=== PATIENT | female | born 1965 | race African-American/Black ===

== ENCOUNTER 2017-11-17 00:59 | Inpatient (IN) | payer OTHER ==
[~2017-11-17] VITALS: Ht 160 cm; Wt 107.7 kg
--- NOTE | 2017-11-17 01:29 | ED CARDIAC/CP/PALPITATIONS ---
History of Present Illness General Chief Complaint: Chest Pain Stated Complaint: PT C/O CHEST PAIN CARDIAC HX Source: patient, family Exam Limitations: no limitations Vital Signs & Intake/Output Vital Signs & Intake/Output Vital Signs Date Time Temp Pulse Resp B/P B/P Pulse O2 O2 Flow FiO2 Mean Ox Delivery Rate 11/17 205 84 18 116/56 96 Nasal 2.0L Cannula 11/17 020 110 112/48 11/17 0145 98.4 160 20 180/60 11/17 0136 160 20 180/60 94 Room Air 11/17 0129 95 Room Air 11/17 0124 98.4 181 20 95 Room Air Allergies Coded Allergies: No Known Allergies (11/17/17) Reconcile Medications Hydrochlorothiazide 25 MG TABLET 1 TAB PO DAILY HTN (Reported) Metoprolol Tartrate (Lopressor) 50 MG TABLET 1 TAB PO BID HEART (Reported) Metoprolol Tartrate (Lopressor) 50 MG TABLET 1.5 TAB PO BID blood pressure/ rate control 75 mg twice a day Triage Nurses Notes Reviewed? yes Onset: Gradual Duration: hour(s): Timing: recent history Location: central Radiation: no radiation Activities at Onset: none Aspirin Today: no aspirin today Associated Symptoms: chest pain and palpitations HPI: 52 yo woman h/o atrial fibrillation, was previously on xarelto, presents with chest pressure and palpitations x 2 hours, w/ dizziness. She notes mild dyspnea, no radiating pain, no cough, wheezing, phlegm. She has been taking her medications regularly. Past History Travel History Traveled to [place] past 21 day No Medical History Any Pertinent Medical History? see below for history Cardiovascular: AFIB, hypertension Surgical History Surgical History: none Family History Hx Contributory? No Review of Systems Review of Systems Constitutional: Reports: no symptoms. EENTM: Reports: no symptoms. Respiratory: Reports: no symptoms. Cardiovascular: Reports: no symptoms. GI: Reports: no symptoms. Genitourinary: Reports: no symptoms. Musculoskeletal: Reports: no symptoms. Skin: Reports: no symptoms. Neurological/Psychological: Reports: no symptoms. Hematologic/Endocrine: Reports: no symptoms. Immunologic/Allergic: Reports: no symptoms. All Other Systems: Reviewed and Negative Physical Exam Physical Exam General Appearance: well developed/nourished, mild distress Head: atraumatic, normal appearance Eyes: Bilateral: normal appearance. Ears, Nose, Throat: normal pharynx, normal ENT inspection Neck: normal inspection, supple, full range of motion Respiratory: normal breath sounds, chest non-tender, no respiratory distress, quiet respiration, lungs clear Cardiovascular: tachycardic, regularly irregular Gastrointestinal: normal bowel sounds, soft, non-tender Back: normal inspection, normal range of motion, vertebral tenderness Extremities: normal inspection, normal capillary refill, normal range of motion, no edema Neurologic/Psych: no motor/sensory deficits, awake, alert, oriented x 3 Skin: intact, normal color, warm/dry Core Measures ACS in differential dx? Yes No ASA d/t asa given CVA/TIA Diagnosis No Sepsis Present: No Sepsis Focused Exam Completed? No Progress Differential Diagnosis: AMI, afib w/ rvr Plan of Care: Orders Procedure Date/time Status TROPONIN LEVEL 11/17 0407 Complete EKG 11/17 0407 Active EKG 11/17 0202 Active THYROID STIMULATING HORMONE 11/17 0130 Complete TROPONIN LEVEL 11/17 0101 Complete LIPASE 11/17 0101 Complete HEPATIC FUNCTION PANEL 11/17 0101 Complete D-DIMER 11/17 0101 Complete CBC WITHOUT DIFFERENTIAL 11/17 0101 Complete BASIC METABOLIC PANEL 11/17 0101 Complete AMYLASE 11/17 0101 Complete EKG 11/17 0101 Active Current Medications Sig/Ceasar Start time Last Medication Dose Stop Time Status Admin Heparin Sodium 25,000 UNIT Q24H 11/17 0530 UNVr (Porcine) (Heparin) Sodium Chloride 500 ML Aspirin 325 MG ONCE ONE 11/17 0500 UNVr (Aspirin) 11/17 0501 Diltiazem HCl 125 MG Q24H 11/17 0230 AC 11/17 (Cardizem DRIP) 0329 Sodium Chloride 100 ML (Normal Saline 0.9%) Laboratory Tests 11/17/17 0414: Troponin I 0.21 *H 11/17/17 0134: TSH Cancelled 11/17/17 0130: Anion Gap 15, Estimated GFR 58 L, BUN/Creatinine Ratio 20.0, Glucose 129 H, Calcium 9.8, Total Bilirubin 0.1 L, Direct Bilirubin 0.1, AST 45 H, ALT 45, Alkaline Phosphatase 58, Troponin I 0.02, Total Protein 8.2, Albumin 4.3, Amylase 88, Lipase 148, TSH 6.490 H, D-Dimer High Sensitivty < 200, CBC w Diff NO MAN DIFF REQ, RBC 4.70, MCV 78.7 L, MCH 25.6 L, MCHC 32.5 L, RDW 15.6 H, MPV 7.6, Gran % 61.4, Lymphocytes % 27.2, Monocytes % 8.2, Eosinophils % 3.0, Basophils % 0.2, Absolute Granulocytes 7.4 H, Absolute Lymphocytes 3.3, Absolute Monocytes 1.0 H, Absolute Eosinophils 0.4, Absolute Basophils 0 Diagnostic Imaging: Viewed by Me: Radiology Read. Discussed w/RAD: Radiology Read. CXR Impression: PATIENT: TIMA SOTO PRESENT AGE: 52 PATIENT ACCOUNT NO: [id number] : 66 LOCATION: [facility] ORDERING PHYSICIAN: Rubens Mills MD SERVICE DATE: 11/17/17 EXAM TYPE: RAD - XRY- PORTABLE CHEST XRAY EXAMINATION: XR PORTABLE CHEST CLINICAL INFORMATION: Chest pain COMPARISON: 08/19/2017 TECHNIQUE: Portable frontal view of the chest was obtained. FINDINGS: Lung volumes are symmetric. No focal consolidation is seen, though assessment of the lung bases is partially limited due to overlying soft tissue density. No evidence of pneumothorax, pleural effusion, or pulmonary edema. The cardiomediastinal contour is unremarkable. No acute osseous findings are seen. IMPRESSION: No acute cardiopulmonary findings. DICTATED BY: Javi Dawn MD DATE/TIME DICTATED:11/17/17248 DATABASE MARKETING ANALYST:AVA DATE/TIME TRANSCRIBED:11/17/17248 CONFIDENTIAL, DO NOT COPY WITHOUT APPROPRIATE AUTHORIZATION. <Electronically signed in Other Vendor System> SIGNED BY: Javi Dawn MD 11/17/17 0254 Initial ED EKG: afib w/ rvr Repeat EKG: changed Comments: 11/17/17, 2:11am... follow up ekg, nsr, 80's, borderline prolonged qtc. 11/17/17, 4:32am... ekg, nsr, no acute changes. Departure Departure Disposition: STILL A PATIENT Condition: Stable Clinical Impression Primary Impression: Atrial fibrillation with RVR Secondary Impressions: Elevated troponin I level Referrals: Mayuri Messina MD (PCP/Family) Departure Forms: Customer Survey General Discharge Information Prescriptions: Current Visit Scripts Metoprolol Tartrate (Lopressor) 1.5 TAB PO BID #90 TAB Ref 1 75 mg twice a day Comments 11/17/17, 4:07AM... discussed with dr. law..... pt easily cardioverted with minimal intervention... will check trop/ekg #2... and give lopressor 50mg po x 1.... if stable, pt safe for discharge. 11/17/17, 4:30am... discussed +troponin with dr. law... pt to go to telemetry... pt to be admitted to hospitalist. Admission Note [facility] Documentation of Exam: Documentation of any treatments & extenuating circumstances including Concerns Regarding Discharge (functional status, medication knowledge or non-compliance, living conditions, etc.) that warrant an admission rather than observation: pt with +troponin, likely supply demand... pt merits serial trops, cards eval in AM. Critical Care Note Critical Care Note Critical Care Time: 30-74 min
[2017-11-17] MEDS ORDERED: HYDROCHLOROTHIA25 M1 PO (01:42)
[2017-11-17] MEDS ORDERED: LOPRESSOR50 M1 PO ×2 (01:43→04:16)
[2017-11-17 01:45] LABS: ABSOLUTE BASOPHIL COUNT 0 /CUMM (0.0-0.2); ABSOLUTE EOSINOPHIL COUNT 0.4 /CUMM (0.0-0.7); ABSOLUTE GRANULOCYTE CT 7.4 /CUMM (1.4-6.5); ABSOLUTE LYMPH COUNT 3.3 /CUMM (1.2-3.4); BASOPHIL % 0.2 % (0.0-2.0); GRANULOCYTE % 61.4 % (42.2-75.2); MEAN CORPUSCULAR HGB 25.6 PG (27.0-31.0); MEAN CORPUSCULAR HGB CONC 32.5 G/DL (33.0-37.0); MEAN CORPUSCULAR VOLUME 78.7 FL (81.0-99.0); MEAN PLATELET VOLUME 7.6 FL (7.4-10.4); PLATELET COUNT 352 /CUMM (130-400); RBC DISTRIBUTION WIDTH 15.6 % (11.5-14.5); WHITE BLOOD CELL COUNT 12.1 /CUMM (4.8-10.8)
--- NOTE | 2017-11-17 02:54 | RADIOLOGY REPORT ---
EXAMINATION: XR PORTABLE CHEST CLINICAL INFORMATION: Chest pain COMPARISON: 08/19/2017 TECHNIQUE: Portable frontal view of the chest was obtained. FINDINGS: Lung volumes are symmetric. No focal consolidation is seen, though assessment of the lung bases is partially limited due to overlying soft tissue density. No evidence of pneumothorax, pleural effusion, or pulmonary edema. The cardiomediastinal contour is unremarkable. No acute osseous findings are seen. IMPRESSION: No acute cardiopulmonary findings.
--- NOTE | 2017-11-17 08:00 | History & Physical ---
Melissa Inman 11/17/17 0800: General Information and HPI MD Statement: I have seen and personally examined TIMA SOTO and documented this H&P. The patient is a 52 year old F who presented with a patient stated chief complaint of [chest pain]. Source of Information: patient, family, old records Exam Limitations: no limitations History of Present Illness: This is a 52 years old AA, morbidly obese woaman w/ compliacted PMH presented at the ED complainig of chest tightness. Mrs. Soto has PMH is significant for remote Hx of Hodgkin lymphoma s/p chemo and chest wall readitaion ( cured; about 23 years ago); HTN, severe JASON on CPAP, paroxyxsma A. Fib s/p electrocardioversion last year at [facility] ( temporarily only on rate control medication). She follows up with Dr. Toni Payne MD. Last visit was about a month ago and according to her Dr. Muñoz when they discuss nuclear stree test in close future. Apart frrom that, as part of her normal follow up she had an Echocardigram done in which showed HFpEF and mild-mod AR and mild and MS. She lives with her and kids. Not very active, but recently she got a gym membership and started exercising ( she walks 30 minutes with SOB, fatigue, nor CP). Last night, after finishing her CPAP treatment, while sitting on the couch patient experienced a retrosternal, presure-type CP, coupled with numbness of her left arm and irregualr heart beats. Her BP at that time at home was around 80 mmHg SBP and she had dizziness but denies any SOB, diaphoresis, LOC, weakness. The chest pressure was worsened upon exertion and she could not make it to the kitchen due to pressure ( few meters), not positional, no change with use of arms/chest wall massage. She came to the ED earlier this am after having persisted Chest heaviness. In triage she was found to be in A.FIb w/ RVR. patient was given metoprolol 75 mg. Initial trops was 0.02 and the repeat lvl showed x10 increase to 0.2 and patient was heparinized and loaded with ASA and admitted to telemetry. ROS: negative except for all above Allergies/Medications Allergies: Coded Allergies: No Known Allergies (11/17/17) Home Med list Hydrochlorothiazide 25 MG TABLET 1 TAB PO DAILY HTN (Reported) Metoprolol Tartrate (Lopressor) 50 MG TABLET 1 TAB PO BID HEART (Reported) Compliance With Home Meds: GOOD Past History Travel History Traveled to [place] past 21 day No Medical History Neurological: NONE EENT: NONE Cardiovascular: AFIB, hypertension Respiratory: obstructive sleep apnea Gastrointestinal: NONE Hepatic: NONE Renal: NONE Musculoskeletal: NONE Psychiatric: NONE Endocrine: obesity Blood Disorders: NONE Cancer(s): hodgkins lymphoma CONSERVATION OF RESOURCES COMMISSIONER/Reproductive: NONE Surgical History Surgical History: none Past Family/Social History Psychosocial History Where do you live? Home Who Do You Live With? spouse, child Primary Language: French Smoking Status: Never Smoked ETOH Use: denies use Illicit Drug Use: denies illicit drug use Living Will? no Power of Circular Clerk/HCP? yes () Name of POA/HCP: Functional Ability ADLs Independent: dressing, eating, toileting, bathing. Ambulation: independent IADLs Independent: shopping, housework, finances, food prep, telephone, transportation , medication admin. Review of Systems Review of Systems Constitutional: Denies: chills, diaphoresis, fever, malaise, weakness, unexplained weight loss. Cardiovascular: Reports: chest pain, palpitations. Denies: edema, orthopena, peripheral edema, syncope. Respiratory: Reports: cough. Denies: orthopnea, short of breath, sputum production, stridor, wheezing. GI: Reports: no symptoms. Genitourinary: Reports: no symptoms. Neurological/Psychological: Reports: no symptoms. All Other Systems: Reviewed and Negative Exam & Diagnostic Data Last 24 Hrs of Vital Signs/I&O Vital Signs Date Time Temp Pulse Resp B/P B/P Pulse O2 O2 Flow FiO2 Mean Ox Delivery Rate 11/17 0656 96.7 66 20 115/58 94 Room Air 11/17 0206 84 18 116/56 96 Nasal 2.0L Cannula 11/17 0200 110 112/48 11/17 0145 98.4 160 20 180/60 11/17 0136 160 20 180/60 94 Room Air 11/17 0129 95 Room Air 11/17 0124 98.4 181 20 95 Room Air Intake & Output 11/17 1600 11/17 0800 11/17 0000 Intake Total Output Total Balance Patient 234 lb Weight Weight Standing Scale Measurement Method Physical Exam General Appearance Alert, Oriented X3, Cooperative, No Acute Distress Skin No Rashes, No Breakdown, No Significant Lesion HEENT PERRLA, EOMI Neck No JVD, No thryomegaly Lymphatic Axillary nl, Cervical nl Cardiovascular Normal S1, Normal S2, No Murmurs, midsystolic ejection murmur RUSB Lungs Clear to Auscultation, Normal Air Movement Abdomen Normal Bowel Sounds, Soft Neurological Normal Speech, Strength at 5/5 X4 Ext Extremities No Edema Last 24 Hrs of Labs/Manoj: Laboratory Tests 11/17/17 0414: Troponin I 0.21 *H 11/17/17 0134: TSH Cancelled 11/17/17 0130: Anion Gap 15, Estimated GFR 58 L, BUN/Creatinine Ratio 20.0, Glucose 129 H, Calcium 9.8, Total Bilirubin 0.1 L, Direct Bilirubin 0.1, AST 45 H, ALT 45, Alkaline Phosphatase 58, Troponin I 0.02, Total Protein 8.2, Albumin 4.3, Amylase 88, Lipase 148, TSH 6.490 H, D-Dimer High Sensitivty < 200, CBC w Diff NO MAN DIFF REQ, RBC 4.70, MCV 78.7 L, MCH 25.6 L, MCHC 32.5 L, RDW 15.6 H, MPV 7.6, Gran % 61.4, Lymphocytes % 27.2, Monocytes % 8.2, Eosinophils % 3.0, Basophils % 0.2, Absolute Granulocytes 7.4 H, Absolute Lymphocytes 3.3, Absolute Monocytes 1.0 H, Absolute Eosinophils 0.4, Absolute Basophils 0 Diagnostic Data EKG Results previous: q wave in leads II,III,aVf,V4-V6, LVH by voltage, NAD this am: Afib RVR 171 b/min last: NSRR, no acute ST, T wave change CXR Results no pathology Assessment/Plan Assessment: This is a 52 years old woman who was admitted for type two AZ/atypical chest pain. pertinent data: CBC: WBC 12.1 no left shift, 12/37, Na 142, K 3.7 and BUN 20 and Cr 1 DD: negative < 200 trop: 0.02 -->0.21 Echo 2017: Mild to moderate concentric left ventricular hypertrophy. Normal left ventricular ejection fraction visually estimated at 60- 65 %. No obvious regional wall motion abnormalities. Abnormal relaxation filling pattern of the left ventricle for age (stage 1 diastolic dysfunction). Left atrial size at the upper limits of normal. Mild to moderate thickening/calcification of the mitral valve leaflets. Mild mitral stenosis. Mild mitral regurgitation. Focal thickening of the aortic valve cusps. Mild aortic stenosis. [id number] aortic regurgitation. Unable to estimate the right ventricular systolic pressure List of active problems: #1 chest pain w/ Hx of CAD and old AZ in EKG and HFpEF: cardiac ( AZ, atypical CP, pericarditis ) vascular (PE Vs aortic dissection) mechanical ( chest wall trauma) pulm ( pneumonia, spontaneous pneumo) GI ( GERD) discussion: Patient does not have any symptom, sign, or point in her HPI for pericarditis, or recent immobility for PE ( low wells score), or thrauma. No Hx of GERD. DD was also neagative. CXR r/o gross pulmunary causes. Her EKG does not show any acute ischemic changes, however she has evidence of prior AZ (CAD) that increases her chances of ischemic heart disease. She presented with a picture of atypical chest pain in a middle age AA woman with 50 % pretest probability for CAD. However, in the setting of tachycardia ( stress) patient had elevation in cardiac markers which further raise the existing concern for CAD. Considering her baseline EKG abnormalities and pretest probability the best way to proceed for now is to obtain a nuclear stress test. For her atypical chest pain. At this time I think that she had type II AZ in setting of tachycardia. She received ASA and is on heparin drip. The only thing that I may do is to add high intensity statin. Trend Trops. and continue cardizem drip to control the HR < 70 b/min. #2 Hx of P. Afib s/p cardioversion with [id number] ( 3.2% /years) and sleep apnea ( independent risk of stroke) : currently not on AC ( insurance issues). the issue needs to be adressed. #3 HTN- currently stable #4 Valvulopathy and aortic root dilation- mild and moderate AR and aortic root dilation of 2.4 cm #5 JASON on CPAP Plan * admit to telemetry for continous cardiac monitoring * continoue A/C- heparin drip * continue cardizem drip- rate controlled plan to titrate down and restart her metoprolol * HFpEF- stable * HTN- continue HCTZ * start atorvastatin 40 mg daily * ASA 81 mg daily * discuss AC plan upon discharge * obtain pharmalogical nuclear stress test * Dr. Osorio is covering for Dr. Muñoz * House keeping orders * pain pathway FC Heparin drip alps As Ranked By This Provider Problem List: 1. Elevated troponin I level 2. Atrial fibrillation with RVR Core Measures/Misc (05/31) Acute Coronary Syndrome ACS Diagnosis: Yes Last Known EF % 60 Congestive Heart Failure Congestive Heart Failure Diagnosis Yes Last Known EF % 60 Cerebrovascular Accident CVA/TIA Diagnosis: No VTE (View Protocol) VTE Risk Factors Obesity No Mechanical VTE Prophylaxis d/t N/A MechProphylax Ordered No VTE Pharm Prophylaxis d/t NA PharmProphylax ordered Sepsis (View protocol) Sepsis Present: No Resident Review Statement Resident Statement: examined this patient, discussed with application internship, agreed with application internship, discussed with family, reviewed EMR data (avail), discussed with nursing , discussed with case mgmt, reviewed images, amended to note Tiny Ohara MD 11/17/17 1600: Attending MD Review Statement Attending Statement Attending MD Statement: examined this patient, discuss w/resident/PA/CREW LEADER/CONTROL ROOM OPERATOR, agreed w/resident/PA/CREW LEADER/CONTROL ROOM OPERATOR, discussed with family, reviewed EMR data (avail), discussed with nursing, amended to note Attending Assessment/Plan: Patient is a 52-year-old female with history of obstructive sleep apnea who presented to the emergency room with complaints of left-sided chest pain radiating down the left arm region been going on for a few hours prior to presentation. Images show she was found to be in atrial fibrillation with rapid ventricular response upset about Cardizem infusion. Chest has converted back to normal sinus rhythm. Chest pain has resolved. First cardiac enzyme was negative however second and third set of cardiac enzymes are trending upwards. EKG shows normal sinus rhythm with no significant ischemic changes noted. She is afebrile hemodynamically stable. She is currently symptom-free. On examination she is not in any respiratory or painful distress. Pupils are equal and reactive. She has no jugular venous distention. Heart sounds are regular with a to assist systolic normal. Lungs are clear to auscultation bilaterally. Abdomen soft and nontender. She has trace bilateral peripheral edema in the lower extremities. Left forearm is swollen following infiltration of an intravenous line. Problems: 1. Non-ST elevation myocardial infarction. 2. Paroxysmal atrial fibrillation 3. Obstructive sleep apnea Plan: -Admit to the inpatient general medical service. -Patient will require telemetry monitoring, echocardiogram and serial EKGs. -Follow-up recommendations of the cardiology service. -In view of her rising cardiac enzymes she will likely require cardiac catheterization. Follow-up with the cardiology service. -Continue heparin infusion per protocol. -Continue patient on aspirin. Follow the cardiology service regarding loading patient with Plavix. -Cardizem infusion has been discontinued since patient has converted back to normal sinus rhythm. Follow-up with the cardiology service regarding maintaining patient on beta maite therapy.
[2017-11-17 11:58] LABS: PTT 29 SEC (25-37)
--- NOTE | 2017-11-17 15:20 | Cons- Cardiology ---
General Information and HPI Consulting Request Date of Consult: 11/17/17 Requested By: Tiny Ohara MD Reason for Consult: Positive troponin, atrial fibrillation History of Present Illness: Patient is a 52-year-old female with history of paroxysmal atrial fibrillation, lymphoma, hypertension, Hodgkin's lymphoma status post chemotherapy and radiation 23 years ago. She is followed in the office by Dr. Muñoz. She presents chest discomfort. Last night she developed substernal chest pressure. She presented to the emergency department where she was found to be in atrial flutter. Soon after her arrival in the emergency department, she converted to normal sinus rhythm. Her chest discomfort resolved with her rhythm converted to sinus, and she has not had further chest discomfort since then. She atrial fibrillation requiring cardioversion, and she notes that the discomfort was similar at that time. She has occasional episodes of similar symptoms which last for up to 30 minutes per episode. No syncope. No orthopnea. No lightheadedness or dizziness. No nausea or vomiting. No diaphoresis. Allergies/Medications Allergies: Coded Allergies: No Known Allergies (11/17/17) Home Med List: Hydrochlorothiazide 25 MG TABLET 1 TAB PO DAILY HTN (Reported) Metoprolol Tartrate (Lopressor) 50 MG TABLET 1 TAB PO BID HEART (Reported) Current Medications: Current Medications Sig/Ceasar Start time Last Medication Dose Route Stop Time Status Admin Acetaminophen 650 MG Q6P PRN 11/17 1030 AC PO Aspirin 0 .STK-MED ONE 11/17 0522 DC PO Aspirin 325 MG ONCE ONE 11/17 0500 DC / PO / 0501 0524 Aspirin Buffered 81 MG DAILY /07 1000 AC PO Atorvastatin Calcium 40 MG 1700 / 1700 AC 03/06 PO 1735 Dextrose/Sodium 1,000 ML Q13H 11/17 1030 DC / Chloride IV 1048 Diltiazem HCl 125 MG Q24H 11/17 0230 AC / Sodium Chloride 100 ML IV 0329 Diltiazem HCl 0 .STK-MED ONE 11/17 0145 DC IV Diltiazem HCl 0 .STK-MED ONE 11/17 0145 DC .ROUTE Diltiazem HCl 20 MG ONCE ONE 11/17 0130 DC / IV PUSH 11/17 0131 0145 Diltiazem HCl 125 MG Q8H 11/17 0130 DC 11/17 Sodium Chloride 100 ML IV 0150 Heparin Sodium 0 .STK-MED ONE 11/17 1414 DC (Porcine) .ROUTE Heparin Sodium 25,000 UNIT Q24H 11/17 0530 AC 11/17 (Porcine) IV 0534 Sodium Chloride 500 ML Heparin Sodium 0 .STK-MED ONE 11/17 0200 DC (Porcine) .ROUTE Heparin Sodium 4,000 UNIT ONCE ONE 11/17 0130 DC 11/17 (Porcine) IV 11/17 0131 0210 Heparin Sodium 25,000 UNIT Q24H 11/17 0130 DC 11/17 (Porcine) IV 0210 Sodium Chloride 500 ML Hydrocodone Bitart/ 1 TAB Q6P PRN 11/17 1030 AC Acetaminophen PO Metoprolol Tartrate 0 .STK-MED ONE 11/17 1720 DC PO Metoprolol Tartrate 100 MG Q12H 11/17 1645 AC 11/17 PO 1716 Metoprolol Tartrate 0 .STK-MED ONE 11/17 0422 DC PO Metoprolol Tartrate 75 MG ONCE ONE 11/17 0415 DC 11/17 PO 11/17 0416 0420 Morphine Sulfate 1 MG Q4P PRN 11/17 1030 AC IV Nitroglycerin 0.4 MG Q 5 MINUTES X 3 DO.. 11/17 1030 AC SL Review of Systems Review of Systems: No rash. No tremor. No melena. All other systems were reviewed, and were noted to be negative. 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 Home Who Do You Live With? spouse, child Primary Language: [place] Smoking Status: Never Smoked ETOH Use: denies use Illicit Drug Use: denies illicit drug use Living Will? no Power of Crop Picker/HCP? yes () Name of POA/HCP: Functional Ability ADLs Independent: dressing, eating, toileting, bathing. Ambulation: independent IADLs Independent: shopping, housework, finances, food prep, telephone, transportation , medication admin. Exam & Diagnostic Data Vital Signs and I&O Vital Signs Date Time Temp Pulse Resp B/P B/P Pulse O2 O2 Flow FiO2 Mean Ox Delivery Rate 11/17 1831 97.8 84 18 138/78 95 Room Air 11/17 1716 99.4 91 18 146/78 03/ 1601 99.4 91 18 146/78 93 Room Air 11/17 1122 97.0 77 18 125/66 96 Room Air 11/17 0656 96.7 66 20 115/58 94 Room Air 11/17 0206 84 18 116/56 96 Nasal 2.0L Cannula 11/17 0200 110 112/48 11/17 0145 98.4 160 20 180/60 11/17 0136 160 20 180/60 94 Room Air 11/17 0129 95 Room Air 11/17 0124 98.4 181 20 95 Room Air Intake & Output 11/17 1600 /06 0800 /06 0000 03/ 1600 11/16 0800 11/16 0000 Intake Total Output Total Balance Patient 234 lb Weight Weight Standing Scale Measurement Method Physical Exam: Gen: The patient is in no acute distress HEENT: Normal nose, ears, and oropharynx. Pupils equal bilaterally. Conjunctiva normal. Neck: Supple with no JVD, no masses, and no thyromegaly Lungs: Clear to auscultation with normal respiratory effort Heart: RRR, S1, S2, 2/6 systolic murmur. No peripheral edema, 2+ pulses in the lower extremities bilaterally Abdomen: Soft, nontender, no masses. No hepatomegaly. No splenomegaly Extremities: No clubbing or cyanosis. Normal muscle strength in the upper and lower extremities Skin: Normal skin turgor with no skin ulcers or lesions noted. Neuro: Cranial nerves intact. Sensation intact Psych: Alert and oriented x 3 with appropriate affect Labs/Manoj Results: Laboratory Tests 11/17 11/17 11/17 11/17 11/17 1521 1330 1128 0414 0134 Chemistry Troponin I (< 0.11 ng/ml) 0.47 *H 0.21 *H TSH Cancelled Coagulation APTT (25 - 37 SEC) Cancelled 11/17 0130 Chemistry Sodium (137 - 145 mmol/L) 142 Potassium (3.5 - 5.1 mmol/L) 3.7 Chloride (98 - 107 mmol/L) 102 Carbon Dioxide (22 - 30 mmol/L) 25 Anion Gap (5 - 16) 15 BUN (7 - 17 mg/dL) 20 H Creatinine (0.5 - 1.0 mg/dL) 1.0 Estimated GFR (>60 ml/min) 58 L BUN/Creatinine Ratio (7 - 25 %) 20.0 Glucose (65 - 99 mg/dL) 129 H Calcium (8.4 - 10.2 mg/dL) 9.8 Total Bilirubin (0.2 - 1.3 mg/dL) 0.1 L Direct Bilirubin (< 0.4 mg/dL) 0.1 AST (14 - 36 U/L) 45 H ALT (9 - 52 U/L) 45 Alkaline Phosphatase (<127 U/L) 58 Troponin I (< 0.11 ng/ml) 0.02 Total Protein (6.3 - 8.2 g/dL) 8.2 Albumin (3.5 - 5.0 g/dL) 4.3 Amylase (30 - 110 U/L) 88 Lipase (23 - 300 U/L) 148 TSH (0.270 - 4.200 uIU/mL) 6.490 H Coagulation D-Dimer High Sensitivty (0 - 243 ng/ml) < 200 Hematology CBC w Diff NO MAN DIFF REQ WBC (4.8 - 10.8 /CUMM) 12.1 H RBC (4.20 - 5.40 /CUMM) 4.70 Hgb (12.0 - 16.0 G/DL) 12.0 Hct (37 - 47 %) 37.0 MCV (81.0 - 99.0 FL) 78.7 L MCH (27.0 - 31.0 PG) 25.6 L MCHC (33.0 - 37.0 G/DL) 32.5 L RDW (11.5 - 14.5 %) 15.6 H Plt Count (130 - 400 /CUMM) 352 MPV (7.4 - 10.4 FL) 7.6 Gran % (42.2 - 75.2 %) 61.4 Lymphocytes % (20.5 - 51.1 %) 27.2 Monocytes % (1.7 - 9.3 %) 8.2 Eosinophils % (0 - 5 %) 3.0 Basophils % (0.0 - 2.0 %) 0.2 Absolute Granulocytes (1.4 - 6.5 /CUMM) 7.4 H Absolute Lymphocytes (1.2 - 3.4 /CUMM) 3.3 Absolute Monocytes (0.10 - 0.60 /CUMM) 1.0 H Absolute Eosinophils (0.0 - 0.7 /CUMM) 0.4 Absolute Basophils (0.0 - 0.2 /CUMM) 0 Diagnostic Data EKG Results EKG tracings are reviewed. EKG from 0120 reveals atrial fibrillation with ventricular rate of 171, ST depression likely rate related EKG from 1330 reveals NSR at 86, LAE, inferior infarct age undet, inferior infarct, age undet CXR Results No acute cardiopulmonary findings. Other Results Echocardiogram 09/01/17: Mild to moderate concentric left ventricular hypertrophy. Normal left ventricular ejection fraction visually estimated at 60- 65 %. No obvious regional wall motion abnormalities. Abnormal relaxation filling pattern of the left ventricle for age (stage 1 diastolic dysfunction). Left atrial size at the upper limits of normal. Mild to moderate thickening/calcification of the mitral valve leaflets. Mild mitral stenosis. Mild mitral regurgitation. Focal thickening of the aortic valve cusps. Mild aortic stenosis. Axob-ga-kyvvnflm aortic regurgitation. Unable to estimate the right ventricular systolic pressure. Assessment/Plan Assessment/Plan The patient is a 52-year-old female with history of paroxysmal atrial fibrillation status post cardioversion one year ago, obstructive sleep apnea, mild aortic stenosis, and mild to moderate aortic regurgitation presenting with chest discomfort, found to be in atrial fibrillation with very rapid ventricular rate. The symptoms resolved completely when she converted to sinus rhythm. She is noted to have positive troponin, increasing to 0.47 on the third sample. The direct correlation of symptoms with rapid atrial fibrillation suggests likely type II myocardial infarction precipitated by a rapid heart rate. Recommendations: * Monitor on telemetry for further atrial fibrillation * Increase metoprolol to 100 mg p.o. twice daily * Wean off diltiazem drip * Continue IV heparin, plan to change to NOAC prior to discharge * The patient has further chest pain, or if the troponin level is higher, then Brilinta should be started * Echocardiogram * N.p.o. after midnight * Cardiac catheterization versus Persantine sestamibi stress test tomorrow depending on clinical course overnight Consult Acknowledgment - Thank you for your consult request.
[2017-11-17 18:31] VITALS: BP 138/78
[2017-11-17 19:15] LABS: PTT 58 SEC (25-37)
[2017-11-17 22:11] VITALS: BP 122/70
[2017-11-18 02:41] LABS: PTT 98 SEC (25-37)
[2017-11-18 07:18] VITALS: BP 134/78
--- NOTE | 2017-11-18 07:31 | PN- Housestaff ---
Chidi DUNN,[facility] 11/18/17 0730: Subjective Follow-up For: Chest pain Elevated troponins A. fib with rapid ventricular rate Complaints: nasal congestion Tele-Events Since Last Visit: Sinus bradycardia and sinus rhythm. Heart rate 44-91 bpm. Few PVCs. Subjective: Ms. Luna has no complaints this morning other than slight nasal congestion which is chronic for her. She denies chest pain, palpitations, shortness of breath, lightheadedness, orthopnea or leg swelling. She denies fevers or chills. Review of Systems Constitutional: Denies: chills, fever, malaise. EENTM: Reports: nasal congestion. Denies: double vision, nasal pain. Objective Last 24 Hrs of Vital Signs/I&O Vital Signs Date Time Temp Pulse Resp B/P B/P Pulse O2 O2 Flow FiO2 Mean Ox Delivery Rate 11/18 07 98.2 90 18 134/78 93 Room Air / 0645 90 134/78 03/ 2211 98.2 84 16 122/70 94 Room Air 11/17 1831 97.8 84 18 138/78 95 Room Air / 1716 99.4 91 18 146/78 03/06 1601 99.4 91 18 146/78 93 Room Air Intake & Output 11/18 1600 /07 0800 03/ 0000 Intake Total 360 390 Output Total Balance 360 390 Intake, IV 240 90 Intake, Oral 120 300 Patient 237 lb Weight Weight Bed scale Measurement Method Physical Exam General Appearance: Alert, Oriented X3, Cooperative, No Acute Distress Skin: No Rashes Skin Temp/Moisture Exam: Warm/Dry Sepsis Skin Exam (color): Normal for Ethnicity HEENT: Atraumatic, PERRLA, EOMI, Mucous Membr. moist/pink Neck: Supple, No JVD, No thryomegaly Lymphatic: Cervical nl Cardiovascular: Regular Rate, Normal S1, Normal S2, 2/6 pansystolic murmur in aortic region Lungs: Clear to Auscultation, Normal Air Movement Abdomen: Normal Bowel Sounds, Soft, No Tenderness, No Hepatospenomegaly, No Masses Neurological: Normal Speech, Normal Tone, Cranial Nerves 3-12 NL Extremities: No Edema, Normal Pulses Current Medications: Current Medications Sig/Ceasar Start time Last Medication Dose Route Stop Time Status Admin Acetaminophen 650 MG Q6P PRN 11/17 1030 AC PO Apixaban 5 MG BID 11/18 1015 AC 11/18 PO 1227 Aspirin Buffered 81 MG DAILY 11/18 1000 AC 11/18 PO 0822 Atorvastatin Calcium 40 MG 1700 11/17 1700 AC 11/17 PO 1735 Diltiazem HCl 125 MG Q24H 11/17 0230 DC 11/17 Sodium Chloride 100 ML IV 0329 Heparin Sodium 0 .STK-MED ONE 11/17 1414 DC (Porcine) .ROUTE Heparin Sodium 25,000 UNIT Q24H 11/17 0530 DC 11/18 (Porcine) IV 11/18 1300 0415 Sodium Chloride 500 ML Hydrocodone Bitart/ 1 TAB Q6P PRN 11/17 1030 AC Acetaminophen PO Influenza Virus 0.5 ML ONCE ONE 11/17 1930 DC 11/18 Vaccine IM 11/17 1931 0821 Metoprolol Tartrate 0 .STK-MED ONE 11/17 1720 DC PO Metoprolol Tartrate 100 MG Q12H 11/17 1645 AC 11/18 PO 0645 Morphine Sulfate 1 MG Q4P PRN 11/17 1030 AC IV Nitroglycerin 0.4 MG Q 5 MINUTES X 3 DO.. 11/17 1030 AC SL Patient Medication 1 ED ONE ONE 11/18 1145 DC Teaching ED 11/18 1146 Polyethylene Glycol 17 GM ONCE ONE 11/18 1030 DC PO 11/18 1031 Senna/Docusate Sodium 1 TAB BID 11/18 1215 AC PO Sodium Chloride 2 SPRAY Q4P PRN 11/18 1030 AC WAYNE Last 24 Hrs of Lab/Manoj Results Last 24 Hrs of Labs/Mics: Laboratory Tests 11/18/17 0700: APTT Cancelled 11/18/17 0700: PT 11.7, INR 1.07, APTT 81 H, CBC w Diff NO MAN DIFF REQ, RBC 4.47, MCV 78.3 L , MCH 25.7 L, MCHC 32.8 L, RDW 15.6 H, MPV 8.1, Gran % 56.5, Lymphocytes % 33.0, Monocytes % 7.5, Eosinophils % 2.6, Basophils % 0.4, Absolute Granulocytes 5.7, Absolute Lymphocytes 3.3, Absolute Monocytes 0.8 H, Absolute Eosinophils 0.3, Absolute Basophils 0 11/18/17 0200: APTT 98 H 11/17/17 1845: Troponin I 0.36 *H, APTT 58 H 11/17/17 1521: APTT Cancelled Assessment/Plan Assessment: The patient is a 52-year-old woman with a past medical history of Hodgkin lymphoma s/p chemo and chest wall readitaion ( cured; about 23 years ago); HTN, severe JASON on CPAP, paroxyxsma A. Fib s/p electrocardioversion last year at [facility] (temporarily only on rate control medication). She presented with sudden onset of chest heaviness, dizziness and left arm numbness was found to be in atrial fibrillation with rapid ventricular rate yesterday. In the emergency room she was given IV metoprolol 75 mg and sublingual nitroglycerin with loading dose aspirin and intravenous Cardizem drip as well as a heparin drip for anticoagulation. She subsequently converted to normal sinus rhythm and her symptoms also resolved and she has been free from chest pain. She did have elevated troponins that peaked at 0.49 with no EKG changes that likely represented demand ischemia. She has been reviewed by cardiology. Chest x-ray showed no acute findings and echocardiogram done showed no wall motion abnormalities with a normal ejection fraction greater than 60% in stage II diastolic dysfunction with mild to moderate aortic regurgitation, mild aortic stenosis, mild metallic regurgitation and mild left atrial dilatation. As the patient's symptoms have resolved with rate control and she had a flat troponin cough with no EKG changes, cardiology assessed and recommended an outpatient stress test. 1. Chest pain in the setting of atrial fibrillation with rapid ventricular rate now resolved * Patient's heart rate has been in acceptable limits overnight * Chest pain resolved with rate control * Continue by mouth metoprolol 100 mg twice a day * Follow-up with cardiology for outpatient stress test * Patient will be discharged to continue anticoagulation with Eliquis #2 HTN * Blood Pressure is in acceptable limits * Continue by mouth metoprolol, and by mouth hydrochlorothiazide on discharge #3. Obstructive sleep apnea on CPAP * Continue CPAP therapy #4 Anemia * Patient has a mild microcytic anemia * She is postmenopausal and has not had a colonoscopy. She was counseled to do so on discharge * We'll repeat CBC and if stable can be discharged today 5. DVT prophylaxis * IV heparin drip and transitioned to by mouth Eliquis 6. CODE STATUS: Full code Problem List: 1. Atrial fibrillation with RVR 2. Elevated troponin I level Pain Ratin Pain Location: None Pain Goal: Pain 4 or less Pain Plan: Tylenol as needed Tomorrow's Labs & Rationales: None needed Gopi Ohara MDclirasema 11/18/17 1532: Attending MD Review Statement Attending Statement Attending MD Statement: examined this patient, discuss w/resident/PA/SHIPS EQUIPMENT ENGINEER, agreed w/resident/PA/SHIPS EQUIPMENT ENGINEER, discussed with family, reviewed EMR data (avail), discussed with nursing, amended to note Attending Assessment/Plan: Patient seen and examined. Resting comfortably not in any acute distress. No issues overnight. She remained in sinus rhythm overnight. Case discussed with cardiology service. Due to very slight elevation of her troponin she does not need to remain in the hospital for further cardiac testing. Recommendations are for patient to follow-up in the outpatient setting for scheduling of his stress test. She will be discharged on beta-maite therapy. She will also be provided with anticoagulation therapy. Patient was noted to have a slight drop in her hemoglobin level overnight. Stool guaiac was unable to be performed as patient could not move her bowels. She was given Dulcolax suppository with no improvement. Hemoglobin level was repeated and found to be stable. Patient afterwards did request for medications to help with her constipation. She is medically stable to be discharged today. She has been advised to follow-up with the cardiology service of Dr. Osorio in the outpatient setting. Plan of care has been discussed in detail with the patient and her . They both verbalized understanding.
[2017-11-18 08:08] LABS: ABSOLUTE BASOPHIL COUNT 0 /CUMM (0.0-0.2); ABSOLUTE EOSINOPHIL COUNT 0.3 /CUMM (0.0-0.7); ABSOLUTE GRANULOCYTE CT 5.7 /CUMM (1.4-6.5); ABSOLUTE LYMPH COUNT 3.3 /CUMM (1.2-3.4); ABSOLUTE MONOCYTE COUNT 0.8 /CUMM (0.10-0.60); BASOPHIL % 0.4 % (0.0-2.0); EOSINOPHIL % 2.6 % (0-5); GRANULOCYTE % 56.5 % (42.2-75.2); MEAN CORPUSCULAR HGB 25.7 PG (27.0-31.0); MEAN CORPUSCULAR HGB CONC 32.8 G/DL (33.0-37.0); MEAN CORPUSCULAR VOLUME 78.3 FL (81.0-99.0); MEAN PLATELET VOLUME 8.1 FL (7.4-10.4); PLATELET COUNT 336 /CUMM (130-400); RBC DISTRIBUTION WIDTH 15.6 % (11.5-14.5); RED BLOOD CELL CT 4.47 /CUMM (4.20-5.40)
[2017-11-18 08:19] LABS: PT 11.7 SEC (9.4-12.5); PTT 81 SEC (25-37)
--- NOTE | 2017-11-18 08:24 | PN- Cardiology ---
Subjective Subjective: Stable with no evidence of any symptoms or recurrent arrhythmias. Objective Vital Signs and I&Os Vital Signs Date Time Temp Pulse Resp B/P B/P Pulse O2 O2 Flow FiO2 Mean Ox Delivery Rate 11/18 0718 98.2 90 18 134/78 93 Room Air / 0645 90 134/78 / 2211 98.2 84 16 122/70 94 Room Air 11/17 1831 97.8 84 18 138/78 95 Room Air 11/17 1716 99.4 91 18 146/78 03/ 1601 99.4 91 18 146/78 93 Room Air / 1122 97.0 77 18 125/66 96 Room Air Intake & Output 11/18 1600 11/18 0800 11/18 0000 11/17 1600 11/17 0800 11/17 0000 Intake Total 360 390 Output Total Balance 360 390 Intake, IV 240 90 Intake, Oral 120 300 Patient 237 lb 234 lb Weight Weight Bed scale Standing Scale Measurement Method Physical Exam: General Appearance Alert, Oriented X3, Cooperative, No Acute Distress Skin No Rashes, No Breakdown, No Significant Lesion HEENT PERRLA, EOMI Neck No JVD, No thryomegaly Lymphatic Axillary nl, Cervical nl Cardiovascular Normal S1, Normal S2, No Murmurs, 1/6 midsystolic ejection murmur RUSB Lungs Clear to Auscultation and percussion bilaterally Abdomen Normal Bowel Sounds, Soft Neurological Normal Speech /nonfocal Extremities No Edema Current Medications: Current Medications Sig/Ceasar Start time Last Medication Dose Route Stop Time Status Admin Acetaminophen 650 MG Q6P PRN 11/17 1030 AC PO Aspirin Buffered 81 MG DAILY 11/18 1000 AC PO Atorvastatin Calcium 40 MG 1700 / 1700 AC 11/17 PO 1735 Dextrose/Sodium 1,000 ML Q13H 11/17 1030 DC / Chloride IV 1048 Diltiazem HCl 125 MG Q24H / 0230 DC 11/17 Sodium Chloride 100 ML IV 0329 Heparin Sodium 0 .STK-MED ONE 11/17 1414 DC (Porcine) .ROUTE Heparin Sodium 25,000 UNIT Q24H / 0530 AC 11/18 (Porcine) IV 0415 Sodium Chloride 500 ML Hydrocodone Bitart/ 1 TAB Q6P PRN 11/17 1030 AC Acetaminophen PO Influenza Virus 0.5 ML ONCE ONE 11/17 193 DC Vaccine IM 11/17 193 Metoprolol Tartrate 0 .STK-MED ONE 11/17 1720 DC PO Metoprolol Tartrate 100 MG Q12H 11/17 1645 AC 11/18 PO 0645 Morphine Sulfate 1 MG Q4P PRN 11/17 1030 AC IV Nitroglycerin 0.4 MG Q 5 MINUTES X 3 DO.. 11/17 1030 AC SL Results Last 48 Hrs of Labs/Mics: Laboratory Tests 11/18/17 0700: APTT Cancelled 11/18/17 0700: PT Pending, INR Pending, APTT Pending, CBC w Diff Pending, WBC Pending, RBC Pending, Hgb Pending, Hct Pending, MCV Pending, MCH Pending, MCHC Pending, RDW Pending, Plt Count Pending, MPV Pending 11/18/17 0200: APTT 98 H 11/17/17 1845: Troponin I 0.36 *H, APTT 58 H 11/17/17 1521: APTT Cancelled 11/17/17 1330: Troponin I 0.47 *H 11/17/17 1128: APTT 29 11/17/17 0414: Troponin I 0.21 *H 11/17/17 0134: TSH Cancelled 11/17/17 0130: Anion Gap 15, Estimated GFR 58 L, BUN/Creatinine Ratio 20.0, Glucose 129 H, Calcium 9.8, Total Bilirubin 0.1 L, Direct Bilirubin 0.1, AST 45 H, ALT 45, Alkaline Phosphatase 58, Troponin I 0.02, Total Protein 8.2, Albumin 4.3, Amylase 88, Lipase 148, TSH 6.490 H, D-Dimer High Sensitivty < 200, CBC w Diff NO MAN DIFF REQ, RBC 4.70, MCV 78.7 L, MCH 25.6 L, MCHC 32.5 L, RDW 15.6 H, MPV 7.6, Gran % 61.4, Lymphocytes % 27.2, Monocytes % 8.2, Eosinophils % 3.0, Basophils % 0.2, Absolute Granulocytes 7.4 H, Absolute Lymphocytes 3.3, Absolute Monocytes 1.0 H, Absolute Eosinophils 0.4, Absolute Basophils 0 Assessment/Plan Assessment/Plan Assessment: 1. PAF with rapid ventricular rate 2. CHest discomfort syndrome 3. Elevated troponin consistent with Type II IL - troponin peaked at 0.47 Recommendations: - Case discussed with the patient, her and Dr. Taylor. - Echo reviewed. LV function normal. MOderate aortic insufficiency. Mild MR and TR. with no change from prior study. - I would favor ambulating the patient, and , if stable, transition IV heparin to Eliquis 5 BID and discharge home for pharmacologic stress test as outpatient. Continue telemetry? No
[2017-11-18] MEDS ORDERED: METOPROLOL TAR100 M1 PO ×2 (09:21→15:20)
[2017-11-18] MEDS ORDERED: ELIQUIS5 M1 PO ×2 (09:21→15:20)
--- NOTE | 2017-11-18 10:07 | Patient Discharge Instructions ---
Discharge Instructions General Discharge Information You were seen/treated for: Chest pain, atrial fibrillation with rapid heart rate Special Instructions: 1. 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 Follow-up with your primary care provider within one week of discharge. 3. Check a complete blood count blood test on Thursday11/23/17 and send to your primary care provider to check your blood level. 4. Follow up with your primary care provider for your colonoscopy. You were counselled about the importance of this procedure. Diet Continue normal diet: No Recommended Diet: Heart Healthy Activity Full Activity/No Limits: No Activity Self Limited: Yes Acute Coronary Syndrome Inclusion Criteria At DC or during hospital stay patient has or had the following: ACS DIAGNOSIS No Discharge Core Measures Meds if any: Prescribed or Continued at Discharge Meds if any: NOT Prescribed or Continued at Discharge Congestive Heart Failure Inclusion Criteria At DC or during hospital stay patient has or had the following: CHF DIAGNOSIS No Discharge Core Measures Meds if any: Prescribed or Continued at Discharge Meds if any: NOT Prescribed or Continued at Discharge Cerebrovascular accident Inclusion Criteria At DC or during hospital stay patient has or had the following: CVA/TIA Diagnosis No Discharge Core Measures Meds if any: Prescribed or Continued at Discharge Meds if any: NOT Prescribed or Continued at Discharge Venous thromboembolism Inclusion Criteria VTE Diagnosis No VTE Type NONE VTE Confirmed by (Test) NONE Discharge Core Measures - Per Current guidelines, there needs to be overlap - treatment for the first 5 days of Warfarin therapy. - If discharged on Warfarin prior to 5 days of - overlap therapy, the patient will need to be - assessed for post discharge needs including - *Post discharge parental anticoagulation - *Warfarin and/or parental anticoagulation education - *Follow up date to check INR post discharge At least 5 days overlap therapy as Inpatient No Meds if any: Prescribed or Continued at Discharge Note: Overlap Therapy is Warfarin and Anticoagulant Meds if any: NOT Prescribed or Continued at Discharge
--- NOTE | 2017-11-18 10:31 | Discharge Summary ---
Visit Information Visit Dates Admission Date: 11/17/17 Discharge Date: 11/18/17 Hospital Course Course Attending Physician: Tiny Ohara MD Primary Care Physician: Mayuri Messina MD Consulting Request: Consulting Specialty: Cardiology Consulting Physician: Dr. Jo Moise Reason for Consult: Afib with Rapid ventricular rate Hospital Course: The patient is a 52-year-old woman with a past medical history of Hodgkin's lymphoma s/p chemo and chest wall raditaion (cured; about 23 years ago); HTN, severe JASON on CPAP, paroxyxsma A. Fib s/p electrocardioversion in 2017 at [facility] ( temporarily only on rate control medication). She presented with sudden onset of chest heaviness, dizziness and left arm numbness associated with palpitations while she was resting at home the night before presentation. Her chest pain was worsened by activity and persisted until she presented in the director of recruitment about 2 hours later at [facility] emergency department. In the ER she was found to be in atrial fibrillation with rapid ventricular rate of 171 bpmin. She given IV metoprolol 75 mg, 325 mg dose aspirin and intravenous Cardizem drip, and then started on a heparin drip for anticoagulation. She subsequently converted to normal sinus rhythm and her chest pain and palpitation symptoms resolved. She did have elevated troponins that peaked at 0.49 ng/ml with no EKG changes on presentation and it was felt to represent a type II myocardial infarction. Chest x-ray showed no acute findings. She was reviewed by cardiology and an echocardiogram done showed no wall motion abnormalities with a normal ejection fraction greater than 60%, stage II diastolic dysfunction with mild to moderate aortic regurgitation, mild aortic stenosis, mild mitral regurgitation and mild left atrial dilatation. As the patient's symptoms resolved with rate control, and she had a flat troponin curve with no EKG changes and no wall motion abnormalities on echocardiogram, cardiology recommended the patient could be discharged home and an outpatient stress test performed. Her cardizem drip was stopped and she was started on an increased dose of metoprolol 100 mg BID and her heparin drip anticoagulant was changed to PO eliquis 5 mg BID. She remained symptom free while on admission. She had mild anemia while on admission, but her hemoglobin remained stable while on admission. She was discharged home and instructed to check her complete blood count test in 4 days time and to follow up with her primary care provider to arrange a colonoscopy for cancer screening. Allergies: Coded Allergies: No Known Allergies (11/17/17) Disposition Summary Disposition Principal Diagnosis: 1. Atrial fibfillation with rapid ventricular rate 2. Chest pain secondary to type II Myocardial infarction 3. Hypertension Additional Diagnosis: 3. Obstructive sleep apnea on CPAP 4. Anemia Discharge Disposition: home or self care Discharge Instructions General Discharge Information Code Status: Full Code Patient's Diet: Heart healthy diet Patient's Activity: Self-limited activity Follow-Up Instructions/Appts: 1. 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 Muñoz within 1 week of discharge for possible outpatient stress testing 2. Follow-up with your primary care provider within one week of discharge. 3. Check a complete blood count blood test on Thursday11/23/17 and send to your primary care provider to check your blood level. 4. Follow up with your primary care provider for your colonoscopy. You were counselled about the importance of this procedure. Medications at Discharge Discharge Medications: Stop taking the following medications: Metoprolol Tartrate (Lopressor) 50 MG TABLET ORAL TWICE DAILY Continue taking these medications: Hydrochlorothiazide (Hydrochlorothiazide) 25 MG TABLET 1 Tablet ORAL DAILY Comments: NOT GIVEN IN HOSPITAL Start taking the following new medications: Apixaban (Eliquis) 5 MG TABLET 1 Tablet ORAL TWICE DAILY Qty = 60 No Refills Instructions: . Comments: GIVEN 11/18/17 @ 1230 Metoprolol Tartrate (Metoprolol Tartrate) 100 MG TABLET 1 Tablet ORAL TWICE DAILY Qty = 60 No Refills Instructions: . Comments: GIVEN 11/18/17 @ 6372 Copies To: Mayuri DUNN,Roxana Aguilar MD; Jose Luis Muñoz MD, V.; Brandon DUNN, Arvin Cardoso MD Review Statement Documenting Attending: Tiny Ohara MD Other Findings: Discharged in stable condition.
--- NOTE | 2017-11-18 12:06 | ECHOCARDIOGRAM REPORT ---
TIMA SOTO Age: 52 : 1965 Gender: F Exam Date: 11/17/2017 19:01 Exam Location: 1 [address] Ht (in): 63 Wt (lb): 214 BSA: 2.13 BP: 146 / 78 Ordering Physician: Toya Murillo MD Referring Physician: Arvin Taylor MD Technologist: Yandy Zurita ILIANA Room Number: 171 Indications: CHEST PAIN Rhythm: Sinus Technical Quality: Fair FINDINGS Left Ventricle Normal size left ventricle. Mild concentric left ventricular hypertrophy. Normal left ventricular ejection fraction visually estimated at >60%. No obvious regional wall motion abnormalities. "pseudonormal" filling pattern of the left ventricle for age (stage 2 diastolic dysfunction). Right Ventricle Normal right ventricular size and function. Right Atrium Normal right atrial size. Left Atrium Mild left atrial dilatation. Mitral Valve Mitral valve thickened. Mild mitral regurgitation. Aortic Valve Mildly thickened aortic valve. [id number] aortic regurgitation. Mild aortic stenosis. Tricuspid Valve Tricuspid valve not well visualized, grossly normal. Mild tricuspid regurgitation. No evidence of pulmonary hypertension. Pulmonic Valve Pulmonic valve not well visualized, grossly normal. Mild pulmonic regurgitation. Pericardium No pericardial effusion. Great Vessels Normal size aortic root. CONCLUSIONS Normal size left ventricle. Mild concentric left ventricular hypertrophy. Normal left ventricular ejection fraction visually estimated at > 60%. No obvious regional wall motion abnormalities. "pseudonormal" filling pattern of the left ventricle for age (stage 2 diastolic dysfunction). Mild left atrial dilatation. Mild mitral regurgitation. Wkrw-[id number]-egmlsydo aortic regurgitation. Mild aortic stenosis. Mild tricuspid regurgitation. Mild pulmonic regurgitation. Arvin Taylor M.D. (Electronically Signed) Final Date: 18 November 2017 12:05 MEASUREMENTS (Male / Female) Normal Values 2D ECHO LV Diastolic Diameter PLAX 4.5 cm 4.2 - 5.9 / 3.9 - 5.3 cm LV Systolic Diameter PLAX 2.4 cm 2.1 - 4.0 cm LV Fractional Shortening PLAX 46.7 % 25 - 46 % LV Ejection Fraction 2D Teich 78.2 % IVS Diastolic Thickness 1.1 cm LVPW Diastolic Thickness 1.1 cm LV Relative Wall Thickness 0.5 RV Internal Dim ED PLAX 3.1 cm 1.9 - 3.8 cm LVOT Diameter 2.1 cm Aortic Root Diameter 2.4 cm LA Systolic Diameter LX 4.7 cm 3.0 - 4.0 / 2.7 - 3.8 cm LA Volume 45.0 cm 18 - 58 / 22 - 52 cm Ascending Aorta Diameter 2.9 cm DOPPLER AV Peak Velocity 260.0 cm/s AV Peak Gradient 27.0 mmHg AV Mean Velocity 192.0 cm/s AV Mean Gradient 16.0 mmHg AV Velocity Time Integral 52.4 cm AI Deceleration Woodson 331.0 cm/s AI Peak Velocity 456.0 cm/s AI Pressure Half Time 403.0 ms AI Peak Gradient 83.2 mmHg LVOT Peak Velocity 116.0 cm/s LVOT Peak Gradient 5.4 mmHg LVOT Mean Velocity 83.7 cm/s LVOT Mean Gradient 3.0 mmHg LVOT Velocity Time Integral 26.2 cm LVOT Stroke Volume 90.7 cm AV Area Cont Eq vti 1.7 cm AV Area Cont Eq pk 1.5 cm MV Peak Velocity 174.0 cm/s MV Peak Gradient 12.1 mmHg MV Mean Velocity 111.0 cm/s MV Mean Gradient 6.0 mmHg Mitral E Point Velocity 175.0 cm/s Mitral A Point Velocity 162.0 cm/s Mitral E to A Ratio 1.1 MV PHT Velocity 184.0 cm/s MV Deceleration Woodson 535.0 cm/s MV Pressure Half Time 103.2 ms MV Area PHT 2.1 cm MV Deceleration Time 314.0 ms TR Peak Velocity 301.0 cm/s TR Peak Gradient 36.2 mmHg Right Atrial Pressure 5.0 mmHg Pulmonary Artery Systolic Pressu 41.2 mmHg Right Ventricular Systolic Press 41.2 mmHg PV Peak Velocity 99.3 cm/s PV Peak Gradient 3.9 mmHg PV Mean Velocity 63.9 cm/s PV Mean Gradient 2.0 mmHg PV Velocity Time Integral 21.1 cm LV E' Lateral Velocity 6.1 cm/s Mitral E to LV E' Lateral Ratio 28.5 LV E' Septal Velocity 8.2 cm/s Mitral E to LV E' Septal Ratio 21.4
[2017-11-18 14:00] VITALS: BP 130/60
[2017-11-18 15:00] LABS: ABSOLUTE BASOPHIL COUNT 0.1 /CUMM (0.0-0.2); ABSOLUTE EOSINOPHIL COUNT 0.2 /CUMM (0.0-0.7); ABSOLUTE GRANULOCYTE CT 6.6 /CUMM (1.4-6.5); ABSOLUTE LYMPH COUNT 2.8 /CUMM (1.2-3.4); BASOPHIL % 0.5 % (0.0-2.0); GRANULOCYTE % 62.2 % (42.2-75.2); MEAN CORPUSCULAR HGB 24.9 PG (27.0-31.0); MEAN CORPUSCULAR HGB CONC 31.5 G/DL (33.0-37.0); MEAN CORPUSCULAR VOLUME 78.8 FL (81.0-99.0); PLATELET COUNT 365 /CUMM (130-400); RBC DISTRIBUTION WIDTH 15.9 % (11.5-14.5); WHITE BLOOD CELL COUNT 10.6 /CUMM (4.8-10.8)
== END 2017-11-18 16:01 | DRG 281 ==
LOC: ERH 00:59 → 1NO 06:00 → ERHI 06:00 → ENRESERV 15:44 → 1NO 17:47 → ENPENDDIS 11-18 15:22 → 1NO 11-18 16:01
PROVIDERS: Internal Medicine; Pediatrics; Student in an Organized Health Care Education/Training Program
DX: I48.0 Paroxysmal atrial fibrillation (principal); I21.A1 Myocardial infarction type 2; Z68.41 Body mass index [BMI] 40.0-44.9, adult; I11.0 Hypertensive heart disease with heart failure; I50.30 Unspecified diastolic (congestive) heart failure; E66.01 Morbid (severe) obesity due to excess calories; G47.33 Obstructive sleep apnea (adult) (pediatric); Z85.71 Personal history of Hodgkin lymphoma; Z92.3 Personal history of irradiation; Z92.21 Personal history of antineoplastic chemotherapy; I25.2 Old myocardial infarction; R79.89 Other specified abnormal findings of blood chemistry; I35.8 Other nonrheumatic aortic valve disorders; D50.9 Iron deficiency anemia, unspecified
CPT/HCPCS: 1NP; 36592; 71045; 93005; 93010; 93306; 96365; 96366; 96376; 99291; J1644; J3490; J7042; Q2036

== ENCOUNTER 2018-01-05 18:16 | Emergency (ER) | payer OTHER ==
[~2018-01-05] VITALS: Ht 160 cm; Wt 106.6 kg
[~2018-01-05 18:16] MED LIST: ELIQUIS5 M1 PO; HYDROCHLOROTHIA25 M1 PO; LOPRESSOR50 M1 PO; METOPROLOL TAR100 M1 PO
--- NOTE | 2018-01-05 18:42 | ED CARDIAC/CP/PALPITATIONS ---
History of Present Illness General Chief Complaint: Chest Pain Stated Complaint: CHEST PAIN Source: patient Exam Limitations: clinical condition Vital Signs & Intake/Output Vital Signs & Intake/Output Vital Signs Date Time Temp Pulse Resp B/P B/P Pulse O2 O2 Flow FiO2 Mean Ox Delivery Rate 01/05 1851 86 18 119/59 97 Nasal 2.0L Cannula 01/05 1844 96.8 159 24 143/63 01/05 1839 96.8 152 20 122/56 94 Nasal 2.0L Cannula 01/05 1838 91 01/05 1835 96.8 159 24 143/63 94 Room Air Allergies Coded Allergies: No Known Allergies (11/17/17) Reconcile Medications Apixaban (Eliquis) 5 MG TABLET 1 TAB PO BID Atrial fibrillation . Hydrochlorothiazide 25 MG TABLET 1 TAB PO DAILY HTN (Reported) Metoprolol Tartrate 100 MG TABLET 1 TAB PO BID Atrial fibrillation . Triage Note: PT BROUGHT TO ROOM 12 FROM EKG [place]. PT C/O CHEST PAIN THAT STARTED ABOUT 20 MINUTES. PT STATES SHE WAS FEELING HER HEART RACING. PT STATES IT FEELS LIKE SOMEONE IS SITTING ON HER CHEST. PT HR 165. PT WITH HX OF A-FIB. PT STATES SHE HAD AN EPISODE JUST LIKE THIS ABOUT ONE MONTH AGO. Triage Nurses Notes Reviewed? yes Onset: Abrupt Duration: minute(s):, constant, continues in ED, waxing and waning Quality/Severity: severe, pressure, HEAVINESS Location: central Activities at Onset: none HPI: Patient presents for evaluation of severe chest pain and rapid palpitations. She has a history of atrial fibrillation and currently takes XARALTO and metoprolol. (Margarita DUNN,Arthur Weller) Past History Travel History Traveled to [place] past 21 day No Medical History Any Pertinent Medical History? 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 No (Margarita DUNN,Arthur Weller) Review of Systems Review of Systems Constitutional: Reports: no symptoms. EENTM: Reports: no symptoms. Respiratory: Reports: no symptoms. Cardiovascular: Reports: no symptoms. GI: Reports: no symptoms. Genitourinary: Reports: no symptoms. Musculoskeletal: Reports: no symptoms. Skin: Reports: no symptoms. Neurological/Psychological: Reports: no symptoms. Hematologic/Endocrine: Reports: no symptoms. Immunologic/Allergic: Reports: no symptoms. All Other Systems: Reviewed and Negative (Margarita DUNN,Arthur Weller) Physical Exam Physical Exam Cardiovascular: SEE BELOW Comments: Gen.: Well-nourished, well-developed, moderate to severe distress secondary to chest pain Head: Normocephalic, atraumatic. Eyes: Normal inspection bilaterally Ears: Normal inspection bilaterally Nose: Normal inspection Throat/mouth : Moist mucosa Neck: Supple, full range of motion, no goiter Heart: rapid irregular rate and rhythm, no murmurs rubs or gallops Lungs: Clear to auscultation bilaterally with normal air entry Chest: Nontender Back: Normal range of motion Abdomen: Soft, nontender, nondistended, normal bowel sounds Extremities: Normal range of motion grossly, equal radial pulses, no cyanosis clubbing or edema Neurologic: Cranial nerves grossly intact, speech is clear Skin: warm and dry Psychiatric: Calm, cooperative, no apparent delusions or hallucinations Core Measures ACS in differential dx? Yes CVA/TIA Diagnosis No Sepsis Present: No Sepsis Focused Exam Completed? No (Margarita DUNN,Arthur Weller) Progress Differential Diagnosis: svt, RAPID ATRIAL FIBRILLATION, v. FIB, v. TACH, mi, ANGINA Plan of Care: Orders Procedure Date/time Status Telemetry/Political Anthropologist 01/05 184 Active THYROID STIMULATING HORMONE 01/05 184 Complete TROPONIN LEVEL 01/05 184 Complete MAGNESIUM 01/05 184 Complete CBC WITHOUT DIFFERENTIAL 01/05 184 Complete CALCIUM 01/05 1841 Complete BASIC METABOLIC PANEL 01/05 1841 Complete EKG 01/05 181 Active Current Medications Sig/Ceasar Start time Last Medication Dose Stop Time Status Admin Metoprolol Tartrate 5 MG .[Q10MIN PRN] 01/05 1845 UNVr 01/05 (Lopressor) 1844 Laboratory Tests 01/05/18 1920: Anion Gap 15, Estimated GFR 58 L, BUN/Creatinine Ratio 17.0, Glucose 95, Calcium 9.5, Magnesium 1.8, Troponin I < 0.01, TSH 10.200 H, CBC w Diff NO MAN DIFF REQ, RBC 4.98, MCV 79.0 L, MCH 25.4 L, MCHC 32.1 L, RDW 16.0 H, MPV 8.2 , Gran % 51.9, Lymphocytes % 37.0, Monocytes % 8.2, Eosinophils % 2.3, Basophils % 0.6, Absolute Granulocytes 7.8 H, Absolute Lymphocytes 5.5 H, Absolute Monocytes 1.2 H, Absolute Eosinophils 0.3, Absolute Basophils 0.1 Initial ED EKG: RAPID ATRIAL FIBRILLATION Prior EKG: changed (SINUS ON PRIOR) Comments: 01/05/2018 7:04:24 PM Sarah is in a normal sinus rhythm after 5 mg of IV Lopressor. Her chest pain is nearly gone. She appears much more comfortable. 01/05/2018 7:35:34 PM patient signed out to Dr. 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 (Margarita DUNN,Arthur Weller) Comments: Lab and chest x-ray results have been discussed with the patient and her family. Questions are answered. Patient is stable for discharge. (Ericka DUNN,Patel Joel) Departure Departure Condition: Stable Clinical Impression Primary Impression: Rapid atrial fibrillation Departure Forms: Customer Survey General Discharge Information (Margarita DUNN,Arthur Weller) Departure Disposition: HOME OR SELF CARE Referrals: Mayuri Messina MD (PCP/Family) Toni DUNN,Jose Luis De Los Santos Additional Instructions: Follow-up with Dr. Muñoz. If he started to feel the symptoms again taken extra metoprolol and if that didn't work come back to the emergency department. Return to the emergency department for any concerns. Follow-up with your regular doctor regarding her thyroid. (Ericka DUNN,Patel Joel) Critical Care Note Critical Care Note Critical Care Time: 30-74 min (Margarita DUNN,Arthur Weller)
--- NOTE | 2018-01-05 19:22 | RADIOLOGY REPORT ---
EXAMINATION: PORTABLE CHEST 1 VIEW CLINICAL INFORMATION: CMG,EFFUSION,CHF. COMPARISON: 11/17/2017. TECHNIQUE: Portable frontal view of the chest was obtained. FINDINGS: Lungs are well expanded. No superimposed focal infiltrate, effusion, edema, or pneumothorax. Basilar markings likely due to overlying soft tissue. Cardiac and mediastinal silhouettes within normal limits for size. IMPRESSION: No acute disease compared to 11/17/2017
[2018-01-05 19:45] LABS: ABSOLUTE BASOPHIL COUNT 0.1 /CUMM (0.0-0.2); ABSOLUTE EOSINOPHIL COUNT 0.3 /CUMM (0.0-0.7); ABSOLUTE GRANULOCYTE CT 7.8 /CUMM (1.4-6.5); ABSOLUTE LYMPH COUNT 5.5 /CUMM (1.2-3.4); ABSOLUTE MONOCYTE COUNT 1.2 /CUMM (0.10-0.60); BASOPHIL % 0.6 % (0.0-2.0); EOSINOPHIL % 2.3 % (0-5); GRANULOCYTE % 51.9 % (42.2-75.2); HEMATOCRIT 39.3 % (37-47); MEAN CORPUSCULAR HGB 25.4 PG (27.0-31.0); MEAN CORPUSCULAR HGB CONC 32.1 G/DL (33.0-37.0); MEAN PLATELET VOLUME 8.2 FL (7.4-10.4); PLATELET COUNT 386 /CUMM (130-400); RED BLOOD CELL CT 4.98 /CUMM (4.20-5.40)
[2018-01-05 20:45] VITALS: BP 127/59
== END 2018-01-05 20:53 ==
LOC: ERH 18:16
PROVIDERS: Emergency Medicine
DX: I48.91 Unspecified atrial fibrillation (principal); R07.89 Other chest pain
CPT/HCPCS: 71045; 93005; 93010; 96374; 99291

== ENCOUNTER 2018-03-29 12:21 | Inpatient (IN) | payer OTHER ==
[~2018-03-29] VITALS: Ht 162.6 cm; Wt 118.1 kg
--- NOTE | 2018-03-29 12:43 | ED GI/GU/ABDOMINAL COMPLAINT ---
History of Present Illness General Chief Complaint: Nausea, Vomiting, Diarrhea Stated Complaint: +NVD, BLURRED VISION PER PT FOOD POISONING? Source: patient Exam Limitations: no limitations Vital Signs & Intake/Output Vital Signs & Intake/Output Vital Signs Date Time Temp Pulse Resp B/P B/P Pulse O2 O2 Flow FiO2 Mean Ox Delivery Rate 04/01 1600 98 Nasal 1.0L Cannula 04/01 1600 97.8 96 20 124/60 98 Nasal 1.0L Cannula 04/01 1200 97 Nasal 2.0L Cannula 04/01 0800 96 Nasal 2.0L Cannula 04/01 0800 98.9 104 20 120/64 96 Nasal 2.0L Cannula 04/01 0400 95 Nasal 2.0L Cannula 04/01 0000 100 Nasal 2.0L Cannula 04/01 0000 97.0 96 18 120/80 100 Nasal 2.0L Cannula 03/31 2128 116 118/54 ED Intake and Output 04/01 0000 03/31 1200 Intake Total 1615 1249 Output Total 860 900 Balance 755 349 Intake, IV 645 1009 Intake, Oral 970 240 Output, Urine 860 900 Patient 237 lb Weight Allergies Coded Allergies: No Known Allergies (11/17/17) Reconcile Medications Apixaban (Eliquis) 5 MG TABLET 1 TAB PO BID Atrial fibrillation . Fluticasone Propionate (Flonase Allergy Relief) 50 MCG/ACTUATION SPRAY.SUSP 1 SPRAY WAYNE DAILY ALLERGIES (Reported) Furosemide (Lasix) 40 MG TABLET 1 TAB PO Q48 WATER RETENTION (Reported) Levothyroxine Sodium (Levoxyl) 50 MCG TABLET 1 TAB PO DAILY AC THYROID ( Reported) Metoprolol Tartrate 100 MG TABLET 1 TAB PO BID Atrial fibrillation . Spironolactone (Aldactone) 25 MG TABLET 1 TAB PO Q48 WATER RETENTION ( Reported) Triage Note: PT TO ED WITH C/O DARK EMESIS AND BLACK STOOLS X 1 DAY. TAKES ELIQUIS. BP 85/55 IN TRIAGE Triage Nurses Notes Reviewed? yes ? n Is pt currently ? No Onset: Gradual Duration: hour(s):, continues in ED, getting worse Quality/Severity: moderate, sharpness Activities at Onset: rest HPI: Patient presents for evaluation of nausea dizziness upper abdominal pain and dark diarrhea that began earlier today. Past History Travel History Traveled to [place] past 21 day No Medical History Any Pertinent Medical History? 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 No Review of Systems Review of Systems Constitutional: Reports: no symptoms. EENTM: Reports: no symptoms. Respiratory: Reports: no symptoms. Cardiovascular: Reports: no symptoms. GI: Reports: no symptoms. Genitourinary: Reports: no symptoms. Musculoskeletal: Reports: no symptoms. Skin: Reports: no symptoms. Neurological/Psychological: Reports: no symptoms. Hematologic/Endocrine: Reports: no symptoms. Immunologic/Allergic: Reports: no symptoms. All Other Systems: Reviewed and Negative Physical Exam Physical Exam Gastrointestinal: SEE BELOW Comments: Gen.: Well-nourished, well-developed, no acute respiratory distress. Head: Normocephalic, atraumatic. Eyes: Normal inspection bilaterally Ears: Normal inspection bilaterally Nose: Normal inspection Throat/mouth : Moist mucosa Neck: Supple, full range of motion, no goiter Heart: Regular rate and rhythm, no murmurs rubs or gallops Lungs: Clear to auscultation bilaterally with normal air entry Chest: Nontender Back: Normal range of motion Abdomen: Soft, nontender, nondistended, normal bowel sounds Rectal: Dark red to black liquid stool in the rectal vault Extremities: Normal range of motion grossly, equal radial pulses, no cyanosis clubbing or edema Neurologic: Cranial nerves grossly intact, speech is clear Skin: warm and dry Psychiatric: Calm, cooperative, no apparent delusions or hallucinations Core Measures ACS in differential dx? No Sepsis Present: No Sepsis Focused Exam Completed? No Progress Differential Diagnosis: upper GI bleed, lower GI bleed, diverticular bleed, bleeding ulcer, AV malformation, inflammatory bowel disease Plan of Care: Orders Procedure Date/time Status ICU LAB BUNDLE 04/02 0500 Active CBC WITHOUT DIFFERENTIAL 04/02 0500 Active Full Liquid Diet 04/01 L Active CBC WITHOUT DIFFERENTIAL 04/01 2000 Active BLOOD PRODUCT PICKUP 04/01 1432 Active LEUKOCYTE POOR (PACKED CELLS) 04/01 1408 Active CBC WITHOUT DIFFERENTIAL 04/01 1300 Complete TROPONIN LEVEL 04/01 0500 Complete SWALLOW EVALUATION 04/01 UNK Active Evaluate Swallowing 04/01 UNK Complete EKG 03/31 2113 Active TROPONIN LEVEL 03/31 0403 Complete B-TYPE NATRIURETIC PEP (BNP) 03/31 0403 Complete INCENTIVE SPIROMETRY TRX CHG 03/31 UNK Complete OXYGEN 03/31 UNK Complete OXYGEN DAILY CHARGE 03/31 UNK Complete Lab Add-on Test 03/31 UNK Active Current Medications Sig/Ceasar Start time Last Medication Dose Stop Time Status Admin Furosemide 20 MG ONCE ONE 04/01 1115 CAN (Lasix) 04/01 111 Metoprolol Tartrate 100 MG BID 04/01 0900 AC 04/01 (Lopressor) 0813 Omeprazole 40 MG BID 04/01 0900 AC 04/01 (Prilosec) 0818 Levothyroxine Sodium 0.05 MG DAILY AC 04/01 0700 AC 04/01 (Synthroid) 0614 Ondansetron HCl 4 MG Q6P PRN 03/31 1415 AC (Zofran) Benzocaine/Menthol 1 NED Q2P PRN 03/31 1000 AC (Chloraseptic Lozenges) Phenol 2 SPRAY Q2P PRN 03/31 1000 AC 03/31 (Chloraseptic 1231 (Phenaseptic) Galva) Ampicillin Sodium/ 3,000 MG Q6H 03/30 2230 AC 04/01 Sulbactam Sodium 1607 (Unasyn) Sodium Chloride 100 ML (Normal Saline 0.9%) Acetaminophen 1,000 MG Q6P PRN 03/29 1700 AC 04/01 (Ofirmev) 1519 N/A 1 UNIT (No Carrier) Morphine Sulfate 2 MG Q4P PRN 03/29 1700 AC (MORPHINE SULFATE) Laboratory Tests 04/01/18 2004: CBC w Diff Pending, WBC Pending, RBC Pending, Hgb Pending, Hct Pending, MCV Pending, MCH Pending, MCHC Pending, RDW Pending, Plt Count Pending, MPV Pending 04/01/18 1312: CBC w Diff NO MAN DIFF REQ, RBC 2.51 L, MCV 87.3, MCH 28.8, MCHC 33.0, RDW 17.3 H, MPV 7.5, Gran % 83.3 H, Lymphocytes % 8.1 L, Monocytes % 6.3, Eosinophils % 2.2, Basophils % 0.1, Absolute Granulocytes 15.3 H, Absolute Lymphocytes 1.5, Absolute Monocytes 1.2 H, Absolute Eosinophils 0.4, Absolute Basophils 0 04/01/18 0345: Anion Gap 11, Estimated GFR > 60, Glucose 95, Calcium 7.6 L, Phosphorus 3.4, Magnesium 2.0, Total Bilirubin 0.4, AST 16, ALT 25, Troponin I 0.03, Albumin 2.8 L, CBC w Diff NO MAN DIFF REQ, RBC 2.65 L, MCV 87.1, MCH 28.7, MCHC 32.9 L, RDW 17.4 H, MPV 7.8, Gran % 81.6 H, Lymphocytes % 9.8 L, Monocytes % 6.0, Eosinophils % 2.3, Basophils % 0.3, Absolute Granulocytes 17.1 H, Absolute Lymphocytes 2.1, Absolute Monocytes 1.3 H, Absolute Eosinophils 0.5, Absolute Basophils 0.1 Initial ED EKG: none Comments: 03/29/2018 1:37:05 PM patient's case discussed with Dr. Ta who recommends an NG tube to rule out an upper GI bleed with rapid transit. Upon reevaluation patient's blood pressure is now 100 systolic and she appears comfortable. Blood transfusion ordered. CT with IV contrast of the abdomen and pelvis discontinued given Dr. Ta's consideration for a CTA instead. 03/29/2018 2:35:40 PM I attempted to place a nasogastric tube at the request of Dr. Ta to investigate the possibility of an upper GI bleed with rapid transit. I have made 2 unsuccessful attempts (the patient gagged and then pulled the tube out). I will update Dr. Ta. Business Account Specialist paged. Transfusion blood is at the bedside. 03/29/2018 2:38:57 PM I have discussed this patient's case with Dr. Jhaveri. 03/29/2018 2:51:14 PM I have updated Dr. Ta on patient's clinical course. Departure Departure Disposition: STILL A PATIENT Condition: Stable Clinical Impression Primary Impression: GI bleed Qualifiers: GI bleed type/associated pathology: unspecified gastrointestinal hemorrhage type Qualified Code: K92.2 - Gastrointestinal hemorrhage, unspecified Referrals: Mayuri Messina MD (PCP/Family) Departure Forms: Customer Survey General Discharge Information Admission Note Spoke With: Kuldeep Jhaveri MD Documentation of Exam: Documentation of any treatments & extenuating circumstances including Concerns Regarding Discharge (functional status, medication knowledge or non-compliance, living conditions, etc.) that warrant an admission rather than observation: Based on the history of dark colored emesis, the patient's likely suffering from an upper GI bleed with rapid transit. She is critically ill with a presenting low blood pressure and indication of active bleeding based on rectal examination. The patient requires ICU level care with close clinical monitoring of vital signs and mentation. Bleeding should be quantified and patient transfused based on her hematocrit hemoglobin and ongoing losses. GI consultation should be obtained for urgent endoscopy. Medical management also be instituted including antacids. At this point this patient's prognosis is guarded. I feel this patient will require a multiple day hospitalization. Critical Care Note Critical Care Note Critical Care Time: 30-74 min
[2018-03-29 12:48] LABS: ABSOLUTE GRANULOCYTE CT 12.7 /CUMM (1.4-6.5); ABSOLUTE LYMPH COUNT 3.9 /CUMM (1.2-3.4); ABSOLUTE MONOCYTE COUNT 1.4 /CUMM (0.10-0.60); GRANULOCYTE % 70.1 % (42.2-75.2); MEAN CORPUSCULAR HGB CONC 32.5 G/DL (33.0-37.0); WHITE BLOOD CELL COUNT 18.2 /CUMM (4.8-10.8)
[2018-03-29 12:56] LABS: ABSOLUTE BASOPHIL COUNT 0 /CUMM (0.0-0.2); ABSOLUTE EOSINOPHIL COUNT 0.2 /CUMM (0.0-0.7); BASOPHIL % 0.1 % (0.0-2.0); EOSINOPHIL % 0.8 % (0-5); HEMATOCRIT 22.3 % (37-47); MEAN CORPUSCULAR HGB 25.6 PG (27.0-31.0); MEAN CORPUSCULAR VOLUME 78.9 FL (81.0-99.0); MEAN PLATELET VOLUME 7.4 FL (7.4-10.4); PLATELET COUNT 286 /CUMM (130-400); RED BLOOD CELL CT 2.83 /CUMM (4.20-5.40)
[2018-03-29 13:00] LABS: PT 15.8 SEC (9.4-12.5); PTT 26 SEC (25-37)
--- NOTE | 2018-03-29 13:43 | RADIOLOGY REPORT ---
EXAMINATION: XR PORTABLE CHEST CLINICAL INFORMATION: Hypotension COMPARISON: Previous chest x-ray most recent December 2017 TECHNIQUE: Portable frontal view of the chest was obtained. FINDINGS: The cardiac and mediastinal contours are stable. The lungs are clear. There is no pleural effusion or pneumothorax. IMPRESSION: No evidence for acute disease in the chest.
[2018-03-29] MEDS ORDERED: LASIX40 M1 PO (14:43)
[2018-03-29] MEDS ORDERED: ALDACTONE25 MG PO (14:48)
[2018-03-29] MEDS ORDERED: LEVOXYL50 MCG PO (14:49)
[2018-03-29] MEDS ORDERED: FLONASE ALLERG9.9 ML NAS (14:50)
--- NOTE | 2018-03-29 14:52 | Cons- Gastroenterology ---
General Information and HPI Consulting Request Date of Consult: 03/29/18 Requested By: Kuldeep Jhaveri MD Reason for Consult: I was called by Dr. Avila, of the [facility], less than an hour ago, to assess GI bleeding, which was initially felt to be LGI in nature by the ER, but clinically , appears to be upper GI in nature, in a patient subsequently found to be on Eliquis. The pt was initially seen in the [facility], room #7. Source of Information: patient, family (pt's son, Ruiz), old records Exam Limitations: fair historian History of Present Illness: 52 y/o female, HTN, ? 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 mediastinal, txd in [place], [place] then with CTX/RT (spleen intact, no prior abdominal surgery, no previous transfusions), without prior EGD or colonoscopy, no FHx GI disease, GI Ca or inherited liver disease, who presented to the [facility] 03/29/18 at 12:21 PM, complaining of nausea, vomiting, diarrhea, and GI bleeding. The patient was not on any aspirin or NSAIDs. She denied any recent antibiotics. 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 The patient ate dinner at [facility] with her 03/28/18, where she ate steak & mashed potatoes. Her ate similar food, without incident. This was followed a few hours later that evening by nausea, diaphoresis, and diarrhea 1-2x/hr. initially, there was no vomiting. Initially, there was no rectal bleeding. The patient ate a few grapes at 11 AM 03/29/18, then drank a little chen anila at noon. This was followed by vomitus consisting of darkish red blood (the patient brought in a container of this to the ER), & darkish red stool. There was no abdominal pain. The patient denied any GERD, odynophagia, or definite early satiety. She did note occasional dysphagia to dry solids, pills, & liquids, although there was no history of transfer dysphagia, CVA, or nasal regurgirtation of food or liquids. Aside from the remote Hodgkin's lymphoma, there was no hx of head & neck Ca, head & neck RT, or thyoid disease. There was no hx of any previous food impaction. 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 There was no aspiration. Upon arrival to the [facility] 03/29/18, BP 85/55, P 99, R 19, T 97.3, O2 sat RA 93%. The pt's BP transiently came up to 117/56 after IVF bolus & the start of 1u PRBC, but then dipped down to 99/59. Digital rectal exam by Dr. Avila in the ER showed darkish red blood, obviously OB positive. 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 I advised him to start an IV Protonix bolus 80 mg, followed by 8 mg/hr drip and to place an NG tube. Dr. Avila attempted NGT placement x 2 unsuccessfully, and the patient then refused further attempts at NG tube placement. This is probably a moot point, as I later saw the contents of the container of vomitus the patient brought in from home. The patient noted intermittent fevers and chills without symptoms of UTI or URI. She had rare night sweats. She has been postmenopausal for 10 years. There was a questionable history of vaginal spotting, for which the patient is to see KNUCKLER. There was no gross hematuria or hemoptysis. She noted weight gain of 45 lbs over the past 1-2 yrs. She denied any CP, SOB, palpitations, or LOC. *Initially, as the Nini was still on board, I was contemplating holding off on EGD until tomorrow, but as she was persistently hypotensive, a decision was made to start with the EGD today. There is no history of cigarettes, EtOH, or illicit drug use. 01/05/18: WBC 15 (52% gran/8 gran Ab), *H/H 12.6/39.3, MCV 79, RDW 16. PLT 386, *BUN/Cr 17/1.0, GFR 58, *TSH 10.2. 06/18/18: HgbA1C 6.9. 07/16/18: Admission labs- WBC 18.2 (70% gran/13 gran Ab), *H/H 7.2/23.3, MCV 78.9, RDW 16, PLT 286, PT 15.8, INR 1.44, PTT 26, glucose 151, *BUN/Cr 46/1.2, GFR 47, Na 140, K 4.8, HCO3 23, AG 11, Ca 8.2, alb 2.9, glob 3.1, TBil 0.2, alk phos 41, AST 13, AL 29, CK 133, troponin < 0.01, lactate 2.3-> 1.2. 03/29/18: EKG- NSR @ 86, nl axis, nl int, LVH, flipped T in L. 03/29/18: XR PORTABLE CHEST- No evidence for acute disease in the chest. Allergies/Medications Allergies: Coded Allergies: No Known Allergies (11/17/17) Home Med List: Apixaban (Eliquis) 5 MG TABLET 1 TAB PO BID Atrial fibrillation . Fluticasone Propionate (Flonase Allergy Relief) 50 MCG/ACTUATION SPRAY.SUSP 1 SPRAY WAYNE DAILY ALLERGIES (Reported) Furosemide (Lasix) 40 MG TABLET 1 TAB PO Q48 WATER RETENTION (Reported) Levothyroxine Sodium (Levoxyl) 50 MCG TABLET 1 TAB PO DAILY AC THYROID ( Reported) Metoprolol Tartrate 100 MG TABLET 1 TAB PO BID Atrial fibrillation . Spironolactone (Aldactone) 25 MG TABLET 1 TAB PO Q48 WATER RETENTION ( Reported) Current Medications: Current Medications Sig/Ceasar Start time Last Medication Dose Route Stop Time Status Admin Acetaminophen 1,000 MG Q6P PRN 03/29 1700 AC N/A 1 UNIT IV Acetaminophen 650 MG Q6P PRN 03/29 1600 DC PO Levothyroxine Sodium 0.05 MG DAILY AC 03/30 0700 AC PO Morphine Sulfate 2 MG Q4P PRN 03/29 1700 AC IV Pantoprazole Sodium 40 MG Q5H 03/29 1600 DC Sodium Chloride 100 ML IV Pantoprazole Sodium 0 .STK-MED ONE 03/29 1412 DC IV Pantoprazole Sodium 40 MG Q5H 03/29 1345 AC 03/29 Sodium Chloride 100 ML IV 1417 Pantoprazole Sodium 0 .STK-MED ONE 03/29 1251 DC IV Pantoprazole Sodium 40 MG ONCE ONE 03/29 1245 DC 03/29 IV 03/29 1246 1256 Sodium Chloride 1,000 ML .Q10H 03/29 1600 AC IV Sodium Chloride 1,000 ML BOLUS ONE 03/29 1230 DC 03/29 IV 03/29 1329 1242 Past History Travel History Traveled to [place] past 21 day No Medical History Blood Transfusion Hx: No (not 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 Prostate cancer MOTHER ([employer]). Age 75. Psychosocial History Where Do You Live? Home Who Do You Live With? spouse, child Services at Home: None Primary Language: Azeri Smoking Status: Never Smoked ETOH Use: denies use Illicit Drug Use: denies illicit drug use Living Will? no Power of Electronics Engineering Technologist/HCP? no Other Social History: to Ruiz. 2 children (1 son & 1 dtr)- [employer]. 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 Ambulation: independent IADLs Independent: shopping, housework, finances, food prep, telephone, transportation , medication admin. 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 Denies: chills, diaphoresis, fever, unexplained weight loss. EENTM: Denies: blurred vision, double vision, visual changes, eye pain, eye drainage, eye tearing, icterus, ear discharge, ear pain, ear redness, hearing changes, nasal congestion, epistaxis, nasal pain, throat pain, throat swelling, mouth pain, tooth pain. Cardiovascular: Denies: chest pain, edema, orthopena, palpitations, peripheral edema, syncope. Respiratory: Denies: cough, hemoptysis, orthopnea, short of breath, sputum production, stridor, wheezing. GI: Reports: diarrhea, melena, nausea, vomiting (hematemesis). Denies: abdominal pain, bloating, constipation, distention, bowel incontinence, bloody stool, changes in stool, steatorrhea. Genitourinary: Denies: discharge, dysuria, frequency, hematuria, hesitation, nocturia, pain, urgency. Musculoskeletal: Denies: back pain, gout, joint pain, joint swelling, muscle pain, muscle stiffness, neck pain. Skin: Denies: cysts, change in skin color, change in hair/nails, dryness, erythema, jaundice, lesions, lymphangitis, lumps, moles, rash. Neurological/Psychological: Denies: anxiety, ataxia, cognitive dysfunction, confusion, depressed, dementia, emotional problems, headache, numbness, paresthesia, pre-existing deficit, petit mal seizures, tingling, tremors, tonic-clonic seizures, unable to move lower ext , unable to move upper ext, weakness. Hematologic/Endocrine: Denies: bruising, bleeding, polyuria, polydipsia. Immunologic/Allergic: Denies: splenectomy, HIV/AIDS, lymphadenopathy. All Other Systems: Reviewed and Negative Exam & Diagnostic Data Vital Signs and I&O Vital Signs Date Time Temp Pulse Resp B/P B/P Pulse O2 O2 Flow FiO2 Mean Ox Delivery Rate 03/29 1602 97.1 93 17 99/59 98 Room Air 03/29 1522 117/56 03/29 1417 77 78/49 03/29 1338 90 16 84/46 98 Room Air 03/29 1259 96 Room Air 03/29 1225 97.3 99 19 85/55 93 Room Air Intake & Output 03/29 1600 03/29 0400 03/28 1600 03/28 0400 03/27 1600 03/27 0400 Intake Total 1000 Output Total Balance 1000 Intake, IV 1000 Physical Exam: Well-developed, well nourished, obese -Vietnamese female, in no apparent distress. Sclera anicteric. Conjunctiva pale. Oropharynx clear. No oral thrush. No aphthous ulcers. Slightly dry mucous membranes. There is no adenopathy, thyromegaly, or JVD. No peripheral stigmata of inflammatory bowel disease or chronic liver disease on exam. No spiders on the anterior chest wall. No CVA tenderness. No spine tenderness. B reast & pelvic exams: API. Lungs: clear to A&P. No wheezing, rales, or rhonchi. Heart exam: (currently NSR) regular rate rhythm, S1 and S2, with I/IV diastolic murmur. Abdominal exam : normal bowel sounds, soft belly, obese, nontender without guarding or rebound. No mass or organomegaly, within the limits of the body habitus. No fluid shift. No pulsatile mass. No epigastric bruit. Digital rectal exam done by Janee Avila in the [facility] 03/29/18: blackish red blood, obviously OB positive. No masses reported. Extremities: without cyanosis or clubbing. Trace pedal edema B/L. No palpable cords. No rash. No acute arthropathy. Mild DJD. No palmar erythema. No Dupuytren's contractures. Distal pulses 2+ bilaterally. DTRs 2+ bilaterally. Right handed. Motor 5/5 B/L. CN II-XII intact. Alert and oriented x 3. No tremor. No asterixis. Results Pertinent Lab Results: Laboratory Tests 03/29 03/29 03/29 1546 1239 1239 Chemistry Sodium (137 - 145 mmol/L) 140 Potassium (3.5 - 5.1 mmol/L) 4.8 Chloride (98 - 107 mmol/L) 106 Carbon Dioxide (22 - 30 mmol/L) 23 Anion Gap (5 - 16) 11 BUN (7 - 17 mg/dL) 46 H Creatinine (0.5 - 1.0 mg/dL) 1.2 H Estimated GFR (>60 ml/min) 47 L BUN/Creatinine Ratio (7 - 25 %) 38.3 H Glucose (65 - 99 mg/dL) 151 H Lactic Acid (0.7 - 2.1 mmol/L) 1.2 2.3 H Calcium (8.4 - 10.2 mg/dL) 8.2 L Total Bilirubin (0.2 - 1.3 mg/dL) 0.2 AST (14 - 36 U/L) 13 L ALT (9 - 52 U/L) 29 Alkaline Phosphatase (<127 U/L) 41 Creatine Kinase (30 - 135 U/L) 133 Troponin I (< 0.11 ng/ml) < 0.01 Total Protein (6.3 - 8.2 g/dL) 6.0 L Albumin (3.5 - 5.0 g/dL) 2.9 L Globulin (1.9 - 4.2 gm/dL) 3.1 Albumin/Globulin Ratio (1.1 - 2.2 %) 0.9 L Coagulation PT (9.4 - 12.5 SEC) 15.8 H INR (0.90 - 1.19) 1.44 H APTT (25 - 37 SEC) 03/29 1233 Hematology CBC w Diff MAN DIFF ORDERED WBC (4.8 - 10.8 /CUMM) 18.2 H RBC (4.20 - 5.40 /CUMM) 2.83 L Hgb (12.0 - 16.0 G/DL) 7.2 *L Hct (37 - 47 %) 22.3 L MCV (81.0 - 99.0 FL) 78.9 L MCH (27.0 - 31.0 PG) 25.6 L MCHC (33.0 - 37.0 G/DL) 32.5 L RDW (11.5 - 14.5 %) 16.0 H Plt Count (130 - 400 /CUMM) 286 MPV (7.4 - 10.4 FL) 7.4 Gran % (42.2 - 75.2 %) 70.1 Lymphocytes % (20.5 - 51.1 %) 21.3 Monocytes % (1.7 - 9.3 %) 7.7 Eosinophils % (0 - 5 %) 0.8 Basophils % (0.0 - 2.0 %) 0.1 Absolute Granulocytes (1.4 - 6.5 /CUMM) 12.7 H Absolute Lymphocytes (1.2 - 3.4 /CUMM) 3.9 H Absolute Monocytes (0.10 - 0.60 /CUMM) 1.4 H Absolute Eosinophils (0.0 - 0.7 /CUMM) 0.2 Absolute Basophils (0.0 - 0.2 /CUMM) 0 Platelet Estimate (ADEQUATE) VERIFIED BY SMEAR Polychromasia 1+ Poikilocytosis 1+ Anisocytosis 1+ Ovalocytes FEW Imaging/Other Studies: 02/17/18: XR MODIFIED BARIUM SWALLOW- 1. There is significant prominence of the cricopharyngeus muscle with mass effect on the esophagus posteriorly at level of C4-C5, as described above. 2. Otherwise normal modified barium swallow. (Speech pathologist assessment issued separately). 03/29/18: EKG- NSR @ 86, nl axis, nl int, LVH, flipped T in L. 03/29/18: XR PORTABLE CHEST- No evidence for acute disease in the chest. Assessment/Plan Assessment/Recommendations: 52 y/o female, HTN, ? 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 mediastinal, txd in [place], [place] then with CTX/RT (spleen intact, no prior abdominal surgery, no previous transfusions), without prior EGD or colonoscopy, no FHx GI disease, GI Ca or inherited liver disease, who presented to the [facility] 03/29/18 at 12:21 PM, complaining of nausea, vomiting, diarrhea, and GI bleeding. The patient was not on any aspirin or NSAIDs. She denied any recent antibiotics. 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 The patient ate dinner at [facility] with her 03/28/18, where she ate steak & mashed potatoes. Her ate similar food, without incident. This was followed a few hours later that evening by nausea, diaphoresis, and diarrhea 1-2x/hr. initially, there was no vomiting. Initially, there was no rectal bleeding. The patient ate a few grapes at 11 AM 03/29/18, then drank a little chen anila at noon. This was followed by vomitus consisting of darkish red blood (the patient brought in a container of this to the ER), & darkish red stool. There was no abdominal pain. The patient denied any GERD, odynophagia, or definite early satiety. She did note occasional dysphagia to dry solids, pills, & liquids, although there was no history of transfer dysphagia, CVA, or nasal regurgirtation of food or liquids. Aside from the remote Hodgkin's lymphoma, there was no hx of head & neck Ca, head & neck RT, or thyoid disease. There was no hx of any previous food impaction. 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 There was no aspiration. Upon arrival to the [facility] 03/29/18, BP 85/55, P 99, R 19, T 97.3, O2 sat RA 93%. The pt's BP transiently came up to 117/56 after IVF bolus & the start of 1u PRBC, but then dipped down to 99/59. Digital rectal exam by Dr. Avila in the ER showed darkish red blood, obviously OB positive. 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 I advised him to start an IV Protonix bolus 80 mg, followed by 8 mg/hr drip and to place an NG tube. Dr. Avila attempted NGT placement x 2 unsuccessfully, and the patient then refused further attempts at NG tube placement. This is probably a moot point, as I later saw the contents of the container of vomitus the patient brought in from home. The patient noted intermittent fevers and chills without symptoms of UTI or URI. She had rare night sweats. She has been postmenopausal for 10 years. There was a questionable history of vaginal spotting, for which the patient is to see KNUCKLER. There is no gross hematuria or hemoptysis. She noted weight gain of 45 lbs over the past 1-2 yrs. She denied any CP, SOB, palpitations, or LOC. *Initially, as the Nini was still on board, I was contemplating holding off on EGD until tomorrow, but as she was persistently hypotensive, a decision was made to start with the EGD today. There is no history of cigarettes, EtOH, or illicit drug use. 01/05/18: WBC 15 (52% gran/8 gran Ab), *H/H 12.6/39.3, MCV 79, RDW 16. PLT 386, *BUN/Cr 17/1.0, GFR 58, *TSH 10.2. 03/01/18: HgbA1C 6.9. 03/29/18: Admission labs- WBC 18.2 (70% gran/13 gran Ab), *H/H 7.2/23.3, MCV 78.9, RDW 16, PLT 286, PT 15.8, INR 1.44, PTT 26, glucose 151, *BUN/Cr 46/1.2, GFR 47, Na 140, K 4.8, HCO3 23, AG 11, Ca 8.2, alb 2.9, glob 3.1, TBil 0.2, alk phos 41, AST 13, AL 29, CK 133, troponin < 0.01. lactate 2.3-> 1.2. 03/29/18: EKG- NSR @ 86, nl axis, nl int, LVH, flipped T in L. 03/29/18: XR PORTABLE CHEST- No evidence for acute disease in the chest. *As of 03/29/18, the patient was markedly anemic with elevated BUN/Cr ratio. She had hematemesis at home, with darkish red stool per rectum. She was hypotensive. This seemed to correspond with a rapid transit UGI bleed clinically, rather than "LGI bleed". The patient was intolerant of NG tube placement x 2 by the ER, but this seems to be a moot point, based on the contents of the container she brought in from home. Assuming this is upper GI nature, differential diagnosis includes peptic ulcer vs. angiodysplasia vs. Dieulafoy, doubt neoplasm, but should be excluded with past history of Hodgkin' s. Aside from a slightly reversed albumin:globulin ratio, there was nothing clinically to suggest cirrhosis to consider variceal bleeding. Eliquis was still on board, as she last took it on the morning of admission, and would probably hang around a little longer than usual, based on the mild decreased GFR. However, because of the hypotension, a decision was made to proceed with EGD this evening. The patient's diarrhea is most likely from the GI bleeding, as blood is a cathartic. The risks & benefits of EGD & potential colonoscopy were discussed with the patient & her son, Ruiz Luna, at the bedside in the [facility], including the need for probable prophylactic intubation to protect her airway. She was agrreable to this & informed consent for EGD/potential colonoscopy were obtained. The patient & her son were made aware of the very low risk of CVA off Eliquis for a short period of time, but are aware that she is bleeding, & that this has to be held at the moment. *SUGGEST: NPO for now. Eliquis on hold for now. No ASA for now. No NSAIDS. IV Protonix 80 mg bolus followed by 8 mg/hr continuous drip. 2 large bore IVs. ICU admit. T&C 2u PRBC. Check CBC Q6h for now. Keep Hgb > 8 (probable underlying ASHD, numerous risk factors & hx diastolic dysfunction on 11/17/17: echocardiogram). Strict I/O 's. Urgent EGD later this p.m. Depending on the results of EGD, consideration for surgical consult, possible colonoscopy (*never done previously), possible CTA abdomen as GFR allows, etc. consider cardiology input. 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 The pt's son, Ruiz Luna, was given my office number for future reference. The patient is aware of the need to follow-up with KNUCKLER as an outpatient for the probable incidental intermittent vaginal spotting. DVT prophylaxis with mechanical ALPS. The above was discussed with the medical staff and with Dr. Jhaveri. Further GI recommendations to follow, depending on clinical course. 1 hour of ICU care was spent on the patient. Problem List: 1. Hypotension 2. GI bleed 3. Hematemesis 4. Anemia 5. Dysphagia 6. Diarrhea 7. Malnutrition 8. Paroxysmal A-fib 9. History of Hodgkin's disease Copies To: Mayuri DUNN,Mayuri; Linnette DUNN,Patel Vázquez; Toni DUNN,Jose Luis De Los Santos; Emilio DUNN,Kuldeep Consult Acknowledgment - Thank you for your consult request.
--- NOTE | 2018-03-29 15:50 | History & Physical ---
Williams Keller MD 03/29/18 2008: General Information and HPI MD Statement: I have seen and personally examined TIMA SOTO and documented this H&P. The patient is a 52 year old F who presented with a patient stated chief complaint of GI bleed. Source of Information: patient, old records Exam Limitations: no limitations History of Present Illness: 52 year old female with PMH of Hodgkin's lymphoma tx'd 23 years ago with chemoradiotherapy, HTN, obesity, JASON previously on CPAP, pAfib on Eliquis diagnosed 1 year ago, requiring emergent cardioverison at [place] in the past, and HFpEF presented with one day history of nausea, coffee ground emesis, and melanotic diarrhea. The patient's symptoms started early this morning. Yesterday evening, she was in her usual state of health and ate out for dinner steak and potatoes. At 4AM, she developed frequent epidosdes of dark red diarrhea, approximately 2 BMs per hour. She did have some associated crampy abdominal pain and nausea. She ate some grapes and drank a little water and gingerale around 1100 today and then had one episode of coffee ground emesis, guiaic positive. After vomiting her abdominal pain resolved. She took Eliquis this morning. She denies any significant NSAID use. She denies any sick contacts. She does report frequent fevers, chills, and night sweats unrelated to this episode, and is postmenopausal. She has been extremely fatigued and sleeping more often lately. Her exercise tolerance is diminished, 1-2 flights of stairs before stopping and has been gaining weight, approximately 50lbs over two year period. She also reported having some transient blurred vision this morning but denies any symptoms of presyncope, chest pain, palpitations, or dyspnea. The patient states she has never had an EGD or screening colonoscopy. She has never had a bleeding problem before and has only been taking Eliquis for the past several months. She also had some complaints of chronic dysphagia for both solids and liquids that was evaluated with a barium swallow as an outpatient and revealed significant prominence of the cricopharyngeus muscle with mass effect on the esophagus posteriorly. In the ED, she was transfused one unit packed red blood cells and given a one liter crystalloid bolus, for hypotension SBP 80s, acute blood loss anemia, hemoglobin 7, and an elevated lactic acid. She was started on an IV PPI drip. NGT placement for gastric lavage was attempted but unsuccessful. Gastroenterology was consulted and the patient was admitted to critical care for an emergent EGD. Allergies/Medications Allergies: Coded Allergies: No Known Allergies (11/17/17) Home Med list Apixaban (Eliquis) 5 MG TABLET 1 TAB PO BID Atrial fibrillation . Fluticasone Propionate (Flonase Allergy Relief) 50 MCG/ACTUATION SPRAY.SUSP 1 SPRAY WAYNE DAILY ALLERGIES (Reported) Furosemide (Lasix) 40 MG TABLET 1 TAB PO Q48 WATER RETENTION (Reported) Levothyroxine Sodium (Levoxyl) 50 MCG TABLET 1 TAB PO DAILY AC THYROID ( Reported) Metoprolol Tartrate 100 MG TABLET 1 TAB PO BID Atrial fibrillation . Spironolactone (Aldactone) 25 MG TABLET 1 TAB PO Q48 WATER RETENTION ( Reported) Compliance With Home Meds: GOOD Past History Travel History Traveled to [place] past 21 day No Medical History Neurological: NONE EENT: NONE Cardiovascular: AFIB, hypertension Respiratory: obstructive sleep apnea Gastrointestinal: NONE Hepatic: NONE Renal: NONE Musculoskeletal: NONE Psychiatric: NONE Endocrine: obesity Blood Disorders: NONE Cancer(s): hodgkins lymphoma MENTAL HEALTH COORDINATOR/Reproductive: NONE History of MRSA: No History of VRE: No History of CDIFF: No Surgical History Surgical History: none Past Family/Social History Family History Relations & Conditions if any FATHER Prostate cancer Psychosocial History Who Do You Live With? spouse, child Primary Language: Polish Smoking Status: Never Smoked ETOH Use: denies use Illicit Drug Use: denies illicit drug use Living Will? no Power of Speech Writer/HCP? yes Name of POA/HCP: Functional Ability ADLs Independent: dressing, eating, toileting, bathing. Ambulation: independent IADLs Independent: shopping, housework, finances, food prep, telephone, transportation , medication admin. Employment History Employment Retired Review of Systems Review of Systems Constitutional: Reports: chills, fever, malaise, weakness. Denies: diaphoresis, unexplained weight loss. EENTM: Reports: blurred vision. Denies: nasal congestion, epistaxis, nasal pain. Cardiovascular: Denies: chest pain, palpitations. Respiratory: Denies: cough, short of breath, sputum production. GI: Reports: abdominal pain, diarrhea, melena, nausea, bloody stool, vomiting. Denies: constipation. Genitourinary: Denies: dysuria, frequency. Musculoskeletal: Reports: no symptoms. Skin: Reports: no symptoms. Neurological/Psychological: Reports: no symptoms. Hematologic/Endocrine: Reports: no symptoms. Immunologic/Allergic: Reports: no symptoms. All Other Systems: Reviewed and Negative Exam & Diagnostic Data Last 24 Hrs of Vital Signs/I&O Vital Signs Date Time Temp Pulse Resp B/P B/P Pulse O2 O2 Flow FiO2 Mean Ox Delivery Rate 03/29 1602 97.1 93 17 99/59 98 Room Air 03/29 1522 117/56 03/29 1417 77 78/49 03/29 1338 90 16 84/46 98 Room Air 03/29 1259 96 Room Air 03/29 1225 97.3 99 19 85/55 93 Room Air Intake & Output 03/29 1600 03/29 0800 03/29 0000 Intake Total 1000 Output Total Balance 1000 Intake, IV 1000 Physical Exam General Appearance Alert, Oriented X3, Cooperative, No Acute Distress, dry mucous membranes Cardiovascular Regular Rate, Normal S1, Normal S2, No Murmurs Lungs Clear to Auscultation, diminished bibasilarly Abdomen Normal Bowel Sounds, Soft, No Tenderness, No Masses Extremities No Clubbing, No Cyanosis, Normal Pulses, 1+ bilateral lower extremity pitting edema to mid sykes Last 24 Hrs of Labs/Manoj: Laboratory Tests 03/29/18 1546: Lactic Acid Pending 03/29/18 1239: Lactic Acid 2.3 H 03/29/18 1239: Anion Gap 11, Estimated GFR 47 L, BUN/Creatinine Ratio 38.3 H, Glucose 151 H, Calcium 8.2 L, Total Bilirubin 0.2, AST 13 L, ALT 29, Alkaline Phosphatase 41, Creatine Kinase 133, Troponin I < 0.01, Total Protein 6.0 L, Albumin 2.9 L, Globulin 3.1, Albumin/Globulin Ratio 0.9 L, PT 15.8 H, INR 1.44 H, APTT 26 03/29/18 1233: CBC w Diff MAN DIFF ORDERED, RBC 2.83 L, MCV 78.9 L, MCH 25.6 L, MCHC 32.5 L , RDW 16.0 H, MPV 7.4, Gran % 70.1, Lymphocytes % 21.3, Monocytes % 7.7, Eosinophils % 0.8, Basophils % 0.1, Absolute Granulocytes 12.7 H, Absolute Lymphocytes 3.9 H, Absolute Monocytes 1.4 H, Absolute Eosinophils 0.2, Absolute Basophils 0, Platelet Estimate VERIFIED BY SMEAR, Polychromasia 1+, Poikilocytosis 1+, Anisocytosis 1+, Ovalocytes FEW Diagnostic Data EKG Results sinus rhthm hr [address] segment changes CXR Results The cardiac and mediastinal contours are stable. The lungs are clear. There is no pleural effusion or pneumothorax. IMPRESSION: No evidence for acute disease in the chest. Other Results Echo 11/2017 Normal size left ventricle. Mild concentric left ventricular hypertrophy. Normal left ventricular ejection fraction visually estimated at > 60%. No obvious regional wall motion abnormalities. "pseudonormal" filling pattern of the left ventricle for age (stage 2 diastolic dysfunction). Mild left atrial dilatation. Mild mitral regurgitation. [id number] aortic regurgitation. Mild aortic stenosis. Mild tricuspid regurgitation. Mild pulmonic regurgitation. Assessment/Plan Assessment: 52 year old female with PMH of HFpEF, HTN, pAfib on eliquis presents with one day history of nausea, vomiting and diarrhea, guiaic positive, with acute blood loss anemia with associated hypotension. Acute blood loss anemia with hypotension: Secondary to GI bleed Patient was hypotensive in the ED with SBPs ranging from 78-85 Admit to ICU, Q1H vitals, strict I/O's Hemoglobin 7.2 on presentation, was 12.6, 3 months ago Two large bore IVs Type and screened, transfuse 2 units pRBCs IV PPI gtt Gastroenterology consultation Serial CBCs NS @ 100cc/hr NPO for EGD to rule out rapid transit upper GI bleed Plan for colonoscopy per GI Elevated creatinine: Creatinine 1.2 on presentation BUN 46 Likely prerenal from combination hypotension and acute blood loss anemia Trend renal function JASON: Continue CPAP Atrial fibrillation/HFpEF/HTN: Check troponins x 2 Hold eliquis, aldactone, and metoprolol Hypothyroidism: Continue synthroid 50mcg po daily TSH normal 02/2018 DM: A1C 6.9 last month Accuchecks Q6H while NPO Consider starting insulin for hyperglycemia Tylenol and morphine prn for analgesia NPO for EGD DVT ppx-ALPs only Full code As Ranked By This Provider Problem List: 1. GI bleed Core Measures/Misc (05/31) Acute Coronary Syndrome ACS Diagnosis: No Congestive Heart Failure Congestive Heart Failure Diagnosis No Cerebrovascular Accident CVA/TIA Diagnosis: No VTE (View Protocol) VTE Risk Factors Age>40 No Mechanical VTE Prophylaxis d/t N/A MechProphylax Ordered No VTE Pharm Prophylaxis d/t Bleeding (Active) Sepsis (View protocol) Sepsis Present: No If YES complete Sepsis Event Note If YES complete Sepsis Event Note Kuldeep Jhaveri MD 03/29/18 1641: Core Measures/Misc (05/31) Sepsis (View protocol) If YES complete Sepsis Event Note If YES complete Sepsis Event Note Attending MD Review Statement Attending Statement Attending MD Statement: examined this patient, discuss w/resident/PA/DATA ANALYTICS ARCHITECT, agreed w/resident/PA/DATA ANALYTICS ARCHITECT, discussed with family, reviewed EMR data (avail), discussed with nursing, discussed with case mgmt, reviewed images, amended to note Attending Assessment/Plan: Kuldeep Batista M.D. have examined this patient, reviewed available EMR data, personally reviewed images, discussed with resident/PA/DATA ANALYTICS ARCHITECT, discussed management plan with housestaff and nursing staff, discussed managment plan all of healthcare providers, discussed management plan with patient and/or family, agreed with resident/PA/DATA ANALYTICS ARCHITECT. The past history and parts of the chart have been autopopulated. Impression 52 year old woman * acute blood loss anemia in the setting of Eliquis use for a.fib, unclear source but appears to be upper GI source * known systolic murmur Plan -large bore IV -prbcs - 2 units for now -hemodynamically improved, monitor -hold Eliquis - routine consultation with Dr. Paul -prep for endoscopy in the ICU per GI - conslutation appreciated, anesthesia evaluated pt for intubation electively during procedure -monitor cbc -ivf -PPI -continue synthroid for hypothyroidism DVT prophylaxis at all times - ALPS TTS 40 min
--- NOTE | 2018-03-29 16:48 | Admission Certification ---
Admission Certification Certification Statement - As attending physician, I certify that at the time of - admission, based on clinical presentation, severity of - symptoms, need for further diagnostic testing and - therapeutic interventions, and risk of adverse outcomes - without in-hospital treatment, in my clinical assessment, - this patient requires an acute hospital stay for a minimum - of two nights or longer. I have also considered psychsocial - factors such as support system, advanced age, financial - issues, cognitive issues, and failed out-patient treatments, - past re-admission history, safety of patient, and lack of - compliance as applicable. Specific rationale supporting this admission is: acute blood loss anemia gi bleed, likely upper ICU level of care
--- NOTE | 2018-03-29 18:07 | Proc Note Endoscopy ---
Endoscopy Procedure Medical History: unchanged Mental Status: alert/oriented Heart/Lung Eval Prior to Sedation: within normal limits Candidate for Sedation? Yes Procedure Date: 03/29/18 Procedure Type: EGD [place] Picker: DUKE BIANCHI MD ASA Classification: III (III-E) Indications: INDX: (*Please refer to my 03/29/18: GI consult). 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 mediastinal, txd in [place], [place] then with CTX/RT (spleen intact, no prior abdominal surgery, no previous transfusions), without prior EGD or baseline colonoscopy, no FHx GI disease, GI Ca or inherited liver disease, presenting to the [facility] 03/29/18 at 12:21 PM, with hematemesis & darkish red blood per rectum, anemia, hypotension, & elevated BUN/Cr ratio. *Eliquis still on board, but procedure done as pt hypotensive. NGT unable to be placed by ER post 2 attempts, & the pt refused further attempts at this. Instrument: diagnostic gastroscope Meds Received: MAC (& proph intubation, per anesth) Patient's Tolerance: good Complications: none Extent Reached: D3 Procedure: Baseline upper endoscopy to the third portion of the duodenum, was performed with the Olympus high definition videoendoscope, after obtaining informed consent from the patient, with the groundwater monitoring technician and pulse oximeter, with the assistance of Dr. Nelson, of [facility], at the bedside in the [facility], room #108, with the assistance of the GI RNs, Kallie. The patient was sedated & prophylactically intubated by Dr. Nelson, to protect the airway. A mouthpiece was then placed in the usual fashion to protect the patient's teeth. The patient was kept in the supine position after intubation. At this point, the endoscope was advanced from the mouth into the esophagus, using direct visualization technique. The ETT was seen in between the vocal cords, going into the trachea. The endoscope was passed through the upper esophageal inlet, which was somewhat snug (hx cricopharyngeal hypertrophy). The esophageal mucosa appeared normal, without any inflammation. There were no esophageal rings, webs, lesions, strictures, or ulcers. There was no monilia or vesicles. There was no esophageal ribbing. The Z line was well demarcated at 40 cm (supine). There were no ectopic islands, nor gross Manley's esophagus. There were no esophageal varices. No definite hiatal hernia pouch was seen. Visibility in the stomach was somewhat limited, as there was old blood and clots obscuring portions of the gastric cardia, fundus, and distal antrum. Numerous attempts were made to clear this, with the use of the [employer] H2O jet. Within these limitations, no definite Andreina Orona tear or gastric varices were seen. *It certainly is possible a mucosal abnormality could have been obscured in the gastric cardia, fundus, and/or distal antrum. The zayas of the stomach seemed to distend relatively normally with air insufflation, but again, this was a somewhat limited study. Direct and retroflexed views of the stomach were performed. There was nothing endoscopically to suggest portal gastropathy. There may been some mild gastroparesis (hx elevated TSH, mild DM), with food and clots in the distal antrum. The visualized mucosa of the gastric cardia & fundus was normal, albeit with limited views. There was a 1 cm x 2 cm2 oblong gastric ulcer at the incisura/lesser curvature, without any definite visible vessel or clot. There was some heme at the periphery of this, but this was left intact without therapeutics, for fear of causing more bleeding, as Eliquis was still on board. The mucosa of the gastric body & antrum appeared normal, without any gastric ulcers or gastric lesions, although again, a portion of the distal antrum was obscured by clot and food, which could not be completely cleared. The pylorus was patent, without any gastric outlet obstruction or channel ulcer. The duodenal bulb, duodenal sweep, & third portion of the duodenum appeared normal, without any duodenal ulcers, distal ulcerations, or angiodysplasias. I was not able to see the ampulla with the direct viewing scope. The folds of the second & third portions of the duodenum were normal in caliber, without any flattening, nodularity, scalloping, or mosaic pattern. No fresh blood was seen in the duodenum. The bleeding source was from the stomach, which was partially obscured. As there was food & old clots obscuring portions of the stomach & the upper esophageal inlet was somewhat snug, I did not bother attempting to switch to the larger diameter double channel endoscope. Documenting photographs were obtained & placed inside the patient's chart. The patient tolerated the procedure well. Impression: 1. 1 cm x 2 cm2 oblong gastric ulcer at incisura/lesser curvature with peripheral oozing, left intact, as Eliquis on board. 2. Clots & food obscuring portions of the gastric cardia, fundus, & distal antrum; patent pylorus without GOO. Possible component of gastroparesis (elevated TSH, mild DM). 3. 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 4. Clean duodenum to D3. Recommendations: *Maintain on ventilator in ICU. *NPO for now. *Eliquis on hold for now. No ASA for now. 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 IV Protonix 80 mg bolus followed by 8 mg/hr continuous drip. 2 large bore IVs. T &C 2u PRBC. Check CBC Q6h for now. Keep Hgb > 8 (probable underlying ASHD, numerous risk factors & hx diastolic dysfunction on 11/17/17: echocardiogram). Strict I/O's. *Place OGT-> low gomco suction. *Add Reglan 10 mg IVPB Q6h, to help mobilize blood, clots, & food from stomach. *Watch for potential EPS side effects. *Plans are to repeat EGD tomorrow, on 03/30/18, after OGT & Reglan, to help clear the stomach. *Check stool Ag H. pylori. If continued bleeding, consideration for surgical and/or IR consultation. Based on the EGD findings, no indication for inpt baseline coloonoscopy, nor for CTA abdomen, at present. The pt was told she would need a baseline screening colonoscopy as an outpt, once her UGI bleed stabilizes, as she was overdue for this (advised by age 45 in average risk for colon Ca Americans). *Advise cardiology input. *Advise eventual outpt CT neck and/or ENT evaluation, regarding cricopharyngeal hypertrophy with mass-effect at posterior aspect of esophagus at C4/C5 (noted on 02/17/18: MBS obtained by PMD), especially keeping in mind the past history of remote Hodgkin's lymphoma. The pt's son, Ruiz Luna, was previously given my office number for future reference. The patient is aware of the need to follow- up with DIRECTOR ORANGE as an outpatient for the probable incidental intermittent vaginal spotting. DVT prophylaxis with mechanical ALPS. The above findings & recommendations were discussed with the patient's , Ruiz, & her son, Ruiz postop, as well as with the medical ICU house staff, and with Dr. Jhaveri. I also spoke with Dr. Balwinder Muñoz postop, as he is covering GI this p.m. Further GI recommendations to follow, depending on clinical course. CC: Mayuri DUNN,Mayuri; Linnette DUNN,Patel Vázquez; Toni DUNN,Jose Luis De Los Santos; Emilio DUNN,Kuldeep
--- NOTE | 2018-03-29 19:42 | RADIOLOGY REPORT ---
EXAMINATION: CHEST 1 VIEW CLINICAL INFORMATION: Enteric tube placement. Intubation. COMPARISON: Same day chest radiograph. TECHNIQUE: An AP view of the chest is provided. FINDINGS: The cardiac silhouette is not enlarged. An endotracheal tube is in place. The tip is approximately 2.5 cm above the baldomero. An enteric tube is in place. The tip terminates within the left upper quadrant, likely within the stomach. The mediastinal and hilar contours are unremarkable. There are neither pleural effusions nor pneumothoraces. There is nonspecific patchy multifocal opacification. The osseous structures are unremarkable. IMPRESSION: Endotracheal tube and enteric tube in place. Nonspecific patchy multifocal opacification.
[2018-03-29 20:36] LABS: ABSOLUTE BASOPHIL COUNT 0 /CUMM (0.0-0.2); ABSOLUTE EOSINOPHIL COUNT 0.1 /CUMM (0.0-0.7); ABSOLUTE GRANULOCYTE CT 14.1 /CUMM (1.4-6.5); ABSOLUTE LYMPH COUNT 2.3 /CUMM (1.2-3.4); ABSOLUTE MONOCYTE COUNT 1.1 /CUMM (0.10-0.60); BASOPHIL % 0.2 % (0.0-2.0); EOSINOPHIL % 0.3 % (0-5); GRANULOCYTE % 80.2 % (42.2-75.2); HEMATOCRIT 26.2 % (37-47); MEAN CORPUSCULAR HGB 27.5 PG (27.0-31.0); MEAN CORPUSCULAR HGB CONC 32.8 G/DL (33.0-37.0); MEAN PLATELET VOLUME 7.6 FL (7.4-10.4); PLATELET COUNT 171 /CUMM (130-400); RBC DISTRIBUTION WIDTH 16.4 % (11.5-14.5); RED BLOOD CELL CT 3.13 /CUMM (4.20-5.40); WHITE BLOOD CELL COUNT 17.6 /CUMM (4.8-10.8)
[2018-03-29 20:39] LABS: MEAN CORPUSCULAR VOLUME 83.9 FL (81.0-99.0)
[2018-03-30] VITALS: BP 100/60
[2018-03-30 04:03] LABS: ABSOLUTE EOSINOPHIL COUNT 0.3 /CUMM (0.0-0.7); ABSOLUTE LYMPH COUNT 2.5 /CUMM (1.2-3.4); EOSINOPHIL % 1.7 % (0-5); MEAN CORPUSCULAR HGB 27.7 PG (27.0-31.0)
[2018-03-30 04:08] LABS: ABSOLUTE BASOPHIL COUNT 0.1 /CUMM (0.0-0.2); ABSOLUTE GRANULOCYTE CT 12.3 /CUMM (1.4-6.5); ABSOLUTE MONOCYTE COUNT 1.1 /CUMM (0.10-0.60); BASOPHIL % 0.3 % (0.0-2.0); GRANULOCYTE % 75.7 % (42.2-75.2); MEAN CORPUSCULAR HGB CONC 33.3 G/DL (33.0-37.0); MEAN CORPUSCULAR VOLUME 83.1 FL (81.0-99.0); MEAN PLATELET VOLUME 7.6 FL (7.4-10.4); PLATELET COUNT 167 /CUMM (130-400); RBC DISTRIBUTION WIDTH 15.6 % (11.5-14.5); RED BLOOD CELL CT 2.59 /CUMM (4.20-5.40); WHITE BLOOD CELL COUNT 16.2 /CUMM (4.8-10.8)
[2018-03-30 04:11] LABS: HEMATOCRIT 21.5 % (37-47)
[2018-03-30 08:00] VITALS: BP 112/66
--- NOTE | 2018-03-30 08:39 | PN- Resident CRCU ---
Naseem Pandya 03/30/18 0839: Subjective HPI/CRCU Issues: #Anemia 2/2 acute blood loss, s/p 4U PRBC #ELIAN, resolving #Afib/HTN #Hypothyroidism #DM 24 Hour Events: Pt seen and examined at bedside this am. She remains intubated though responding to verbal stimuli and following commands. Objective Vital Signs & I&O Last 8 Hrs of Vitals and I&O: Laboratory Tests 03/30/18 1100: CBC w Diff NO MAN DIFF REQ, RBC 2.70 L, MCV 85.1, MCH 28.0, MCHC 33.0, RDW 16.9 H, MPV 7.9, Gran % 76.4 H, Lymphocytes % 13.4 L, Monocytes % 7.6, Eosinophils % 2.4, Basophils % 0.2, Absolute Granulocytes 12.3 H, Absolute Lymphocytes 2.2, Absolute Monocytes 1.2 H, Absolute Eosinophils 0.4, Absolute Basophils 0 03/30/18 0758: pH 7.40, pCO2 34 L, pO2 88, HCO3 21, ABG O2 Sat (Measured) 95.0 L, Carboxyhemoglobin 0.7 L, O2 Concentration % 40%, Respiration Rate 16, O2 Delivery Method VENT, Vent Mode VC-AC, Expiratory Pressure 5, Tidal Volume 500, Pressure Support 0, Phlebotomy Draw Site RIGHT RADIAL 03/30/18 0500: Troponin I Cancelled 03/30/18 0345: Anion Gap 6, Estimated GFR > 60, Glucose 108 H, Calcium 6.9 L, Phosphorus 3.0, Magnesium 1.7, Total Bilirubin 0.1 L, AST 14, ALT 28, Troponin I 0.01, Albumin 2.0 L, CBC w Diff NO MAN DIFF REQ, RBC 2.59 L, MCV 83.1, MCH 27.7, MCHC 33.3, RDW 15.6 H, MPV 7.6, Gran % 75.7 H, Lymphocytes % 15.2 L, Monocytes % 7.1, Eosinophils % 1.7, Basophils % 0.3, Absolute Granulocytes 12.3 H, Absolute Lymphocytes 2.5, Absolute Monocytes 1.1 H, Absolute Eosinophils 0.3, Absolute Basophils 0.1 03/29/182012: Lactic Acid 2.2 H, CBC w Diff NO MAN DIFF REQ, RBC 3.13 L, MCV 83.9, MCH 27.5, MCHC 32.8 L, RDW 16.4 H, MPV 7.6, Gran % 80.2 H, Lymphocytes % 12.9 L, Monocytes % 6.4, Eosinophils % 0.3, Basophils % 0.2, Absolute Granulocytes 14.1 H, Absolute Lymphocytes 2.3, Absolute Monocytes 1.1 H, Absolute Eosinophils 0.1 , Absolute Basophils 0 03/29/182011: Urinalysis LIGHT H, Urine Color YEL, Urine Clarity HAZY H, Urine pH 6.0, Ur Specific [place] 1.020, Urine Protein NEG, Urine Ketones NEG, Urine Nitrite NEG, Urine Bilirubin NEG, Urine Urobilinogen 0.2, Ur Leukocyte Esterase NEG, Ur Microscopic SEDIMENT EXAMINED, Urine RBC RARE, Urine WBC 1-3 H, Ur Epithelial Cells MOD H, Urine Bacteria MOD H, Hyaline Casts RARE H, Urine Hemoglobin NEG , Urine Glucose NEG 03/29/181939: pH 7.35, pCO2 36, pO2 70 L, HCO3 19 L, ABG O2 Sat (Measured) 92.0 L, P-50 ( Temp Corrected) N, Carboxyhemoglobin 0.3 L, O2 Concentration % 45%, Temperature 97.7, Respiration Rate 16, O2 Delivery Method ESPRIT, Vent Mode AC, Expiratory Pressure 5, Tidal Volume 500, Phlebotomy Draw Site RIGHT RADIAL 03/29/18 1546: Lactic Acid 1.2 Vital Signs Date Time Temp Pulse Resp B/P B/P Pulse O2 O2 Flow FiO2 Mean Ox Delivery Rate 03/30 1200 95 Ventilator 40% 03/30 1154 40 03/30 0842 40 03/30 0800 97 Ventilator 40% 03/30 0800 99.2 113 21 112/66 95 Ventilator 40% 03/30 0557 40 03/30 0400 97 Ventilator 40% 03/30 0334 40 03/30 0123 40 03/30 0000 97 Ventilator 40% 03/30 0000 97.7 106 20 100/60 97 Ventilator 03/29 2244 40 03/29 2000 100 Ventilator 45% 03/29 1910 45 03/29 1810 50 03/29 1708 97.2 92 17 97/56 97 Room Air 03/29 1602 97.1 93 17 99/59 98 Room Air 03/29 1522 117/56 03/29 1417 77 78/49 03/29 1338 90 16 84/46 98 Room Air 03/29 1259 96 Room Air Intake & Output 03/30 1600 03/30 0800 03/30 0000 Intake Total 1144 2322.3 Output Total 970 600 Balance 174 1722.3 Intake, Blood 350 700 Product Intake, IV 794 1622.3 Output, 100 100 Gastric Drainage Output, Urine 870 500 Patient 239 lb 340 lb Weight Weight Bed scale Reported by Patient Measurement Method Exam General Appearance: sedated, intubated Head: atraumatic, normal appearance Ears, Nose, Throat: ett tube in place Neck: normal inspection, supple Respiratory: normal breath sounds, chest non-tender, no respiratory distress Cardiovascular: regular rate/rhythm, edema Gastrointestinal: normal bowel sounds, soft, non-tender, no organomegaly Extremities: normal inspection, normal capillary refill, pedal edema Current Medications: Current Medications Sig/Ceasar Start time Last Medication Dose Route Stop Time Status Admin Acetaminophen 1,000 MG Q6P PRN 03/29 1700 AC 03/30 N/A 1 UNIT IV 0937 Acetaminophen 650 MG Q6P PRN 03/29 1600 DC PO Ampicillin Sodium/ 3,000 MG Q6 03/30 1246 AC Sulbactam Sodium IV Sodium Chloride 100 ML Levothyroxine Sodium 25 MCG DAILY 03/30 0900 AC 03/30 IV 0939 Levothyroxine Sodium 0.05 MG DAILY AC 03/30 0700 DC PO Metoclopramide HCl 10 MG Q6 03/30 0600 AC 03/30 IV 1118 Morphine Sulfate 4 MG ONCE ONE 03/29 1945 DC 03/29 IV 03/29 194 2033 Morphine Sulfate 2 MG Q4P PRN 03/29 1700 AC IV Non-Formulary 0 SEE ADMIN CRITERIA 03/29 1800 CAN Medication ANY Pantoprazole Sodium 40 MG Q5H 03/29 1600 DC Sodium Chloride 100 ML IV Pantoprazole Sodium 0 .STK-MED ONE 03/29 1412 DC IV Pantoprazole Sodium 40 MG Q5H 03/29 1345 AC 03/30 Sodium Chloride 100 ML IV 0944 Phenylephrine HCl 40 MG .STK-MED ONE 03/29 1819 DC IM 03/29 1820 Propofol 1,000 MG Q4H 03/29 2200 AC 03/30 N/A 1 UNIT IV 0921 Propofol 1,000 MG Q24H 07/16 1815 DC 03/29 N/A 1 UNIT IV 1902 Propofol 1,000 MG .STK-MED ONE 03/29 1812 DC IV / 1813 Sodium Chloride 1,000 ML BOLUS ONE 03/29 2015 DC 07/16 IV /16 2214 2034 Sodium Chloride 1,000 ML BOLUS ONE 03/29 1800 DC 07/16 IV 07/16 1959 1901 Sodium Chloride 1,000 ML .Q10H 03/29 1600 AC 03/30 IV 0924 Sodium Chloride 1,000 ML BOLUS ONE 03/29 1230 DC 07/16 IV 07/16 1329 1242 CXR Findings: SERVICE DATE: 03/30 EXAM TYPE: RAD - XRY-PORTABLE CHEST XRAY EXAMINATION: XR PORTABLE CHEST CLINICAL INFORMATION: Intubated patient. Confirmation of lines and tubes. Comparison from previous. COMPARISON: Several prior chest x-rays, most recent of which is dated 03/29/2018. TECHNIQUE: Portable frontal view of the chest was obtained. FINDINGS: Multiple EKG leads overlie the chest. Endotracheal tube is in place with tip approximately 2.7 cm above the baldomero. Enteric tube courses into the abdomen with tip not included. The cardiomediastinal silhouette is enlarged, unchanged. Low lung volumes are seen with diffuse bilateral parenchymal opacity is and thickening of the airways, unchanged when compared to the prior exam when allowing for differences in technique. Mild central vascular congestion is noted without overt pulmonary edema. No definite pleural effusion is seen. No pneumothorax is noted. Bony structures are unremarkable. IMPRESSION: 1. Endotracheal tube tip 2.7 cm above the baldomero. 2. Enteric tube courses into the abdomen with tip not included. 2. Multifocal diffuse bilateral parenchymal opacities are seen with thickening of central airways. Findings are nonspecific and are unchanged compared to the most recent prior study and are new compared to 03/29/2018, suggesting a diffuse acute viral or atypical pneumonitis or acute chemical pneumonitis in the correct clinical setting. Impression/Plan Impression/Problem List Impression: 52 y/o F with PMH of paroxysmal afib on apixaban, HTN, HFpEF. obesity, JASON and remote h/o hodgkin's s/p presented to the ED c/o of 1 day history of nausea, coffee ground emesis, and melena. On the ED, she was found to be hypotensive (85 /55) with H/H 7.2/22.3 with lactic acidemia. She was transfused 1U PRBC and 1L crystalloid bolus - NGT placement for gastric lavage was attempted but unsuccessful. GI was consulted and the patient was admitted to [facility] ICU for management of hypotension with the plan to do an emergent EGD. IMPRESSION #Anemia 2/2 acute blood loss, s/p 4U PRBC #ELIAN, resolving #Afib/HTN #H/o Hypothyroidism #H/o DM #Anemia 2/2 acute blood loss, s/p 4U PRBC Patient's CBC and clinical presentation are indicative of acute blood loss as a cause of her anemia. The source is most likely from the GI tract. An EGD was done which found an oblong gastric ulcer that was oozing that was left intact due to patient being on apixaban. Her H/H now is 7.6/22.9, with the plan of doing a repeat EGD today as per GI. Serial CBCs should be monitored. -Repeat EGD today -Serial CBCs, monitor H/H -IV PPI #ELIAN, resolving On admit pt had BUN/Cr 46/1.2, likely resulting from her acute blood loss resulting in hypotension. BUN/Cr is trending down as a result of fluid therapy. Will continue to monitor. -BEP in the am #Afib/HTN Pt has a h/o pAFib on apixaban since 1 year ago -- she has needed electrical cardioversion in the past. Her anticoagulation is definitely contributing to her ongoing acute blood loss. It was held with the plan to repeat EGD today (03/30). Cardiology was consulted with regards to her anticoagulation. -Hold Apixaban #H/o hypothyroidism Pt with a h/o hypothyroidism with latest TSH on record normal (3450 on 02/25). -Continue synthroid IV 25 mcg qD #H/o DM pt with a h/o DM, latest A1C on record is 6.9% on 03/01. Latest glucose is 105. -Bedside glucose monitoring q6 FULL CODE NPO DVT PPX: [facility] Problem List: 1. GI bleed 2. Paroxysmal A-fib 3. Anemia Pain Ratin Tomorrow's Labs & Rationales: cbc icu lab bundle Plan DVT/Prophylaxis: Kuldeep Skelton MD 03/30/18 0920: Attending MD Review Statement Attending Sign Off Attending Cosign Statement: I have: examined this patient, reviewed avalbl EMR data, personally reviewd images, discussd w/resident/PA/CLINICAL RN MANAGER, discussed mgmt plan w/tequila, discussed mgmt plan w/CM, discussed mgmt plan w/pt, agreed w/resident/PA/CLINICAL RN MANAGER, amended to note. Other Findings: I, Kuldeep Jhaveri M.D. have examined this patient, reviewed available EMR data, personally reviewed images, discussed with resident/PA/CLINICAL RN MANAGER, discussed management plan with housestaff and nursing staff, discussed managment plan all of healthcare providers, discussed management plan with patient and/or family, agreed with resident/PA/CLINICAL RN MANAGER. The past history and parts of the chart have been autopopulated. Impression 52 year old woman * acute blood loss anemia in the setting of Eliquis use for a.fib, upper GI source - agree with gastroenterology * known systolic murmur * intubated for airway protection and re-scoping * patchy opacifications post intubation - possibly chemical pneumonitis and aspiration pneumonia - this maybe related to a previous episode of vomiting prior to intubation, however the CXR on admission was clear, the radiographic imaging may have been lagging Plan -large bore IV -prbcs -hemodynamic monitoring -hold Eliquis - consultation with Dr. Paul -prep for endoscopy repeat today in the ICU per GI - conslutation appreciated, pt to remain intubated for procedure -monitor cbc -ivf -PPI -continue synthroid for hypothyroidism -begin unasyn for tx of aspiration pneumonia DVT prophylaxis at all times - ALPS TTS 35 min
--- NOTE | 2018-03-30 11:37 | Cons- Cardiology ---
General Information and HPI Consulting Request Date of Consult: 03/30/18 Requested By: Kuldeep Jhaveri MD Reason for Consult: GI bleed in a patient with paroxysmal atrial fibrillation on Eliquis. Source of Information: patient, old records Exam Limitations: unable to give history History of Present Illness: Amanda Soto is a 52-year-old female who had radiation and chemotherapy for Hodgkin's disease about 20 years ago. Subsequently she developed some valvular disease, presumably from the radiation. She also has hypertension. She recently moved here from [place]. In February 2017 she presented to the [facility] with palpitations and was found to be in rapid atrial fibrillation. She was said to be unstable in terms of blood pressure and was cardioverted in the Emergency Department and then admitted for observation. She remained in sinus rhythm and was started on metoprolol and Xarelto, which she remains on. She never had a previous episode. Her echocardiogram at [facility] showed an ejection fraction of 57%, a right ventricular systolic pressure of 64 mmHg, mild mitral stenosis, and moderate to severe aortic regurgitation. The ascending aorta was borderline at 3.6 cm and aortic arch dilated at 4.1 cm. Amanda also has sleep apnea. She had been diagnosed in the past, and was just retested and will be set up for CPAP. She has seen Dr. Jeff in pulmonary consultation and is being set up for pulmonary function tests. Since her initial visit, Amanda was hospitalized on 11/17/17 briefly again for atrial fibrillation. She converted to sinus rhythm after being given heparin and Cardizem, with mildly abnormal troponins with maximum of 0.49. Echocardiogram showed normal LV function and mildly elevated pulmonary artery pressure between 40 and 45 mmHg. Subsequently she was seen again in the emergency room on 2017, again with an episode of atrial fibrillation. She was given IV Lopressor and again converted to sinus rhythm. Since her last visit, Amanda was doing well for a while, but recently has been having additional episodes of palpitations. She has been taking extra metoprolol when she has these and they usually resolve within an hour. She has not had to go to the emergency room, so these are not documented, but the way she describes them as palpitations with shortness of breath and a very uncomfortable feeling is consistent with paroxysmal atrial fibrillation. She remains on Eliquis, hydrochlorothiazide, and metoprolol 100 mg twice daily. Subsequently I referred her to Dr. Porfirio Hercules for her highly symptomatic paroxysmal atrial fibrillation. His feeling was that this was on the basis of prior history of radiation therapy, history of hypertension, history of sleep apnea, overweight, and aortic regurgitation. He recommends an another sleep evaluation. He also changed her diuretics to Lasix and Aldactone from hydrochlorothiazide. He suggested significant weight loss. He suggested adding flecainide if she continues to have atrial fibrillation episodes and then probably going on to atrial fibrillation ablation if she continued to have symptoms. The patient now presents with GI bleeding secondary to gastric ulcer. Her Eliquis is on hold. Her rhythm has shown sinus rhythm and sinus tachycardia but no atrial fibrillation. Her blood pressure is being maintained on IV fluids alone. She is sedated on a respirator at this time. Allergies/Medications Allergies: Coded Allergies: No Known Allergies (11/17/17) Home Med List: Apixaban (Eliquis) 5 MG TABLET 1 TAB PO BID Atrial fibrillation . Fluticasone Propionate (Flonase Allergy Relief) 50 MCG/ACTUATION SPRAY.SUSP 1 SPRAY WAYNE DAILY ALLERGIES (Reported) Furosemide (Lasix) 40 MG TABLET 1 TAB PO Q48 WATER RETENTION (Reported) Levothyroxine Sodium (Levoxyl) 50 MCG TABLET 1 TAB PO DAILY AC THYROID ( Reported) Metoprolol Tartrate 100 MG TABLET 1 TAB PO BID Atrial fibrillation . Spironolactone (Aldactone) 25 MG TABLET 1 TAB PO Q48 WATER RETENTION ( Reported) Current Medications: Current Medications Sig/Ceasar Start time Last Medication Dose Route Stop Time Status Admin Acetaminophen 1,000 MG Q6P PRN 03/29 1700 AC 03/30 N/A 1 UNIT IV 0937 Acetaminophen 650 MG Q6P PRN 03/29 1600 DC PO Levothyroxine Sodium 25 MCG DAILY 03/30 0900 AC 03/30 IV 0939 Levothyroxine Sodium 0.05 MG DAILY AC 03/30 0700 DC PO Metoclopramide HCl 10 MG Q6 03/30 0600 AC 03/30 IV 1118 Morphine Sulfate 4 MG ONCE ONE 03/29 1945 DC 03/29 IV 03/29 Morphine Sulfate 2 MG Q4P PRN 03/29 1700 AC IV Non-Formulary 0 SEE ADMIN CRITERIA 03/29 1800 CAN Medication ANY Pantoprazole Sodium 40 MG Q5H 03/29 1600 DC Sodium Chloride 100 ML IV Pantoprazole Sodium 0 .STK-MED ONE 03/29 1412 DC IV Pantoprazole Sodium 40 MG Q5H 03/29 1345 AC 03/30 Sodium Chloride 100 ML IV 0944 Pantoprazole Sodium 0 .STK-MED ONE 03/29 1251 DC IV Pantoprazole Sodium 40 MG ONCE ONE 03/29 1245 DC 07/ IV 03/29 1246 1256 Phenylephrine HCl 40 MG .STK-MED ONE 03/29 1819 DC IM 03/29 1820 Propofol 1,000 MG Q4H 03/29 2200 AC 03/30 N/A 1 UNIT IV 0921 Propofol 1,000 MG Q24H 03/29 1815 DC / N/A 1 UNIT IV 1902 Propofol 1,000 MG .STK-MED ONE 03/29 1812 DC IV / 1813 Sodium Chloride 1,000 ML BOLUS ONE 03/29 2015 DC 07/ IV / 2214 2034 Sodium Chloride 1,000 ML BOLUS ONE 03/29 1800 DC 03/29 IV 03/29 1959 1901 Sodium Chloride 1,000 ML .Q10H 03/29 1600 AC 03/30 IV 0924 Sodium Chloride 1,000 ML BOLUS ONE 03/29 1230 DC / IV / 1329 1242 Review of Systems Review of Systems: Unable to obtain. 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 Prostate cancer MOTHER ([employer]). Age 75. Psychosocial History Where Do You Live? Home Who Do You Live With? spouse, child Services at Home: None Primary Language: Persian Smoking Status: Never Smoked ETOH Use: denies use Illicit Drug Use: denies illicit drug use Living Will? no Power of Supervisor Engraving/HCP? no Other Social History: to [place]. 2 children (1 son & 1 dtr)- [employer]. 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 Ambulation: independent IADLs Independent: shopping, housework, finances, food prep, telephone, transportation , medication admin. 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 ECHO Results (as available) Date of last Echo 11/17/17 EF% 60 Exam & Diagnostic Data Vital Signs and I&O Vital Signs Date Time Temp Pulse Resp B/P B/P Pulse O2 O2 Flow FiO2 Mean Ox Delivery Rate 03/30 0842 40 03/30 0800 97 Ventilator 40% 03/30 0800 99.2 113 21 112/66 95 Ventilator 40% 03/30 0557 40 03/30 0400 97 Ventilator 40% 03/30 0334 40 03/30 0123 40 03/30 0000 97 Ventilator 40% 03/30 0000 97.7 106 20 100/60 97 Ventilator 03/29 2244 40 03/29 2000 100 Ventilator 45% 03/29 1910 45 03/29 1810 50 03/29 1708 97.2 92 17 97/56 97 Room Air 03/29 1602 97.1 93 17 99/59 98 Room Air 03/29 1522 117/56 03/29 1417 77 78/49 03/29 1338 90 16 84/46 98 Room Air 03/29 1259 96 Room Air 03/29 1225 97.3 99 19 85/55 93 Room Air Intake & Output 03/30 1600 03/30 0800 / 0000 16 1600 03/29 0800 03/29 0000 Intake Total 1144 2322.3 1000 Output Total 970 600 Balance 174 1722.3 1000 Intake, Blood 350 700 Product Intake, IV 794 1622.3 1000 Output, 100 100 Gastric Drainage Output, Urine 870 500 Patient 239 lb 340 lb Weight Weight Bed scale Reported by Patient Measurement Method Physical Exam: Intubated and sedated and unresponsive HEENT Exam grossly normal Chest aerating well Heart prominent systolic ejection murmur at the base Extremities no edema, good peripheral pulses Diagnostic Data EKG Results EKG shows sinus tachycardia rate 114 nonspecific T-wave changes and small inferior Q waves. CXR Results PATIENT: AMANDA SOTO PRESENT AGE: 52 PATIENT ACCOUNT NO: [id number] : 66 LOCATION: [facility] ORDERING PHYSICIAN: Williams Keller MD SERVICE DATE: 03/29/18- EXAM TYPE: RAD - XRY-PORTABLE CHEST XRAY EXAMINATION: CHEST 1 VIEW CLINICAL INFORMATION: Enteric tube placement. Intubation. COMPARISON: Same day chest radiograph. TECHNIQUE: An AP view of the chest is provided. FINDINGS: The cardiac silhouette is not enlarged. An endotracheal tube is in place. The tip is approximately 2.5 cm above the baldomero. An enteric tube is in place. The tip terminates within the left upper quadrant, likely within the stomach. The mediastinal and hilar contours are unremarkable. There are neither pleural effusions nor pneumothoraces. There is nonspecific patchy multifocal opacification. The osseous structures are unremarkable. IMPRESSION: Endotracheal tube and enteric tube in place. Nonspecific patchy multifocal opacification. DICTATED BY: Yousif Calderon MD DATE/TIME DICTATED:03/29/181937 DIRECTORY OPERATOR:AVA DATE/TIME TRANSCRIBED:03/29/181937 CONFIDENTIAL, DO NOT COPY WITHOUT APPROPRIATE AUTHORIZATION. <Electronically signed in Other Vendor System> SIGNED BY: Yousif Calderon MD 03/29/181941 Assessment/Plan Assessment/Plan The patient is a 52-year-old female with valvular heart disease probably secondary to previous chest radiation, and paroxysmal atrial fibrillation which has recently been symptomatic. She has seen Dr. Porfirio Hercules in consultation who had some suggestions for management but ultimately felt that she would need atrial fibrillation ablation. The patient is admitted now with acute GI bleed secondary to gastric ulcer. Her Eliquis has obviously been stopped. She is hemodynamically stable at this time but remains intubated and sedated. Fortunately she has not had any significant arrhythmias aside from sinus tachycardia at this time. I recommend obviously continue to hold her anticoagulants. As her atrial fibrillation is infrequent and paroxysmal there is no significant issues with holding anticoagulants at this time, especially if she maintains sinus rhythm. I do not think she needs a follow-up echo at this time as there is no evidence of congestive heart failure etc. Her last echo was in November 2017 and showed mild aortic stenosis and mild to moderate aortic regurgitation, which is stable from previous echoes. LV function was normal. We will follow her along from an arrhythmia standpoint and advise further should she have atrial fibrillation or any other cardiac issues. Copies To: Mayuri DUNN,Mayuri; Luis Felipe DUNN,Ken Dowling; Diomedes DUNN,Porfirio Joshua Consult Acknowledgment - Thank you for your consult request.
--- NOTE | 2018-03-30 11:48 | Cons- General Surgery ---
Marah Badillo 03/30/18 1147: General Information and HPI Consulting Request Date of Consult: 03/30/18 Requested By: Kuldeep Jhaveri MD Reason for Consult: UPPER GI BLEED Source of Information: old records Allergies/Medications Allergies: Coded Allergies: No Known Allergies (11/17/17) Home Med List: Apixaban (Eliquis) 5 MG TABLET 1 TAB PO BID Atrial fibrillation . Fluticasone Propionate (Flonase Allergy Relief) 50 MCG/ACTUATION SPRAY.SUSP 1 SPRAY WAYNE DAILY ALLERGIES (Reported) Furosemide (Lasix) 40 MG TABLET 1 TAB PO Q48 WATER RETENTION (Reported) Levothyroxine Sodium (Levoxyl) 50 MCG TABLET 1 TAB PO DAILY AC THYROID ( Reported) Metoprolol Tartrate 100 MG TABLET 1 TAB PO BID Atrial fibrillation . 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 Prostate cancer MOTHER ([employer]). Age 75. Psychosocial History Where Do You Live? Home Who Do You Live With? spouse, child Services at Home: None Primary Language: Scottish Smoking Status: Never Smoked ETOH Use: denies use Illicit Drug Use: denies illicit drug use Living Will? no Power of Cutting Machine Tender/HCP? no Other Social History: to Ruiz. 2 children (1 son & 1 dtr)- [employer]. 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 Ambulation: independent IADLs Independent: shopping, housework, finances, food prep, telephone, transportation , medication admin. 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 Ramón Mendosa DO 03/30/18 1720: General Information and HPI Consulting Request Exam Limitations: unable to give history, clinical condition History of Present Illness: This is a 52-year-old female that presented to the emergency room with coffee ground emesis and melanotic stools. All the history obtained from patient's chart and staff. Patient had dinner the night prior and then woke up in the middle the night with multiple bloody BMs. Patient was admitted to the hospital and underwent an upper endoscopy on hospital day 1 and no intervention was done at that time given copious amount of blood clots and food product. Patient received several units of packed red blood cells. I was asked to evaluate the patient for the upper GI bleed as per gastroenterology. At the time the exam patient was resting comfortably intubated and sedated. Allergies/Medications Current Medications: Current Medications Sig/Ceasar Start time Last Medication Dose Route Stop Time Status Admin Acetaminophen 1,000 MG Q6P PRN 03/29 1700 03/30 N/A 1 UNIT IV 0937 Ampicillin Sodium/ 3,000 MG Q6H 03/30 2230 AC Sulbactam Sodium IV Sodium Chloride 100 ML Ampicillin Sodium/ 3,000 MG Q6 03/30 1246 TN 03/30 Sulbactam Sodium IV 1637 Sodium Chloride 100 ML Levothyroxine Sodium 25 MCG DAILY 03/30 0900 03/30 IV 0939 Levothyroxine Sodium 0.05 MG DAILY AC 03/30 0700 DC PO Metoclopramide HCl 10 MG Q6 03/30 0600 03/30 IV 1118 Morphine Sulfate 4 MG ONCE ONE 03/29 1945 DC 03/29 IV 03/29 194 2033 Morphine Sulfate 2 MG Q4P PRN 03/29 1700 AC IV Non-Formulary 0 SEE ADMIN CRITERIA 03/29 1800 CAN Medication ANY Pantoprazole Sodium 40 MG Q5H 03/29 1345 03/30 Sodium Chloride 100 ML IV 1517 Phenylephrine HCl 40 MG .STK-MED ONE 03/29 1819 DC IM 03/29 1820 Propofol 1,000 MG Q4H 03/29 2200 03/30 N/A 1 UNIT IV 1514 Propofol 1,000 MG Q24H 03/29 1815 TN 03/29 N/A 1 UNIT IV 1902 Propofol 1,000 MG .STK-MED ONE 03/29 1812 DC IV 03/29 1813 Sodium Chloride 1,000 ML BOLUS ONE 03/29 2015 DC / IV 03/29 2214 2034 Sodium Chloride 1,000 ML BOLUS ONE 03/29 1800 DC / IV 03/29 1959 1901 Sodium Chloride 1,000 ML .Q10H 03/29 1600 AC 03/30 IV 0924 Review of Systems Review of Systems: All negative except for the above-mentioned pertinent positives Exam & Diagnostic Data Vital Signs and I&O Vital Signs Date Time Temp Pulse Resp B/P B/P Pulse O2 O2 Flow FiO2 Mean Ox Delivery Rate 03/30 1634 40 03/30 1436 100 03/30 1400 35 03/30 1200 95 Ventilator 40% 03/30 1154 40 03/30 0842 40 03/30 0800 97 Ventilator 40% 03/30 0800 99.2 113 21 112/66 95 Ventilator 40% 03/30 0557 40 03/30 0400 97 Ventilator 40% 03/30 0334 40 03/30 0123 40 03/30 0000 97 Ventilator 40% 03/30 0000 97.7 106 20 100/60 97 Ventilator 03/29 2244 40 03/29 2000 100 Ventilator 45% 03/29 1910 45 03/29 1810 50 Intake & Output 03/30 1600 03/30 0800 03/30 0000 03/29 1600 03/29 0800 03/29 0000 Intake Total 1105 1144 2322.3 1000 Output Total 1735 970 600 Balance -738 722 8656.3 1000 Intake, Blood 350 700 Product Intake, IV 2712 845 2872.3 1000 Output, 130 100 100 Gastric Drainage Output, Urine 1605 870 500 Patient 239 lb 340 lb Weight Weight Bed scale Reported by Patient Measurement Method Physical Exam: Unable to get full physical exam due to patient's intubation and sedation Physical Exam General Appearance: sedated, intubated Head: normal appearance Respiratory: normal breath sounds, no respiratory distress Cardiovascular: regular rate/rhythm Gastrointestinal: soft, non-tender Extremities: no edema Last 24 Hours of Labs: Laboratory Tests 03/30 03/30 1100 0758 Blood Gas pH (7.35 - 7.45 PH) 7.40 pCO2 (35 - 45 TORR) 34 L pO2 (80 - 100 TORR) 88 HCO3 (21 - 28 MEQ/L) 21 ABG O2 Sat (Measured) (>96.0 %) 95.0 L Carboxyhemoglobin (1.5 - 5.0 %) 0.7 L O2 Concentration % 40% Respiration Rate (BPM) 16 O2 Delivery Method VENT Vent Mode VC-AC Expiratory Pressure (CMH2O/P) 5 Tidal Volume (CC) 500 Pressure Support (CMH2O/P) 0 Hematology CBC w Diff NO MAN DIFF REQ WBC (4.8 - 10.8 /CUMM) 16.1 H RBC (4.20 - 5.40 /CUMM) 2.70 L Hgb (12.0 - 16.0 G/DL) 7.6 L Hct (37 - 47 %) 22.9 L MCV (81.0 - 99.0 FL) 85.1 MCH (27.0 - 31.0 PG) 28.0 MCHC (33.0 - 37.0 G/DL) 33.0 RDW (11.5 - 14.5 %) 16.9 H Plt Count (130 - 400 /CUMM) 158 MPV (7.4 - 10.4 FL) 7.9 Gran % (42.2 - 75.2 %) 76.4 H Lymphocytes % (20.5 - 51.1 %) 13.4 L Monocytes % (1.7 - 9.3 %) 7.6 Eosinophils % (0 - 5 %) 2.4 Basophils % (0.0 - 2.0 %) 0.2 Absolute Granulocytes (1.4 - 6.5 /CUMM) 12.3 H Absolute Lymphocytes (1.2 - 3.4 /CUMM) 2.2 Absolute Monocytes (0.10 - 0.60 /CUMM) 1.2 H Absolute Eosinophils (0.0 - 0.7 /CUMM) 0.4 Absolute Basophils (0.0 - 0.2 /CUMM) 0 Miscellaneous Phlebotomy Draw Site RIGHT RADIAL 03/30 03/30 0500 0345 Chemistry Sodium (137 - 145 mmol/L) 141 Potassium (3.5 - 5.1 mmol/L) 3.8 Chloride (98 - 107 mmol/L) 113 H Carbon Dioxide (22 - 30 mmol/L) 22 Anion Gap (5 - 16) 6 BUN (7 - 17 mg/dL) 29 H Creatinine (0.5 - 1.0 mg/dL) 0.8 Estimated GFR (>60 ml/min) > 60 Glucose (65 - 99 mg/dL) 108 H Calcium (8.4 - 10.2 mg/dL) 6.9 L Phosphorus (2.5 - 4.5 mg/dL) 3.0 Magnesium (1.6 - 2.3 mg/dL) 1.7 Total Bilirubin (0.2 - 1.3 mg/dL) 0.1 L AST (14 - 36 U/L) 14 ALT (9 - 52 U/L) 28 Troponin I (< 0.11 ng/ml) Cancelled 0.01 Albumin (3.5 - 5.0 g/dL) 2.0 L Hematology CBC w Diff NO MAN DIFF REQ WBC (4.8 - 10.8 /CUMM) 16.2 H RBC (4.20 - 5.40 /CUMM) 2.59 L Hgb (12.0 - 16.0 G/DL) 7.2 *L Hct (37 - 47 %) 21.5 L MCV (81.0 - 99.0 FL) 83.1 MCH (27.0 - 31.0 PG) 27.7 MCHC (33.0 - 37.0 G/DL) 33.3 RDW (11.5 - 14.5 %) 15.6 H Plt Count (130 - 400 /CUMM) 167 MPV (7.4 - 10.4 FL) 7.6 Gran % (42.2 - 75.2 %) 75.7 H Lymphocytes % (20.5 - 51.1 %) 15.2 L Monocytes % (1.7 - 9.3 %) 7.1 Eosinophils % (0 - 5 %) 1.7 Basophils % (0.0 - 2.0 %) 0.3 Absolute Granulocytes (1.4 - 6.5 /CUMM) 12.3 H Absolute Lymphocytes (1.2 - 3.4 /CUMM) 2.5 Absolute Monocytes (0.10 - 0.60 /CUMM) 1.1 H Absolute Eosinophils (0.0 - 0.7 /CUMM) 0.3 Absolute Basophils (0.0 - 0.2 /CUMM) 0.1 03/29 Chemistry Lactic Acid (0.7 - 2.1 mmol/L) 2.2 H Hematology CBC w Diff NO MAN DIFF REQ WBC (4.8 - 10.8 /CUMM) 17.6 H RBC (4.20 - 5.40 /CUMM) 3.13 L Hgb (12.0 - 16.0 G/DL) 8.6 L Hct (37 - 47 %) 26.2 L MCV (81.0 - 99.0 FL) 83.9 MCH (27.0 - 31.0 PG) 27.5 MCHC (33.0 - 37.0 G/DL) 32.8 L RDW (11.5 - 14.5 %) 16.4 H Plt Count (130 - 400 /CUMM) 171 MPV (7.4 - 10.4 FL) 7.6 Gran % (42.2 - 75.2 %) 80.2 H Lymphocytes % (20.5 - 51.1 %) 12.9 L Monocytes % (1.7 - 9.3 %) 6.4 Eosinophils % (0 - 5 %) 0.3 Basophils % (0.0 - 2.0 %) 0.2 Absolute Granulocytes (1.4 - 6.5 /CUMM) 14.1 H Absolute Lymphocytes (1.2 - 3.4 /CUMM) 2.3 Absolute Monocytes (0.10 - 0.60 /CUMM) 1.1 H Absolute Eosinophils (0.0 - 0.7 /CUMM) 0.1 Absolute Basophils (0.0 - 0.2 /CUMM) 0 Urines Urinalysis LIGHT H Urine Color (YEL,AMB,STR) YEL Urine Clarity (CLEAR) HAZY H Urine pH (5.0 - 8.0) 6.0 Ur Specific Ramona (1.001 - 1.035) 1.020 Urine Protein (NEG,<30 MG/DL) NEG Urine Ketones (NEG) NEG Urine Nitrite (NEG) NEG Urine Bilirubin (NEG) NEG Urine Urobilinogen (0.1 - 1.0 EU/dl) 0.2 Ur Leukocyte Esterase (NEG) NEG Ur Microscopic SEDIMENT EXAMINED Urine RBC (0 - 5 /HPF) RARE Urine WBC (0 - 2 /HPF) 1-3 H Ur Epithelial Cells (NONE,FEW) MOD H Urine Bacteria (NEG/NONE) MOD H Hyaline Casts (0/LPF) RARE H Urine Hemoglobin (NEG) NEG Urine Glucose (N MG/DL) NEG 03/29 1940 Blood Gas pH (7.35 - 7.45 PH) 7.35 pCO2 (35 - 45 TORR) 36 pO2 (80 - 100 TORR) 70 L HCO3 (21 - 28 MEQ/L) 19 L ABG O2 Sat (Measured) (>96.0 %) 92.0 L P-50 (Temp Corrected) N Carboxyhemoglobin (1.5 - 5.0 %) 0.3 L O2 Concentration % 45% Temperature (97.0 - 100.0 FARH) 97.7 Respiration Rate (BPM) 16 O2 Delivery Method ESPRIT Vent Mode AC Expiratory Pressure (CMH2O/P) 5 Tidal Volume (CC) 500 Miscellaneous Phlebotomy Draw Site RIGHT RADIAL Other Results: EGD 03/30 - lesser curvature ulcer around the incisura with a visible vessel that was burned and clipped Assessment/Plan Assessment/Plan Upper GI bleed likely due to an ulcer -Endoscopy report reviewed and appears that the source of the bleeding has been controlled -Continue ICU care and transfuse as needed -No acute surgical intervention at this time -If any concerns for rebleed after this would repeat an endoscopy or consider interventional radiology -Please reconsult as needed Consult Acknowledgment - Thank you for your consult request.
--- NOTE | 2018-03-30 12:12 | RADIOLOGY REPORT ---
EXAMINATION: XR PORTABLE CHEST CLINICAL INFORMATION: Intubated patient. Confirmation of lines and tubes. Comparison from previous. COMPARISON: Several prior chest x-rays, most recent of which is dated 03/29/2018. TECHNIQUE: Portable frontal view of the chest was obtained. FINDINGS: Multiple EKG leads overlie the chest. Endotracheal tube is in place with tip approximately 2.7 cm above the baldomero. Enteric tube courses into the abdomen with tip not included. The cardiomediastinal silhouette is enlarged, unchanged. Low lung volumes are seen with diffuse bilateral parenchymal opacity is and thickening of the airways, unchanged when compared to the prior exam when allowing for differences in technique. Mild central vascular congestion is noted without overt pulmonary edema. No definite pleural effusion is seen. No pneumothorax is noted. Bony structures are unremarkable. IMPRESSION: 1. Endotracheal tube tip 2.7 cm above the baldomero. 2. Enteric tube courses into the abdomen with tip not included. 2. Multifocal diffuse bilateral parenchymal opacities are seen with thickening of central airways. Findings are nonspecific and are unchanged compared to the most recent prior study and are new compared to 03/29/2018, suggesting a diffuse acute viral or atypical pneumonitis or acute chemical pneumonitis in the correct clinical setting.
[2018-03-30 12:35] LABS: ABSOLUTE BASOPHIL COUNT 0 /CUMM (0.0-0.2); ABSOLUTE EOSINOPHIL COUNT 0.4 /CUMM (0.0-0.7); ABSOLUTE GRANULOCYTE CT 12.3 /CUMM (1.4-6.5); ABSOLUTE LYMPH COUNT 2.2 /CUMM (1.2-3.4); ABSOLUTE MONOCYTE COUNT 1.2 /CUMM (0.10-0.60); BASOPHIL % 0.2 % (0.0-2.0); EOSINOPHIL % 2.4 % (0-5); GRANULOCYTE % 76.4 % (42.2-75.2); HEMATOCRIT 22.9 % (37-47); MEAN CORPUSCULAR VOLUME 85.1 FL (81.0-99.0); MEAN PLATELET VOLUME 7.9 FL (7.4-10.4); PLATELET COUNT 158 /CUMM (130-400); RBC DISTRIBUTION WIDTH 16.9 % (11.5-14.5); WHITE BLOOD CELL COUNT 16.1 /CUMM (4.8-10.8)
--- NOTE | 2018-03-30 13:37 | PN- Gastroenterology ---
Assessment/Plan GI Assessment/Recommendations: 52 y/o female, HTN, ? AODM, obesity, hypoT4, JASON, PAF (on Eliquis, last dose RANGER AIDE was the morning of admission, 03/29/18), post Hodgkin's lymphoma 1994-> ? mediastinal, txd in [place], [place] then with CTX/RT (spleen intact, no prior abdominal surgery, no previous transfusions), without prior EGD or colonoscopy, no FHx GI disease, GI Ca or inherited liver disease, who presented to the [facility] 03/29/18 at 12:21 PM, complaining of nausea, vomiting, diarrhea, and GI bleeding. The patient was not on any aspirin or NSAIDs. She denied any recent antibiotics. She also noted fatigue for 2 days RANGER AIDE. The patient ate dinner at [facility] with her 03/28/18, where she ate steak & mashed potatoes. Her ate similar food, without incident. This was followed a few hours later that evening by nausea, diaphoresis, and diarrhea 1-2x/hr. initially, there was no vomiting. Initially, there was no rectal bleeding. The patient ate a few grapes at 11 AM 03/29/18, then drank a little chen anila at noon. This was followed by vomitus consisting of darkish red blood (the patient brought in a container of this to the ER), & darkish red stool. There was no abdominal pain. The patient denied any GERD, odynophagia, or definite early satiety. She did note occasional dysphagia to dry solids, pills, & liquids, although there was no history of transfer dysphagia, CVA, or nasal regurgirtation of food or liquids. Aside from the remote Hodgkin's lymphoma, there was no hx of head & neck Ca, head & neck RT, or thyoid disease. There was no hx of any previous food impaction. 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 There was no aspiration. Upon arrival to the [facility] 03/29/18, BP 85/55, P 99, R 19, T 97.3, O2 sat RA 93%. The pt's BP transiently came up to 117/56 after IVF bolus & the start of 1u PRBC, but then dipped down to 99/59. Digital rectal exam by Dr. Avila in the ER showed darkish red blood, obviously OB positive. When I was called by the ER, I told them a rapid transit upper GI bleed should be excluded, especially since I later found out that the patient had vomited up dark red contents, RANGER AIDE. I advised him to start an IV Protonix bolus 80 mg, followed by 8 mg/hr drip and to place an NG tube. Dr. Avila attempted NGT placement x 2 unsuccessfully, and the patient then refused further attempts at NG tube placement. This is probably a moot point, as I later saw the contents of the container of vomitus the patient brought in from home. The patient noted intermittent fevers and chills without symptoms of UTI or URI. She had rare night sweats. She has been postmenopausal for 10 years. There was a questionable history of vaginal spotting, for which the patient is to see [facility]. There is no gross hematuria or hemoptysis. She noted weight gain of 45 lbs over the past 1-2 yrs. She denied any CP, SOB, palpitations, or LOC. *Initially, as the Harikaquis was still on board, I was contemplating holding off on EGD until tomorrow, but as she was persistently hypotensive, a decision was made to start with the EGD today. There is no history of cigarettes, EtOH, or illicit drug use. 01/05/18: WBC 15 (52% gran/8 gran Ab), *H/H 12.6/39.3, MCV 79, RDW 16. PLT 386, *BUN/Cr 17/1.0, GFR 58, *TSH 10.2. 03/01/18: HgbA1C 6.9. 03/29/18: Admission labs- WBC 18.2 (70% gran/13 gran Ab), *H/H 7.2/23.3, MCV 78.9, RDW 16, PLT 286, PT 15.8, INR 1.44, PTT 26, glucose 151, *BUN/Cr 46/1.2, GFR 47, Na 140, K 4.8, HCO3 23, AG 11, Ca 8.2, alb 2.9, glob 3.1, TBil 0.2, alk phos 41, AST 13, AL 29, CK 133, troponin < 0.01. lactate 2.3-> 1.2. 03/29/18: EKG- NSR @ 86, nl axis, nl int, LVH, flipped T in L. 03/29/18: XR PORTABLE CHEST- No evidence for acute disease in the chest. *As of 03/29/18, the patient was markedly anemic with elevated BUN/Cr ratio. She had hematemesis at home, with darkish red stool per rectum. She was hypotensive. This seemed to correspond with a rapid transit UGI bleed clinically, rather than "LGI bleed". The patient was intolerant of NG tube placement x 2 by the ER, but this seems to be a moot point, based on the contents of the container she brought in from home. Assuming this is upper GI nature, differential diagnosis includes peptic ulcer vs. angiodysplasia vs. Dieulafoy, doubt neoplasm, but should be excluded with past history of Hodgkin' s. Aside from a slightly reversed albumin:globulin ratio, there was nothing clinically to suggest cirrhosis to consider variceal bleeding. Eliquis was still on board, as she last took it on the morning of admission, and would probably hang around a little longer than usual, based on the mild decreased GFR. However, because of the hypotension, a decision was made to proceed with EGD this evening. The patient's diarrhea is most likely from the GI bleeding, as blood is a cathartic. The risks & benefits of EGD & potential colonoscopy were discussed with the patient & her son, Ruiz Luna, at the bedside in the [place] [facility], including the need for probable prophylactic intubation to protect her airway. She was agrreable to this & informed consent for EGD/potential colonoscopy were obtained. The patient & her son were made aware of the very low risk of CVA off Eliquis for a short period of time, but are aware that she is bleeding, & that this has to be held at the moment. 03/29/18: *EGD to D3- Impression: 1. 1 cm x 2 cm2 oblong gastric ulcer at incisura/lesser curvature with peripheral oozing, left intact, as Eliquis on board. 2. Clots & food obscuring portions of the gastric cardia, fundus, & distal antrum; patent pylorus without GOO. Possible component of gastroparesis (elevated TSH, mild DM). 3. 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 4. Clean duodenum to D3. 03/29/18: XRY-PORTABLE CHEST XRAY (post ETT/OGT)- Endotracheal tube and enteric tube in place. Nonspecific patchy multifocal opacification. 03/30/18: XR PORTABLE CHEST- 1. Endotracheal tube tip 2.7 cm above the baldomero. 2. Enteric tube courses into the abdomen with tip not included. 2. Multifocal diffuse bilateral parenchymal opacities are seen with thickening of central airways. Findings are nonspecific and are unchanged compared to the most recent prior study and are new compared to 03/29/18, suggesting a diffuse acute viral or atypical pneumonitis or acute chemical pneumonitis in the correct clinical setting. 03/30/18: EKG- ST @ 114, nl axis, nl int, mini q inflat. 03/29/18: 1940- ABG- FiO2 45%, AC 16, TV 500, PEEP 5- 7.35/36/70/92%/HCO3 19/CO HB 0.3. 03/30/18: 757- ABG- FiO2 40%, AC 16, TV 500, PEEP 5- 7.40/34/88/95%/HCO3 21/CO HB 0.7 03/29/18: 2012-WBC 17.6, H/H 8.6/26.2, PLT 171, lactate 2.2 03/29/18: U/A- w/o hematuria or pyuria. 03/30/18: 0345-WBC 16.2, H/H 7.2/21.5, PLT 167, glucose 108, BUN/Cr 29/0.8, GFR > 60, Na 141, K 3.8, HCO3 22, AG 6, Mg 1.7, Ca 6.9, PO4 3.0, albumin 2.0, TBil 0.1, AST 14, ALT 28, troponin 0.01. 03/30/18: 1100-WBC 16.1, H/H 7.6/22.9, PLT 158 *As of 03/30/18, the patient was normotensive, although tachycardic, with Tm 99.2. She remained prophylactically intubated on the ventilator, in anticipation of repeat EGD later today. She remeianed on Propofol & MS prn. IV: NS @ 100cc/hr. She last took her Eliquis the a.m. of 03/29/18. She was seen in consultation by cardiology & surgery on 03/30/18. Cardiology obviously agreed with holding her A/C therapy, in view of her GI bleed, especially since she had remained in NSR. The pt's was aware of the small risk of CVA off A/C tx, but understands this in view of the life threatening GI bleed. The pt was about to receive her 5th unit PRBC. An OG tube was placed yesterday evening. It initially showed brownish reddish liquid, which had since cleared. IV Reglan 10 mg Q6h was added as a prokinetic, in addition to her IV Protonix drip at 8 mg/hr. According to the patient's RN, there was no further melena or rectal bleeding. IV Unasyn 3g Q6h was rxd on , to cover her lungs, for possible aspiration. The case was again discussed with the patient's , Ruiz Luna, in the [place] ICU. He was aware of the critical nature of his 's illness. The risks & benefits of repeat EGD were discussed with him, and he agreed to proceed with this. Informed consent for repeat EGD was obtained from him. SUGGEST: *Maintain on ventilator in ICU. *NPO for now. *Eliquis on hold for now. No ASA for now. No NSAIDS (according to the pt's , she remotely took large amounts of NSAIDS for REYES > 1 year RANGER AIDE). Continue IV Protonix 8 mg/hr continuous drip. 2 large bore IVs. T&C 2u PRBC. Check CBC Q6h for now. Keep Hgb > 8 (probable underlying ASHD, numerous risk factors & hx diastolic dysfunction on 11/17/17: echocardiogram). Strict I/O's. *OGT-> low gomco suction. *Continue Reglan 10 mg IVPB Q6h, to help mobilize blood, clots, & food from stomach. *Watch for potential EPS side effects. Await repeat EGD later today, on 03/30/18, after OGT & Reglan, to help clear the stomach. Check stool Ag H. pylori. *Surgical and cardiology consults appreciated. *If continued bleeding, consideration for IR consultation. Based on the initial EGD findings, no indication for inpt baseline coloonoscopy, nor for CTA abdomen, at present. The pt was previously told she would need a baseline screening colonoscopy as an outpt, once her UGI bleed stabilizes, as she was overdue for this (advised by age 45 in average risk for colon Ca Americans). *Advise eventual outpt CT neck and/or ENT evaluation, regarding cricopharyngeal hypertrophy with mass-effect at posterior aspect of esophagus at C4/C5 (noted on 02/17/18: MBS obtained by PMD), especially keeping in mind the past history of remote Hodgkin's lymphoma. The pt's son, Ruiz Luna, was previously given my office number for future reference. The patient was previously made aware of the need to follow-up with [facility] [facility] [facility] as an outpatient for the probable incidental intermittent vaginal spotting. DVT prophylaxis with mechanical ALPS. Vent care, empiric IV Unasyn, Synthroid, wtc., as per ICU team. The above findings & recommendations were again discussed with the medical ICU house staff, the patient's , Ruiz, & previously with her son, Ruiz postop , and with Dr. Jhaveri. Further GI recommendations to follow, depending on clinical course. 1/2 hour of ICU care was spent on the patient. Problem List: 1. Hypotension 2. Upper GI bleed 3. Hematemesis 4. Anemia 5. Dysphagia 6. Diarrhea 7. Malnutrition 8. Paroxysmal A-fib 9. History of Hodgkin's disease Subjective Subjective: 03/29/18: *EGD to D3- Impression: 1. 1 cm x 2 cm2 oblong gastric ulcer at incisura/lesser curvature with peripheral oozing, left intact, as Eliquis on board. 2. Clots & food obscuring portions of the gastric cardia, fundus, & distal antrum; patent pylorus without GOO. Possible component of gastroparesis (elevated TSH, mild DM). 3. 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 4. Clean duodenum to D3. 03/29/18: XRY-PORTABLE CHEST XRAY (post ETT/OGT)- Endotracheal tube and enteric tube in place. Nonspecific patchy multifocal opacification. 03/30/18: XR PORTABLE CHEST- 1. Endotracheal tube tip 2.7 cm above the baldomero. 2. Enteric tube courses into the abdomen with tip not included. 2. Multifocal diffuse bilateral parenchymal opacities are seen with thickening of central airways. Findings are nonspecific and are unchanged compared to the most recent prior study and are new compared to 03/29/18, suggesting a diffuse acute viral or atypical pneumonitis or acute chemical pneumonitis in the correct clinical setting. 03/30/18: EKG- ST @ 114, nl axis, nl int, mini q inflat. 03/29/18: 1940- ABG- FiO2 45%, AC 16, TV 500, PEEP 5- 7.35/36/70/92%/HCO3 19/CO HB 0.3. 03/30/18: 0758- ABG- FiO2 40%, AC 16, TV 500, PEEP 5- 7.40/34/88/95%/HCO3 21/CO HB 0.7 03/29/18: 2013-WBC 17.6, H/H 8.6/26.2, PLT 171, lactate 2.2 03/29/18: U/A- w/o hematuria or pyuria. 03/30/18: 0345-WBC 16.2, H/H 7.2/21.5, PLT 167, glucose 108, BUN/Cr 29/0.8, GFR > 60, Na 141, K 3.8, HCO3 22, AG 6, Mg 1.7, Ca 6.9, PO4 3.0, albumin 2.0, TBil 0.1, AST 14, ALT 28, troponin 0.01. 03/30/18: 1100-WBC 16.1, H/H 7.6/22.9, PLT 158 *As of 03/30/18, the patient was normotensive, although tachycardic, with Tm 99.2. She remained prophylactically intubated on the ventilator, in anticipation of repeat EGD later today. She remeianed on Propofol & MS prn. IV: NS @ 100cc/hr. She last took her Eliquis the a.m. of 03/29/18. She was seen in consultation by cardiology & surgery on 03/30/18. Cardiology obviously agreed with holding her A/C therapy, in view of her GI bleed, especially since she had remained in NSR. The pt's was aware of the small risk of CVA off A/C tx, but understands this in view of the life threatening GI bleed. The pt was about to receive her 5th unit PRBC. An OG tube was placed yesterday evening. It initially showed brownish reddish liquid, which had since cleared. IV Reglan 10 mg Q6h was added as a prokinetic, in addition to her IV Protonix drip at 8 mg/ hr. According to the patient's RN, there was no further melena or rectal bleeding. IV Unasyn 3g Q6h was rxd on 03/30/18, to cover her lungs, for possible aspiration. Review of Systems: ROS currently unobtainable, as patient sedated and on ventilator. Objective Vital Signs and I&Os Vital Signs Date Time Temp Pulse Resp B/P B/P Pulse O2 O2 Flow FiO2 Mean Ox Delivery Rate 03/30 1200 95 Ventilator 40% 03/30 1154 40 03/30 0842 40 03/30 0800 97 Ventilator 40% 03/30 0800 99.2 113 21 112/66 95 Ventilator 40% 03/30 0557 40 03/30 0400 97 Ventilator 40% 03/30 0334 40 03/30 0123 40 03/30 0000 97 Ventilator 40% 03/30 0000 97.7 106 20 100/60 97 Ventilator 03/29 2244 40 03/29 2000 100 Ventilator 45% 03/29 1910 45 03/29 1810 50 03/29 1708 97.2 92 17 97/56 97 Room Air 03/29 1602 97.1 93 17 99/59 98 Room Air 03/29 1522 117/56 03/29 1417 77 78/49 03/29 1338 90 16 84/46 98 Room Air Intake & Output 03/30 1600 03/30 0400 03/29 1600 03/29 0400 03/28 1600 03/28 0400 Intake Total 1144 2322.3 1000 Output Total 970 600 Balance 174 1722.3 1000 Intake, Blood 350 700 Product Intake, IV 794 1622.3 1000 Output, 100 100 Gastric Drainage Output, Urine 870 500 Patient 239 lb 340 lb Weight Weight Bed scale Reported by Patient Measurement Method Physical Exam: Well-developed, well nourished, obese -[place] female, intubated & sedated, in no apparent distress, on vent. Sclera anicteric. Conjunctiva pale. Oropharynx: previously clear. +ETT/+OGT. There is no adenopathy, thyromegaly, or JVD. No peripheral stigmata of inflammatory bowel disease or chronic liver disease on exam. No spiders on the anterior chest wall. No CVA tenderness. No spine tenderness. Breast & pelvic exams: API. Lungs: clear to A&P. No wheezing, rales, or rhonchi. Heart exam: (currently NSR) regular rate rhythm, S1 and S2, with I/IV diastolic & I/ syst murmur. Abdominal exam: normal bowel sounds, soft belly, obese, nontender, without guarding or rebound. No mass or organomegaly, within the limits of the body habitus. No fluid shift. No pulsatile mass. No epigastric bruit. Digital rectal exam done by Janee Avila in the [place] ER 03/29/18: blackish red blood, obviously OB positive. No masses reported. Extremities: without cyanosis or clubbing. Trace pedal edema B/L. No palpable cords. No rash. No acute arthropathy. Mild DJD. No palmar erythema. No Dupuytren's contractures. Distal pulses 2+ bilaterally. DTRs 2+ bilaterally. Right handed. Motor 5/5 B/L. CN II-XII intact. Previously alert and oriented x 3 (currently sedated). No tremor. No asterixis. No cogwheeling (on Reglan). Current Medications: Current Medications Sig/Ceasar Start time Last Medication Dose Route Stop Time Status Admin Acetaminophen 1,000 MG Q6P PRN 03/29 1700 AC 03/30 N/A 1 UNIT IV 0937 Acetaminophen 650 MG Q6P PRN 03/29 1600 DC PO Ampicillin Sodium/ 3,000 MG Q6 03/30 1246 AC Sulbactam Sodium IV Sodium Chloride 100 ML Levothyroxine Sodium 25 MCG DAILY 03/30 0900 AC 03/30 IV 0939 Levothyroxine Sodium 0.05 MG DAILY AC 03/30 0700 DC PO Metoclopramide HCl 10 MG Q6 03/30 0600 AC 03/30 IV 1118 Morphine Sulfate 4 MG ONCE ONE 03/29 1945 DC 03/29 IV 07/16 1946 2033 Morphine Sulfate 2 MG Q4P PRN 03/29 1700 AC IV Non-Formulary 0 SEE ADMIN CRITERIA 03/29 1800 CAN Medication ANY Pantoprazole Sodium 40 MG Q5H 03/29 1600 DC Sodium Chloride 100 ML IV Pantoprazole Sodium 0 .STK-MED ONE 03/29 1412 DC IV Pantoprazole Sodium 40 MG Q5H 03/29 1345 AC 03/30 Sodium Chloride 100 ML IV 0944 Phenylephrine HCl 40 MG .STK-MED ONE 03/29 1819 DC IM 03/29 1820 Propofol 1,000 MG Q4H 03/29 2200 AC 03/30 N/A 1 UNIT IV 0921 Propofol 1,000 MG Q24H 03/29 1815 DC 03/29 N/A 1 UNIT IV 1902 Propofol 1,000 MG .STK-MED ONE 03/29 1812 DC IV 03/29 1813 Sodium Chloride 1,000 ML BOLUS ONE 03/29 2015 DC 03/29 IV 03/29 2214 2034 Sodium Chloride 1,000 ML BOLUS ONE 03/29 1800 DC 03/29 IV 03/29 1959 1901 Sodium Chloride 1,000 ML .Q10H 03/29 1600 AC 03/30 IV 0924 Results Pertinent Lab Results: Laboratory Tests 03/30 03/30 1100 0758 Blood Gas pH (7.35 - 7.45 PH) 7.40 pCO2 (35 - 45 TORR) 34 L pO2 (80 - 100 TORR) 88 HCO3 (21 - 28 MEQ/L) 21 ABG O2 Sat (Measured) (>96.0 %) 95.0 L Carboxyhemoglobin (1.5 - 5.0 %) 0.7 L O2 Concentration % 40% Respiration Rate (BPM) 16 O2 Delivery Method VENT Vent Mode VC-AC Expiratory Pressure (CMH2O/P) 5 Tidal Volume (CC) 500 Pressure Support (CMH2O/P) 0 Hematology CBC w Diff NO MAN DIFF REQ WBC (4.8 - 10.8 /CUMM) 16.1 H RBC (4.20 - 5.40 /CUMM) 2.70 L Hgb (12.0 - 16.0 G/DL) 7.6 L Hct (37 - 47 %) 22.9 L MCV (81.0 - 99.0 FL) 85.1 MCH (27.0 - 31.0 PG) 28.0 MCHC (33.0 - 37.0 G/DL) 33.0 RDW (11.5 - 14.5 %) 16.9 H Plt Count (130 - 400 /CUMM) 158 MPV (7.4 - 10.4 FL) 7.9 Gran % (42.2 - 75.2 %) 76.4 H Lymphocytes % (20.5 - 51.1 %) 13.4 L Monocytes % (1.7 - 9.3 %) 7.6 Eosinophils % (0 - 5 %) 2.4 Basophils % (0.0 - 2.0 %) 0.2 Absolute Granulocytes (1.4 - 6.5 /CUMM) 12.3 H Absolute Lymphocytes (1.2 - 3.4 /CUMM) 2.2 Absolute Monocytes (0.10 - 0.60 /CUMM) 1.2 H Absolute Eosinophils (0.0 - 0.7 /CUMM) 0.4 Absolute Basophils (0.0 - 0.2 /CUMM) 0 Miscellaneous Phlebotomy Draw Site RIGHT RADIAL 03/30 03/30 0500 0345 Chemistry Sodium (137 - 145 mmol/L) 141 Potassium (3.5 - 5.1 mmol/L) 3.8 Chloride (98 - 107 mmol/L) 113 H Carbon Dioxide (22 - 30 mmol/L) 22 Anion Gap (5 - 16) 6 BUN (7 - 17 mg/dL) 29 H Creatinine (0.5 - 1.0 mg/dL) 0.8 Estimated GFR (>60 ml/min) > 60 Glucose (65 - 99 mg/dL) 108 H Calcium (8.4 - 10.2 mg/dL) 6.9 L Phosphorus (2.5 - 4.5 mg/dL) 3.0 Magnesium (1.6 - 2.3 mg/dL) 1.7 Total Bilirubin (0.2 - 1.3 mg/dL) 0.1 L AST (14 - 36 U/L) 14 ALT (9 - 52 U/L) 28 Troponin I (< 0.11 ng/ml) Cancelled 0.01 Albumin (3.5 - 5.0 g/dL) 2.0 L Hematology CBC w Diff NO MAN DIFF REQ WBC (4.8 - 10.8 /CUMM) 16.2 H RBC (4.20 - 5.40 /CUMM) 2.59 L Hgb (12.0 - 16.0 G/DL) 7.2 *L Hct (37 - 47 %) 21.5 L MCV (81.0 - 99.0 FL) 83.1 MCH (27.0 - 31.0 PG) 27.7 MCHC (33.0 - 37.0 G/DL) 33.3 RDW (11.5 - 14.5 %) 15.6 H Plt Count (130 - 400 /CUMM) 167 MPV (7.4 - 10.4 FL) 7.6 Gran % (42.2 - 75.2 %) 75.7 H Lymphocytes % (20.5 - 51.1 %) 15.2 L Monocytes % (1.7 - 9.3 %) 7.1 Eosinophils % (0 - 5 %) 1.7 Basophils % (0.0 - 2.0 %) 0.3 Absolute Granulocytes (1.4 - 6.5 /CUMM) 12.3 H Absolute Lymphocytes (1.2 - 3.4 /CUMM) 2.5 Absolute Monocytes (0.10 - 0.60 /CUMM) 1.1 H Absolute Eosinophils (0.0 - 0.7 /CUMM) 0.3 Absolute Basophils (0.0 - 0.2 /CUMM) 0.1 03/29 Chemistry Lactic Acid (0.7 - 2.1 mmol/L) 2.2 H Hematology CBC w Diff NO MAN DIFF REQ WBC (4.8 - 10.8 /CUMM) 17.6 H RBC (4.20 - 5.40 /CUMM) 3.13 L Hgb (12.0 - 16.0 G/DL) 8.6 L Hct (37 - 47 %) 26.2 L MCV (81.0 - 99.0 FL) 83.9 MCH (27.0 - 31.0 PG) 27.5 MCHC (33.0 - 37.0 G/DL) 32.8 L RDW (11.5 - 14.5 %) 16.4 H Plt Count (130 - 400 /CUMM) 171 MPV (7.4 - 10.4 FL) 7.6 Gran % (42.2 - 75.2 %) 80.2 H Lymphocytes % (20.5 - 51.1 %) 12.9 L Monocytes % (1.7 - 9.3 %) 6.4 Eosinophils % (0 - 5 %) 0.3 Basophils % (0.0 - 2.0 %) 0.2 Absolute Granulocytes (1.4 - 6.5 /CUMM) 14.1 H Absolute Lymphocytes (1.2 - 3.4 /CUMM) 2.3 Absolute Monocytes (0.10 - 0.60 /CUMM) 1.1 H Absolute Eosinophils (0.0 - 0.7 /CUMM) 0.1 Absolute Basophils (0.0 - 0.2 /CUMM) 0 Urines Urinalysis LIGHT H Urine Color (YEL,AMB,STR) YEL Urine Clarity (CLEAR) HAZY H Urine pH (5.0 - 8.0) 6.0 Ur Specific [place] (1.001 - 1.035) 1.020 Urine Protein (NEG,<30 MG/DL) NEG Urine Ketones (NEG) NEG Urine Nitrite (NEG) NEG Urine Bilirubin (NEG) NEG Urine Urobilinogen (0.1 - 1.0 EU/dl) 0.2 Ur Leukocyte Esterase (NEG) NEG Ur Microscopic SEDIMENT EXAMINED Urine RBC (0 - 5 /HPF) RARE Urine WBC (0 - 2 /HPF) 1-3 H Ur Epithelial Cells (NONE,FEW) MOD H Urine Bacteria (NEG/NONE) MOD H Hyaline Casts (0/LPF) RARE H Urine Hemoglobin (NEG) NEG Urine Glucose (N MG/DL) NEG 03/29 1546 1239 1239 Blood Gas pH (7.35 - 7.45 PH) 7.35 pCO2 (35 - 45 TORR) 36 pO2 (80 - 100 TORR) 70 L HCO3 (21 - 28 MEQ/L) 19 L ABG O2 Sat (Measured) (>96.0 %) 92.0 L P-50 (Temp Corrected) N Carboxyhemoglobin (1.5 - 5.0 %) 0.3 L O2 Concentration % 45% Temperature (97.0 - 100.0 FARH) 97.7 Respiration Rate (BPM) 16 O2 Delivery Method ESPRIT Vent Mode AC Expiratory Pressure (CMH2O/P) 5 Tidal Volume (CC) 500 Chemistry Sodium (137 - 145 mmol/L) 140 Potassium (3.5 - 5.1 mmol/L) 4.8 Chloride (98 - 107 mmol/L) 106 Carbon Dioxide (22 - 30 mmol/L) 23 Anion Gap (5 - 16) 11 BUN (7 - 17 mg/dL) 46 H Creatinine (0.5 - 1.0 mg/dL) 1.2 H Estimated GFR (>60 ml/min) 47 L BUN/Creatinine Ratio (7 - 25 %) 38.3 H Glucose (65 - 99 mg/dL) 151 H Lactic Acid (0.7 - 2.1 mmol/L) 1.2 2.3 H Calcium (8.4 - 10.2 mg/dL) 8.2 L Total Bilirubin (0.2 - 1.3 mg/dL) 0.2 AST (14 - 36 U/L) 13 L ALT (9 - 52 U/L) 29 Alkaline Phosphatase (<127 U/L) 41 Creatine Kinase (30 - 135 U/L) 133 Troponin I (< 0.11 ng/ml) < 0.01 Total Protein (6.3 - 8.2 g/dL) 6.0 L Albumin (3.5 - 5.0 g/dL) 2.9 L Globulin (1.9 - 4.2 gm/dL) 3.1 Albumin/Globulin Ratio (1.1 - 2.2 %) 0.9 L Coagulation PT (9.4 - 12.5 SEC) 15.8 H INR (0.90 - 1.19) 1.44 H APTT (25 - 37 SEC) 26 Miscellaneous Phlebotomy Draw Site RIGHT RADIAL 03/29 1233 Hematology CBC w Diff MAN DIFF ORDERED WBC (4.8 - 10.8 /CUMM) 18.2 H RBC (4.20 - 5.40 /CUMM) 2.83 L Hgb (12.0 - 16.0 G/DL) 7.2 *L Hct (37 - 47 %) 22.3 L MCV (81.0 - 99.0 FL) 78.9 L MCH (27.0 - 31.0 PG) 25.6 L MCHC (33.0 - 37.0 G/DL) 32.5 L RDW (11.5 - 14.5 %) 16.0 H Plt Count (130 - 400 /CUMM) 286 MPV (7.4 - 10.4 FL) 7.4 Gran % (42.2 - 75.2 %) 70.1 Lymphocytes % (20.5 - 51.1 %) 21.3 Monocytes % (1.7 - 9.3 %) 7.7 Eosinophils % (0 - 5 %) 0.8 Basophils % (0.0 - 2.0 %) 0.1 Absolute Granulocytes (1.4 - 6.5 /CUMM) 12.7 H Absolute Lymphocytes (1.2 - 3.4 /CUMM) 3.9 H Absolute Monocytes (0.10 - 0.60 /CUMM) 1.4 H Absolute Eosinophils (0.0 - 0.7 /CUMM) 0.2 Absolute Basophils (0.0 - 0.2 /CUMM) 0 Platelet Estimate (ADEQUATE) VERIFIED BY SMEAR Polychromasia 1+ Poikilocytosis 1+ Anisocytosis 1+ Ovalocytes FEW Imaging/Other Studies: 02/17/18: XR MODIFIED BARIUM SWALLOW- 1. There is significant prominence of the cricopharyngeus muscle with mass effect on the esophagus posteriorly at level of C4-C5, as described above. 2. Otherwise normal modified barium swallow. (Speech pathologist assessment issued separately). 03/29/18: EKG- NSR @ 86, nl axis, nl int, LVH, flipped T in L. 03/29/18: XR PORTABLE CHEST- No evidence for acute disease in the chest. 03/29/18: EGD to D3- Impression: 1. 1 cm x 2 cm2 oblong gastric ulcer at incisura/lesser curvature with peripheral oozing, left intact, as Eliquis on board. 2. Clots & food obscuring portions of the gastric cardia, fundus, & distal antrum; patent pylorus without GOO. Possible component of gastroparesis (elevated TSH, mild DM). 3. 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 4. Clean duodenum to D3. 03/29/18: XRY-PORTABLE CHEST XRAY (post ETT/OGT)- Endotracheal tube and enteric tube in place. Nonspecific patchy multifocal opacification. 03/30/18: XR PORTABLE CHEST- 1. Endotracheal tube tip 2.7 cm above the baldomero. 2. Enteric tube courses into the abdomen with tip not included. 2. Multifocal diffuse bilateral parenchymal opacities are seen with thickening of central airways. Findings are nonspecific and are unchanged compared to the most recent prior study and are new compared to 03/29/18, suggesting a diffuse acute viral or atypical pneumonitis or acute chemical pneumonitis in the correct clinical setting. 03/30/18: EKG- ST @ 114, nl axis, nl int, mini q inflat.
[2018-03-30 16:00] VITALS: BP 140/70
--- NOTE | 2018-03-30 16:41 | Proc Note Endoscopy ---
Endoscopy Procedure Medical History: unchanged Mental Status: alert/oriented Heart/Lung Eval Prior to Sedation: within normal limits Candidate for Sedation? Yes Procedure Date: 03/30/18 Procedure Type: EGD with Gold Probe cautery & clipping x 3 Supervisor Slate Splitting: DUKE BIANCHI MD ASA Classification: III (III-E) Indications: INDX: (*Please refer to my 03/29/18: GI consult). 52 y/o female, HTN, AODM, obesity, hypoT4, JASON, PAF (*on Eliquis, last dose [employer] was the morning of admission, 03/29/18), post Hodgkin's lymphoma 1994-> ? mediastinal, txd in [place], [place] then with CTX/RT (spleen intact, no prior abdominal surgery, no previous transfusions), without prior EGD or baseline colonoscopy, no FHx GI disease, GI Ca or inherited liver disease, presenting to the [facility] 03/29/18 at 12:21 PM, with hematemesis & darkish red blood per rectum, anemia, hypotension, & elevated BUN/Cr ratio. *Eliquis still on board, but procedure initially done 03/29/18, as pt hypotensive. NGT unable to be placed by ER post 2 attempts, & the pt refused further attempts at this. 03/29/18: Initial baseline EGD to D3-(pt prophylactically intubated preop). Impression: 1. 1 cm x 2 cm2 oblong gastric ulcer at incisura/lesser curvature with peripheral oozing, left intact, as Eliquis on board. 2. Clots & food obscuring portions of the gastric cardia, fundus, & distal antrum; patent pylorus without GOO. Possible component of gastroparesis (elevated TSH, mild DM). 3. 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 4. Clean duodenum to D3. The pt was transfxd, maintained on IV Protonix drip, had placement of OGT while on vent, & was rxd Reglan 10 mg IV Q6h, for it's prokinetic effect. *A repeat EGD is being performed 03/30/18, after the stomach is hopefully cleared, as Eliquis is no longer on board. Instrument: diagnostic gastroscope Meds Received: MAC Patient's Tolerance: good Complications: none Extent Reached: D3 Procedure: Upper endoscopy to the third portion of the duodenum, with Gold Probe cautery & clipping x 3, was performed with the Olympus high definition videoendoscope, after obtaining informed consent from the patient's , Ruiz Luna, in the ICU (patient remained sedated on vent, preop), with the hat and cap parts cutter hand and pulse oximeter, with the assistance of Dr. Rodríguez, of [facility], & the GI RNs, Kavitha Foote Kathy , & Charissa. The patient's OGT was removed preop. A mouthpiece was placed in the usual fashion to protect the patient's teeth. The patient was maintained in the supine position (on vent), and sedated by [facility]. At this point, the endoscope was advanced from the mouth into the esophagus, using direct visualization technique. The ETT was seen passing into the trachea, in between the vocal cords. The upper esophageal inlet was minimally snug, yet accomodated the diagnostic gastroscope. The esophageal mucosa appeared normal. There were no esophageal rings, webs, lesions, strictures, or ulcers. There was no monilia or vesicles. There was no esophageal ribbing. The Z line was well demarcated at 40 cm (supine). There was no hiatal hernia pouch. No significant esophageal inflammation was seen. There were no ectopic islands, nor gross Manley's esophagus. There were no esophageal or gastric varices, nor any Andreina Orona tear. *The visibility on the 03/30/18: EGD was vastly improved, compared to the 03/29/18: EGD, as Eliquis had worn off, & the stomach was now empty of blood, clots, & food, after the use of IV Reglan & the OGT-> intermittent suction. The zayas of the stomach now seemed to distend normally with air insufflation. Direct and retroflexed views of the stomach were performed. There was nothing endoscopically to suggest gastroparesis or portal gastropathy. There were no longer any clots or food. * There was a 1 cm x 2 cm2 oblong, friable gastric ulcer at the incisura, towards the lesser curvature, which contained a visible vessel, which was not actively bleeding at the time. The remainder of the mucosa of the gastric cardia, fundus , body, & antrum appeared normal, without any gastric ulcers or gastric lesions. The pylorus was patent, without any gastric outlet obstruction or channel ulcer. The duodenal bulb, duodenal sweep, & third portion of the duodenum appeared normal, including the ampulla, without any duodenal ulcers, distal ulcerations, or angiodysplasias. The folds of the second & third portions of the duodenum were normal in caliber, without any flattening, nodularity, scalloping, or mosaic pattern. After completing the preliminary endoscopic portion of the EGD to the third portion of the duodenum, *all attention was focused on the 1 cm x 2 cm2 oblong, friable gastric ulcer at the incisura, towards the lesser curvature, which contained a visible vessel. This was somewhat symmetrical, and had a slight lumpy bumpy appearance. A Gold Probe (25W/2 sec bursts), was used to cauterize the periphery of the gastric ulcer, followed by cautery of the center of the gastric ulcer. At this point, [employer] Resolution 360 Clips x 3 were placed over the gastric ulcer, deploying in excellent location. The gastric ulcer was repeatedly washed with the Yiopsy H2O jet, & observed for several minutes postop. At this point, no active upper GI bleeding was seen. * Documenting phographs were obtained, & placed inside the patient's chart. The patient tolerated the procedure well. Impression: 1. 1 cm x 2 cm2 oblong, friable gastric ulcer at the incisura, towards the lesser curvature, containing a visible vessel. The ulcer was somewhat symmetrical, and had a slight lumpy bumpy appearance. Successfully treated with Gold Probe cautery & [employer] Resolution 360 Clips x 3. 2. Excellent visibility after the effects of Eliquis had worn off, & after use of OGT & Reglan. No residual clots or food seen. 3. Cricopharyngeal hypertrophy with minimally snug upper esophageal inlet. Recommendations: *Maintain in ICU. *Okay from GI perspective to extubate patient from ventilator, if okay with pulmonary. *NPO for now, with consideration for clears po in a.m. * Eliquis remains on hold for now. No ASA for now. No NSAIDS (according to the pt' s , she remotely took large amounts of NSAIDS for REYES > 1 year [employer]). Continue IV Protonix 8 mg/hr continuous drip, for now. 2 large bore IVs. T&C 2u PRBC. Check CBC Q6h for now. Keep Hgb > 8 (probable underlying ASHD, numerous risk factors & hx diastolic dysfunction on 11/17/17: echocardiogram). Strict I/O 's. Leave out OGT and/or NGT for now. *Continue Reglan 10 mg IVPB Q6h, for now, as tolerated. *Watch for potential EPS side effects. Check stool Ag H. pylori. *Surgical and cardiology consults appreciated. *If continued bleeding, consideration for IR consultation. Based on the EGD x 2 findings, no indication for inpt baseline coloonoscopy, nor for CTA abdomen, at present. *Assuming the patient remains stable, a repeat EGD should be done in 8 weeks (i.e.- by end of 05/2018), to make sure the had healed. If the persists at that time, it would need direct biopsies to rule out malignant potential, also keeping in mind the remote history of Hodgkins lymphoma of the mediastinum, txd in [place] with CTX/RT in 1994. *The pt was previously told she would need a baseline screening colonoscopy as an outpt, once her UGI bleed stabilizes, as she was overdue for this (advised by age 45 in average risk for colon Ca Americans). *The baseline colonoscopy could be combined with the next EGD.*Advise eventual outpt CT neck and/or ENT evaluation, regarding cricopharyngeal hypertrophy with mass- effect at posterior aspect of esophagus at C4/C5 (noted on 02/17/18: MBS obtained by PMD), especially keeping in mind the past history of remote Hodgkin' s lymphoma. The pt's son, Ruiz Luna, & her , Ruiz Luna, were previously given my office number for future reference. The patient was previously made aware of the need to follow-up with [facility] as an outpatient for the probable incidental intermittent vaginal spotting. DVT prophylaxis with mechanical ALPS. Vent care, empiric IV Unasyn, Synthroid, etc., as per ICU team. The above findings & recommendations were discussed with the medical ICU house staff, the patient's , Ruiz, & and with Dr. Jhaveri. Further GI recommendations to follow, depending on clinical course. CC: Mayuri DUNN,Mayuri; Ramón Mendosa DO; Linnette DUNN,Patel Vázquez; Toni DUNN,Jose Luis De Los Santos; Emilio DUNN,Kuldeep
[2018-03-30 18:29] LABS: ABSOLUTE BASOPHIL COUNT 0.1 /CUMM (0.0-0.2); ABSOLUTE EOSINOPHIL COUNT 0.5 /CUMM (0.0-0.7); ABSOLUTE GRANULOCYTE CT 16.9 /CUMM (1.4-6.5); ABSOLUTE LYMPH COUNT 2.9 /CUMM (1.2-3.4); ABSOLUTE MONOCYTE COUNT 1.7 /CUMM (0.10-0.60); BASOPHIL % 0.2 % (0.0-2.0); EOSINOPHIL % 2.3 % (0-5); GRANULOCYTE % 76.7 % (42.2-75.2); HEMATOCRIT 27.5 % (37-47); MEAN CORPUSCULAR HGB 28.4 PG (27.0-31.0); MEAN CORPUSCULAR HGB CONC 33.2 G/DL (33.0-37.0); MEAN CORPUSCULAR VOLUME 85.6 FL (81.0-99.0); MEAN PLATELET VOLUME 8.5 FL (7.4-10.4); PLATELET COUNT 182 /CUMM (130-400); RBC DISTRIBUTION WIDTH 17.1 % (11.5-14.5); RED BLOOD CELL CT 3.21 /CUMM (4.20-5.40)
[2018-03-30 23:38] LABS: ABSOLUTE BASOPHIL COUNT 0 /CUMM (0.0-0.2); ABSOLUTE EOSINOPHIL COUNT 0.4 /CUMM (0.0-0.7); ABSOLUTE GRANULOCYTE CT 19.6 /CUMM (1.4-6.5); ABSOLUTE LYMPH COUNT 2.2 /CUMM (1.2-3.4); ABSOLUTE MONOCYTE COUNT 1.5 /CUMM (0.10-0.60); BASOPHIL % 0.1 % (0.0-2.0); EOSINOPHIL % 1.5 % (0-5); HEMATOCRIT 25.9 % (37-47); MEAN CORPUSCULAR HGB 28.6 PG (27.0-31.0); MEAN CORPUSCULAR HGB CONC 33.9 G/DL (33.0-37.0); MEAN CORPUSCULAR VOLUME 84.4 FL (81.0-99.0); MEAN PLATELET VOLUME 7.2 FL (7.4-10.4); PLATELET COUNT 184 /CUMM (130-400); RBC DISTRIBUTION WIDTH 17.2 % (11.5-14.5); RED BLOOD CELL CT 3.07 /CUMM (4.20-5.40); WHITE BLOOD CELL COUNT 23.6 /CUMM (4.8-10.8)
[2018-03-31] VITALS: BP 136/67
[2018-03-31 00:11] LABS: GRANULOCYTE % 82.9 % (42.2-75.2)
[2018-03-31 04:56] LABS: ABSOLUTE BASOPHIL COUNT 0 /CUMM (0.0-0.2); ABSOLUTE EOSINOPHIL COUNT 0.5 /CUMM (0.0-0.7); ABSOLUTE GRANULOCYTE CT 17.4 /CUMM (1.4-6.5); ABSOLUTE LYMPH COUNT 2.4 /CUMM (1.2-3.4); ABSOLUTE MONOCYTE COUNT 1.6 /CUMM (0.10-0.60); BASOPHIL % 0.2 % (0.0-2.0); EOSINOPHIL % 2.2 % (0-5); GRANULOCYTE % 79.1 % (42.2-75.2); HEMATOCRIT 25.1 % (37-47); MEAN CORPUSCULAR HGB 28.2 PG (27.0-31.0); MEAN CORPUSCULAR HGB CONC 32.9 G/DL (33.0-37.0); MEAN CORPUSCULAR VOLUME 85.7 FL (81.0-99.0); MEAN PLATELET VOLUME 7.8 FL (7.4-10.4); PLATELET COUNT 183 /CUMM (130-400); RBC DISTRIBUTION WIDTH 17.4 % (11.5-14.5); RED BLOOD CELL CT 2.93 /CUMM (4.20-5.40)
--- NOTE | 2018-03-31 07:39 | PN- Resident CRCU ---
Naseem Pandya 03/31/18 0738: Subjective HPI/CRCU Issues: #Anemia 2/2 acute blood loss, s/p 4U PRBC #ELIAN, resolved #Aspiration PNA/Pneumonitis #Afib/HTN #H/o Hypothyroidism #H/o DM Objective Vital Signs & I&O Last 8 Hrs of Vitals and I&O: Intake & Output 03/31 1600 Intake Total Output Total Balance Patient 237 lb Weight Exam General Appearance: alert, awake, mild distress, obese Head: atraumatic, normal appearance Neck: normal inspection, supple Respiratory: chest non-tender, no respiratory distress, rhonchi Cardiovascular: edema, TACHY Gastrointestinal: normal bowel sounds, soft, non-tender, no organomegaly Extremities: normal inspection, pedal edema Cranial Nerves: normal hearing, normal speech Current Medications: Current Medications Sig/Ceasar Start time Last Medication Dose Route Stop Time Status Admin Acetaminophen 1,000 MG Q6P PRN 03/29 1700 03/30 N/A 1 UNIT IV 0937 Ampicillin Sodium/ 3,000 MG Q6H 03/30 2230 AC 03/31 Sulbactam Sodium IV 0957 Sodium Chloride 100 ML Ampicillin Sodium/ 3,000 MG Q6 03/30 1246 MT 03/30 Sulbactam Sodium IV 1637 Sodium Chloride 100 ML Benzocaine/Menthol 1 NED Q2P PRN 03/31 1000 AC PO Levothyroxine Sodium 25 MCG DAILY 03/30 0900 03/31 IV 0957 Lorazepam 0.5 MG ONE ONE 03/30 2230 DC 03/30 PO 03/30 223 2225 Metoclopramide HCl 10 MG Q6 03/30 0600 MT 03/31 IV 0546 Morphine Sulfate 2 MG Q4P PRN 03/29 1700 AC IV Omeprazole 40 MG BID 03/31 0900 03/31 PO 0957 Ondansetron HCl 4 MG ONCE ONE 03/31 0845 DC 03/31 PO 03/31 0846 0957 Ondansetron HCl 4 MG ONCE ONE 03/30 2230 DC 03/30 IV 03/30 2231 2225 Ondansetron HCl 4 MG ONCE ONE 03/30 1945 DC 03/30 IV 03/30 1946 1939 Pantoprazole Sodium 40 MG Q5H 03/29 1345 MT 03/31 Sodium Chloride 100 ML IV 0544 Phenol 2 SPRAY Q2P PRN 03/31 1000 AC EXT Propofol 1,000 MG Q4H 03/29 2200 DC 03/30 N/A 1 UNIT IV 1514 Sodium Chloride 1,000 ML .Q10H 03/29 1600 DC 03/31 IV 0545 Impression/Plan Impression/Problem List Impression: 52 y/o F with PMH of paroxysmal afib on apixaban, HTN, HFpEF. obesity, JASON and remote h/o hodgkin's s/p presented to the ED c/o of 1 day history of nausea, coffee ground emesis, and melena. On the ED, she was found to be hypotensive (85 /55) with H/H 7.2/22.3 with lactic acidemia. She was transfused 1U PRBC and 1L crystalloid bolus - NGT placement for gastric lavage was attempted but unsuccessful. GI was consulted and the patient was admitted to the ICU for management of hypotension and emergent EGD. IMPRESSION #Anemia 2/2 acute blood loss, s/p 4U PRBC #ELIAN, resolved #Aspiration PNA/Pneumonitis #Afib/HTN #H/o Hypothyroidism #H/o DM #Anemia 2/2 acute blood loss, s/p 4U PRBC Patient's CBC and clinical presentation are indicative of acute blood loss as a cause of her anemia. The source is most likely from the GI tract. An EGD was done which found an oblong gastric ulcer that was oozing that was left intact due to patient being on apixaban. Her H/H now is 7.6/22.9, second EGD done on that succesfully treated the oblong gastril ulcer. Serial CBCs should be monitored, though appear to be maintaining. -Serial CBCs, monitor H/H -IV PPI #ELIAN, resolved On admit pt had BUN/Cr 46/1.2, likely resulting from her acute blood loss resulting in hypotension. BUN/Cr is trending down as a result of fluid therapy, now at 11/0.8. #Aspiration PNA/Pneumonitis Possibility of aspiration due to vomiting and posterior intubation. CXR shows multifocal diffuse b/l parenchymal opacities, though pt is afebrile and WBC remains high. IV unasyn was started -Unasyn day #2 #Afib/HTN Pt has a h/o pAFib on apixaban since 1 year ago -- she has needed electrical cardioversion in the past. Her anticoagulation is definitely contributing to her ongoing acute blood loss. It was held with the plan to repeat EGD today (03/30). Cardiology was consulted with regards to her anticoagulation. -Hold Apixaban #H/o hypothyroidism Pt with a h/o hypothyroidism with latest TSH on record normal (3450 on 02/25). -Continue synthroid IV 25 mcg qD #H/o DM pt with a h/o DM, latest A1C on record is 6.9% on 03/01. Latest glucose is 98. -Bedside glucose monitoring q6 FULL CODE NPO DVT PPX: [facility] Problem List: 1. Upper GI bleed Pain Ratin Tomorrow's Labs & Rationales: cbc Plan DVT/Prophylaxis: Kuldeep Skelton MD 03/31/18 9079: Attending MD Review Statement Attending Sign Off Attending Cosign Statement: I have: examined this patient, reviewed avalbl EMR data, personally reviewd images, discussd w/resident/PA/LACQUER SHADER, discussed mgmt plan w/tequila, discussed mgmt plan w/CM, discussed mgmt plan w/pt, agreed w/resident/PA/LACQUER SHADER, amended to note. Other Findings: I, Kuldeep Jhaveri M.D. have examined this patient, reviewed available EMR data, personally reviewed images, discussed with resident/PA/LACQUER SHADER, discussed management plan with housestaff and nursing staff, discussed managment plan all of healthcare providers, discussed management plan with patient and/or family, agreed with resident/PA/LACQUER SHADER. The past history and parts of the chart have been autopopulated. Impression 52 year old woman * Stabilized - acute blood loss anemia in the setting of Eliquis use for a.fib, upper GI source * known systolic murmur * patchy opacifications - chemical pneumonitis and aspiration pneumonia - likely related to hx of vomiting/wretching at home Plan -stable, advance diet, no further bleeding -hemodynamic monitoring -hold Eliquis - consultation with Dr. Paul -monitor cbc -ivf -PPI -continue synthroid for hypothyroidism -contn unasyn for tx of aspiration pneumonia, once nausea improved will switch to Augmentin -f/u sputum cx DVT prophylaxis at all times - ALPS TTS 35 min
[2018-03-31 08:00] VITALS: BP 102/50
--- NOTE | 2018-03-31 08:29 | PN- Gastroenterology ---
Assessment/Plan GI Assessment/Recommendations: 52 y/o female, HTN, ? 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 mediastinal, txd in [place], [place] then with CTX/RT (spleen intact, no prior abdominal surgery, no previous transfusions), without prior EGD or colonoscopy, no FHx GI disease, GI Ca or inherited liver disease, who presented to the [facility] 03/29/18 at 12:21 PM, complaining of nausea, vomiting, diarrhea, and GI bleeding. The patient was not on any aspirin or NSAIDs. She denied any recent antibiotics. She also noted fatigue for 2 days MED SPA MANAGER. The patient ate dinner at [facility] with her 03/28/18, where she ate steak & mashed potatoes. Her ate similar food, without incident. This was followed a few hours later that evening by nausea, diaphoresis, and diarrhea 1-2x/hr. initially, there was no vomiting. Initially, there was no rectal bleeding. The patient ate a few grapes at 11 AM 03/29/18, then drank a little chen anila at noon. This was followed by vomitus consisting of darkish red blood (the patient brought in a container of this to the ER), & darkish red stool. There was no abdominal pain. The patient denied any GERD, odynophagia, or definite early satiety. She did note occasional dysphagia to dry solids, pills, & liquids, although there was no history of transfer dysphagia, CVA, or nasal regurgirtation of food or liquids. Aside from the remote Hodgkin's lymphoma, there was no hx of head & neck Ca, head & neck RT, or thyoid disease. There was no hx of any previous food impaction. 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 There was no aspiration. Upon arrival to the [facility] 03/29/18, BP 85/55, P 99, R 19, T 97.3, O2 sat RA 93%. The pt's BP transiently came up to 117/56 after IVF bolus & the start of 1u PRBC, but then dipped down to 99/59. Digital rectal exam by Dr. Avila in the ER showed darkish red blood, obviously OB positive. When I was called by the ER, I told them a rapid transit upper GI bleed should be excluded, especially since I later found out that the patient had vomited up dark red contents, MED SPA MANAGER. I advised him to start an IV Protonix bolus 80 mg, followed by 8 mg/hr drip and to place an NG tube. Dr. Avila attempted NGT placement x 2 unsuccessfully, and the patient then refused further attempts at NG tube placement. This is probably a moot point, as I later saw the contents of the container of vomitus the patient brought in from home. The patient noted intermittent fevers and chills without symptoms of UTI or URI. She had rare night sweats. She has been postmenopausal for 10 years. There was a questionable history of vaginal spotting, for which the patient is to see [facility] [employer]. There is no gross hematuria or hemoptysis. She noted weight gain of 45 lbs over the past 1-2 yrs. She denied any CP, SOB, palpitations, or LOC. *Initially, as the Harikaquis was still on board, I was contemplating holding off on EGD until tomorrow, but as she was persistently hypotensive, a decision was made to start with the EGD today. There is no history of cigarettes, EtOH, or illicit drug use. 01/05/18: WBC 15 (52% gran/8 gran Ab), *H/H 12.6/39.3, MCV 79, RDW 16. PLT 386, *BUN/Cr 17/1.0, GFR 58, *TSH 10.2. 03/01/18: HgbA1C 6.9. 03/29/18: Admission labs- WBC 18.2 (70% gran/13 gran Ab), *H/H 7.2/23.3, MCV 78.9, RDW 16, PLT 286, PT 15.8, INR 1.44, PTT 26, glucose 151, *BUN/Cr 46/1.2, GFR 47, Na 140, K 4.8, HCO3 23, AG 11, Ca 8.2, alb 2.9, glob 3.1, TBil 0.2, alk phos 41, AST 13, AL 29, CK 133, troponin < 0.01. lactate 2.3-> 1.2. 03/29/18: EKG- NSR @ 86, nl axis, nl int, LVH, flipped T in L. 03/29/18: XR PORTABLE CHEST- No evidence for acute disease in the chest. *As of 03/29/18, the patient was markedly anemic with elevated BUN/Cr ratio. She had hematemesis at home, with darkish red stool per rectum. She was hypotensive. This seemed to correspond with a rapid transit UGI bleed clinically, rather than "LGI bleed". The patient was intolerant of NG tube placement x 2 by the ER, but this seems to be a moot point, based on the contents of the container she brought in from home. Assuming this is upper GI nature, differential diagnosis includes peptic ulcer vs. angiodysplasia vs. Dieulafoy, doubt neoplasm, but should be excluded with past history of Hodgkin' s. Aside from a slightly reversed albumin:globulin ratio, there was nothing clinically to suggest cirrhosis to consider variceal bleeding. Eliquis was still on board, as she last took it on the morning of admission, and would probably hang around a little longer than usual, based on the mild decreased GFR. However, because of the hypotension, a decision was made to proceed with EGD this evening. The patient's diarrhea is most likely from the GI bleeding, as blood is a cathartic. The risks & benefits of EGD & potential colonoscopy were discussed with the patient & her son, Ruiz Luna, at the bedside in the [place] ER, including the need for probable prophylactic intubation to protect her airway. She was agrreable to this & informed consent for EGD/potential colonoscopy were obtained. The patient & her son were made aware of the very low risk of CVA off Eliquis for a short period of time, but are aware that she is bleeding, & that this has to be held at the moment. 03/29/18: *EGD to D3- Impression: 1. 1 cm x 2 cm2 oblong gastric ulcer at incisura/lesser curvature with peripheral oozing, left intact, as Eliquis on board. 2. Clots & food obscuring portions of the gastric cardia, fundus, & distal antrum; patent pylorus without GOO. Possible component of gastroparesis (elevated TSH, mild DM). 3. 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 4. Clean duodenum to D3. 03/29/18: XRY-PORTABLE CHEST XRAY (post ETT/OGT)- Endotracheal tube and enteric tube in place. Nonspecific patchy multifocal opacification. 03/30/18: XR PORTABLE CHEST- 1. Endotracheal tube tip 2.7 cm above the baldomero. 2. Enteric tube courses into the abdomen with tip not included. 2. Multifocal diffuse bilateral parenchymal opacities are seen with thickening of central airways. Findings are nonspecific and are unchanged compared to the most recent prior study and are new compared to 03/29/18, suggesting a diffuse acute viral or atypical pneumonitis or acute chemical pneumonitis in the correct clinical setting. 03/30/18: EKG- ST @ 114, nl axis, nl int, mini q inflat. 03/29/18: 1940- ABG- FiO2 45%, AC 16, TV 500, PEEP 5- 7.35/36/70/92%/HCO3 19/CO HB 0.3. 03/30/18: 757- ABG- FiO2 40%, AC 16, TV 500, PEEP 5- 7.40/34/88/95%/HCO3 21/CO HB 0.7 03/29/18: 2012-WBC 17.6, H/H 8.6/26.2, PLT 171, lactate 2.2 03/29/18: U/A- w/o hematuria or pyuria. 03/30/18: 0345-WBC 16.2, H/H 7.2/21.5, PLT 167, glucose 108, BUN/Cr 29/0.8, GFR > 60, Na 141, K 3.8, HCO3 22, AG 6, Mg 1.7, Ca 6.9, PO4 3.0, albumin 2.0, TBil 0.1, AST 14, ALT 28, troponin 0.01. 03/30/18: 1100-WBC 16.1, H/H 7.6/22.9, PLT 158 *As of 03/30/18, the patient was normotensive, although tachycardic, with Tm 99.2. She remained prophylactically intubated on the ventilator, in anticipation of repeat EGD later today. She remeianed on Propofol & MS prn. IV: NS @ 100cc/hr. She last took her Eliquis the a.m. of 03/29/18. She was seen in consultation by cardiology & surgery on 03/30/18. Cardiology obviously agreed with holding her A/C therapy, in view of her GI bleed, especially since she had remained in NSR. The pt's was aware of the small risk of CVA off A/C tx, but understands this in view of the life threatening GI bleed. The pt was about to receive her 5th unit PRBC. An OG tube was placed yesterday evening. It initially showed brownish reddish liquid, which had since cleared. IV Reglan 10 mg Q6h was added as a prokinetic, in addition to her IV Protonix drip at 8 mg/hr. According to the patient's RN, there was no further melena or rectal bleeding. IV Unasyn 3g Q6h was rxd on , to cover her lungs, for possible aspiration. The case was again discussed with the patient's , Ruiz Luna, in the [place] ICU. He was aware of the critical nature of his 's illness. The risks & benefits of repeat EGD were discussed with him, and he agreed to proceed with this. Informed consent for repeat EGD was obtained from him. 03/30/18: *Repeat EGD to D3 with Gold Probe cautery & clipping x 3- Impression: 1. 1 cm x 2 cm2 oblong, friable gastric ulcer at the incisura, towards the lesser curvature, containing a visible vessel. The ulcer was somewhat symmetrical, and had a slight lumpy bumpy appearance. Successfully treated with Gold Probe cautery & [place] [employer] Resolution 360 Clips x 3. 2. Excellent visibility after the effects of Eliquis had worn off, & after use of OGT & Reglan. No residual clots or food seen. 3. Cricopharyngeal hypertrophy with minimally snug upper esophageal inlet. 03/30/18: 1730-WBC 22 (77% gran/17 gran Ab), H/H 9.1/27.5, PLT 182 03/30/18: 2326-WBC 23.6 (83% gran/20 gran Ab), H/H 8.8/25.9, PLT 184 03/31/18: 0403-WBC 22 (79% gran/17 gran Ab), H/H 8.3/25.1, PLT 183, glu 98, BUN/ Cr 11/0.8, GFR > 60, Na 142, K 3.8, HCO3 24, AG 9, Mg 1.9, Ca 7.4, PO4 2.5, alb 2.5, TBil 0.5, AST 17, ALT 29 *As of 03/31/18, the patient was normotensive 102/50, mildly tachycardic 112 (CM : ST), R 20, & afebrile, with O2 sat 2L 95%. She was extubated uneventfully the p.m. of 03/30/18, post EGD. She was ambulating in her room. She had received a total of 5u PRBC this admission, last on 03/30/18 at 1:45 p.m. She was tolerating clears po, on IV:NS @ 100cc/hr. She had mild nausea, without any recurrent vomiting or hematemesis. She had a dark bowel movement overnight, which was to be expected, probably representing remnants of prior UGI bleed. She denied any abdominal pain, CP, SOB, palpitations, or acute neurologic symptoms. She remained in NSR (ST), off Eliquis. She remained on IV Unasyn 3g Q6h for possible aspiration pneumonitis. Cultures were negative to date. Her Hgb was > 8, with decreasing BUN. SUGGEST: *If OK with other consultants, can move out of ICU later today, perhaps to telemetry. *Clears po & advance diet as tolerated. Can D/C IVF if adequate po intake. *Eliquis remains on hold for now (d/w Dr. Derrick Muñoz, who agrees- he will reassess her as an outpt for possible ablation, but he feels her afib was very infrequent & to hold A/C for now, duration to be determined by him as an outpt). No ASA for now. No NSAIDS (according to the pt's , she remotely took large amounts of NSAIDS for REYES > 1 year MED SPA MANAGER). *May covert IV Protonix 8 mg /hr continuous drip to po Omeprazole 40 mg Q12h. 2 large bore IVs. T&C 2u PRBC. Check CBC Q12h for now. Keep Hgb > 8 (probable underlying ASHD, numerous risk factors & hx diastolic dysfunction on 11/17/17: echocardiogram). Strict I/O's. Leave out OGT and/or NGT for now. *D/C Reglan. *Zofran as needed. Check stool Ag H. pylori. *Surgical and cardiology consults appreciated. *If continued bleeding, consideration for IR consultation. Based on the EGD x 2 findings, no indication for inpt baseline coloonoscopy, nor for CTA abdomen, at present. * Assuming the patient remains stable, a repeat EGD should be done in 8 weeks ( i.e.- by end of 05/2018), to make sure the had healed. If the persists at that time, it would need direct biopsies to rule out malignant potential, also keeping in mind the remote history of Hodgkins lymphoma of the mediastinum, txd in [place] with CTX/RT in 1994. *The pt was previously told she would need a baseline screening colonoscopy as an outpt, once her UGI bleed stabilizes, as she was overdue for this (advised by age 45 in average risk for colon Ca Americans). *The baseline colonoscopy could be combined with the next EGD.* Advise eventual outpt CT neck and/or ENT evaluation, regarding cricopharyngeal hypertrophy with mass-effect at posterior aspect of esophagus at C4/C5 (noted on 02/17/18: MBS obtained by PMD), especially keeping in mind the past history of remote Hodgkin's lymphoma. The pt's son, Ruiz Luna, & her , Ruiz Luna, were previously given my office number for future reference. The patient was previously made aware of the need to follow-up with [employer]OD BIOCHEMI[employer] as an outpatient for the probable incidental intermittent vaginal spotting. DVT prophylaxis with mechanical ALPS. Continue to mobilize patient as tolerated. Vent care, empiric IV Unasyn, Synthroid, etc., as per ICU team. The above findings & recommendations were discussed with the medical ICU house staff, the patient's son, Ruiz, & the patient's dtrNaren at the bedside in the ICU, & with Dr. Derrick Muoñz, & previously with the pt's , Ruiz, & and with Dr. Jhaveri. Further GI recommendations to follow, depending on clinical course. 1/2 hour of ICU care was spent on the patient. Problem List: 1. Hypotension 2. Upper GI bleed 3. Hematemesis 4. Anemia 5. Dysphagia 6. Diarrhea 7. Malnutrition 8. Paroxysmal A-fib 9. History of Hodgkin's disease Subjective Subjective: 03/30/18: *Repeat EGD to D3 with Gold Probe cautery & clipping x 3- Impression: 1. 1 cm x 2 cm2 oblong, friable gastric ulcer at the incisura, towards the lesser curvature, containing a visible vessel. The ulcer was somewhat symmetrical, and had a slight lumpy bumpy appearance. Successfully treated with Gold Probe cautery & [place] [employer] Resolution 360 Clips x 3. 2. Excellent visibility after the effects of Eliquis had worn off, & after use of OGT & Reglan. No residual clots or food seen. 3. Cricopharyngeal hypertrophy with minimally snug upper esophageal inlet. 03/30/18: 1730-WBC 22 (77% gran/17 gran Ab), H/H 9.1/27.5, PLT 182 03/30/18: 2326-WBC 23.6 (83% gran/20 gran Ab), H/H 8.8/25.9, PLT 184 03/31/18: 0403-WBC 22 (79% gran/17 gran Ab), H/H 8.3/25.1, PLT 183, glu 98, BUN/ Cr 11/0.8, GFR > 60, Na 142, K 3.8, HCO3 24, AG 9, Mg 1.9, Ca 7.4, PO4 2.5, alb 2.5, TBil 0.5, AST 17, ALT 29 *As of 03/31/18, the patient was normotensive 102/50, mildly tachycardic 112 (CM : ST), R 20, & afebrile, with O2 sat 2L 95%. She was extubated uneventfully the p.m. of 03/30/18, post EGD. She was ambulating in her room. She had received a total of 5u PRBC this admission, last on 03/30/18 at 1:45 p.m. She was tolerating clears po, on IV:NS @ 100cc/hr. She had mild nausea, without any recurrent vomiting or hematemesis. She had a dark bowel movement overnight, which was to be expected, probably representing remnants of prior UGI bleed. She denied any abdominal pain, CP, SOB, palpitations, or acute neurologic symptoms. She remained in NSR (ST), off Eliquis. She remained on IV Unasyn 3g Q6h for possible aspiration pneumonitis. Cultures were negative to date. Her Hgb was > 8, with decreasing BUN. Review of Systems: Full 14 point ROS otherwise noncontributory, and as above Review of Systems Constitutional: Reports: malaise & weakness (improving). Denies: chills, diaphoresis, fever, unexplained weight loss. EENTM: Denies: blurred vision, double vision, visual changes, eye pain, eye drainage, eye tearing, icterus, ear discharge, ear pain, ear redness, hearing changes, nasal congestion, epistaxis, nasal pain, throat pain, throat swelling, mouth pain, tooth pain. Cardiovascular: Denies: chest pain, increased edema, orthopena, palpitations, peripheral edema, syncope. Respiratory: Denies: cough, hemoptysis, orthopnea, short of breath, sputum production, stridor, wheezing. GI: Reports: melena (old residual-> resolving), nausea (hemeatemesis resolved) Denies: abdominal pain, bloating, constipation, distention, bowel incontinence, changes in stool, diarrhea, steatorrhea. Genitourinary: Denies: discharge, dysuria, frequency, hematuria, hesitation, nocturia, pain, urgency. Musculoskeletal: Denies: back pain, gout, joint pain, joint swelling, muscle pain, muscle stiffness, neck pain. Skin: Denies: cysts, change in skin color, change in hair/nails, dryness, erythema, jaundice, lesions, lymphangitis, lumps, moles, rash. Neurological/Psychological: Denies: anxiety, ataxia, cognitive dysfunction, confusion, depressed, dementia, emotional problems, headache, numbness, paresthesia, pre-existing deficit, petit mal seizures, tingling, tremors, tonic-clonic seizures, unable to move lower ext , unable to move upper ext, weakness. Hematologic/Endocrine: Denies: bruising, bleeding, polyuria, polydipsia. Immunologic/Allergic: Denies: splenectomy, HIV/AIDS, lymphadenopathy. All Other Systems: Reviewed and Negative Objective Vital Signs and I&Os Vital Signs Date Time Temp Pulse Resp B/P B/P Pulse O2 O2 Flow FiO2 Mean Ox Delivery Rate 03/31 0800 95 Nasal 2.0L Cannula 03/31 0800 97.2 112 20 102/50 95 Nasal 2.0L Cannula 03/31 0400 98 Nasal 2.0L Cannula 03/31 0000 97 Nasal 2.0L Cannula 03/31 0000 97.4 112 14 136/67 97 Nasal 2.0L Cannula 03/30 2100 97 Nasal 2.0L Cannula 03/30 1634 40 03/30 1600 100 Ventilator 40% 03/30 1600 98.4 120 26 140/70 98 Ventilator 40% 03/30 1436 100 03/30 1400 35 03/30 1200 95 Ventilator 40% 03/30 1154 40 Intake & Output 03/31 1600 03/31 0400 03/30 1600 03/30 0400 03/29 1600 03/29 0400 Intake Total 1249 1310 2249 2322.3 1000 Output Total 900 1100 2705 600 Balance 349 210 -456 1722.3 1000 Intake, Blood 350 700 Product Intake, IV 1009 1070 1899 1622.3 1000 Intake, Oral 240 240 Number 3 Bowel Movements Output, 230 100 Gastric Drainage Output, Urine 900 1100 2475 500 Patient 239 lb 340 lb Weight Weight Bed scale Reported by Patient Measurement Method Physical Exam: Well-developed, well nourished, obese -[place]est[place] female, extubated , in no apparent distress. Sclera anicteric. Conjunctiva: less pale. Oropharynx: clear. No oral thrush. No aphthous ulcers. There is no adenopathy, thyromegaly, or JVD. No peripheral stigmata of inflammatory bowel disease or chronic liver disease on exam. No spiders on the anterior chest wall. No CVA tenderness. No spine tenderness. Breast & pelvic exams: API. Lungs: clear to A&P , with slight decreased BS at the bases B/L. No wheezing, rales, or rhonchi. Heart exam: (currently NSR-> ST) regular rate rhythm, S1 and S2, with I/IV diastolic & I/ syst murmur. Abdominal exam: normal bowel sounds, soft belly, obese, nontender, without guarding or rebound. No mass or organomegaly, within the limits of the body habitus. No fluid shift. No pulsatile mass. No epigastric bruit. Digital rectal exam done by Janee Avila in the [place] ER : blackish red blood, obviously OB positive. No masses reported. Extremities: without cyanosis or clubbing. Trace pedal edema B/L. No palpable cords. No rash. No acute arthropathy. Mild DJD. No palmar erythema. No Dupuytren's contractures. Distal pulses 2+ bilaterally. DTRs 2+ bilaterally. Right handed. Motor 5/5 B/L. CN II-XII intact. Previously alert and oriented x 3 (currently sedated). No tremor. No asterixis. No cogwheeling (off Reglan). Current Medications: Current Medications Sig/Ceasar Start time Last Medication Dose Route Stop Time Status Admin Acetaminophen 1,000 MG .STK-MED ONE 03/30 0936 DC IV 03/30 0937 Acetaminophen 1,000 MG Q6P PRN 03/29 1700 03/30 N/A 1 UNIT IV 0937 Ampicillin Sodium/ 3,000 MG Q6H 03/30 2230 AC 03/31 Sulbactam Sodium IV 0424 Sodium Chloride 100 ML Ampicillin Sodium/ 3,000 MG Q6 03/30 1246 DC 03/30 Sulbactam Sodium IV 1637 Sodium Chloride 100 ML Levothyroxine Sodium 25 MCG DAILY 03/30 0900 03/30 IV 0939 Lorazepam 0.5 MG ONE ONE 03/30 2230 DC 03/30 PO 03/30 223 2225 Metoclopramide HCl 10 MG Q6 03/30 0600 DE 03/31 IV 0546 Morphine Sulfate 2 MG Q4P PRN 03/29 1700 IV Omeprazole 40 MG BID 03/31 0900 PO Ondansetron HCl 4 MG ONCE ONE 03/31 0845 DC PO 03/31 0846 Ondansetron HCl 4 MG ONCE ONE 03/30 2230 DC 03/30 IV 03/30 2231 2225 Ondansetron HCl 4 MG ONCE ONE 03/30 1945 DC 03/30 IV 03/30 194 1939 Pantoprazole Sodium 40 MG Q5H 03/29 1345 DE 03/31 Sodium Chloride 100 ML IV 0544 Propofol 1,000 MG Q4H 03/29 2200 DC 03/30 N/A 1 UNIT IV 1514 Sodium Chloride 1,000 ML .Q10H 03/29 1600 AC 03/31 IV 0545 Results Pertinent Lab Results: Laboratory Tests 03/31 03/30 0403 2326 Chemistry Sodium (137 - 145 mmol/L) 142 Potassium (3.5 - 5.1 mmol/L) 3.8 Chloride (98 - 107 mmol/L) 109 H Carbon Dioxide (22 - 30 mmol/L) 24 Anion Gap (5 - 16) 9 BUN (7 - 17 mg/dL) 11 Creatinine (0.5 - 1.0 mg/dL) 0.8 Estimated GFR (>60 ml/min) > 60 Glucose (65 - 99 mg/dL) 98 Calcium (8.4 - 10.2 mg/dL) 7.4 L Phosphorus (2.5 - 4.5 mg/dL) 3.5 Magnesium (1.6 - 2.3 mg/dL) 1.9 Total Bilirubin (0.2 - 1.3 mg/dL) 0.5 AST (14 - 36 U/L) 17 ALT (9 - 52 U/L) 29 Albumin (3.5 - 5.0 g/dL) 2.5 L Hematology CBC w Diff NO MAN DIFF REQ NO MAN DIFF REQ WBC (4.8 - 10.8 /CUMM) 22.0 H 23.6 H RBC (4.20 - 5.40 /CUMM) 2.93 L 3.07 L Hgb (12.0 - 16.0 G/DL) 8.3 L 8.8 L Hct (37 - 47 %) 25.1 L 25.9 L MCV (81.0 - 99.0 FL) 85.7 84.4 MCH (27.0 - 31.0 PG) 28.2 28.6 MCHC (33.0 - 37.0 G/DL) 32.9 L 33.9 RDW (11.5 - 14.5 %) 17.4 H 17.2 H Plt Count (130 - 400 /CUMM) 183 184 MPV (7.4 - 10.4 FL) 7.8 7.2 L Gran % (42.2 - 75.2 %) 79.1 H 82.9 H Lymphocytes % (20.5 - 51.1 %) 11.0 L 9.2 L Monocytes % (1.7 - 9.3 %) 7.5 6.3 Eosinophils % (0 - 5 %) 2.2 1.5 Basophils % (0.0 - 2.0 %) 0.2 0.1 Absolute Granulocytes (1.4 - 6.5 /CUMM) 17.4 H 19.6 H Absolute Lymphocytes (1.2 - 3.4 /CUMM) 2.4 2.2 Absolute Monocytes (0.10 - 0.60 /CUMM) 1.6 H 1.5 H Absolute Eosinophils (0.0 - 0.7 /CUMM) 0.5 0.4 Absolute Basophils (0.0 - 0.2 /CUMM) 0 0 03/30 03/30 1830 1730 Blood Gas pH (7.35 - 7.45 PH) 7.43 pCO2 (35 - 45 TORR) 27 L pO2 (80 - 100 TORR) 88 HCO3 (21 - 28 MEQ/L) 17 L ABG O2 Sat (Measured) (>96.0 %) 96.0 Carboxyhemoglobin (1.5 - 5.0 %) 0.5 L O2 Concentration % 40% O2 Delivery Method CPAPWEAN Vent Mode CPAP Expiratory Pressure (CMH2O/P) 5 Hematology CBC w Diff NO MAN DIFF REQ WBC (4.8 - 10.8 /CUMM) 22.0 H RBC (4.20 - 5.40 /CUMM) 3.21 L Hgb (12.0 - 16.0 G/DL) 9.1 L Hct (37 - 47 %) 27.5 L MCV (81.0 - 99.0 FL) 85.6 MCH (27.0 - 31.0 PG) 28.4 MCHC (33.0 - 37.0 G/DL) 33.2 RDW (11.5 - 14.5 %) 17.1 H Plt Count (130 - 400 /CUMM) 182 MPV (7.4 - 10.4 FL) 8.5 Gran % (42.2 - 75.2 %) 76.7 H Lymphocytes % (20.5 - 51.1 %) 13.1 L Monocytes % (1.7 - 9.3 %) 7.7 Eosinophils % (0 - 5 %) 2.3 Basophils % (0.0 - 2.0 %) 0.2 Absolute Granulocytes (1.4 - 6.5 /CUMM) 16.9 H Absolute Lymphocytes (1.2 - 3.4 /CUMM) 2.9 Absolute Monocytes (0.10 - 0.60 /CUMM) 1.7 H Absolute Eosinophils (0.0 - 0.7 /CUMM) 0.5 Absolute Basophils (0.0 - 0.2 /CUMM) 0.1 Miscellaneous Phlebotomy Draw Site RIGHT RADIAL 03/30 03/30 1100 0758 Blood Gas pH (7.35 - 7.45 PH) 7.40 pCO2 (35 - 45 TORR) 34 L pO2 (80 - 100 TORR) 88 HCO3 (21 - 28 MEQ/L) 21 ABG O2 Sat (Measured) (>96.0 %) 95.0 L Carboxyhemoglobin (1.5 - 5.0 %) 0.7 L O2 Concentration % 40% Respiration Rate (BPM) 16 O2 Delivery Method VENT Vent Mode VC-AC Expiratory Pressure (CMH2O/P) 5 Tidal Volume (CC) 500 Pressure Support (CMH2O/P) 0 Hematology CBC w Diff NO MAN DIFF REQ WBC (4.8 - 10.8 /CUMM) 16.1 H RBC (4.20 - 5.40 /CUMM) 2.70 L Hgb (12.0 - 16.0 G/DL) 7.6 L Hct (37 - 47 %) 22.9 L MCV (81.0 - 99.0 FL) 85.1 MCH (27.0 - 31.0 PG) 28.0 MCHC (33.0 - 37.0 G/DL) 33.0 RDW (11.5 - 14.5 %) 16.9 H Plt Count (130 - 400 /CUMM) 158 MPV (7.4 - 10.4 FL) 7.9 Gran % (42.2 - 75.2 %) 76.4 H Lymphocytes % (20.5 - 51.1 %) 13.4 L Monocytes % (1.7 - 9.3 %) 7.6 Eosinophils % (0 - 5 %) 2.4 Basophils % (0.0 - 2.0 %) 0.2 Absolute Granulocytes (1.4 - 6.5 /CUMM) 12.3 H Absolute Lymphocytes (1.2 - 3.4 /CUMM) 2.2 Absolute Monocytes (0.10 - 0.60 /CUMM) 1.2 H Absolute Eosinophils (0.0 - 0.7 /CUMM) 0.4 Absolute Basophils (0.0 - 0.2 /CUMM) 0 Miscellaneous Phlebotomy Draw Site RIGHT RADIAL 03/30 03/30 0500 0344 Chemistry Sodium (137 - 145 mmol/L) 141 Potassium (3.5 - 5.1 mmol/L) 3.8 Chloride (98 - 107 mmol/L) 113 H Carbon Dioxide (22 - 30 mmol/L) 22 Anion Gap (5 - 16) 6 BUN (7 - 17 mg/dL) 29 H Creatinine (0.5 - 1.0 mg/dL) 0.8 Estimated GFR (>60 ml/min) > 60 Glucose (65 - 99 mg/dL) 108 H Calcium (8.4 - 10.2 mg/dL) 6.9 L Phosphorus (2.5 - 4.5 mg/dL) 3.0 Magnesium (1.6 - 2.3 mg/dL) 1.7 Total Bilirubin (0.2 - 1.3 mg/dL) 0.1 L AST (14 - 36 U/L) 14 ALT (9 - 52 U/L) 28 Troponin I (< 0.11 ng/ml) Cancelled 0.01 Albumin (3.5 - 5.0 g/dL) 2.0 L Hematology CBC w Diff NO MAN DIFF REQ WBC (4.8 - 10.8 /CUMM) 16.2 H RBC (4.20 - 5.40 /CUMM) 2.59 L Hgb (12.0 - 16.0 G/DL) 7.2 *L Hct (37 - 47 %) 21.5 L MCV (81.0 - 99.0 FL) 83.1 MCH (27.0 - 31.0 PG) 27.7 MCHC (33.0 - 37.0 G/DL) 33.3 RDW (11.5 - 14.5 %) 15.6 H Plt Count (130 - 400 /CUMM) 167 MPV (7.4 - 10.4 FL) 7.6 Gran % (42.2 - 75.2 %) 75.7 H Lymphocytes % (20.5 - 51.1 %) 15.2 L Monocytes % (1.7 - 9.3 %) 7.1 Eosinophils % (0 - 5 %) 1.7 Basophils % (0.0 - 2.0 %) 0.3 Absolute Granulocytes (1.4 - 6.5 /CUMM) 12.3 H Absolute Lymphocytes (1.2 - 3.4 /CUMM) 2.5 Absolute Monocytes (0.10 - 0.60 /CUMM) 1.1 H Absolute Eosinophils (0.0 - 0.7 /CUMM) 0.3 Absolute Basophils (0.0 - 0.2 /CUMM) 0.1 03/29 Chemistry Lactic Acid (0.7 - 2.1 mmol/L) 2.2 H Hematology CBC w Diff NO MAN DIFF REQ WBC (4.8 - 10.8 /CUMM) 17.6 H RBC (4.20 - 5.40 /CUMM) 3.13 L Hgb (12.0 - 16.0 G/DL) 8.6 L Hct (37 - 47 %) 26.2 L MCV (81.0 - 99.0 FL) 83.9 MCH (27.0 - 31.0 PG) 27.5 MCHC (33.0 - 37.0 G/DL) 32.8 L RDW (11.5 - 14.5 %) 16.4 H Plt Count (130 - 400 /CUMM) 171 MPV (7.4 - 10.4 FL) 7.6 Gran % (42.2 - 75.2 %) 80.2 H Lymphocytes % (20.5 - 51.1 %) 12.9 L Monocytes % (1.7 - 9.3 %) 6.4 Eosinophils % (0 - 5 %) 0.3 Basophils % (0.0 - 2.0 %) 0.2 Absolute Granulocytes (1.4 - 6.5 /CUMM) 14.1 H Absolute Lymphocytes (1.2 - 3.4 /CUMM) 2.3 Absolute Monocytes (0.10 - 0.60 /CUMM) 1.1 H Absolute Eosinophils (0.0 - 0.7 /CUMM) 0.1 Absolute Basophils (0.0 - 0.2 /CUMM) 0 Urines Urinalysis LIGHT H Urine Color (YEL,AMB,STR) YEL Urine Clarity (CLEAR) HAZY H Urine pH (5.0 - 8.0) 6.0 Ur Specific [place] (1.001 - 1.035) 1.020 Urine Protein (NEG,<30 MG/DL) NEG Urine Ketones (NEG) NEG Urine Nitrite (NEG) NEG Urine Bilirubin (NEG) NEG Urine Urobilinogen (0.1 - 1.0 EU/dl) 0.2 Ur Leukocyte Esterase (NEG) NEG Ur Microscopic SEDIMENT EXAMINED Urine RBC (0 - 5 /HPF) RARE Urine WBC (0 - 2 /HPF) 1-3 H Ur Epithelial Cells (NONE,FEW) MOD H Urine Bacteria (NEG/NONE) MOD H Hyaline Casts (0/LPF) RARE H Urine Hemoglobin (NEG) NEG Urine Glucose (N MG/DL) NEG 03/29 1546 1239 1239 Blood Gas pH (7.35 - 7.45 PH) 7.35 pCO2 (35 - 45 TORR) 36 pO2 (80 - 100 TORR) 70 L HCO3 (21 - 28 MEQ/L) 19 L ABG O2 Sat (Measured) (>96.0 %) 92.0 L P-50 (Temp Corrected) N Carboxyhemoglobin (1.5 - 5.0 %) 0.3 L O2 Concentration % 45% Temperature (97.0 - 100.0 FARH) 97.7 Respiration Rate (BPM) 16 O2 Delivery Method ESPRIT Vent Mode AC Expiratory Pressure (CMH2O/P) 5 Tidal Volume (CC) 500 Chemistry Sodium (137 - 145 mmol/L) 140 Potassium (3.5 - 5.1 mmol/L) 4.8 Chloride (98 - 107 mmol/L) 106 Carbon Dioxide (22 - 30 mmol/L) 23 Anion Gap (5 - 16) 11 BUN (7 - 17 mg/dL) 46 H Creatinine (0.5 - 1.0 mg/dL) 1.2 H Estimated GFR (>60 ml/min) 47 L BUN/Creatinine Ratio (7 - 25 %) 38.3 H Glucose (65 - 99 mg/dL) 151 H Lactic Acid (0.7 - 2.1 mmol/L) 1.2 2.3 H Calcium (8.4 - 10.2 mg/dL) 8.2 L Total Bilirubin (0.2 - 1.3 mg/dL) 0.2 AST (14 - 36 U/L) 13 L ALT (9 - 52 U/L) 29 Alkaline Phosphatase (<127 U/L) 41 Creatine Kinase (30 - 135 U/L) 133 Troponin I (< 0.11 ng/ml) < 0.01 Total Protein (6.3 - 8.2 g/dL) 6.0 L Albumin (3.5 - 5.0 g/dL) 2.9 L Globulin (1.9 - 4.2 gm/dL) 3.1 Albumin/Globulin Ratio (1.1 - 2.2 %) 0.9 L Coagulation PT (9.4 - 12.5 SEC) 15.8 H INR (0.90 - 1.19) 1.44 H APTT (25 - 37 SEC) 26 Miscellaneous Phlebotomy Draw Site RIGHT RADIAL 03/29 1233 Hematology CBC w Diff MAN DIFF ORDERED WBC (4.8 - 10.8 /CUMM) 18.2 H RBC (4.20 - 5.40 /CUMM) 2.83 L Hgb (12.0 - 16.0 G/DL) 7.2 *L Hct (37 - 47 %) 22.3 L MCV (81.0 - 99.0 FL) 78.9 L MCH (27.0 - 31.0 PG) 25.6 L MCHC (33.0 - 37.0 G/DL) 32.5 L RDW (11.5 - 14.5 %) 16.0 H Plt Count (130 - 400 /CUMM) 286 MPV (7.4 - 10.4 FL) 7.4 Gran % (42.2 - 75.2 %) 70.1 Lymphocytes % (20.5 - 51.1 %) 21.3 Monocytes % (1.7 - 9.3 %) 7.7 Eosinophils % (0 - 5 %) 0.8 Basophils % (0.0 - 2.0 %) 0.1 Absolute Granulocytes (1.4 - 6.5 /CUMM) 12.7 H Absolute Lymphocytes (1.2 - 3.4 /CUMM) 3.9 H Absolute Monocytes (0.10 - 0.60 /CUMM) 1.4 H Absolute Eosinophils (0.0 - 0.7 /CUMM) 0.2 Absolute Basophils (0.0 - 0.2 /CUMM) 0 Platelet Estimate (ADEQUATE) VERIFIED BY SMEAR Polychromasia 1+ Poikilocytosis 1+ Anisocytosis 1+ Ovalocytes FEW Imaging/Other Studies: 02/17/18: XR MODIFIED BARIUM SWALLOW- 1. There is significant prominence of the cricopharyngeus muscle with mass effect on the esophagus posteriorly at level of C4-C5, as described above. 2. Otherwise normal modified barium swallow. (Speech pathologist assessment issued separately). 03/29/18: EKG- NSR @ 86, nl axis, nl int, LVH, flipped T in L. 03/29/18: XR PORTABLE CHEST- No evidence for acute disease in the chest. 03/29/18: EGD to D3- Impression: 1. 1 cm x 2 cm2 oblong gastric ulcer at incisura/lesser curvature with peripheral oozing, left intact, as Eliquis on board. 2. Clots & food obscuring portions of the gastric cardia, fundus, & distal antrum; patent pylorus without GOO. Possible component of gastroparesis (elevated TSH, mild DM). 3. 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 4. Clean duodenum to D3. 03/29/18: XRY-PORTABLE CHEST XRAY (post ETT/OGT)- Endotracheal tube and enteric tube in place. Nonspecific patchy multifocal opacification. 03/30/18: XR PORTABLE CHEST- 1. Endotracheal tube tip 2.7 cm above the baldomero. 2. Enteric tube courses into the abdomen with tip not included. 2. Multifocal diffuse bilateral parenchymal opacities are seen with thickening of central airways. Findings are nonspecific and are unchanged compared to the most recent prior study and are new compared to 03/29/18, suggesting a diffuse acute viral or atypical pneumonitis or acute chemical pneumonitis in the correct clinical setting. 03/30/18: EKG- ST @ 114, nl axis, nl int, mini q inflat. 03/30/18: *Repeat EGD to D3 with Gold Probe cautery & clipping x 3- Impression: 1. 1 cm x 2 cm2 oblong, friable gastric ulcer at the incisura, towards the lesser curvature, containing a visible vessel. The ulcer was somewhat symmetrical, and had a slight lumpy bumpy appearance. Successfully treated with Gold Probe cautery & [place] [employer] Resolution 360 Clips x 3. 2. Excellent visibility after the effects of Eliquis had worn off, & after use of OGT & Reglan. No residual clots or food seen. 3. Cricopharyngeal hypertrophy with minimally snug upper esophageal inlet.
--- NOTE | 2018-03-31 09:04 | PN- Cardiology ---
Subjective Subjective: Patient is extubated, sitting in her chair comfortably. No recurrent emesis, no fever since yesterday. saturating well with 2L O2 by NC. 4 RBC transfusions recieved since admission in total. Objective Vital Signs and I&Os Vital Signs Date Time Temp Pulse Resp B/P B/P Pulse O2 O2 Flow FiO2 Mean Ox Delivery Rate 03/31 0800 95 Nasal 2.0L Cannula 03/31 0800 97.2 112 20 102/50 95 Nasal 2.0L Cannula 03/31 0400 98 Nasal 2.0L Cannula 03/31 0000 97 Nasal 2.0L Cannula 03/31 0000 97.4 112 14 136/67 97 Nasal 2.0L Cannula 03/30 2100 97 Nasal 2.0L Cannula 03/30 1634 40 03/30 1600 100 Ventilator 40% 03/30 1600 98.4 120 26 140/70 98 Ventilator 40% 03/30 1436 100 03/30 1400 35 03/30 1200 95 Ventilator 40% 03/30 1154 40 Intake & Output 03/31 1600 03/31 0800 03/31 0000 03/30 1600 03/30 0800 03/30 0000 Intake Total 1249 1310 1105 1144 2322.3 Output Total 900 1100 1735 970 600 Balance 349 210 -754 028 6008.3 Intake, Blood 350 700 Product Intake, IV 1009 1070 7471 375 3398.3 Intake, Oral 240 240 Number 3 Bowel Movements Output, 130 100 100 Gastric Drainage Output, Urine 900 1100 1605 870 500 Patient 239 lb 340 lb Weight Weight Bed scale Reported by Patient Measurement Method Physical Exam: General Appearance: no apparent distress, alert, awake Neck: normal inspection, no JVD, supple, full range of motion Respiratory: normal breath sounds, chest non-tender, no respiratory distress Cardiovascular: normal S1 and S2, no audible murmur or rub,normal peripheral pulses. Gastrointestinal: normal bowel sounds, soft, non-tender. Extremities: normal inspection, normal capillary refill Current Medications: Current Medications Sig/Ceasar Start time Last Medication Dose Route Stop Time Status Admin Acetaminophen 1,000 MG .STK-MED ONE 03/30 0936 DC IV 03/30 0937 Acetaminophen 1,000 MG Q6P PRN 03/29 1700 AC 03/30 N/A 1 UNIT IV 0937 Ampicillin Sodium/ 3,000 MG Q6H 03/30 2230 AC 03/31 Sulbactam Sodium IV 0424 Sodium Chloride 100 ML Ampicillin Sodium/ 3,000 MG Q6 03/30 1246 DC 03/30 Sulbactam Sodium IV 1637 Sodium Chloride 100 ML Levothyroxine Sodium 25 MCG DAILY 03/30 0900 AC 03/30 IV 0939 Lorazepam 0.5 MG ONE ONE 03/30 2230 DC 03/30 PO 03/30 2231 2225 Metoclopramide HCl 10 MG Q6 03/30 0600 DC 03/31 IV 0546 Morphine Sulfate 2 MG Q4P PRN 03/29 1700 AC IV Omeprazole 40 MG BID 03/31 0900 AC PO Ondansetron HCl 4 MG ONCE ONE 03/31 0845 DC PO 03/31 0846 Ondansetron HCl 4 MG ONCE ONE 03/30 2230 DC 03/30 IV 03/30 2231 2225 Ondansetron HCl 4 MG ONCE ONE 03/30 1945 DC 03/30 IV 03/30 1946 1939 Pantoprazole Sodium 40 MG Q5H 03/29 1345 DC 03/31 Sodium Chloride 100 ML IV 0544 Propofol 1,000 MG Q4H 03/29 2200 DC 03/30 N/A 1 UNIT IV 1514 Sodium Chloride 1,000 ML .Q10H 03/29 1600 AC 03/31 IV 0545 Results Last 48 Hrs of Labs/Mics: Laboratory Tests 03/31/18 0403: Anion Gap 9, Estimated GFR > 60, Glucose 98, Calcium 7.4 L, Phosphorus 3.5, Magnesium 1.9, Total Bilirubin 0.5, AST 17, ALT 29, Albumin 2.5 L, CBC w Diff NO MAN DIFF REQ, RBC 2.93 L, MCV 85.7, MCH 28.2, MCHC 32.9 L, RDW 17.4 H, MPV 7.8, Gran % 79.1 H, Lymphocytes % 11.0 L, Monocytes % 7.5, Eosinophils % 2.2, Basophils % 0.2, Absolute Granulocytes 17.4 H, Absolute Lymphocytes 2.4, Absolute Monocytes 1.6 H, Absolute Eosinophils 0.5, Absolute Basophils 0 03/30/18 2326: CBC w Diff NO MAN DIFF REQ, RBC 3.07 L, MCV 84.4, MCH 28.6, MCHC 33.9, RDW 17.2 H, MPV 7.2 L, Gran % 82.9 H, Lymphocytes % 9.2 L, Monocytes % 6.3, Eosinophils % 1.5, Basophils % 0.1, Absolute Granulocytes 19.6 H, Absolute Lymphocytes 2.2, Absolute Monocytes 1.5 H, Absolute Eosinophils 0.4, Absolute Basophils 0 03/30/18 1830: pH 7.43, pCO2 27 L, pO2 88, HCO3 17 L, ABG O2 Sat (Measured) 96.0, Carboxyhemoglobin 0.5 L, O2 Concentration % 40%, O2 Delivery Method CPAPWEAN, Vent Mode CPAP, Expiratory Pressure 5, Phlebotomy Draw Site RIGHT RADIAL 03/30/18 1730: CBC w Diff NO MAN DIFF REQ, RBC 3.21 L, MCV 85.6, MCH 28.4, MCHC 33.2, RDW 17.1 H, MPV 8.5, Gran % 76.7 H, Lymphocytes % 13.1 L, Monocytes % 7.7, Eosinophils % 2.3, Basophils % 0.2, Absolute Granulocytes 16.9 H, Absolute Lymphocytes 2.9, Absolute Monocytes 1.7 H, Absolute Eosinophils 0.5, Absolute Basophils 0.1 03/30/18 1100: CBC w Diff NO MAN DIFF REQ, RBC 2.70 L, MCV 85.1, MCH 28.0, MCHC 33.0, RDW 16.9 H, MPV 7.9, Gran % 76.4 H, Lymphocytes % 13.4 L, Monocytes % 7.6, Eosinophils % 2.4, Basophils % 0.2, Absolute Granulocytes 12.3 H, Absolute Lymphocytes 2.2, Absolute Monocytes 1.2 H, Absolute Eosinophils 0.4, Absolute Basophils 0 03/30/18 0758: pH 7.40, pCO2 34 L, pO2 88, HCO3 21, ABG O2 Sat (Measured) 95.0 L, Carboxyhemoglobin 0.7 L, O2 Concentration % 40%, Respiration Rate 16, O2 Delivery Method VENT, Vent Mode VC-AC, Expiratory Pressure 5, Tidal Volume 500, Pressure Support 0, Phlebotomy Draw Site RIGHT RADIAL 03/30/18 0500: Troponin I Cancelled 03/30/18 0345: Anion Gap 6, Estimated GFR > 60, Glucose 108 H, Calcium 6.9 L, Phosphorus 3.0, Magnesium 1.7, Total Bilirubin 0.1 L, AST 14, ALT 28, Troponin I 0.01, Albumin 2.0 L, CBC w Diff NO MAN DIFF REQ, RBC 2.59 L, MCV 83.1, MCH 27.7, MCHC 33.3, RDW 15.6 H, MPV 7.6, Gran % 75.7 H, Lymphocytes % 15.2 L, Monocytes % 7.1, Eosinophils % 1.7, Basophils % 0.3, Absolute Granulocytes 12.3 H, Absolute Lymphocytes 2.5, Absolute Monocytes 1.1 H, Absolute Eosinophils 0.3, Absolute Basophils 0.1 03/29/182012: Lactic Acid 2.2 H, CBC w Diff NO MAN DIFF REQ, RBC 3.13 L, MCV 83.9, MCH 27.5, MCHC 32.8 L, RDW 16.4 H, MPV 7.6, Gran % 80.2 H, Lymphocytes % 12.9 L, Monocytes % 6.4, Eosinophils % 0.3, Basophils % 0.2, Absolute Granulocytes 14.1 H, Absolute Lymphocytes 2.3, Absolute Monocytes 1.1 H, Absolute Eosinophils 0.1 , Absolute Basophils 0 03/29/182011: Urinalysis LIGHT H, Urine Color YEL, Urine Clarity HAZY H, Urine pH 6.0, Ur Specific [place] 1.020, Urine Protein NEG, Urine Ketones NEG, Urine Nitrite NEG, Urine Bilirubin NEG, Urine Urobilinogen 0.2, Ur Leukocyte Esterase NEG, Ur Microscopic SEDIMENT EXAMINED, Urine RBC RARE, Urine WBC 1-3 H, Ur Epithelial Cells MOD H, Urine Bacteria MOD H, Hyaline Casts RARE H, Urine Hemoglobin NEG , Urine Glucose NEG 03/29/181939: pH 7.35, pCO2 36, pO2 70 L, HCO3 19 L, ABG O2 Sat (Measured) 92.0 L, P-50 ( Temp Corrected) N, Carboxyhemoglobin 0.3 L, O2 Concentration % 45%, Temperature 97.7, Respiration Rate 16, O2 Delivery Method ESPRIT, Vent Mode AC, Expiratory Pressure 5, Tidal Volume 500, Phlebotomy Draw Site RIGHT RADIAL 03/29/18 1546: Lactic Acid 1.2 03/29/18 1239: Lactic Acid 2.3 H 03/29/18 1239: Anion Gap 11, Estimated GFR 47 L, BUN/Creatinine Ratio 38.3 H, Glucose 151 H, Calcium 8.2 L, Total Bilirubin 0.2, AST 13 L, ALT 29, Alkaline Phosphatase 41, Creatine Kinase 133, Troponin I < 0.01, Total Protein 6.0 L, Albumin 2.9 L, Globulin 3.1, Albumin/Globulin Ratio 0.9 L, PT 15.8 H, INR 1.44 H, APTT 26 03/29/18 1233: CBC w Diff MAN DIFF ORDERED, RBC 2.83 L, MCV 78.9 L, MCH 25.6 L, MCHC 32.5 L , RDW 16.0 H, MPV 7.4, Gran % 70.1, Lymphocytes % 21.3, Monocytes % 7.7, Eosinophils % 0.8, Basophils % 0.1, Absolute Granulocytes 12.7 H, Absolute Lymphocytes 3.9 H, Absolute Monocytes 1.4 H, Absolute Eosinophils 0.2, Absolute Basophils 0, Platelet Estimate VERIFIED BY SMEAR, Polychromasia 1+, Poikilocytosis 1+, Anisocytosis 1+, Ovalocytes FEW Microbiology 03/30 600 UPPER RESP: Surveillance Culture - COMP 03/30 600 GI: Surveillance Culture - COMP 03/29 2012 URINE ROUT: Urine Culture - COMP Assessment/Plan Assessment/Plan Upper GI hemorrhage in patient anticoagulated with Eliquis for atrial fibrillation. Hb appears to have stabilized. Maintain off anticoagulants for the time being. Remains in sinus rhythm since admission. Possible aspiration pneumonia vs pneumonitis post intubation, improving clinically. Continue telemetry? Yes
--- NOTE | 2018-03-31 10:43 | RADIOLOGY REPORT ---
EXAMINATION: XR PORTABLE CHEST CLINICAL INFORMATION: Aspiration pneumonia. COMPARISON: 03/30/2018 TECHNIQUE: Portable frontal view of the chest was obtained. FINDINGS: Since yesterday's exam, the patient has been extubated. The heart remains enlarged. No gross CHF is seen, but mild pulmonary vascular congestion persists. No definite pleural effusion is seen. IMPRESSION: The patient has been extubated and appearances are similar to those from yesterday.
[2018-03-31 16:00] VITALS: BP 102/62
[2018-03-31 19:17] LABS: ABSOLUTE BASOPHIL COUNT 0.1 /CUMM (0.0-0.2); ABSOLUTE EOSINOPHIL COUNT 0.5 /CUMM (0.0-0.7); ABSOLUTE GRANULOCYTE CT 17.3 /CUMM (1.4-6.5); ABSOLUTE LYMPH COUNT 2.1 /CUMM (1.2-3.4); ABSOLUTE MONOCYTE COUNT 1.3 /CUMM (0.10-0.60); BASOPHIL % 0.4 % (0.0-2.0); EOSINOPHIL % 2.2 % (0-5); GRANULOCYTE % 81.5 % (42.2-75.2); HEMATOCRIT 26.5 % (37-47); MEAN CORPUSCULAR HGB 28.5 PG (27.0-31.0); MEAN CORPUSCULAR VOLUME 86.3 FL (81.0-99.0); MEAN PLATELET VOLUME 7.8 FL (7.4-10.4); PLATELET COUNT 224 /CUMM (130-400); RBC DISTRIBUTION WIDTH 17.8 % (11.5-14.5); RED BLOOD CELL CT 3.06 /CUMM (4.20-5.40); WHITE BLOOD CELL COUNT 21.3 /CUMM (4.8-10.8)
[2018-04-01] VITALS: BP 120/80
[2018-04-01 05:39] LABS: ABSOLUTE BASOPHIL COUNT 0.1 /CUMM (0.0-0.2); ABSOLUTE EOSINOPHIL COUNT 0.5 /CUMM (0.0-0.7); ABSOLUTE GRANULOCYTE CT 17.1 /CUMM (1.4-6.5); ABSOLUTE LYMPH COUNT 2.1 /CUMM (1.2-3.4); ABSOLUTE MONOCYTE COUNT 1.3 /CUMM (0.10-0.60); BASOPHIL % 0.3 % (0.0-2.0); EOSINOPHIL % 2.3 % (0-5); GRANULOCYTE % 81.6 % (42.2-75.2); HEMATOCRIT 23.1 % (37-47); MEAN CORPUSCULAR HGB 28.7 PG (27.0-31.0); MEAN CORPUSCULAR HGB CONC 32.9 G/DL (33.0-37.0); MEAN CORPUSCULAR VOLUME 87.1 FL (81.0-99.0); MEAN PLATELET VOLUME 7.8 FL (7.4-10.4); PLATELET COUNT 223 /CUMM (130-400); RBC DISTRIBUTION WIDTH 17.4 % (11.5-14.5); RED BLOOD CELL CT 2.65 /CUMM (4.20-5.40); WHITE BLOOD CELL COUNT 20.9 /CUMM (4.8-10.8)
--- NOTE | 2018-04-01 07:21 | PN- Resident CRCU ---
Naseem Pandya 04/01/18 0721: Subjective HPI/CRCU Issues: #Anemia 2/2 acute blood loss, s/p 4U PRBC #ELIAN, resolved #Aspiration PNA/Pneumonitis #Afib/HTN #H/o Hypothyroidism #H/o DM #Morbid Obesity 24 Hour Events: Pt seen and examined at bedside. Voice still soft but throat pain has decreased after her extubation. She only c/o B/L tinnitus, though her otoscopic exam showed no abnormalities. Objective Vital Signs & I&O Last 8 Hrs of Vitals and I&O: Laboratory Tests 04/01 03/31 0345 1745 Chemistry Sodium (137 - 145 mmol/L) 141 Potassium (3.5 - 5.1 mmol/L) 3.6 Chloride (98 - 107 mmol/L) 105 Carbon Dioxide (22 - 30 mmol/L) 25 Anion Gap (5 - 16) 11 BUN (7 - 17 mg/dL) 7 Creatinine (0.5 - 1.0 mg/dL) 0.7 Estimated GFR (>60 ml/min) > 60 Glucose (65 - 99 mg/dL) 95 Calcium (8.4 - 10.2 mg/dL) 7.6 L Phosphorus (2.5 - 4.5 mg/dL) 3.4 Magnesium (1.6 - 2.3 mg/dL) 2.0 Total Bilirubin (0.2 - 1.3 mg/dL) 0.4 AST (14 - 36 U/L) 16 ALT (9 - 52 U/L) 25 Troponin I (< 0.11 ng/ml) 0.03 Albumin (3.5 - 5.0 g/dL) 2.8 L Hematology CBC w Diff NO MAN DIFF REQ NO MAN DIFF REQ WBC (4.8 - 10.8 /CUMM) 20.9 H 21.3 H RBC (4.20 - 5.40 /CUMM) 2.65 L 3.06 L Hgb (12.0 - 16.0 G/DL) 7.6 L 8.7 L Hct (37 - 47 %) 23.1 L 26.5 L MCV (81.0 - 99.0 FL) 87.1 86.3 MCH (27.0 - 31.0 PG) 28.7 28.5 MCHC (33.0 - 37.0 G/DL) 32.9 L 33.0 RDW (11.5 - 14.5 %) 17.4 H 17.8 H Plt Count (130 - 400 /CUMM) 223 224 MPV (7.4 - 10.4 FL) 7.8 7.8 Gran % (42.2 - 75.2 %) 81.6 H 81.5 H Lymphocytes % (20.5 - 51.1 %) 9.8 L 9.7 L Monocytes % (1.7 - 9.3 %) 6.0 6.2 Eosinophils % (0 - 5 %) 2.3 2.2 Basophils % (0.0 - 2.0 %) 0.3 0.4 Absolute Granulocytes (1.4 - 6.5 /CUMM) 17.1 H 17.3 H Absolute Lymphocytes (1.2 - 3.4 /CUMM) 2.1 2.1 Absolute Monocytes (0.10 - 0.60 /CUMM) 1.3 H 1.3 H Absolute Eosinophils (0.0 - 0.7 /CUMM) 0.5 0.5 Absolute Basophils (0.0 - 0.2 /CUMM) 0.1 0.1 Vital Signs Date Time Temp Pulse Resp B/P B/P Pulse O2 O2 Flow FiO2 Mean Ox Delivery Rate 04/01 0800 96 Nasal 2.0L Cannula 04/01 0800 98.9 104 20 120/64 96 Nasal 2.0L Cannula 04/01 0400 95 Nasal 2.0L Cannula 04/01 0000 100 Nasal 2.0L Cannula 04/01 0000 97.0 96 18 120/80 100 Nasal 2.0L Cannula 03/31 2128 116 118/54 03/31 2000 100 Nasal 2.0L Cannula 03/31 1600 98 Room Air Room Air 03/31 1600 98.0 94 24 102/62 96 Room Air Room Air 03/31 1233 Nasal 2.0L Cannula 03/31 1200 96 Nasal 2.0L Cannula Intake & Output 04/01 1600 04/01 0800 04/01 0000 Intake Total 100 690 Output Total 500 600 Balance -400 90 Intake, IV 120 Intake, Oral 100 570 Output, Urine 500 600 Exam General Appearance: well developed/nourished, no apparent distress, alert, awake Head: atraumatic, normal appearance Ears, Nose, Throat: normal ENT inspection Neck: normal inspection, supple, full range of motion Respiratory: normal breath sounds, chest non-tender, no respiratory distress Cardiovascular: normal peripheral pulses, tachycardia Gastrointestinal: normal bowel sounds, soft, non-tender, no organomegaly Extremities: normal inspection, normal capillary refill Cranial Nerves: normal hearing, normal speech Current Medications: Current Medications Sig/Ceasar Start time Last Medication Dose Route Stop Time Status Admin Acetaminophen 650 MG ONCE ONE 04/01 0815 DC 04/01 PO 04/01 0816 0818 Acetaminophen 1,000 MG Q6P PRN 03/29 1700 AC 03/30 N/A 1 UNIT IV 0937 Ampicillin Sodium/ 3,000 MG Q6H 03/30 2230 AC 04/01 Sulbactam Sodium IV 0417 Sodium Chloride 100 ML Benzocaine/Menthol 1 NED Q2P PRN 03/31 1000 AC PO Famotidine 20 MG BID 03/31 211 DC 03/31 PO 2219 Furosemide 20 MG ONCE ONE 04/01 1115 CAN PO 04/01 1116 Furosemide 20 MG ONCE ONE 04/01 1115 DC IV 04/01 1116 Levothyroxine Sodium 0.05 MG DAILY AC 04/01 0700 AC 04/01 PO 0614 Levothyroxine Sodium 25 MCG DAILY 03/30 0900 DC 03/31 IV 0957 Metoprolol Tartrate 100 MG BID 04/01 0900 AC 04/01 PO 0813 Metoprolol Tartrate 50 MG ONCE ONE 03/31 2130 DC 03/31 PO 03/31 Metoprolol Tartrate 50 MG .STK-MED ONE 03/31 2122 DC PO 03/31 2123 Morphine Sulfate 4 MG ONCE ONE 03/31 2115 DC 03/31 IV 03/31 Morphine Sulfate 2 MG Q4P PRN 03/29 1700 AC IV Omeprazole 40 MG BID 04/01 0900 AC 04/01 PO 0818 Omeprazole 40 MG BID 03/31 0900 DC 03/31 PO 0957 Ondansetron HCl 4 MG Q6P PRN 03/31 1415 AC IV Phenol 2 SPRAY Q2P PRN 03/31 1000 AC 03/31 EXT 1231 Potassium Chloride 40 MEQ ONCE ONE 04/01 0730 DC 04/01 PO 04/01 0731 0808 Impression/Plan Impression/Problem List Impression: 52 y/o F with PMH of paroxysmal afib on apixaban, HTN, HFpEF. obesity, JASON and remote h/o hodgkin's s/p presented to the ED c/o of 1 day history of nausea, coffee ground emesis, and melena. On the ED, she was found to be hypotensive (85 /55) with H/H 7.2/22.3 with lactic acidemia. She was transfused 1U PRBC and 1L crystalloid bolus - NGT placement for gastric lavage was attempted but unsuccessful. GI was consulted and the patient was admitted to the ICU for management of hypotension and emergent EGD. IMPRESSION #Anemia 2/2 acute blood loss, s/p 4U PRBC #ELIAN, resolved #Aspiration PNA/Pneumonitis #Afib/HTN #H/o Hypothyroidism #H/o DM #Morbid Obesity #Anemia 2/2 acute blood loss, s/p 4U PRBC Patient's CBC and clinical presentation are indicative of acute blood loss as a cause of her anemia. The source is most likely from the GI tract. An EGD was done which found an oblong gastric ulcer that was oozing that was left intact due to patient being on apixaban. Her H/H now is 7.6/22.9, second EGD done on that succesfully treated the oblong gastril ulcer. Serial CBCs should be monitored, though appear to be maintaining at around 8/20s. Stools have started clearing up, so an active bleeding component is not likely though still a possibility. Will continue to monitor CBCs with the goal of keeping Hb>8. -Serial CBCs, monitor H/H -IV PPI #ELIAN, resolved On admit pt had BUN/Cr 46/1.2, likely resulting from her acute blood loss resulting in hypotension. BUN/Cr is trending down as a result of fluid therapy, now at 11/0.8. #Aspiration PNA/Pneumonitis Possibility of aspiration due to vomiting and posterior intubation. CXR shows multifocal diffuse b/l parenchymal opacities, though pt is afebrile and WBC remains high. IV unasyn was started. Resp. culture growing Staph Aureus. -Unasyn day #3 #Afib/HTN Pt has a h/o pAFib on apixaban since 1 year ago -- she has needed electrical cardioversion in the past. Her anticoagulation is definitely contributing to her ongoing acute blood loss. It was held with the plan to repeat EGD today (03/30). Cardiology was consulted with regards to her anticoagulation and recommendations are being followed. alf plan is to perhaps ablate by Dr. Muñoz. -Hold Apixaban #H/o hypothyroidism Pt with a h/o hypothyroidism with latest TSH on record normal (3450 on 02/25). -Continue synthroid IV 25 mcg qD #H/o DM pt with a h/o DM, latest A1C on record is 6.9% on 03/01. Latest glucose is 95. -Bedside glucose monitoring q6 FULL CODE FULL LIQUID DIET - plans to advance as tolerated DVT PPX: [facility] Problem List: 1. Anemia 2. Upper GI bleed Pain Ratin Tomorrow's Labs & Rationales: CBC Plan DVT/Prophylaxis: Kuldeep Skelton MD 04/01/18 1006: Attending MD Review Statement Attending Sign Off Attending Cosign Statement: I have: examined this patient, reviewed avalbl EMR data, personally reviewd images, discussd w/resident/PA/ANIMAL CAREGIVER, discussed mgmt plan w/tequila, discussed mgmt plan w/CM, discussed mgmt plan w/pt, agreed w/resident/PA/ANIMAL CAREGIVER, amended to note. Other Findings: IKuldeep M.D. have examined this patient, reviewed available EMR data, personally reviewed images, discussed with resident/PA/ANIMAL CAREGIVER, discussed management plan with housestaff and nursing staff, discussed managment plan all of healthcare providers, discussed management plan with patient and/or family, agreed with resident/PA/ANIMAL CAREGIVER. The past history and parts of the chart have been autopopulated. Impression 52 year old woman * Stabilized - acute blood loss anemia in the setting of Eliquis use for a.fib, upper GI source * known systolic murmur * patchy opacifications - chemical pneumonitis and aspiration pneumonia - likely related to hx of vomiting/wretching at home Plan -stable, advance diet, no further bleeding -hemodynamic monitoring -hold Eliquis - consultation with Dr. Paul appreciated, ?ablation as outpatient -monitor cbc -ivf -PPI -continue synthroid for hypothyroidism -contn unasyn for tx of aspiration pneumonia, once nausea improved will switch to Augmentin -f/u sputum cx - staph aureus - f/u sensitivities DVT prophylaxis at all times - ALPS TTS 35 min if stable cbc in afternoon then can DG to floors
--- NOTE | 2018-04-01 07:36 | PN- Gastroenterology ---
Assessment/Plan GI Assessment/Recommendations: 52 y/o female, HTN, ? AODM, obesity, hypoT4, JASON, PAF (on Eliquis, last dose GENERAL LABOR was the morning of admission, 03/29/18), post Hodgkin's lymphoma 1994-> ? mediastinal, txd in [place], [place] then with CTX/RT (spleen intact, no prior abdominal surgery, no previous transfusions), without prior EGD or colonoscopy, no FHx GI disease, GI Ca or inherited liver disease, who presented to the [facility] 03/29/18 at 12:21 PM, complaining of nausea, vomiting, diarrhea, and GI bleeding. The patient was not on any aspirin or NSAIDs. She denied any recent antibiotics. She also noted fatigue for 2 days GENERAL LABOR. The patient ate dinner at [facility] with her 03/28/18, where she ate steak & mashed potatoes. Her ate similar food, without incident. This was followed a few hours later that evening by nausea, diaphoresis, and diarrhea 1-2x/hr. initially, there was no vomiting. Initially, there was no rectal bleeding. The patient ate a few grapes at 11 AM 03/29/18, then drank a little chen anila at noon. This was followed by vomitus consisting of darkish red blood (the patient brought in a container of this to the ER), & darkish red stool. There was no abdominal pain. The patient denied any GERD, odynophagia, or definite early satiety. She did note occasional dysphagia to dry solids, pills, & liquids, although there was no history of transfer dysphagia, CVA, or nasal regurgirtation of food or liquids. Aside from the remote Hodgkin's lymphoma, there was no hx of head & neck Ca, head & neck RT, or thyoid disease. There was no hx of any previous food impaction. 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 There was no aspiration. Upon arrival to the [facility] 03/29/18, BP 85/55, P 99, R 19, T 97.3, O2 sat RA 93%. The pt's BP transiently came up to 117/56 after IVF bolus & the start of 1u PRBC, but then dipped down to 99/59. Digital rectal exam by Dr. Avila in the ER showed darkish red blood, obviously OB positive. When I was called by the ER, I told them a rapid transit upper GI bleed should be excluded, especially since I later found out that the patient had vomited up dark red contents, GENERAL LABOR. I advised him to start an IV Protonix bolus 80 mg, followed by 8 mg/hr drip and to place an NG tube. Dr. Avila attempted NGT placement x 2 unsuccessfully, and the patient then refused further attempts at NG tube placement. This is probably a moot point, as I later saw the contents of the container of vomitus the patient brought in from home. The patient noted intermittent fevers and chills without symptoms of UTI or URI. She had rare night sweats. She has been postmenopausal for 10 years. There was a questionable history of vaginal spotting, for which the patient is to see [facility]NAGER [facility]. There is no gross hematuria or hemoptysis. She noted weight gain of 45 lbs over the past 1-2 yrs. She denied any CP, SOB, palpitations, or LOC. *Initially, as the Harikaquis was still on board, I was contemplating holding off on EGD until tomorrow, but as she was persistently hypotensive, a decision was made to start with the EGD today. There is no history of cigarettes, EtOH, or illicit drug use. 01/05/18: WBC 15 (52% gran/8 gran Ab), *H/H 12.6/39.3, MCV 79, RDW 16. PLT 386, *BUN/Cr 17/1.0, GFR 58, *TSH 10.2. 03/01/18: HgbA1C 6.9. 03/29/18: Admission labs- WBC 18.2 (70% gran/13 gran Ab), *H/H 7.2/23.3, MCV 78.9, RDW 16, PLT 286, PT 15.8, INR 1.44, PTT 26, glucose 151, *BUN/Cr 46/1.2, GFR 47, Na 140, K 4.8, HCO3 23, AG 11, Ca 8.2, alb 2.9, glob 3.1, TBil 0.2, alk phos 41, AST 13, AL 29, CK 133, troponin < 0.01. lactate 2.3-> 1.2. 03/29/18: EKG- NSR @ 86, nl axis, nl int, LVH, flipped T in L. 03/29/18: XR PORTABLE CHEST- No evidence for acute disease in the chest. *As of 03/29/18, the patient was markedly anemic with elevated BUN/Cr ratio. She had hematemesis at home, with darkish red stool per rectum. She was hypotensive. This seemed to correspond with a rapid transit UGI bleed clinically, rather than "LGI bleed". The patient was intolerant of NG tube placement x 2 by the ER, but this seems to be a moot point, based on the contents of the container she brought in from home. Assuming this is upper GI nature, differential diagnosis includes peptic ulcer vs. angiodysplasia vs. Dieulafoy, doubt neoplasm, but should be excluded with past history of Hodgkin' s. Aside from a slightly reversed albumin:globulin ratio, there was nothing clinically to suggest cirrhosis to consider variceal bleeding. Eliquis was still on board, as she last took it on the morning of admission, and would probably hang around a little longer than usual, based on the mild decreased GFR. However, because of the hypotension, a decision was made to proceed with EGD this evening. The patient's diarrhea is most likely from the GI bleeding, as blood is a cathartic. The risks & benefits of EGD & potential colonoscopy were discussed with the patient & her son, Ruiz Luna, at the bedside in the [facility], including the need for probable prophylactic intubation to protect her airway. She was agrreable to this & informed consent for EGD/potential colonoscopy were obtained. The patient & her son were made aware of the very low risk of CVA off Eliquis for a short period of time, but are aware that she is bleeding, & that this has to be held at the moment. 03/29/18: *EGD to D3- Impression: 1. 1 cm x 2 cm2 oblong gastric ulcer at incisura/lesser curvature with peripheral oozing, left intact, as Eliquis on board. 2. Clots & food obscuring portions of the gastric cardia, fundus, & distal antrum; patent pylorus without GOO. Possible component of gastroparesis (elevated TSH, mild DM). 3. 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 4. Clean duodenum to D3. 03/29/18: XRY-PORTABLE CHEST XRAY (post ETT/OGT)- Endotracheal tube and enteric tube in place. Nonspecific patchy multifocal opacification. 03/30/18: XR PORTABLE CHEST- 1. Endotracheal tube tip 2.7 cm above the baldomero. 2. Enteric tube courses into the abdomen with tip not included. 2. Multifocal diffuse bilateral parenchymal opacities are seen with thickening of central airways. Findings are nonspecific and are unchanged compared to the most recent prior study and are new compared to 03/29/18, suggesting a diffuse acute viral or atypical pneumonitis or acute chemical pneumonitis in the correct clinical setting. 03/30/18: EKG- ST @ 114, nl axis, nl int, mini q inflat. 03/29/18: 1940- ABG- FiO2 45%, AC 16, TV 500, PEEP 5- 7.35/36/70/92%/HCO3 19/CO HB 0.3. 03/30/18: 757- ABG- FiO2 40%, AC 16, TV 500, PEEP 5- 7.40/34/88/95%/HCO3 21/CO HB 0.7 03/29/18: 2012-WBC 17.6, H/H 8.6/26.2, PLT 171, lactate 2.2 03/29/18: U/A- w/o hematuria or pyuria. 03/30/18: 0345-WBC 16.2, H/H 7.2/21.5, PLT 167, glucose 108, BUN/Cr 29/0.8, GFR > 60, Na 141, K 3.8, HCO3 22, AG 6, Mg 1.7, Ca 6.9, PO4 3.0, albumin 2.0, TBil 0.1, AST 14, ALT 28, troponin 0.01. 03/30/18: 1100-WBC 16.1, H/H 7.6/22.9, PLT 158 *As of 03/30/18, the patient was normotensive, although tachycardic, with Tm 99.2. She remained prophylactically intubated on the ventilator, in anticipation of repeat EGD later today. She remeianed on Propofol & MS prn. IV: NS @ 100cc/hr. She last took her Eliquis the a.m. of 03/29/18. She was seen in consultation by cardiology & surgery on 03/30/18. Cardiology obviously agreed with holding her A/C therapy, in view of her GI bleed, especially since she had remained in NSR. The pt's was aware of the small risk of CVA off A/C tx, but understands this in view of the life threatening GI bleed. The pt was about to receive her 5th unit PRBC. An OG tube was placed yesterday evening. It initially showed brownish reddish liquid, which had since cleared. IV Reglan 10 mg Q6h was added as a prokinetic, in addition to her IV Protonix drip at 8 mg/hr. According to the patient's RN, there was no further melena or rectal bleeding. IV Unasyn 3g Q6h was rxd on , to cover her lungs, for possible aspiration. The case was again discussed with the patient's , Ruiz Luna, in the [facility] ICU. He was aware of the critical nature of his 's illness. The risks & benefits of repeat EGD were discussed with him, and he agreed to proceed with this. Informed consent for repeat EGD was obtained from him. 03/30/18: *Repeat EGD to D3 with Gold Probe cautery & clipping x 3- Impression: 1. 1 cm x 2 cm2 oblong, friable gastric ulcer at the incisura, towards the lesser curvature, containing a visible vessel. The ulcer was somewhat symmetrical, and had a slight lumpy bumpy appearance. Successfully treated with Gold Probe cautery & [place] 360 Clips x 3. 2. Excellent visibility after the effects of Eliquis had worn off, & after use of OGT & Reglan. No residual clots or food seen. 3. Cricopharyngeal hypertrophy with minimally snug upper esophageal inlet. 03/30/18: 1730-WBC 22 (77% gran/17 gran Ab), H/H 9.1/27.5, PLT 182 03/30/18: 2326-WBC 23.6 (83% gran/20 gran Ab), H/H 8.8/25.9, PLT 184 03/31/18: 0403-WBC 22 (79% gran/17 gran Ab), H/H 8.3/25.1, PLT 183, glu 98, BUN/ Cr 11/0.8, GFR > 60, Na 142, K 3.8, HCO3 24, AG 9, Mg 1.9, Ca 7.4, PO4 2.5, alb 2.5, TBil 0.5, AST 17, ALT 29 *As of 03/31/18, the patient was normotensive 102/50, mildly tachycardic 112 (CM : ST), R 20, & afebrile, with O2 sat 2L 95%. She was extubated uneventfully the p.m. of 03/30/18, post EGD. She was ambulating in her room. She had received a total of 5u PRBC this admission, last on 03/30/18 at 1:45 p.m. She was tolerating clears po, on IV:NS @ 100cc/hr. She had mild nausea, without any recurrent vomiting or hematemesis. She had a dark bowel movement overnight, which was to be expected, probably representing remnants of prior UGI bleed. She denied any abdominal pain, CP, SOB, palpitations, or acute neurologic symptoms. She remained in NSR (ST), off Eliquis. She remained on IV Unasyn 3g Q6h for possible aspiration pneumonitis. Cultures were negative to date. Her Hgb was > 8, with decreasing BUN. 03/31/18: EKG- ST @ 116, nl axis, LAE, early transition, q III & F, NSST w/o acute change. 03/31/18: XR PORTABLE CHEST- The patient has been extubated and appearances are similar to those from yesterday, namely cardiomegaly, no gross CHF, but mild pulmonary vascular congestion. No definite pleural effusions. 03/31/18: 1745-WBC 21.3 (82% gran/17 gran Ab), H/H 8.7/26.5, PLT 224, BNP 126 04/01/18: 0345-WBC 20.9 (82% gran/17 gran Ab), H/H 7.6/23.1. PLT 223, glu 95, BUN/Cr 7/0.7, GFR > 60, Na 141, K 3.6, HCO3 25, AG 11, Mg 2.0, Ca 7.6, PO4 3.4, alb 2.8, TBil 0.4, AST 16, ALT 25 *As of 04/01/18, the patient remained hemodynamically stable & was afebrile, with O2 sat 2L 95%. She was normotensive and no longer tachycardic, with BP 120 /80, P 96, RR 18, T 97. She tolerated clears po. She denied any hematemesis, rectal bleeding, or melena. She denied any abdominal pain. She had minimal nausea, but no vomiting. She had chest pressure yesterday evening while at rest , with the above EKG without change. Troponins were negative x 2 (0.02-> 0.03). She denied any SOB, fevers, or chills. Her IVF were D/C, but she still remained on IVF, in the form of Unasyn. She has not required additional blood. She had received a total of 5u PRBC, last given 03/30/18 at 1:45 p.m. Her H/H had drifted down slightly, but again, there was no overt GI bleeding, and her BUN was now normal, going against any active recurrent UGIB. She remained off Eliquis, per d/w cardiology. *For some reason, Omeprazole 40 mg po BID was switched to Famotidine 20 mg po BID. *Studies have clearly shown that in the setting of active UGIB, PPI have superior outcomes to H2B, in terms of transfusion requirements & rebleeding (*d/w ICU medical housestaff). *SUGGEST: *If OK with other consultants, consider move out of ICU, perhaps to telemetry. *Clears po & advance diet as tolerated. D/C IVF (avoid hemodilution). *Eliquis remains on hold for now (d/w Dr. Derrick Muñoz, who agrees- *he will reassess her as an outpt for *possible ablation, but he feels her afib was very infrequent & to hold A/C for now, duration to be determined by him as an outpt). No ASA for now. No NSAIDS (according to the pt's , she remotely took large amounts of NSAIDS for REYES > 1 year GENERAL LABOR). *Switch Famotidine back to Omeprazole 40 mg Q12h. 2 large bore IVs. T&C 2u PRBC. Check CBC Q12h for now. Keep Hgb > 8 ( probable underlying ASHD, numerous risk factors & hx diastolic dysfunction on : echocardiogram). If repeat Hgb is the same or less, would give another unit of blood, but again, her BUN is now normal. Strict I/O's. *Zofran as needed. Check stool Ag H. pylori. *Surgical and cardiology consults appreciated. *If continued bleeding, consideration for IR consultation. Based on the EGD x 2 findings, no indication for inpt baseline coloonoscopy, nor for CTA abdomen, at present. *Assuming the patient remains stable, a repeat EGD should be done in 8 weeks (i.e.- by end of 05/2018), to make sure the had healed. If the persists at that time, it would need direct biopsies to rule out malignant potential, also keeping in mind the remote history of Hodgkins lymphoma of the mediastinum, txd in [place] with CTX/RT in 1994. *The pt was previously told she would need a baseline screening colonoscopy as an outpt, once her UGI bleed stabilizes, as she was overdue for this (advised by age 45 in average risk for colon Ca Americans). *The baseline colonoscopy could be combined with the next EGD.*Advise eventual CT neck and/or ENT evaluation, regarding cricopharyngeal hypertrophy with mass-effect at posterior aspect of esophagus at C4/C5 (noted on 02/17/18: MBS obtained by PMD), especially keeping in mind the past history of remote Hodgkin's lymphoma. The pt's son, Ruiz Luna , & her , Ruiz Luna, were previously given my office number for future reference. The patient was previously made aware of the need to follow-up with MANAGER [facility] as an outpatient for the probable incidental intermittent vaginal spotting. DVT prophylaxis with mechanical ALPS. Continue to mobilize patient as tolerated. Vent care, empiric IV Unasyn, Synthroid, etc., as per ICU team. The above findings & recommendations were again discussed with the medical ICU house staff & Dr. Jhaveri, & previously with the pt's , Ruiz, the patient's son, Ruiz, the patient's dtr, Naren, & Dr. Derrick Muñoz. *The pt was told to call my office for an outpt GI visit within 2 weeks of D/C. *Please call the GI service if any further inpatient GI care is needed (d/w Dr. Jhaveri). Problem List: 1. Hypotension 2. Upper GI bleed 3. Hematemesis 4. Anemia 5. Dysphagia 6. Diarrhea 7. Malnutrition 8. Paroxysmal A-fib 9. History of Hodgkin's disease Subjective Subjective: 03/31/18: EKG- ST @ 116, nl axis, LAE, early transition, q III & F, NSST w/o acute change. 03/31/18: XR PORTABLE CHEST- The patient has been extubated and appearances are similar to those from yesterday, namely cardiomegaly, no gross CHF, but mild pulmonary vascular congestion. No definite pleural effusions. 03/31/18: 1745-WBC 21.3 (82% gran/17 gran Ab), H/H 8.7/26.5, PLT 224, BNP 126 04/01/18: 0345-WBC 20.9 (82% gran/17 gran Ab), H/H 7.6/23.1. PLT 223, glu 95, BUN/Cr 7/0.7, GFR > 60, Na 141, K 3.6, HCO3 25, AG 11, Mg 2.0, Ca 7.6, PO4 3.4, alb 2.8, TBil 0.4, AST 16, ALT 25 *As of 04/01/18, the patient remained hemodynamically stable & was afebrile, with O2 sat 2L 95%. She was normotensive and no longer tachycardic, with BP 120 /80, P 96, RR 18, T 97. She tolerated clears po. She denied any hematemesis, rectal bleeding, or melena. She denied any abdominal pain. She had minimal nausea, but no vomiting. She had chest pressure yesterday evening while at rest , with the above EKG without change. Troponins were negative x 2 (0.02-> 0.03). She denied any SOB, fevers, or chills. Her IVF were D/C, but she still remained on IVF, in the form of Unasyn. She has not required additional blood. She had received a total of 5u PRBC, last given 03/30/18 at 1:45 p.m. Her H/H had drifted down slightly, but again, there was no overt GI bleeding, and her BUN was now normal, going against any active recurrent UGIB. She remained off Eliquis, per d/w cardiology. *For some reason, Omeprazole 40 mg po BID was switched to Famotidine 20 mg po BID. *Studies have clearly shown that in the setting of active UGIB, PPI have superior outcomes to H2B, in terms of transfusion requirements & rebleeding (*d/w ICU medical housestaff). Review of Systems: Full 14 point ROS otherwise noncontributory, and as above Review of Systems Constitutional: Reports: malaise & weakness (improving). Denies: chills, diaphoresis, fever, unexplained weight loss. EENTM: Denies: blurred vision, double vision, visual changes, eye pain, eye drainage, eye tearing, icterus, ear discharge, ear pain, ear redness, hearing changes, nasal congestion, epistaxis, nasal pain, throat pain, throat swelling, mouth pain, tooth pain. Cardiovascular: Denies: chest pain, increased edema, orthopena, palpitations, peripheral edema, syncope. Respiratory: Denies: cough, hemoptysis, orthopnea, short of breath, sputum production, stridor, wheezing. GI: Reports: melena (old residual-> resolved), nausea w/o vomiting (hemeatemesis resolved) Denies: abdominal pain, bloating, constipation, distention, bowel incontinence, changes in stool, diarrhea, steatorrhea. Genitourinary: Denies: discharge, dysuria, frequency, hematuria, hesitation, nocturia, pain, urgency. Musculoskeletal: Denies: back pain, gout, joint pain, joint swelling, muscle pain, muscle stiffness, neck pain. Skin: Denies: cysts, change in skin color, change in hair/nails, dryness, erythema, jaundice, lesions, lymphangitis, lumps, moles, rash. Neurological/Psychological: Denies: anxiety, ataxia, cognitive dysfunction, confusion, depressed, dementia, emotional problems, headache, numbness, paresthesia, pre-existing deficit, petit mal seizures, tingling, tremors, tonic-clonic seizures, unable to move lower ext , unable to move upper ext, weakness. Hematologic/Endocrine: Denies: bruising, bleeding, polyuria, polydipsia. Immunologic/Allergic: Denies: splenectomy, HIV/AIDS, lymphadenopathy. All Other Systems: Reviewed and Negative Objective Vital Signs and I&Os Vital Signs Date Time Temp Pulse Resp B/P B/P Pulse O2 O2 Flow FiO2 Mean Ox Delivery Rate 04/01 0400 95 Nasal 2.0L Cannula 04/01 0000 100 Nasal 2.0L Cannula 04/01 0000 97.0 96 18 120/80 100 Nasal 2.0L Cannula 03/31 2128 116 118/54 03/31 2000 100 Nasal 2.0L Cannula 03/31 1600 98 Room Air Room Air 03/31 1600 98.0 94 24 102/62 96 Room Air Room Air 03/31 1233 Nasal 2.0L Cannula 03/31 1200 96 Nasal 2.0L Cannula 03/31 0800 95 Nasal 2.0L Cannula 03/31 0800 97.2 112 20 102/50 95 Nasal 2.0L Cannula Intake & Output 04/01 1600 04/01 0400 03/31 1600 03/31 0400 03/30 1600 03/30 0400 Intake Total 905 912 8124 1310 2249 2322.3 Output Total 059 737 9419 1100 2705 600 Balance -110 35 7733 210 -456 1722.3 Intake, Blood 350 700 Product Intake, IV 120 1534 1070 1899 1622.3 Intake, Oral 100 570 640 240 Number 3 Bowel Movements Output, 230 100 Gastric Drainage Output, Urine 912 276 0350 1100 2475 500 Patient 237 lb 239 lb 340 lb Weight Weight Bed scale Reported by Patient Measurement Method Physical Exam: Well-developed, well nourished, obese -[place] female, extubated , in no apparent distress. Sclera anicteric. Conjunctiva: less pale. Oropharynx: clear. No oral thrush. No aphthous ulcers. There is no adenopathy, thyromegaly, or JVD. No peripheral stigmata of inflammatory bowel disease or chronic liver disease on exam. No spiders on the anterior chest wall. No CVA tenderness. No spine tenderness. Breast & pelvic exams: API. Lungs: clear to A&P , with slight decreased BS at the bases B/L. No wheezing, rales, or rhonchi. Heart exam: (currently NSR-> ST) regular rate rhythm, S1 and S2, with I/IV diastolic & I/ syst murmur. Abdominal exam: normal bowel sounds, soft belly, obese, nontender, without guarding or rebound. No mass or organomegaly, within the limits of the body habitus. No fluid shift. No pulsatile mass. No epigastric bruit. Digital rectal exam done by Dr. Avila in the [facility] ER : blackish red blood, obviously OB positive. No masses reported. Extremities: without cyanosis or clubbing. Trace pedal edema B/L. No palpable cords. No rash. No acute arthropathy. Mild DJD. No palmar erythema. No Dupuytren's contractures. Distal pulses 2+ bilaterally. DTRs 2+ bilaterally. Right handed. Motor 5/5 B/L. CN II-XII intact. Alert and oriented x 3. No tremor. No asterixis. No cogwheeling (off Reglan). Current Medications: Current Medications Sig/Ceasar Start time Last Medication Dose Route Stop Time Status Admin Acetaminophen 650 MG ONCE ONE 04/01 0815 AC PO 04/01 0816 Acetaminophen 1,000 MG Q6P PRN 03/29 1700 AC 03/30 N/A 1 UNIT IV 0937 Ampicillin Sodium/ 3,000 MG Q6H 03/30 2230 04/01 Sulbactam Sodium IV 0417 Sodium Chloride 100 ML Benzocaine/Menthol 1 NED Q2P PRN 03/31 1000 AC PO Famotidine 20 MG BID 03/31 2115 DC 03/31 PO 221 Levothyroxine Sodium 0.05 MG DAILY AC 04/01 0700 AC 04/01 PO 0614 Levothyroxine Sodium 25 MCG DAILY 03/30 0900 DC 03/31 IV 0957 Metoclopramide HCl 10 MG Q6 03/30 0600 DC 03/31 IV 0546 Metoprolol Tartrate 100 MG BID 04/01 0900 AC PO Metoprolol Tartrate 50 MG ONCE ONE 03/31 2130 DC 03/31 PO 03/31 Metoprolol Tartrate 50 MG .STK-MED ONE 03/31 2122 DC PO 03/31 2123 Morphine Sulfate 4 MG ONCE ONE 03/31 2115 DC 03/31 IV 07/18 2116 2120 Morphine Sulfate 2 MG Q4P PRN 03/29 1700 AC IV Omeprazole 40 MG BID 04/01 0900 AC PO Omeprazole 40 MG BID 03/31 0900 DC 03/31 PO 0957 Ondansetron HCl 4 MG Q6P PRN 03/31 1415 AC IV Ondansetron HCl 4 MG ONCE ONE 03/31 0845 DC 03/31 PO 03/31 0846 0957 Pantoprazole Sodium 40 MG Q5H 03/29 1345 DC 03/31 Sodium Chloride 100 ML IV 0544 Phenol 2 SPRAY Q2P PRN 03/31 1000 AC 03/31 EXT 1231 Potassium Chloride 40 MEQ ONCE ONE 04/01 0730 DC PO 04/01 0731 Sodium Chloride 1,000 ML .Q10H 03/29 1600 DC 03/31 IV 0545 Results Pertinent Lab Results: Laboratory Tests 04/01 03/31 0345 1745 Chemistry Sodium (137 - 145 mmol/L) 141 Potassium (3.5 - 5.1 mmol/L) 3.6 Chloride (98 - 107 mmol/L) 105 Carbon Dioxide (22 - 30 mmol/L) 25 Anion Gap (5 - 16) 11 BUN (7 - 17 mg/dL) 7 Creatinine (0.5 - 1.0 mg/dL) 0.7 Estimated GFR (>60 ml/min) > 60 Glucose (65 - 99 mg/dL) 95 Calcium (8.4 - 10.2 mg/dL) 7.6 L Phosphorus (2.5 - 4.5 mg/dL) 3.4 Magnesium (1.6 - 2.3 mg/dL) 2.0 Total Bilirubin (0.2 - 1.3 mg/dL) 0.4 AST (14 - 36 U/L) 16 ALT (9 - 52 U/L) 25 Troponin I (< 0.11 ng/ml) 0.03 Albumin (3.5 - 5.0 g/dL) 2.8 L Hematology CBC w Diff NO MAN DIFF REQ NO MAN DIFF REQ WBC (4.8 - 10.8 /CUMM) 20.9 H 21.3 H RBC (4.20 - 5.40 /CUMM) 2.65 L 3.06 L Hgb (12.0 - 16.0 G/DL) 7.6 L 8.7 L Hct (37 - 47 %) 23.1 L 26.5 L MCV (81.0 - 99.0 FL) 87.1 86.3 MCH (27.0 - 31.0 PG) 28.7 28.5 MCHC (33.0 - 37.0 G/DL) 32.9 L 33.0 RDW (11.5 - 14.5 %) 17.4 H 17.8 H Plt Count (130 - 400 /CUMM) 223 224 MPV (7.4 - 10.4 FL) 7.8 7.8 Gran % (42.2 - 75.2 %) 81.6 H 81.5 H Lymphocytes % (20.5 - 51.1 %) 9.8 L 9.7 L Monocytes % (1.7 - 9.3 %) 6.0 6.2 Eosinophils % (0 - 5 %) 2.3 2.2 Basophils % (0.0 - 2.0 %) 0.3 0.4 Absolute Granulocytes (1.4 - 6.5 /CUMM) 17.1 H 17.3 H Absolute Lymphocytes (1.2 - 3.4 /CUMM) 2.1 2.1 Absolute Monocytes (0.10 - 0.60 /CUMM) 1.3 H 1.3 H Absolute Eosinophils (0.0 - 0.7 /CUMM) 0.5 0.5 Absolute Basophils (0.0 - 0.2 /CUMM) 0.1 0.1 03/31 03/30 0403 2326 Chemistry Sodium (137 - 145 mmol/L) 142 Potassium (3.5 - 5.1 mmol/L) 3.8 Chloride (98 - 107 mmol/L) 109 H Carbon Dioxide (22 - 30 mmol/L) 24 Anion Gap (5 - 16) 9 BUN (7 - 17 mg/dL) 11 Creatinine (0.5 - 1.0 mg/dL) 0.8 Estimated GFR (>60 ml/min) > 60 Glucose (65 - 99 mg/dL) 98 Calcium (8.4 - 10.2 mg/dL) 7.4 L Phosphorus (2.5 - 4.5 mg/dL) 3.5 Magnesium (1.6 - 2.3 mg/dL) 1.9 Total Bilirubin (0.2 - 1.3 mg/dL) 0.5 AST (14 - 36 U/L) 17 ALT (9 - 52 U/L) 29 Troponin I (< 0.11 ng/ml) 0.02 [id number] Pept (<125 pg/mL) 126 H Albumin (3.5 - 5.0 g/dL) 2.5 L Hematology CBC w Diff NO MAN DIFF REQ NO MAN DIFF REQ WBC (4.8 - 10.8 /CUMM) 22.0 H 23.6 H RBC (4.20 - 5.40 /CUMM) 2.93 L 3.07 L Hgb (12.0 - 16.0 G/DL) 8.3 L 8.8 L Hct (37 - 47 %) 25.1 L 25.9 L MCV (81.0 - 99.0 FL) 85.7 84.4 MCH (27.0 - 31.0 PG) 28.2 28.6 MCHC (33.0 - 37.0 G/DL) 32.9 L 33.9 RDW (11.5 - 14.5 %) 17.4 H 17.2 H Plt Count (130 - 400 /CUMM) 183 184 MPV (7.4 - 10.4 FL) 7.8 7.2 L Gran % (42.2 - 75.2 %) 79.1 H 82.9 H Lymphocytes % (20.5 - 51.1 %) 11.0 L 9.2 L Monocytes % (1.7 - 9.3 %) 7.5 6.3 Eosinophils % (0 - 5 %) 2.2 1.5 Basophils % (0.0 - 2.0 %) 0.2 0.1 Absolute Granulocytes (1.4 - 6.5 /CUMM) 17.4 H 19.6 H Absolute Lymphocytes (1.2 - 3.4 /CUMM) 2.4 2.2 Absolute Monocytes (0.10 - 0.60 /CUMM) 1.6 H 1.5 H Absolute Eosinophils (0.0 - 0.7 /CUMM) 0.5 0.4 Absolute Basophils (0.0 - 0.2 /CUMM) 0 0 07/17 03/30 1830 1730 Blood Gas pH (7.35 - 7.45 PH) 7.43 pCO2 (35 - 45 TORR) 27 L pO2 (80 - 100 TORR) 88 HCO3 (21 - 28 MEQ/L) 17 L ABG O2 Sat (Measured) (>96.0 %) 96.0 Carboxyhemoglobin (1.5 - 5.0 %) 0.5 L O2 Concentration % 40% O2 Delivery Method CPAPWEAN Vent Mode CPAP Expiratory Pressure (CMH2O/P) 5 Hematology CBC w Diff NO MAN DIFF REQ WBC (4.8 - 10.8 /CUMM) 22.0 H RBC (4.20 - 5.40 /CUMM) 3.21 L Hgb (12.0 - 16.0 G/DL) 9.1 L Hct (37 - 47 %) 27.5 L MCV (81.0 - 99.0 FL) 85.6 MCH (27.0 - 31.0 PG) 28.4 MCHC (33.0 - 37.0 G/DL) 33.2 RDW (11.5 - 14.5 %) 17.1 H Plt Count (130 - 400 /CUMM) 182 MPV (7.4 - 10.4 FL) 8.5 Gran % (42.2 - 75.2 %) 76.7 H Lymphocytes % (20.5 - 51.1 %) 13.1 L Monocytes % (1.7 - 9.3 %) 7.7 Eosinophils % (0 - 5 %) 2.3 Basophils % (0.0 - 2.0 %) 0.2 Absolute Granulocytes (1.4 - 6.5 /CUMM) 16.9 H Absolute Lymphocytes (1.2 - 3.4 /CUMM) 2.9 Absolute Monocytes (0.10 - 0.60 /CUMM) 1.7 H Absolute Eosinophils (0.0 - 0.7 /CUMM) 0.5 Absolute Basophils (0.0 - 0.2 /CUMM) 0.1 Miscellaneous Phlebotomy Draw Site RIGHT RADIAL 03/30 03/30 1100 0758 Blood Gas pH (7.35 - 7.45 PH) 7.40 pCO2 (35 - 45 TORR) 34 L pO2 (80 - 100 TORR) 88 HCO3 (21 - 28 MEQ/L) 21 ABG O2 Sat (Measured) (>96.0 %) 95.0 L Carboxyhemoglobin (1.5 - 5.0 %) 0.7 L O2 Concentration % 40% Respiration Rate (BPM) 16 O2 Delivery Method VENT Vent Mode VC-AC Expiratory Pressure (CMH2O/P) 5 Tidal Volume (CC) 500 Pressure Support (CMH2O/P) 0 Hematology CBC w Diff NO MAN DIFF REQ WBC (4.8 - 10.8 /CUMM) 16.1 H RBC (4.20 - 5.40 /CUMM) 2.70 L Hgb (12.0 - 16.0 G/DL) 7.6 L Hct (37 - 47 %) 22.9 L MCV (81.0 - 99.0 FL) 85.1 MCH (27.0 - 31.0 PG) 28.0 MCHC (33.0 - 37.0 G/DL) 33.0 RDW (11.5 - 14.5 %) 16.9 H Plt Count (130 - 400 /CUMM) 158 MPV (7.4 - 10.4 FL) 7.9 Gran % (42.2 - 75.2 %) 76.4 H Lymphocytes % (20.5 - 51.1 %) 13.4 L Monocytes % (1.7 - 9.3 %) 7.6 Eosinophils % (0 - 5 %) 2.4 Basophils % (0.0 - 2.0 %) 0.2 Absolute Granulocytes (1.4 - 6.5 /CUMM) 12.3 H Absolute Lymphocytes (1.2 - 3.4 /CUMM) 2.2 Absolute Monocytes (0.10 - 0.60 /CUMM) 1.2 H Absolute Eosinophils (0.0 - 0.7 /CUMM) 0.4 Absolute Basophils (0.0 - 0.2 /CUMM) 0 Miscellaneous Phlebotomy Draw Site RIGHT RADIAL 03/30 03/30 0500 0345 Chemistry Sodium (137 - 145 mmol/L) 141 Potassium (3.5 - 5.1 mmol/L) 3.8 Chloride (98 - 107 mmol/L) 113 H Carbon Dioxide (22 - 30 mmol/L) 22 Anion Gap (5 - 16) 6 BUN (7 - 17 mg/dL) 29 H Creatinine (0.5 - 1.0 mg/dL) 0.8 Estimated GFR (>60 ml/min) > 60 Glucose (65 - 99 mg/dL) 108 H Calcium (8.4 - 10.2 mg/dL) 6.9 L Phosphorus (2.5 - 4.5 mg/dL) 3.0 Magnesium (1.6 - 2.3 mg/dL) 1.7 Total Bilirubin (0.2 - 1.3 mg/dL) 0.1 L AST (14 - 36 U/L) 14 ALT (9 - 52 U/L) 28 Troponin I (< 0.11 ng/ml) Cancelled 0.01 Albumin (3.5 - 5.0 g/dL) 2.0 L Hematology CBC w Diff NO MAN DIFF REQ WBC (4.8 - 10.8 /CUMM) 16.2 H RBC (4.20 - 5.40 /CUMM) 2.59 L Hgb (12.0 - 16.0 G/DL) 7.2 *L Hct (37 - 47 %) 21.5 L MCV (81.0 - 99.0 FL) 83.1 MCH (27.0 - 31.0 PG) 27.7 MCHC (33.0 - 37.0 G/DL) 33.3 RDW (11.5 - 14.5 %) 15.6 H Plt Count (130 - 400 /CUMM) 167 MPV (7.4 - 10.4 FL) 7.6 Gran % (42.2 - 75.2 %) 75.7 H Lymphocytes % (20.5 - 51.1 %) 15.2 L Monocytes % (1.7 - 9.3 %) 7.1 Eosinophils % (0 - 5 %) 1.7 Basophils % (0.0 - 2.0 %) 0.3 Absolute Granulocytes (1.4 - 6.5 /CUMM) 12.3 H Absolute Lymphocytes (1.2 - 3.4 /CUMM) 2.5 Absolute Monocytes (0.10 - 0.60 /CUMM) 1.1 H Absolute Eosinophils (0.0 - 0.7 /CUMM) 0.3 Absolute Basophils (0.0 - 0.2 /CUMM) 0.1 16 03/29 Chemistry Lactic Acid (0.7 - 2.1 mmol/L) 2.2 H Hematology CBC w Diff NO MAN DIFF REQ WBC (4.8 - 10.8 /CUMM) 17.6 H RBC (4.20 - 5.40 /CUMM) 3.13 L Hgb (12.0 - 16.0 G/DL) 8.6 L Hct (37 - 47 %) 26.2 L MCV (81.0 - 99.0 FL) 83.9 MCH (27.0 - 31.0 PG) 27.5 MCHC (33.0 - 37.0 G/DL) 32.8 L RDW (11.5 - 14.5 %) 16.4 H Plt Count (130 - 400 /CUMM) 171 MPV (7.4 - 10.4 FL) 7.6 Gran % (42.2 - 75.2 %) 80.2 H Lymphocytes % (20.5 - 51.1 %) 12.9 L Monocytes % (1.7 - 9.3 %) 6.4 Eosinophils % (0 - 5 %) 0.3 Basophils % (0.0 - 2.0 %) 0.2 Absolute Granulocytes (1.4 - 6.5 /CUMM) 14.1 H Absolute Lymphocytes (1.2 - 3.4 /CUMM) 2.3 Absolute Monocytes (0.10 - 0.60 /CUMM) 1.1 H Absolute Eosinophils (0.0 - 0.7 /CUMM) 0.1 Absolute Basophils (0.0 - 0.2 /CUMM) 0 Urines Urinalysis LIGHT H Urine Color (YEL,AMB,STR) YEL Urine Clarity (CLEAR) HAZY H Urine pH (5.0 - 8.0) 6.0 Ur Specific [place] (1.001 - 1.035) 1.020 Urine Protein (NEG,<30 MG/DL) NEG Urine Ketones (NEG) NEG Urine Nitrite (NEG) NEG Urine Bilirubin (NEG) NEG Urine Urobilinogen (0.1 - 1.0 EU/dl) 0.2 Ur Leukocyte Esterase (NEG) NEG Ur Microscopic SEDIMENT EXAMINED Urine RBC (0 - 5 /HPF) RARE Urine WBC (0 - 2 /HPF) 1-3 H Ur Epithelial Cells (NONE,FEW) MOD H Urine Bacteria (NEG/NONE) MOD H Hyaline Casts (0/LPF) RARE H Urine Hemoglobin (NEG) NEG Urine Glucose (N MG/DL) NEG 03/29 03/29 03/29 03/29 1940 1546 1239 1239 Blood Gas pH (7.35 - 7.45 PH) 7.35 pCO2 (35 - 45 TORR) 36 pO2 (80 - 100 TORR) 70 L HCO3 (21 - 28 MEQ/L) 19 L ABG O2 Sat (Measured) (>96.0 %) 92.0 L P-50 (Temp Corrected) N Carboxyhemoglobin (1.5 - 5.0 %) 0.3 L O2 Concentration % 45% Temperature (97.0 - 100.0 FARH) 97.7 Respiration Rate (BPM) 16 O2 Delivery Method ESPRIT Vent Mode AC Expiratory Pressure (CMH2O/P) 5 Tidal Volume (CC) 500 Chemistry Sodium (137 - 145 mmol/L) 140 Potassium (3.5 - 5.1 mmol/L) 4.8 Chloride (98 - 107 mmol/L) 106 Carbon Dioxide (22 - 30 mmol/L) 23 Anion Gap (5 - 16) 11 BUN (7 - 17 mg/dL) 46 H Creatinine (0.5 - 1.0 mg/dL) 1.2 H Estimated GFR (>60 ml/min) 47 L BUN/Creatinine Ratio (7 - 25 %) 38.3 H Glucose (65 - 99 mg/dL) 151 H Lactic Acid (0.7 - 2.1 mmol/L) 1.2 2.3 H Calcium (8.4 - 10.2 mg/dL) 8.2 L Total Bilirubin (0.2 - 1.3 mg/dL) 0.2 AST (14 - 36 U/L) 13 L ALT (9 - 52 U/L) 29 Alkaline Phosphatase (<127 U/L) 41 Creatine Kinase (30 - 135 U/L) 133 Troponin I (< 0.11 ng/ml) < 0.01 Total Protein (6.3 - 8.2 g/dL) 6.0 L Albumin (3.5 - 5.0 g/dL) 2.9 L Globulin (1.9 - 4.2 gm/dL) 3.1 Albumin/Globulin Ratio (1.1 - 2.2 %) 0.9 L Coagulation PT (9.4 - 12.5 SEC) 15.8 H INR (0.90 - 1.19) 1.44 H APTT (25 - 37 SEC) 26 Miscellaneous Phlebotomy Draw Site RIGHT RADIAL 03/29 1233 Hematology CBC w Diff MAN DIFF ORDERED WBC (4.8 - 10.8 /CUMM) 18.2 H RBC (4.20 - 5.40 /CUMM) 2.83 L Hgb (12.0 - 16.0 G/DL) 7.2 *L Hct (37 - 47 %) 22.3 L MCV (81.0 - 99.0 FL) 78.9 L MCH (27.0 - 31.0 PG) 25.6 L MCHC (33.0 - 37.0 G/DL) 32.5 L RDW (11.5 - 14.5 %) 16.0 H Plt Count (130 - 400 /CUMM) 286 MPV (7.4 - 10.4 FL) 7.4 Gran % (42.2 - 75.2 %) 70.1 Lymphocytes % (20.5 - 51.1 %) 21.3 Monocytes % (1.7 - 9.3 %) 7.7 Eosinophils % (0 - 5 %) 0.8 Basophils % (0.0 - 2.0 %) 0.1 Absolute Granulocytes (1.4 - 6.5 /CUMM) 12.7 H Absolute Lymphocytes (1.2 - 3.4 /CUMM) 3.9 H Absolute Monocytes (0.10 - 0.60 /CUMM) 1.4 H Absolute Eosinophils (0.0 - 0.7 /CUMM) 0.2 Absolute Basophils (0.0 - 0.2 /CUMM) 0 Platelet Estimate (ADEQUATE) VERIFIED BY SMEAR Polychromasia 1+ Poikilocytosis 1+ Anisocytosis 1+ Ovalocytes FEW Imaging/Other Studies: 02/17/18: XR MODIFIED BARIUM SWALLOW- 1. There is significant prominence of the cricopharyngeus muscle with mass effect on the esophagus posteriorly at level of C4-C5, as described above. 2. Otherwise normal modified barium swallow. (Speech pathologist assessment issued separately). 03/29/18: EKG- NSR @ 86, nl axis, nl int, LVH, flipped T in L. 03/29/18: XR PORTABLE CHEST- No evidence for acute disease in the chest. 03/29/18: EGD to D3- Impression: 1. 1 cm x 2 cm2 oblong gastric ulcer at incisura/lesser curvature with peripheral oozing, left intact, as Eliquis on board. 2. Clots & food obscuring portions of the gastric cardia, fundus, & distal antrum; patent pylorus without GOO. Possible component of gastroparesis (elevated TSH, mild DM). 3. 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 4. Clean duodenum to D3. 03/29/18: XRY-PORTABLE CHEST XRAY (post ETT/OGT)- Endotracheal tube and enteric tube in place. Nonspecific patchy multifocal opacification. 03/30/18: XR PORTABLE CHEST- 1. Endotracheal tube tip 2.7 cm above the baldomero. 2. Enteric tube courses into the abdomen with tip not included. 2. Multifocal diffuse bilateral parenchymal opacities are seen with thickening of central airways. Findings are nonspecific and are unchanged compared to the most recent prior study and are new compared to 03/29/18, suggesting a diffuse acute viral or atypical pneumonitis or acute chemical pneumonitis in the correct clinical setting. 03/30/18: EKG- ST @ 114, nl axis, nl int, mini q inflat. 03/30/18: *Repeat EGD to D3 with Gold Probe cautery & clipping x 3- Impression: 1. 1 cm x 2 cm2 oblong, friable gastric ulcer at the incisura, towards the lesser curvature, containing a visible vessel. The ulcer was somewhat symmetrical, and had a slight lumpy bumpy appearance. Successfully treated with Gold Probe cautery & [place] [employer] 360 Clips x 3. 2. Excellent visibility after the effects of Eliquis had worn off, & after use of OGT & Reglan. No residual clots or food seen. 3. Cricopharyngeal hypertrophy with minimally snug upper esophageal inlet. 03/31/18: EKG- ST @ 116, nl axis, LAE, early transition, q III & F, NSST w/o acute change. 03/31/18: XR PORTABLE CHEST- The patient has been extubated and appearances are similar to those from yesterday, namely cardiomegaly, no gross CHF, but mild pulmonary vascular congestion. No definite pleural effusions.
[2018-04-01 08:00] VITALS: BP 120/64
--- NOTE | 2018-04-01 09:36 | PN- Cardiology ---
Subjective Subjective: The patient is stable. She is sitting up in a chair. Her blood pressure is stable. She remains in sinus rhythm. She has no cardiac complaints at this time. She does not appear to be actively bleeding but her H&H remain low. Objective Vital Signs and I&Os Vital Signs Date Time Temp Pulse Resp B/P B/P Pulse O2 O2 Flow FiO2 Mean Ox Delivery Rate 04/01 0400 95 Nasal 2.0L Cannula 04/01 0000 100 Nasal 2.0L Cannula 04/01 0000 97.0 96 18 120/80 100 Nasal 2.0L Cannula 03/31 2128 116 118/54 03/31 2000 100 Nasal 2.0L Cannula 03/31 1600 98 Room Air Room Air 03/31 1600 98.0 94 24 102/62 96 Room Air Room Air 03/31 1233 Nasal 2.0L Cannula 03/31 1200 96 Nasal 2.0L Cannula Intake & Output 04/01 1600 04/01 0800 04/01 0000 03/31 1600 03/31 0800 03/31 0000 Intake Total 100 550 029 7599 1310 Output Total 500 600 038 444 6000 Balance -400 90 665 349 210 Intake, IV 376 959 2703 1070 Intake, Oral 100 570 400 240 240 Number 3 Bowel Movements Output, Urine 500 600 368 907 6720 Patient 237 lb Weight Physical Exam: No distress, alert and appropriate HEENT exam normal Chest clear Heart prominent systolic ejection murmur at base Extremities no edema Current Medications: Current Medications Sig/Ceasar Start time Last Medication Dose Route Stop Time Status Admin Acetaminophen 650 MG ONCE ONE 04/01 0815 DC 04/01 PO 04/01 0816 0818 Acetaminophen 1,000 MG Q6P PRN 03/29 1700 AC 03/30 N/A 1 UNIT IV 0937 Ampicillin Sodium/ 3,000 MG Q6H 03/30 2230 AC 04/01 Sulbactam Sodium IV 0417 Sodium Chloride 100 ML Benzocaine/Menthol 1 NED Q2P PRN 03/31 1000 AC PO Famotidine 20 MG BID 03/315 DC 03/31 PO 2219 Levothyroxine Sodium 0.05 MG DAILY AC 04/01 0700 AC 04/01 PO 0614 Levothyroxine Sodium 25 MCG DAILY 03/30 0900 DC 03/31 IV 0957 Metoprolol Tartrate 100 MG BID 04/01 09 AC 04/01 PO 0813 Metoprolol Tartrate 50 MG ONCE ONE 03/31 2130 DC 03/31 PO 03/31 Metoprolol Tartrate 50 MG .STK-MED ONE 03/31 2122 DC PO 03/31 2123 Morphine Sulfate 4 MG ONCE ONE 03/31 2115 DC 03/31 IV 03/31 Morphine Sulfate 2 MG Q4P PRN 03/29 1700 AC IV Omeprazole 40 MG BID 04/01 0900 AC 04/01 PO 0818 Omeprazole 40 MG BID 03/31 0900 DC 03/31 PO 0957 Ondansetron HCl 4 MG Q6P PRN 03/31 1415 AC IV Phenol 2 SPRAY Q2P PRN 03/31 1000 AC 03/31 EXT 1231 Potassium Chloride 40 MEQ ONCE ONE 04/01 0730 DC 04/01 PO 04/01 0731 0808 Sodium Chloride 1,000 ML .Q10H 03/29 1600 DC 03/31 IV 0545 Results Last 48 Hrs of Labs/Mics: Laboratory Tests 04/01/18 0345: Anion Gap 11, Estimated GFR > 60, Glucose 95, Calcium 7.6 L, Phosphorus 3.4, Magnesium 2.0, Total Bilirubin 0.4, AST 16, ALT 25, Troponin I 0.03, Albumin 2.8 L, CBC w Diff NO MAN DIFF REQ, RBC 2.65 L, MCV 87.1, MCH 28.7, MCHC 32.9 L, RDW 17.4 H, MPV 7.8, Gran % 81.6 H, Lymphocytes % 9.8 L, Monocytes % 6.0, Eosinophils % 2.3, Basophils % 0.3, Absolute Granulocytes 17.1 H, Absolute Lymphocytes 2.1, Absolute Monocytes 1.3 H, Absolute Eosinophils 0.5, Absolute Basophils 0.1 03/31/18 1745: CBC w Diff NO MAN DIFF REQ, RBC 3.06 L, MCV 86.3, MCH 28.5, MCHC 33.0, RDW 17.8 H, MPV 7.8, Gran % 81.5 H, Lymphocytes % 9.7 L, Monocytes % 6.2, Eosinophils % 2.2, Basophils % 0.4, Absolute Granulocytes 17.3 H, Absolute Lymphocytes 2.1, Absolute Monocytes 1.3 H, Absolute Eosinophils 0.5, Absolute Basophils 0.1 03/31/18 0403: Anion Gap 9, Estimated GFR > 60, Glucose 98, Calcium 7.4 L, Phosphorus 3.5, Magnesium 1.9, Total Bilirubin 0.5, AST 17, ALT 29, Troponin I 0.02, Pro-B- Natriuretic Pept 126 H, Albumin 2.5 L, CBC w Diff NO MAN DIFF REQ, RBC 2.93 L , MCV 85.7, MCH 28.2, MCHC 32.9 L, RDW 17.4 H, MPV 7.8, Gran % 79.1 H, Lymphocytes % 11.0 L, Monocytes % 7.5, Eosinophils % 2.2, Basophils % 0.2, Absolute Granulocytes 17.4 H, Absolute Lymphocytes 2.4, Absolute Monocytes 1.6 H, Absolute Eosinophils 0.5, Absolute Basophils 0 03/30/18 2326: CBC w Diff NO MAN DIFF REQ, RBC 3.07 L, MCV 84.4, MCH 28.6, MCHC 33.9, RDW 17.2 H, MPV 7.2 L, Gran % 82.9 H, Lymphocytes % 9.2 L, Monocytes % 6.3, Eosinophils % 1.5, Basophils % 0.1, Absolute Granulocytes 19.6 H, Absolute Lymphocytes 2.2, Absolute Monocytes 1.5 H, Absolute Eosinophils 0.4, Absolute Basophils 0 03/30/18 1830: pH 7.43, pCO2 27 L, pO2 88, HCO3 17 L, ABG O2 Sat (Measured) 96.0, Carboxyhemoglobin 0.5 L, O2 Concentration % 40%, O2 Delivery Method CPAPWEAN, Vent Mode CPAP, Expiratory Pressure 5, Phlebotomy Draw Site RIGHT RADIAL 03/30/18 1730: CBC w Diff NO MAN DIFF REQ, RBC 3.21 L, MCV 85.6, MCH 28.4, MCHC 33.2, RDW 17.1 H, MPV 8.5, Gran % 76.7 H, Lymphocytes % 13.1 L, Monocytes % 7.7, Eosinophils % 2.3, Basophils % 0.2, Absolute Granulocytes 16.9 H, Absolute Lymphocytes 2.9, Absolute Monocytes 1.7 H, Absolute Eosinophils 0.5, Absolute Basophils 0.1 03/30/18 1100: CBC w Diff NO MAN DIFF REQ, RBC 2.70 L, MCV 85.1, MCH 28.0, MCHC 33.0, RDW 16.9 H, MPV 7.9, Gran % 76.4 H, Lymphocytes % 13.4 L, Monocytes % 7.6, Eosinophils % 2.4, Basophils % 0.2, Absolute Granulocytes 12.3 H, Absolute Lymphocytes 2.2, Absolute Monocytes 1.2 H, Absolute Eosinophils 0.4, Absolute Basophils 0 Recent Imaging Studies: PATIENT: TIMA SOTO PRESENT AGE: 52 PATIENT ACCOUNT NO: [id number] : 67 LOCATION: [facility] ORDERING PHYSICIAN: Naseem Addison MD SERVICE DATE: 03/31/18- EXAM TYPE: RAD - XRY-PORTABLE CHEST XRAY EXAMINATION: XR PORTABLE CHEST CLINICAL INFORMATION: Aspiration pneumonia. COMPARISON: 03/30/2018 TECHNIQUE: Portable frontal view of the chest was obtained. FINDINGS: Since yesterday's exam, the patient has been extubated. The heart remains enlarged. No gross CHF is seen, but mild pulmonary vascular congestion persists. No definite pleural effusion is seen. IMPRESSION: The patient has been extubated and appearances are similar to those from yesterday. DICTATED BY: Rob Rausch MD DATE/TIME DICTATED:03/31/18813 [employer] CUTTER:AVA DATE/TIME TRANSCRIBED:03/31/18813 CONFIDENTIAL, DO NOT COPY WITHOUT APPROPRIATE AUTHORIZATION. <Electronically signed in Other Vendor System> SIGNED BY: Rob Rausch MD 03/31/18 1043 Assessment/Plan Assessment/Plan Patient seems stable from a cardiac standpoint. However her chest x-ray from yesterday shows increased vascular congestion, probably from receiving a lot of fluids and blood replacement. She remains in sinus rhythm and is off anticoagulation. I recommend giving 1 dose of IV Lasix 20 mg. If she gets more transfusions I would give additional IV Lasix. I would keep her on the monitor when she gets transferred because of the history of paroxysmal atrial fibrillation. Fortunately she has not had any episodes of atrial fibrillation so far on this admission. Continue telemetry? Yes
[2018-04-01 13:49] LABS: ABSOLUTE BASOPHIL COUNT 0 /CUMM (0.0-0.2); ABSOLUTE EOSINOPHIL COUNT 0.4 /CUMM (0.0-0.7); ABSOLUTE GRANULOCYTE CT 15.3 /CUMM (1.4-6.5); ABSOLUTE LYMPH COUNT 1.5 /CUMM (1.2-3.4); ABSOLUTE MONOCYTE COUNT 1.2 /CUMM (0.10-0.60); BASOPHIL % 0.1 % (0.0-2.0); EOSINOPHIL % 2.2 % (0-5); GRANULOCYTE % 83.3 % (42.2-75.2); MEAN CORPUSCULAR HGB 28.8 PG (27.0-31.0); MEAN CORPUSCULAR VOLUME 87.3 FL (81.0-99.0); MEAN PLATELET VOLUME 7.5 FL (7.4-10.4); PLATELET COUNT 244 /CUMM (130-400); RBC DISTRIBUTION WIDTH 17.3 % (11.5-14.5); RED BLOOD CELL CT 2.51 /CUMM (4.20-5.40); WHITE BLOOD CELL COUNT 18.4 /CUMM (4.8-10.8)
[2018-04-01 16:00] VITALS: BP 124/60
[2018-04-01 20:29] LABS: ABSOLUTE BASOPHIL COUNT 0 /CUMM (0.0-0.2); ABSOLUTE EOSINOPHIL COUNT 0.6 /CUMM (0.0-0.7); ABSOLUTE GRANULOCYTE CT 15.8 /CUMM (1.4-6.5); ABSOLUTE LYMPH COUNT 1.9 /CUMM (1.2-3.4); ABSOLUTE MONOCYTE COUNT 0.9 /CUMM (0.10-0.60); BASOPHIL % 0.2 % (0.0-2.0); EOSINOPHIL % 2.9 % (0-5); GRANULOCYTE % 82.2 % (42.2-75.2); MEAN CORPUSCULAR HGB CONC 32.8 G/DL (33.0-37.0); MEAN CORPUSCULAR VOLUME 88.5 FL (81.0-99.0); MEAN PLATELET VOLUME 7.6 FL (7.4-10.4); PLATELET COUNT 282 /CUMM (130-400); RBC DISTRIBUTION WIDTH 17.3 % (11.5-14.5); RED BLOOD CELL CT 3.13 /CUMM (4.20-5.40); WHITE BLOOD CELL COUNT 19.3 /CUMM (4.8-10.8)
[2018-04-01 20:32] LABS: HEMATOCRIT 27.7 % (37-47)
[2018-04-01 23:00] VITALS: BP 112/68
[2018-04-02 05:15] LABS: ABSOLUTE BASOPHIL COUNT 0 /CUMM (0.0-0.2); ABSOLUTE EOSINOPHIL COUNT 0.5 /CUMM (0.0-0.7); ABSOLUTE GRANULOCYTE CT 12.7 /CUMM (1.4-6.5); ABSOLUTE LYMPH COUNT 2.3 /CUMM (1.2-3.4); ABSOLUTE MONOCYTE COUNT 0.9 /CUMM (0.10-0.60); BASOPHIL % 0.2 % (0.0-2.0); EOSINOPHIL % 3.3 % (0-5); GRANULOCYTE % 76.8 % (42.2-75.2); HEMATOCRIT 23.7 % (37-47); MEAN CORPUSCULAR HGB CONC 33.1 G/DL (33.0-37.0); MEAN CORPUSCULAR VOLUME 87.9 FL (81.0-99.0); MEAN PLATELET VOLUME 7.9 FL (7.4-10.4); PLATELET COUNT 267 /CUMM (130-400); RBC DISTRIBUTION WIDTH 17.3 % (11.5-14.5); WHITE BLOOD CELL COUNT 16.6 /CUMM (4.8-10.8)
--- NOTE | 2018-04-02 07:27 | PN- Resident CRCU ---
Naseem Pandya 04/02/18 0727: Subjective HPI/CRCU Issues: #Anemia 2/2 acute blood loss, s/p 5U PRBC (latest on 04/01) #Aspiration PNA/Pneumonitis #Afib/HTN #ELIAN, resolved #H/o Hypothyroidism #H/o DM #Morbid Obesity 24 Hour Events: Pt seen and examined at bedside this am. Yesterday her Hb dropped to 7.3, she got 1U PRBC with appropiate increase to 9.1. Repeat CBC in am shows Hb of 7.8. A repeat was ordered for 1 pm. Pt complaining of headache and nausea. Objective Vital Signs & I&O Last 8 Hrs of Vitals and I&O: Laboratory Tests 04/02 Chemistry Sodium (137 - 145 mmol/L) 140 Potassium (3.5 - 5.1 mmol/L) 3.9 Chloride (98 - 107 mmol/L) 103 Carbon Dioxide (22 - 30 mmol/L) 28 Anion Gap (5 - 16) 8 BUN (7 - 17 mg/dL) 8 Creatinine (0.5 - 1.0 mg/dL) 0.7 Estimated GFR (>60 ml/min) > 60 Glucose (65 - 99 mg/dL) 89 Calcium (8.4 - 10.2 mg/dL) 7.7 L Phosphorus (2.5 - 4.5 mg/dL) 3.6 Magnesium (1.6 - 2.3 mg/dL) 2.0 Total Bilirubin (0.2 - 1.3 mg/dL) 0.3 AST (14 - 36 U/L) 21 ALT (9 - 52 U/L) 33 Albumin (3.5 - 5.0 g/dL) 2.9 L Hematology CBC w Diff NO MAN DIFF REQ NO MAN DIFF REQ WBC (4.8 - 10.8 /CUMM) 16.6 H 19.3 H RBC (4.20 - 5.40 /CUMM) 2.70 L 3.13 L Hgb (12.0 - 16.0 G/DL) 7.8 L 9.1 L Hct (37 - 47 %) 23.7 L 27.7 L MCV (81.0 - 99.0 FL) 87.9 88.5 MCH (27.0 - 31.0 PG) 29.0 29.0 MCHC (33.0 - 37.0 G/DL) 33.1 32.8 L RDW (11.5 - 14.5 %) 17.3 H 17.3 H Plt Count (130 - 400 /CUMM) 267 282 MPV (7.4 - 10.4 FL) 7.9 7.6 Gran % (42.2 - 75.2 %) 76.8 H 82.2 H Lymphocytes % (20.5 - 51.1 %) 14.1 L 9.8 L Monocytes % (1.7 - 9.3 %) 5.6 4.9 Eosinophils % (0 - 5 %) 3.3 2.9 Basophils % (0.0 - 2.0 %) 0.2 0.2 Absolute Granulocytes (1.4 - 6.5 /CUMM) 12.7 H 15.8 H Absolute Lymphocytes (1.2 - 3.4 /CUMM) 2.3 1.9 Absolute Monocytes (0.10 - 0.60 /CUMM) 0.9 H 0.9 H Absolute Eosinophils (0.0 - 0.7 /CUMM) 0.5 0.6 Absolute Basophils (0.0 - 0.2 /CUMM) 0 0 04/01 04/01 1312 0345 Chemistry Sodium (137 - 145 mmol/L) 141 Potassium (3.5 - 5.1 mmol/L) 3.6 Chloride (98 - 107 mmol/L) 105 Carbon Dioxide (22 - 30 mmol/L) 25 Anion Gap (5 - 16) 11 BUN (7 - 17 mg/dL) 7 Creatinine (0.5 - 1.0 mg/dL) 0.7 Estimated GFR (>60 ml/min) > 60 Glucose (65 - 99 mg/dL) 95 Calcium (8.4 - 10.2 mg/dL) 7.6 L Phosphorus (2.5 - 4.5 mg/dL) 3.4 Magnesium (1.6 - 2.3 mg/dL) 2.0 Total Bilirubin (0.2 - 1.3 mg/dL) 0.4 AST (14 - 36 U/L) 16 ALT (9 - 52 U/L) 25 Troponin I (< 0.11 ng/ml) 0.03 Albumin (3.5 - 5.0 g/dL) 2.8 L Hematology CBC w Diff NO MAN DIFF REQ NO MAN DIFF REQ WBC (4.8 - 10.8 /CUMM) 18.4 H 20.9 H RBC (4.20 - 5.40 /CUMM) 2.51 L 2.65 L Hgb (12.0 - 16.0 G/DL) 7.3 *L 7.6 L Hct (37 - 47 %) 22.0 L 23.1 L MCV (81.0 - 99.0 FL) 87.3 87.1 MCH (27.0 - 31.0 PG) 28.8 28.7 MCHC (33.0 - 37.0 G/DL) 33.0 32.9 L RDW (11.5 - 14.5 %) 17.3 H 17.4 H Plt Count (130 - 400 /CUMM) 244 223 MPV (7.4 - 10.4 FL) 7.5 7.8 Gran % (42.2 - 75.2 %) 83.3 H 81.6 H Lymphocytes % (20.5 - 51.1 %) 8.1 L 9.8 L Monocytes % (1.7 - 9.3 %) 6.3 6.0 Eosinophils % (0 - 5 %) 2.2 2.3 Basophils % (0.0 - 2.0 %) 0.1 0.3 Absolute Granulocytes (1.4 - 6.5 /CUMM) 15.3 H 17.1 H Absolute Lymphocytes (1.2 - 3.4 /CUMM) 1.5 2.1 Absolute Monocytes (0.10 - 0.60 /CUMM) 1.2 H 1.3 H Absolute Eosinophils (0.0 - 0.7 /CUMM) 0.4 0.5 Absolute Basophils (0.0 - 0.2 /CUMM) 0 0.1 03/31 1745 Hematology CBC w Diff NO MAN DIFF REQ WBC (4.8 - 10.8 /CUMM) 21.3 H RBC (4.20 - 5.40 /CUMM) 3.06 L Hgb (12.0 - 16.0 G/DL) 8.7 L Hct (37 - 47 %) 26.5 L MCV (81.0 - 99.0 FL) 86.3 MCH (27.0 - 31.0 PG) 28.5 MCHC (33.0 - 37.0 G/DL) 33.0 RDW (11.5 - 14.5 %) 17.8 H Plt Count (130 - 400 /CUMM) 224 MPV (7.4 - 10.4 FL) 7.8 Gran % (42.2 - 75.2 %) 81.5 H Lymphocytes % (20.5 - 51.1 %) 9.7 L Monocytes % (1.7 - 9.3 %) 6.2 Eosinophils % (0 - 5 %) 2.2 Basophils % (0.0 - 2.0 %) 0.4 Absolute Granulocytes (1.4 - 6.5 /CUMM) 17.3 H Absolute Lymphocytes (1.2 - 3.4 /CUMM) 2.1 Absolute Monocytes (0.10 - 0.60 /CUMM) 1.3 H Absolute Eosinophils (0.0 - 0.7 /CUMM) 0.5 Absolute Basophils (0.0 - 0.2 /CUMM) 0.1 Vital Signs Date Time Temp Pulse Resp B/P B/P Pulse O2 O2 Flow FiO2 Mean Ox Delivery Rate 04/02 0400 96 Nasal 1.0L Cannula 04/02 0000 95 Nasal 1.0L Cannula 04/01 2300 98.6 94 26 112/68 95 Nasal 1.0L Cannula 04/01 2054 110 141/59 04/01 2000 96 Nasal 1.0L Cannula 04/01 1600 98 Nasal 1.0L Cannula 04/01 1600 97.8 96 20 124/60 98 Nasal 1.0L Cannula 04/01 1200 97 Nasal 2.0L Cannula Intake & Output 04/02 1600 04/02 0800 04/02 0000 Intake Total 700 600 Output Total 500 1400 Balance 200 -800 Intake, IV 220 360 Intake, Oral 480 240 Number 2 Bowel Movements Output, Urine 500 1400 Exam General Appearance: alert, awake, anxious, mild distress, obese, dysphonic s/p extubation Head: atraumatic, normal appearance Neck: normal inspection, supple Respiratory: chest non-tender, no respiratory distress, rhonchi Cardiovascular: tachycardia, diastolic murmur Gastrointestinal: normal bowel sounds, soft, non-tender, no organomegaly Extremities: normal inspection, normal capillary refill Current Medications: Current Medications Sig/Ceasar Start time Last Medication Dose Route Stop Time Status Admin Acetaminophen 1,000 MG .STK-MED ONE 04/01 2319 DC IV 07/19 2320 Acetaminophen 1,000 MG Q6P PRN 03/29 1700 AC 04/02 N/A 1 UNIT IV 0829 Ampicillin Sodium/ 3,000 MG Q6H 03/30 2230 AC 04/02 Sulbactam Sodium IV 0359 Sodium Chloride 100 ML Benzocaine/Menthol 1 NED Q2P PRN 03/31 1000 AC PO Furosemide 20 MG ONCE ONE 04/01 1115 CAN PO 04/01 1116 Furosemide 20 MG ONCE ONE 04/01 1115 DC 04/01 IV 04/01 1116 1918 Levothyroxine Sodium 0.05 MG DAILY AC 04/01 0700 AC 04/02 PO 0505 Metoprolol Tartrate 100 MG BID 04/01 0900 AC 04/02 PO 0828 Morphine Sulfate 2 MG Q4P PRN 03/29 1700 AC IV Omeprazole 40 MG BID 04/01 0900 DC 04/01 PO 0818 Ondansetron HCl 4 MG Q6P PRN 03/31 1415 AC 04/02 IV 0829 Pantoprazole Sodium 40 MG BID 04/01 2100 AC 04/02 IV 0829 Phenol 2 SPRAY Q2P PRN 03/31 1000 AC 03/31 EXT 1231 Impression/Plan Impression/Problem List Impression: 52 y/o F with PMH of paroxysmal afib on apixaban, HTN, HFpEF. obesity, JASON and remote h/o hodgkin's s/p presented to the ED c/o of 1 day history of nausea, coffee ground emesis, and melena. On the ED, she was found to be hypotensive (85 /55) with H/H 7.2/22.3 with lactic acidemia. She was transfused 1U PRBC and 1L crystalloid bolus - NGT placement for gastric lavage was attempted but unsuccessful. GI was consulted and the patient was admitted to the ICU for management of hypotension and emergent EGD. IMPRESSION #Anemia 2/2 acute blood loss, s/p 4U PRBC #Aspiration PNA/Pneumonitis #ELIAN, resolved #Afib/HTN #H/o Hypothyroidism #H/o DM #Morbid obesity #Anemia 2/2 acute blood loss, s/p 4U PRBC Patient's CBC and clinical presentation are indicative of acute blood loss as a cause of her anemia. The source is most likely from the GI tract. An EGD was done which found an oblong gastric ulcer that was oozing that was left intact due to patient being on apixaban.Second EGD done on 03/30 treated the oblong gastril ulcer. Her H/H now is down to 7.8/23.7 after rising to 9.1 s/p 1U PRBC on 04/01. Will continue to monitor CBCs with the goal of keeping Hb>8. -Serial CBCs q8, monitor H/H -IV PPI #ELIAN, resolved On admit pt had BUN/Cr 46/1.2, likely resulting from her acute blood loss resulting in hypotension. BUN/Cr is trending down as a result of fluid therapy, now at 11/0.8. #Aspiration PNA/Pneumonitis Possibility of aspiration due to vomiting and posterior intubation. CXR shows multifocal diffuse b/l parenchymal opacities, though pt is afebrile and WBC remains high. IV unasyn was started. Resp. culture growing Staph Aureus, pending susceptibility studies. -Unasyn day #4 #Afib/HTN Pt has a h/o pAFib on apixaban since 1 year ago -- she has needed electrical cardioversion in the past. Cardiology was consulted with regards to her anticoagulation and recommendations are being followed. grounds person plan is to perhaps ablate by Dr. Muñoz. -Hold Apixaban #H/o hypothyroidism Pt with a h/o hypothyroidism with latest TSH on record normal (3450 on 02/25). -Continue synthroid IV 25 mcg qD #H/o DM pt with a h/o DM, latest A1C on record is 6.9% on 03/01. Latest glucose is 99. -Bedside glucose monitoring q6 FULL CODE FULL LIQUID DIET - plans to advance as tolerated DVT PPX: [facility] Problem List: 1. Upper GI bleed 2. Anemia Pain Ratin Tomorrow's Labs & Rationales: cbc Plan DVT/Prophylaxis: Kuldeep Skelton MD 04/02/18 1229: Attending MD Review Statement Attending Sign Off Attending Cosign Statement: I have: examined this patient, reviewed [facility] EMR data, personally reviewd images, discussd w/resident/PA/CAPTAIN OF [employer]DS, discussed mgmt plan w/tequila, discussed mgmt plan w/CM, discussed mgmt plan w/pt, agreed w/resident/PA/[employer] OF [employer], amended to note. Other Findings: I, Kuldeep Emilio, M.D. have examined this patient, reviewed available EMR data, personally reviewed images, discussed with resident/PA/CAPTAIN OF [employer], discussed management plan with housestaff and nursing staff, discussed managment plan all of healthcare providers, discussed management plan with patient and/or family, agreed with resident/PA/CAPTAIN OF [employer]. The past history and parts of the chart have been autopopulated. Impression 52 year old woman * acute blood loss anemia in the setting of Eliquis use for a.fib, upper GI source * known systolic murmur * patchy opacifications - chemical pneumonitis and aspiration pneumonia - likely related to hx of vomiting/wretching at home * staph aureus pneumonia - awaiting sensitivities Plan -alert GI regarding hemoglobin trend -hemodynamic monitoring -hold Eliquis - consultation with Dr. Paul appreciated, ?ablation as outpatient -monitor cbc -ivf -PPI -continue synthroid for hypothyroidism -contn unasyn for tx of aspiration pneumonia, once nausea improved will switch to Augmentin - she has Staph aureus in sputum - monitor if MRSA will switch to vancomycin. -f/u sputum cx - staph aureus - f/u sensitivities DVT prophylaxis at all times - ALPS TTS 35 min
[2018-04-02 08:00] VITALS: BP 130/64
--- NOTE | 2018-04-02 10:40 | PN- Cardiology ---
Subjective Subjective: The patient is feeling okay. She is up in a chair. Her H and H remain low despite additional transfusion. She did get some Lasix yesterday. Her blood pressure is maintained. There has been no atrial fibrillation. Objective Vital Signs and I&Os Vital Signs Date Time Temp Pulse Resp B/P B/P Pulse O2 O2 Flow FiO2 Mean Ox Delivery Rate 04/02 0800 99 Nasal 1.0L Cannula 04/02 0800 98.4 92 18 130/64 99 Nasal 1.0L Cannula 04/02 0400 96 Nasal 1.0L Cannula 04/02 0000 95 Nasal 1.0L Cannula 04/01 2300 98.6 94 26 112/68 95 Nasal 1.0L Cannula 04/01 2054 110 141/59 04/01 2000 96 Nasal 1.0L Cannula 04/01 1600 98 Nasal 1.0L Cannula 04/01 1600 97.8 96 20 124/60 98 Nasal 1.0L Cannula 04/01 1200 97 Nasal 2.0L Cannula Intake & Output 04/02 1600 04/02 0800 04/02 0000 04/01 1600 04/01 0800 04/01 0000 Intake Total 792 693 4195 100 690 Output Total 500 1400 500 600 Balance 200 -800 1020 -400 90 Intake, IV 220 360 360 120 Intake, Oral 480 240 660 100 570 Number 2 0 Bowel Movements Output, Urine 500 1400 500 600 Physical Exam: No distress Chest clear Heart prominent systolic ejection murmur at base Current Medications: Current Medications Sig/Ceasar Start time Last Medication Dose Route Stop Time Status Admin Acetaminophen 1,000 MG .STK-MED ONE 04/01 2319 DC IV 04/01 2320 Acetaminophen 1,000 MG Q6P PRN 03/29 1700 AC 04/02 N/A 1 UNIT IV 0829 Ampicillin Sodium/ 3,000 MG Q6H 03/30 2230 AC 04/02 Sulbactam Sodium IV 0918 Sodium Chloride 100 ML Benzocaine/Menthol 1 NED Q2P PRN 03/31 1000 AC PO Furosemide 20 MG ONCE ONE 04/01 1115 CAN PO 04/01 1116 Furosemide 20 MG ONCE ONE 04/01 1115 DC 04/01 IV 04/01 1116 1918 Levothyroxine Sodium 0.05 MG DAILY AC 04/01 07 AC 04/02 PO 0505 Metoprolol Tartrate 100 MG BID 04/01 0900 AC 04/02 PO 0828 Morphine Sulfate 2 MG Q4P PRN 03/29 1700 AC IV Omeprazole 40 MG BID 04/01 0900 NM 04/01 PO 0818 Ondansetron HCl 4 MG Q6P PRN 03/31 1415 AC 04/02 IV 0829 Pantoprazole Sodium 40 MG BID 04/01 2100 AC 04/02 IV 0829 Phenol 2 SPRAY Q2P PRN 03/31 1000 AC 03/31 EXT 1231 Results Last 48 Hrs of Labs/Mics: Laboratory Tests 04/02/18 0336: Anion Gap 8, Estimated GFR > 60, Glucose 89, Calcium 7.7 L, Phosphorus 3.6, Magnesium 2.0, Total Bilirubin 0.3, AST 21, ALT 33, Albumin 2.9 L, CBC w Diff NO MAN DIFF REQ, RBC 2.70 L, MCV 87.9, MCH 29.0, MCHC 33.1, RDW 17.3 H, MPV 7.9, Gran % 76.8 H, Lymphocytes % 14.1 L, Monocytes % 5.6, Eosinophils % 3.3, Basophils % 0.2, Absolute Granulocytes 12.7 H, Absolute Lymphocytes 2.3, Absolute Monocytes 0.9 H, Absolute Eosinophils 0.5, Absolute Basophils 0 04/01/182003: CBC w Diff NO MAN DIFF REQ, RBC 3.13 L, MCV 88.5, MCH 29.0, MCHC 32.8 L, RDW 17.3 H, MPV 7.6, Gran % 82.2 H, Lymphocytes % 9.8 L, Monocytes % 4.9, Eosinophils % 2.9, Basophils % 0.2, Absolute Granulocytes 15.8 H, Absolute Lymphocytes 1.9, Absolute Monocytes 0.9 H, Absolute Eosinophils 0.6, Absolute Basophils 0 04/01/18 1312: CBC w Diff NO MAN DIFF REQ, RBC 2.51 L, MCV 87.3, MCH 28.8, MCHC 33.0, RDW 17.3 H, MPV 7.5, Gran % 83.3 H, Lymphocytes % 8.1 L, Monocytes % 6.3, Eosinophils % 2.2, Basophils % 0.1, Absolute Granulocytes 15.3 H, Absolute Lymphocytes 1.5, Absolute Monocytes 1.2 H, Absolute Eosinophils 0.4, Absolute Basophils 0 04/01/18 0345: Anion Gap 11, Estimated GFR > 60, Glucose 95, Calcium 7.6 L, Phosphorus 3.4, Magnesium 2.0, Total Bilirubin 0.4, AST 16, ALT 25, Troponin I 0.03, Albumin 2.8 L, CBC w Diff NO MAN DIFF REQ, RBC 2.65 L, MCV 87.1, MCH 28.7, MCHC 32.9 L, RDW 17.4 H, MPV 7.8, Gran % 81.6 H, Lymphocytes % 9.8 L, Monocytes % 6.0, Eosinophils % 2.3, Basophils % 0.3, Absolute Granulocytes 17.1 H, Absolute Lymphocytes 2.1, Absolute Monocytes 1.3 H, Absolute Eosinophils 0.5, Absolute Basophils 0.1 03/31/18 1745: CBC w Diff NO MAN DIFF REQ, RBC 3.06 L, MCV 86.3, MCH 28.5, MCHC 33.0, RDW 17.8 H, MPV 7.8, Gran % 81.5 H, Lymphocytes % 9.7 L, Monocytes % 6.2, Eosinophils % 2.2, Basophils % 0.4, Absolute Granulocytes 17.3 H, Absolute Lymphocytes 2.1, Absolute Monocytes 1.3 H, Absolute Eosinophils 0.5, Absolute Basophils 0.1 Assessment/Plan Assessment/Plan The patient's H&H remains low, question ongoing bleeding. GI should be reconsulted, question re-scope. Obviously we will keep her off of anticoagulants. There is low risk to this as she remains in sinus rhythm. I recommend a follow-up chest x-ray to compare with the previous one 2 days ago showing some vascular congestion. She may need additional diuretic. Continue telemetry? Yes
--- NOTE | 2018-04-02 11:36 | RADIOLOGY REPORT ---
EXAMINATION: XR PORTABLE CHEST CLINICAL INFORMATION: 52-year-old female with pulmonary edema/pneumonia. Increasing oxygen requirement. COMPARISON: Chest done on 03/31/2018. TECHNIQUE: Portable frontal view of the chest was obtained. FINDINGS: Dense airspace opacities noted at right lower lung field medially, may represent pneumonia versus atelectasis or combination thereof. Lesser extensive subtle airspace disease also noted at left lower lobe. The remainder of the lung mcdonnell are clear. The cardiomediastinal silhouette is within normal limit. There is no pleural effusion present. IMPRESSION: Dense airspace disease at right lower lobe medially. Subtle airspace disease at left lung base.
[2018-04-02 14:41] LABS: ABSOLUTE BASOPHIL COUNT 0.1 /CUMM (0.0-0.2); ABSOLUTE EOSINOPHIL COUNT 0.5 /CUMM (0.0-0.7); ABSOLUTE GRANULOCYTE CT 11.9 /CUMM (1.4-6.5); ABSOLUTE LYMPH COUNT 2.2 /CUMM (1.2-3.4); ABSOLUTE MONOCYTE COUNT 1.2 /CUMM (0.10-0.60); BASOPHIL % 0.3 % (0.0-2.0); EOSINOPHIL % 3.5 % (0-5); GRANULOCYTE % 75.2 % (42.2-75.2); HEMATOCRIT 22.7 % (37-47); MEAN CORPUSCULAR HGB 28.8 PG (27.0-31.0); MEAN CORPUSCULAR HGB CONC 32.9 G/DL (33.0-37.0); MEAN CORPUSCULAR VOLUME 87.6 FL (81.0-99.0); MEAN PLATELET VOLUME 7.7 FL (7.4-10.4); PLATELET COUNT 295 /CUMM (130-400); RBC DISTRIBUTION WIDTH 17.4 % (11.5-14.5); RED BLOOD CELL CT 2.59 /CUMM (4.20-5.40); WHITE BLOOD CELL COUNT 15.8 /CUMM (4.8-10.8)
[2018-04-02 15:28] VITALS: BP 122/60
--- NOTE | 2018-04-02 18:07 | PN- Gastroenterology ---
Assessment/Plan GI Assessment/Recommendations: GI bleed Gastric ulcer Blood loss anemia Further drop in hemoglobin/hematocrit Recommendations * Continue to follow CBC. * Continue IV PPI twice a day * With further decline in hemoglobin, consideration for re-endoscopy over weekend. Subjective Subjective: Some nausea; no vomiting, pain. Loose dark bowel movements, Hemoccult-positive. No melena. Some bright red blood on pad, per RN. On full liquid diet. Objective Vital Signs and I&Os Vital Signs Date Time Temp Pulse Resp B/P B/P Pulse O2 O2 Flow FiO2 Mean Ox Delivery Rate 04/02 1528 95 Nasal 1.0L Cannula 04/02 1528 98.0 92 20 122/60 95 Nasal 1.0L Cannula 04/02 1200 97 Nasal 1.0L Cannula 04/02 0800 99 Nasal 1.0L Cannula 04/02 0800 98.4 92 18 130/64 99 Nasal 1.0L Cannula 04/02 0400 96 Nasal 1.0L Cannula 04/02 0000 95 Nasal 1.0L Cannula 04/01 2300 98.6 94 26 112/68 95 Nasal 1.0L Cannula 04/01 2054 110 141/59 04/01 2000 96 Nasal 1.0L Cannula Intake & Output 04/02 1600 04/02 0400 04/01 1600 04/01 0400 03/31 1600 03/31 0400 Intake Total 8029 017 2499 690 2174 1310 Output Total 800 1400 775 934 6274 1100 Balance 920 -800 009 95 0662 210 Intake, IV 360 360 558 568 1553 1070 Intake, Oral 1360 240 760 570 640 240 Number 1 2 0 3 Bowel Movements Output, Urine 800 1400 574 481 2193 1100 Patient 237 lb Weight Physical Exam: Abdomen obese, nontender. Current Medications: Current Medications Sig/Ceasar Start time Last Medication Dose Route Stop Time Status Admin Acetaminophen 1,000 MG .STK-MED ONE 04/02 0826 DC IV 04/02 0827 Acetaminophen 1,000 MG .STK-MED ONE 04/01 2319 DC IV 04/01 2320 Acetaminophen 1,000 MG Q6P PRN 03/29 1700 AC 04/02 N/A 1 UNIT IV 0829 Ampicillin Sodium/ 3,000 MG Q6H 03/30 2230 AC 04/02 Sulbactam Sodium IV 0918 Sodium Chloride 100 ML Benzocaine/Menthol 1 NED Q2P PRN 03/31 1000 AC PO Levothyroxine Sodium 0.05 MG DAILY AC 04/01 0700 AC 04/02 PO 0505 Metoprolol Tartrate 100 MG BID 04/01 0900 AC 04/02 PO 0828 Morphine Sulfate 2 MG Q4P PRN 03/29 1700 AC IV Omeprazole 40 MG BID 04/01 0900 DC 04/01 PO 0818 Ondansetron HCl 4 MG Q6P PRN 03/31 1415 AC 04/02 IV 0829 Pantoprazole Sodium 40 MG BID 04/01 2100 AC 04/02 IV 0829 Phenol 2 SPRAY Q2P PRN 03/31 1000 AC 03/31 EXT 1231 Results Pertinent Lab Results: Laboratory Tests 04/02 04/02 1400 0336 Chemistry Sodium (137 - 145 mmol/L) 140 Potassium (3.5 - 5.1 mmol/L) 3.9 Chloride (98 - 107 mmol/L) 103 Carbon Dioxide (22 - 30 mmol/L) 28 Anion Gap (5 - 16) 8 BUN (7 - 17 mg/dL) 8 Creatinine (0.5 - 1.0 mg/dL) 0.7 Estimated GFR (>60 ml/min) > 60 Glucose (65 - 99 mg/dL) 89 Calcium (8.4 - 10.2 mg/dL) 7.7 L Phosphorus (2.5 - 4.5 mg/dL) 3.6 Magnesium (1.6 - 2.3 mg/dL) 2.0 Total Bilirubin (0.2 - 1.3 mg/dL) 0.3 AST (14 - 36 U/L) 21 ALT (9 - 52 U/L) 33 Albumin (3.5 - 5.0 g/dL) 2.9 L Hematology CBC w Diff NO MAN DIFF REQ NO MAN DIFF REQ WBC (4.8 - 10.8 /CUMM) 15.8 H 16.6 H RBC (4.20 - 5.40 /CUMM) 2.59 L 2.70 L Hgb (12.0 - 16.0 G/DL) 7.5 L 7.8 L Hct (37 - 47 %) 22.7 L 23.7 L MCV (81.0 - 99.0 FL) 87.6 87.9 MCH (27.0 - 31.0 PG) 28.8 29.0 MCHC (33.0 - 37.0 G/DL) 32.9 L 33.1 RDW (11.5 - 14.5 %) 17.4 H 17.3 H Plt Count (130 - 400 /CUMM) 295 267 MPV (7.4 - 10.4 FL) 7.7 7.9 Gran % (42.2 - 75.2 %) 75.2 76.8 H Lymphocytes % (20.5 - 51.1 %) 13.7 L 14.1 L Monocytes % (1.7 - 9.3 %) 7.3 5.6 Eosinophils % (0 - 5 %) 3.5 3.3 Basophils % (0.0 - 2.0 %) 0.3 0.2 Absolute Granulocytes (1.4 - 6.5 /CUMM) 11.9 H 12.7 H Absolute Lymphocytes (1.2 - 3.4 /CUMM) 2.2 2.3 Absolute Monocytes (0.10 - 0.60 /CUMM) 1.2 H 0.9 H Absolute Eosinophils (0.0 - 0.7 /CUMM) 0.5 0.5 Absolute Basophils (0.0 - 0.2 /CUMM) 0.1 0 04/01 1312 Hematology CBC w Diff NO MAN DIFF REQ NO MAN DIFF REQ WBC (4.8 - 10.8 /CUMM) 19.3 H 18.4 H RBC (4.20 - 5.40 /CUMM) 3.13 L 2.51 L Hgb (12.0 - 16.0 G/DL) 9.1 L 7.3 *L Hct (37 - 47 %) 27.7 L 22.0 L MCV (81.0 - 99.0 FL) 88.5 87.3 MCH (27.0 - 31.0 PG) 29.0 28.8 MCHC (33.0 - 37.0 G/DL) 32.8 L 33.0 RDW (11.5 - 14.5 %) 17.3 H 17.3 H Plt Count (130 - 400 /CUMM) 282 244 MPV (7.4 - 10.4 FL) 7.6 7.5 Gran % (42.2 - 75.2 %) 82.2 H 83.3 H Lymphocytes % (20.5 - 51.1 %) 9.8 L 8.1 L Monocytes % (1.7 - 9.3 %) 4.9 6.3 Eosinophils % (0 - 5 %) 2.9 2.2 Basophils % (0.0 - 2.0 %) 0.2 0.1 Absolute Granulocytes (1.4 - 6.5 /CUMM) 15.8 H 15.3 H Absolute Lymphocytes (1.2 - 3.4 /CUMM) 1.9 1.5 Absolute Monocytes (0.10 - 0.60 /CUMM) 0.9 H 1.2 H Absolute Eosinophils (0.0 - 0.7 /CUMM) 0.6 0.4 Absolute Basophils (0.0 - 0.2 /CUMM) 0 0 04/01 03/31 0345 1745 Chemistry Sodium (137 - 145 mmol/L) 141 Potassium (3.5 - 5.1 mmol/L) 3.6 Chloride (98 - 107 mmol/L) 105 Carbon Dioxide (22 - 30 mmol/L) 25 Anion Gap (5 - 16) 11 BUN (7 - 17 mg/dL) 7 Creatinine (0.5 - 1.0 mg/dL) 0.7 Estimated GFR (>60 ml/min) > 60 Glucose (65 - 99 mg/dL) 95 Calcium (8.4 - 10.2 mg/dL) 7.6 L Phosphorus (2.5 - 4.5 mg/dL) 3.4 Magnesium (1.6 - 2.3 mg/dL) 2.0 Total Bilirubin (0.2 - 1.3 mg/dL) 0.4 AST (14 - 36 U/L) 16 ALT (9 - 52 U/L) 25 Troponin I (< 0.11 ng/ml) 0.03 Albumin (3.5 - 5.0 g/dL) 2.8 L Hematology CBC w Diff NO MAN DIFF REQ NO MAN DIFF REQ WBC (4.8 - 10.8 /CUMM) 20.9 H 21.3 H RBC (4.20 - 5.40 /CUMM) 2.65 L 3.06 L Hgb (12.0 - 16.0 G/DL) 7.6 L 8.7 L Hct (37 - 47 %) 23.1 L 26.5 L MCV (81.0 - 99.0 FL) 87.1 86.3 MCH (27.0 - 31.0 PG) 28.7 28.5 MCHC (33.0 - 37.0 G/DL) 32.9 L 33.0 RDW (11.5 - 14.5 %) 17.4 H 17.8 H Plt Count (130 - 400 /CUMM) 223 224 MPV (7.4 - 10.4 FL) 7.8 7.8 Gran % (42.2 - 75.2 %) 81.6 H 81.5 H Lymphocytes % (20.5 - 51.1 %) 9.8 L 9.7 L Monocytes % (1.7 - 9.3 %) 6.0 6.2 Eosinophils % (0 - 5 %) 2.3 2.2 Basophils % (0.0 - 2.0 %) 0.3 0.4 Absolute Granulocytes (1.4 - 6.5 /CUMM) 17.1 H 17.3 H Absolute Lymphocytes (1.2 - 3.4 /CUMM) 2.1 2.1 Absolute Monocytes (0.10 - 0.60 /CUMM) 1.3 H 1.3 H Absolute Eosinophils (0.0 - 0.7 /CUMM) 0.5 0.5 Absolute Basophils (0.0 - 0.2 /CUMM) 0.1 0.1 03/31 03/30 0403 2326 Chemistry Sodium (137 - 145 mmol/L) 142 Potassium (3.5 - 5.1 mmol/L) 3.8 Chloride (98 - 107 mmol/L) 109 H Carbon Dioxide (22 - 30 mmol/L) 24 Anion Gap (5 - 16) 9 BUN (7 - 17 mg/dL) 11 Creatinine (0.5 - 1.0 mg/dL) 0.8 Estimated GFR (>60 ml/min) > 60 Glucose (65 - 99 mg/dL) 98 Calcium (8.4 - 10.2 mg/dL) 7.4 L Phosphorus (2.5 - 4.5 mg/dL) 3.5 Magnesium (1.6 - 2.3 mg/dL) 1.9 Total Bilirubin (0.2 - 1.3 mg/dL) 0.5 AST (14 - 36 U/L) 17 ALT (9 - 52 U/L) 29 Troponin I (< 0.11 ng/ml) 0.02 Gcs-[id number] Pept (<125 pg/mL) 126 H Albumin (3.5 - 5.0 g/dL) 2.5 L Hematology CBC w Diff NO MAN DIFF REQ NO MAN DIFF REQ WBC (4.8 - 10.8 /CUMM) 22.0 H 23.6 H RBC (4.20 - 5.40 /CUMM) 2.93 L 3.07 L Hgb (12.0 - 16.0 G/DL) 8.3 L 8.8 L Hct (37 - 47 %) 25.1 L 25.9 L MCV (81.0 - 99.0 FL) 85.7 84.4 MCH (27.0 - 31.0 PG) 28.2 28.6 MCHC (33.0 - 37.0 G/DL) 32.9 L 33.9 RDW (11.5 - 14.5 %) 17.4 H 17.2 H Plt Count (130 - 400 /CUMM) 183 184 MPV (7.4 - 10.4 FL) 7.8 7.2 L Gran % (42.2 - 75.2 %) 79.1 H 82.9 H Lymphocytes % (20.5 - 51.1 %) 11.0 L 9.2 L Monocytes % (1.7 - 9.3 %) 7.5 6.3 Eosinophils % (0 - 5 %) 2.2 1.5 Basophils % (0.0 - 2.0 %) 0.2 0.1 Absolute Granulocytes (1.4 - 6.5 /CUMM) 17.4 H 19.6 H Absolute Lymphocytes (1.2 - 3.4 /CUMM) 2.4 2.2 Absolute Monocytes (0.10 - 0.60 /CUMM) 1.6 H 1.5 H Absolute Eosinophils (0.0 - 0.7 /CUMM) 0.5 0.4 Absolute Basophils (0.0 - 0.2 /CUMM) 0 0 07/17 1830 Blood Gas pH (7.35 - 7.45 PH) 7.43 pCO2 (35 - 45 TORR) 27 L pO2 (80 - 100 TORR) 88 HCO3 (21 - 28 MEQ/L) 17 L ABG O2 Sat (Measured) (>96.0 %) 96.0 Carboxyhemoglobin (1.5 - 5.0 %) 0.5 L O2 Concentration % 40% O2 Delivery Method CPAPWEAN Vent Mode CPAP Expiratory Pressure (CMH2O/P) 5 Miscellaneous Phlebotomy Draw Site RIGHT RADIAL
[2018-04-02 20:00] VITALS: BP 130/62
[2018-04-02 22:06] LABS: ABSOLUTE BASOPHIL COUNT 0 /CUMM (0.0-0.2); ABSOLUTE EOSINOPHIL COUNT 0.6 /CUMM (0.0-0.7); ABSOLUTE GRANULOCYTE CT 11.2 /CUMM (1.4-6.5); ABSOLUTE LYMPH COUNT 2.7 /CUMM (1.2-3.4); ABSOLUTE MONOCYTE COUNT 0.9 /CUMM (0.10-0.60); BASOPHIL % 0.2 % (0.0-2.0); EOSINOPHIL % 3.8 % (0-5); GRANULOCYTE % 72.4 % (42.2-75.2); HEMATOCRIT 25.8 % (37-47); MEAN CORPUSCULAR HGB 28.9 PG (27.0-31.0); MEAN CORPUSCULAR HGB CONC 33.2 G/DL (33.0-37.0); MEAN CORPUSCULAR VOLUME 87.1 FL (81.0-99.0); MEAN PLATELET VOLUME 8.8 FL (7.4-10.4); PLATELET COUNT 259 /CUMM (130-400); RBC DISTRIBUTION WIDTH 16.6 % (11.5-14.5); RED BLOOD CELL CT 2.96 /CUMM (4.20-5.40); WHITE BLOOD CELL COUNT 15.5 /CUMM (4.8-10.8)
[2018-04-03] VITALS: BP 116/70
[2018-04-03 05:28] LABS: ABSOLUTE BASOPHIL COUNT 0 /CUMM (0.0-0.2); ABSOLUTE EOSINOPHIL COUNT 0.5 /CUMM (0.0-0.7); ABSOLUTE GRANULOCYTE CT 11.2 /CUMM (1.4-6.5); ABSOLUTE MONOCYTE COUNT 0.6 /CUMM (0.10-0.60); BASOPHIL % 0.3 % (0.0-2.0); EOSINOPHIL % 3.4 % (0-5); HEMATOCRIT 24.4 % (37-47); MEAN CORPUSCULAR HGB 29.1 PG (27.0-31.0); MEAN CORPUSCULAR HGB CONC 33.2 G/DL (33.0-37.0); MEAN CORPUSCULAR VOLUME 87.6 FL (81.0-99.0); MEAN PLATELET VOLUME 8.1 FL (7.4-10.4); PLATELET COUNT 297 /CUMM (130-400); RBC DISTRIBUTION WIDTH 16.4 % (11.5-14.5); RED BLOOD CELL CT 2.79 /CUMM (4.20-5.40); WHITE BLOOD CELL COUNT 14.4 /CUMM (4.8-10.8)
[2018-04-03 08:00] VITALS: BP 140/70
--- NOTE | 2018-04-03 08:27 | PN- Resident CRCU ---
Subjective HPI/CRCU Issues: #Anemia 2/2 acute blood loss, s/p 7U PRBC #Aspiration PNA/Pneumonitis #Afib/HTN #H/o Hypothyroidism #H/o DM #Morbid obesity 24 Hour Events: Pt seen and examined at bedside this am. She c/o headache and nausea. Seems more edematous today. She reports seeing blood tinged urine this am, though appeared after her patrick was dc'd. She continues to be tachycardic, though normotensive. got 1U PRBC yesterday with increase in her Hb to 8.6, now down to 8.1 this am. @ 1300, pt went into afib with a rate of 180s. She started complaining of chest pain, STAT EKG/Troponins sent, no ischemic changes suspected. 10 mg Cardizem IV times 2 pushed, started on a 5 mg/hr drip, up to 15 mg/hr. She converted to SR at 1557, drip down to 7.5mg/hr. No more complains of chest pain at this time. Pt has been hypotensive since then -- 250mL bolus NS x2 given, with increase in BP to 97/57. Objective Vital Signs & I&O Last 8 Hrs of Vitals and I&O: Intake & Output 04/03 1600 04/03 0800 04/03 0000 Intake Total 435 1270 Output Total 300 250 Balance 135 1020 Intake, Blood 360 Product Intake, IV 110 310 Intake, Oral 325 600 Number 0 1 Bowel Movements Output, Urine 300 250 Patient 245 lb Weight Weight Bed scale Measurement Method Laboratory Tests 04/03 04/03 0710 0435 Chemistry Sodium (137 - 145 mmol/L) 139 Potassium (3.5 - 5.1 mmol/L) 4.3 Chloride (98 - 107 mmol/L) 103 Carbon Dioxide (22 - 30 mmol/L) 27 Anion Gap (5 - 16) 9 BUN (7 - 17 mg/dL) 7 Creatinine (0.5 - 1.0 mg/dL) 0.6 Estimated GFR (>60 ml/min) > 60 Glucose (65 - 99 mg/dL) 95 Calcium (8.4 - 10.2 mg/dL) 7.9 L Phosphorus (2.5 - 4.5 mg/dL) 3.7 Magnesium (1.6 - 2.3 mg/dL) 1.9 Total Bilirubin (0.2 - 1.3 mg/dL) 0.5 AST (14 - 36 U/L) 29 ALT (9 - 52 U/L) 36 Albumin (3.5 - 5.0 g/dL) 3.0 L Hematology CBC w Diff NO MAN DIFF REQ WBC (4.8 - 10.8 /CUMM) 14.4 H RBC (4.20 - 5.40 /CUMM) 2.79 L Hgb (12.0 - 16.0 G/DL) 8.1 L Hct (37 - 47 %) 24.4 L MCV (81.0 - 99.0 FL) 87.6 MCH (27.0 - 31.0 PG) 29.1 MCHC (33.0 - 37.0 G/DL) 33.2 RDW (11.5 - 14.5 %) 16.4 H Plt Count (130 - 400 /CUMM) 297 MPV (7.4 - 10.4 FL) 8.1 Gran % (42.2 - 75.2 %) 78.0 H Lymphocytes % (20.5 - 51.1 %) 13.8 L Monocytes % (1.7 - 9.3 %) 4.5 Eosinophils % (0 - 5 %) 3.4 Basophils % (0.0 - 2.0 %) 0.3 Absolute Granulocytes (1.4 - 6.5 /CUMM) 11.2 H Absolute Lymphocytes (1.2 - 3.4 /CUMM) 2.0 Absolute Monocytes (0.10 - 0.60 /CUMM) 0.6 Absolute Eosinophils (0.0 - 0.7 /CUMM) 0.5 Absolute Basophils (0.0 - 0.2 /CUMM) 0 Urines Urine Color (YEL,AMB,STR) YEL Urine Clarity (CLEAR) CLEAR Urine pH (5.0 - 8.0) 6.5 Ur Specific [place] (1.001 - 1.035) 1.020 Urine Protein (NEG,<30 MG/DL) 30 H Urine Ketones (NEG) NEG Urine Nitrite (NEG) NEG Urine Bilirubin (NEG) NEG Urine Urobilinogen (0.1 - 1.0 EU/dl) 0.2 Ur Leukocyte Esterase (NEG) NEG Ur Microscopic SEDIMENT EXAMINED Urine RBC (0 - 5 /HPF) >75 H Urine WBC (0 - 2 /HPF) 1-3 H Ur Epithelial Cells (NONE,FEW) MOD H Urine Bacteria (NEG/NONE) FEW H Urine Hemoglobin (NEG) LARGE H Urine Glucose (N MG/DL) NEG 04/02 1400 Hematology CBC w Diff NO MAN DIFF REQ NO MAN DIFF REQ WBC (4.8 - 10.8 /CUMM) 15.5 H 15.8 H RBC (4.20 - 5.40 /CUMM) 2.96 L 2.59 L Hgb (12.0 - 16.0 G/DL) 8.6 L 7.5 L Hct (37 - 47 %) 25.8 L 22.7 L MCV (81.0 - 99.0 FL) 87.1 87.6 MCH (27.0 - 31.0 PG) 28.9 28.8 MCHC (33.0 - 37.0 G/DL) 33.2 32.9 L RDW (11.5 - 14.5 %) 16.6 H 17.4 H Plt Count (130 - 400 /CUMM) 259 295 MPV (7.4 - 10.4 FL) 8.8 7.7 Gran % (42.2 - 75.2 %) 72.4 75.2 Lymphocytes % (20.5 - 51.1 %) 17.8 L 13.7 L Monocytes % (1.7 - 9.3 %) 5.8 7.3 Eosinophils % (0 - 5 %) 3.8 3.5 Basophils % (0.0 - 2.0 %) 0.2 0.3 Absolute Granulocytes (1.4 - 6.5 /CUMM) 11.2 H 11.9 H Absolute Lymphocytes (1.2 - 3.4 /CUMM) 2.7 2.2 Absolute Monocytes (0.10 - 0.60 /CUMM) 0.9 H 1.2 H Absolute Eosinophils (0.0 - 0.7 /CUMM) 0.6 0.5 Absolute Basophils (0.0 - 0.2 /CUMM) 0 0.1 Vital Signs Date Time Temp Pulse Resp B/P B/P Pulse O2 O2 Flow FiO2 Mean Ox Delivery Rate 04/03 0400 95 Nasal 2.0L Cannula 04/03 0000 96 Nasal 2.0L Cannula 04/03 0000 97.5 88 20 116/70 96 Nasal 2.0L Cannula 04/02 2116 107 20 147/69 04/02 2000 96 Nasal 1.0L Cannula 04/02 2000 97.5 94 24 130/62 96 Nasal 1.0L Cannula 04/02 1528 95 Nasal 1.0L Cannula 04/02 1528 98.0 92 20 122/60 95 Nasal 1.0L Cannula 04/02 1200 97 Nasal 1.0L Cannula Exam General Appearance: alert, awake, mild distress, obese Head: atraumatic, normal appearance Neck: normal inspection, supple Respiratory: chest non-tender, mild respiratory distress at rest, though reports no acute worsening on ambulation, bibasilar crackles Cardiovascular: regular rate/rhythm, edema, tachycardia Gastrointestinal: normal bowel sounds, soft, non-tender, no organomegaly Extremities: normal inspection, pedal edema Cranial Nerves: normal hearing, normal speech Current Medications: Current Medications Sig/Ceasar Start time Last Medication Dose Route Stop Time Status Admin Acetaminophen 1,000 MG .STK-MED ONE 04/02 2233 DC IV 04/02 2234 Acetaminophen 1,000 MG .STK-MED ONE 04/02 1524 DC IV 04/02 1525 Acetaminophen 1,000 MG Q6P PRN 03/29 1700 AC 04/02 N/A 1 UNIT IV 2234 Ampicillin Sodium/ 3,000 MG Q6H 03/30 2230 AC 04/03 Sulbactam Sodium IV 0425 Sodium Chloride 100 ML Benzocaine/Menthol 1 NED Q2P PRN 03/31 1000 AC PO Furosemide 20 MG ONCE ONE 04/03 0845 DC IV 04/03 0846 Guaifenesin/Codeine 10 ML Q6P PRN 04/03 0915 AC Phosphate PO Levothyroxine Sodium 0.05 MG DAILY AC 04/01 0700 AC 04/03 PO 0757 Metoprolol Tartrate 100 MG BID 04/01 0900 AC 04/03 PO 0829 Morphine Sulfate 2 MG Q4P PRN 03/29 1700 AC IV Ondansetron HCl 4 MG Q6P PRN 03/31 1415 AC 04/03 IV 0829 Pantoprazole Sodium 40 MG BID 04/01 2100 AC 04/03 IV 0829 Phenol 2 SPRAY Q2P PRN 03/31 1000 AC 03/31 EXT 1231 Simethicone 40 MG Q6P PRN 04/03 0600 AC 04/03 PO 0829 CXR Findings: 04/02 EXAM TYPE: RAD - XRY-PORTABLE CHEST XRAY EXAMINATION: XR PORTABLE CHEST CLINICAL INFORMATION: 52-year-old female with pulmonary edema/pneumonia. Increasing oxygen requirement. COMPARISON: Chest done on 03/31/2018. TECHNIQUE: Portable frontal view of the chest was obtained. FINDINGS: Dense airspace opacities noted at right lower lung field medially, may represent pneumonia versus atelectasis or combination thereof. Lesser extensive subtle airspace disease also noted at left lower lobe. The remainder of the lung mcdon[place] are clear. The cardiomediastinal silhouette is within normal limit. There is no pleural effusion present. IMPRESSION: Dense airspace disease at right lower lobe medially. Subtle airspace disease at left lung base. Impression/Plan Impression/Problem List Impression: 52 y/o F with PMH of paroxysmal afib on apixaban, HTN, HFpEF. obesity, JASON and remote h/o hodgkin's s/p presented to the ED c/o of 1 day history of nausea, coffee ground emesis, and melena. On the ED, she was found to be hypotensive (85 /55) with H/H 7.2/22.3 with lactic acidemia. She was transfused 1U PRBC and 1L crystalloid bolus - NGT placement for gastric lavage was attempted but unsuccessful. GI was consulted and the patient was admitted to the ICU for management of hypotension and emergent EGD. IMPRESSION #Anemia 2/2 acute blood loss, s/p 7U PRBC #Aspiration PNA/Pneumonitis #ELIAN, resolved #Afib/HTN #H/o Hypothyroidism #H/o DM #Morbid obesity #Anemia 2/2 acute blood loss, s/p 7U PRBC Patient's CBC and clinical presentation are indicative of acute blood loss as a cause of her anemia. The source is most likely from the GI tract. An EGD was done which found an oblong gastric ulcer that was oozing that was left intact due to patient being on apixaban.Second EGD done on 03/30 treated the oblong gastril ulcer. Her H/H now is down to 8.1/24.4 after rising to 8.6 s/p 1U PRBC (7th overall) on 04/02. Will continue to monitor CBCs with the goal of keeping Hb>8. -Serial CBCs q8, monitor H/H -IV PPI #ELIAN, resolved On admit pt had BUN/Cr 46/1.2, likely resulting from her acute blood loss resulting in hypotension. BUN/Cr is back to normal as a result of fluid therapy. #Aspiration PNA/Pneumonitis Possibility of aspiration due to vomiting and posterior intubation. CXR shows multifocal diffuse b/l parenchymal opacities, though pt is afebrile and WBC remains high. IV unasyn was started. Resp. culture growing Staph Aureus sensitive to unasyn. -Unasyn day #5 #Afib/HTN Pt has a h/o pAFib on apixaban since 1 year ago -- she has needed electrical cardioversion in the past. Cardiology was consulted with regards to her anticoagulation and recommendations are being followed. alf plan is to perhaps ablate by Dr. Muñoz. On 04/03, pt went into afib with a rate of 180s. She started complaining of chest pain, STAT EKG/Troponins sent, no ischemic changes suspected. 10 mg Cardizem IV times 2 pushed, started on a 5 mg/hr drip, up to 15 mg/hr. She converted to SR at 1557, drip down to 7.5mg/hr. No more complains of chest pain at this time. Pt has been hypotensive since then -- 250mL bolus NS x2 given, with increase in BP to 97/57. -Hold Apixaban -cardizem gtt 7.5mg/hr #H/o hypothyroidism Pt with a h/o hypothyroidism with latest TSH on record normal (3450 on 02/25). -Continue synthroid IV 25 mcg qD #H/o DM pt with a h/o DM, latest A1C on record is 6.9% on 03/01. Latest glucose is 99. -Bedside glucose monitoring q6 FULL CODE FULL LIQUID DIET - plans to advance as tolerated DVT PPX: [facility] Problem List: 1. Upper GI bleed Pain Ratin Pain Location: headache Tomorrow's Labs & Rationales: cbc icu lab bundle Plan DVT/Prophylaxis: mechanical
--- NOTE | 2018-04-03 10:19 | PN- Pulmonary ---
Subjective HPI/Critical Care Issues: Pt seen and examined at bedside this am. She c/o headache and nausea. Seems more edematous today. She reports seeing blood tinged urine this am, though appeared after her patrick was dc'd. She continues to be tachycardic, though normotensive. got 1U PRBC yesterday with increase in her Hb to 8.6, now down to 8.1 this am. Objective Current Medications: Current Medications Sig/Ceasar Start time Last Medication Dose Route Stop Time Status Admin Acetaminophen 1,000 MG .STK-MED ONE 04/02 2233 DC IV 04/02 2234 Acetaminophen 1,000 MG .STK-MED ONE 04/02 1524 DC IV 04/02 1525 Acetaminophen 1,000 MG Q6P PRN 03/29 1700 AC 04/02 N/A 1 UNIT IV 2234 Ampicillin Sodium/ 3,000 MG Q6H 03/30 2230 AC 04/03 Sulbactam Sodium IV 1006 Sodium Chloride 100 ML Benzocaine/Menthol 1 NED Q2P PRN 03/31 1000 AC PO Furosemide 20 MG ONCE ONE 04/03 0845 DC IV 04/03 0846 Guaifenesin/Codeine 10 ML Q4-6 PRN PRN 04/03 1015 UNVr Phosphate PO Guaifenesin/Codeine 10 ML Q6P PRN 04/03 0915 DC Phosphate PO Levothyroxine Sodium 0.05 MG DAILY AC 04/01 0700 AC 04/03 PO 0757 Metoprolol Tartrate 100 MG BID 04/01 0900 AC 04/03 PO 0829 Morphine Sulfate 2 MG Q4P PRN 03/29 1700 AC IV Ondansetron HCl 4 MG Q6P PRN 03/31 1415 AC 04/03 IV 0829 Pantoprazole Sodium 40 MG BID 04/01 2100 AC 04/03 IV 0829 Phenol 2 SPRAY Q2P PRN 03/31 1000 AC 03/31 EXT 1231 Simethicone 40 MG Q6P PRN 04/03 0600 AC 04/03 PO 0829 Vital Signs & I&O Last 24 Hrs of Vitals and I&O: Vital Signs Date Time Temp Pulse Resp B/P B/P Pulse O2 O2 Flow FiO2 Mean Ox Delivery Rate 04/03 0400 95 Nasal 2.0L Cannula 04/03 0000 96 Nasal 2.0L Cannula 04/03 0000 97.5 88 20 116/70 96 Nasal 2.0L Cannula 04/02 2116 107 20 147/69 04/02 2000 96 Nasal 1.0L Cannula 04/02 2000 97.5 94 24 130/62 96 Nasal 1.0L Cannula 04/02 1528 95 Nasal 1.0L Cannula 04/02 1528 98.0 92 20 122/60 95 Nasal 1.0L Cannula 04/02 1200 97 Nasal 1.0L Cannula Intake & Output 04/03 1600 04/03 0800 04/03 0000 Intake Total 435 1270 Output Total 300 250 Balance 135 1020 Intake, Blood 360 Product Intake, IV 110 310 Intake, Oral 325 600 Number 0 1 Bowel Movements Output, Urine 300 250 Patient 245 lb Weight Weight Bed scale Measurement Method Laboratory Tests 04/03 04/03 0710 0435 Chemistry Sodium (137 - 145 mmol/L) 139 Potassium (3.5 - 5.1 mmol/L) 4.3 Chloride (98 - 107 mmol/L) 103 Carbon Dioxide (22 - 30 mmol/L) 27 Anion Gap (5 - 16) 9 BUN (7 - 17 mg/dL) 7 Creatinine (0.5 - 1.0 mg/dL) 0.6 Estimated GFR (>60 ml/min) > 60 Glucose (65 - 99 mg/dL) 95 Calcium (8.4 - 10.2 mg/dL) 7.9 L Phosphorus (2.5 - 4.5 mg/dL) 3.7 Magnesium (1.6 - 2.3 mg/dL) 1.9 Total Bilirubin (0.2 - 1.3 mg/dL) 0.5 AST (14 - 36 U/L) 29 ALT (9 - 52 U/L) 36 Albumin (3.5 - 5.0 g/dL) 3.0 L Hematology CBC w Diff NO MAN DIFF REQ WBC (4.8 - 10.8 /CUMM) 14.4 H RBC (4.20 - 5.40 /CUMM) 2.79 L Hgb (12.0 - 16.0 G/DL) 8.1 L Hct (37 - 47 %) 24.4 L MCV (81.0 - 99.0 FL) 87.6 MCH (27.0 - 31.0 PG) 29.1 MCHC (33.0 - 37.0 G/DL) 33.2 RDW (11.5 - 14.5 %) 16.4 H Plt Count (130 - 400 /CUMM) 297 MPV (7.4 - 10.4 FL) 8.1 Gran % (42.2 - 75.2 %) 78.0 H Lymphocytes % (20.5 - 51.1 %) 13.8 L Monocytes % (1.7 - 9.3 %) 4.5 Eosinophils % (0 - 5 %) 3.4 Basophils % (0.0 - 2.0 %) 0.3 Absolute Granulocytes (1.4 - 6.5 /CUMM) 11.2 H Absolute Lymphocytes (1.2 - 3.4 /CUMM) 2.0 Absolute Monocytes (0.10 - 0.60 /CUMM) 0.6 Absolute Eosinophils (0.0 - 0.7 /CUMM) 0.5 Absolute Basophils (0.0 - 0.2 /CUMM) 0 Urines Urine Color (YEL,AMB,STR) YEL Urine Clarity (CLEAR) CLEAR Urine pH (5.0 - 8.0) 6.5 Ur Specific [place] (1.001 - 1.035) 1.020 Urine Protein (NEG,<30 MG/DL) 30 H Urine Ketones (NEG) NEG Urine Nitrite (NEG) NEG Urine Bilirubin (NEG) NEG Urine Urobilinogen (0.1 - 1.0 EU/dl) 0.2 Ur Leukocyte Esterase (NEG) NEG Ur Microscopic SEDIMENT EXAMINED Urine RBC (0 - 5 /HPF) >75 H Urine WBC (0 - 2 /HPF) 1-3 H Ur Epithelial Cells (NONE,FEW) MOD H Urine Bacteria (NEG/NONE) FEW H Urine Hemoglobin (NEG) LARGE H Urine Glucose (N MG/DL) NEG 04/02 04/02 2045 1400 Hematology CBC w Diff NO MAN DIFF REQ NO MAN DIFF REQ WBC (4.8 - 10.8 /CUMM) 15.5 H 15.8 H RBC (4.20 - 5.40 /CUMM) 2.96 L 2.59 L Hgb (12.0 - 16.0 G/DL) 8.6 L 7.5 L Hct (37 - 47 %) 25.8 L 22.7 L MCV (81.0 - 99.0 FL) 87.1 87.6 MCH (27.0 - 31.0 PG) 28.9 28.8 MCHC (33.0 - 37.0 G/DL) 33.2 32.9 L RDW (11.5 - 14.5 %) 16.6 H 17.4 H Plt Count (130 - 400 /CUMM) 259 295 MPV (7.4 - 10.4 FL) 8.8 7.7 Gran % (42.2 - 75.2 %) 72.4 75.2 Lymphocytes % (20.5 - 51.1 %) 17.8 L 13.7 L Monocytes % (1.7 - 9.3 %) 5.8 7.3 Eosinophils % (0 - 5 %) 3.8 3.5 Basophils % (0.0 - 2.0 %) 0.2 0.3 Absolute Granulocytes (1.4 - 6.5 /CUMM) 11.2 H 11.9 H Absolute Lymphocytes (1.2 - 3.4 /CUMM) 2.7 2.2 Absolute Monocytes (0.10 - 0.60 /CUMM) 0.9 H 1.2 H Absolute Eosinophils (0.0 - 0.7 /CUMM) 0.6 0.5 Absolute Basophils (0.0 - 0.2 /CUMM) 0 0.1 04/02 Chemistry Sodium (137 - 145 mmol/L) 140 Potassium (3.5 - 5.1 mmol/L) 3.9 Chloride (98 - 107 mmol/L) 103 Carbon Dioxide (22 - 30 mmol/L) 28 Anion Gap (5 - 16) 8 BUN (7 - 17 mg/dL) 8 Creatinine (0.5 - 1.0 mg/dL) 0.7 Estimated GFR (>60 ml/min) > 60 Glucose (65 - 99 mg/dL) 89 Calcium (8.4 - 10.2 mg/dL) 7.7 L Phosphorus (2.5 - 4.5 mg/dL) 3.6 Magnesium (1.6 - 2.3 mg/dL) 2.0 Total Bilirubin (0.2 - 1.3 mg/dL) 0.3 AST (14 - 36 U/L) 21 ALT (9 - 52 U/L) 33 Albumin (3.5 - 5.0 g/dL) 2.9 L Hematology CBC w Diff NO MAN DIFF REQ NO MAN DIFF REQ WBC (4.8 - 10.8 /CUMM) 16.6 H 19.3 H RBC (4.20 - 5.40 /CUMM) 2.70 L 3.13 L Hgb (12.0 - 16.0 G/DL) 7.8 L 9.1 L Hct (37 - 47 %) 23.7 L 27.7 L MCV (81.0 - 99.0 FL) 87.9 88.5 MCH (27.0 - 31.0 PG) 29.0 29.0 MCHC (33.0 - 37.0 G/DL) 33.1 32.8 L RDW (11.5 - 14.5 %) 17.3 H 17.3 H Plt Count (130 - 400 /CUMM) 267 282 MPV (7.4 - 10.4 FL) 7.9 7.6 Gran % (42.2 - 75.2 %) 76.8 H 82.2 H Lymphocytes % (20.5 - 51.1 %) 14.1 L 9.8 L Monocytes % (1.7 - 9.3 %) 5.6 4.9 Eosinophils % (0 - 5 %) 3.3 2.9 Basophils % (0.0 - 2.0 %) 0.2 0.2 Absolute Granulocytes (1.4 - 6.5 /CUMM) 12.7 H 15.8 H Absolute Lymphocytes (1.2 - 3.4 /CUMM) 2.3 1.9 Absolute Monocytes (0.10 - 0.60 /CUMM) 0.9 H 0.9 H Absolute Eosinophils (0.0 - 0.7 /CUMM) 0.5 0.6 Absolute Basophils (0.0 - 0.2 /CUMM) 0 0 07/19 1312 Hematology CBC w Diff NO MAN DIFF REQ WBC (4.8 - 10.8 /CUMM) 18.4 H RBC (4.20 - 5.40 /CUMM) 2.51 L Hgb (12.0 - 16.0 G/DL) 7.3 *L Hct (37 - 47 %) 22.0 L MCV (81.0 - 99.0 FL) 87.3 MCH (27.0 - 31.0 PG) 28.8 MCHC (33.0 - 37.0 G/DL) 33.0 RDW (11.5 - 14.5 %) 17.3 H Plt Count (130 - 400 /CUMM) 244 MPV (7.4 - 10.4 FL) 7.5 Gran % (42.2 - 75.2 %) 83.3 H Lymphocytes % (20.5 - 51.1 %) 8.1 L Monocytes % (1.7 - 9.3 %) 6.3 Eosinophils % (0 - 5 %) 2.2 Basophils % (0.0 - 2.0 %) 0.1 Absolute Granulocytes (1.4 - 6.5 /CUMM) 15.3 H Absolute Lymphocytes (1.2 - 3.4 /CUMM) 1.5 Absolute Monocytes (0.10 - 0.60 /CUMM) 1.2 H Absolute Eosinophils (0.0 - 0.7 /CUMM) 0.4 Absolute Basophils (0.0 - 0.2 /CUMM) 0 Impression/Plan Impression/Plan Impression/Plan: General Appearance: alert, awake, mild distress, obese Head: atraumatic, normal appearance Neck: normal inspection, supple Respiratory: chest non-tender, mild respiratory distress at rest, though reports no acute worsening on ambulation, bibasilar crackles Cardiovascular: regular rate/rhythm, edema, tachycardia Gastrointestinal: normal bowel sounds, soft, non-tender, no organomegaly Extremities: normal inspection, pedal edema Cranial Nerves: normal hearing, normal speech cxr IMPRESSION: Dense airspace disease at right lower lobe medially. Subtle airspace disease at left lung base. 52 y/o F with PMH of paroxysmal afib on apixaban, HTN, HFpEF. obesity, JASON and remote h/o hodgkin's s/p presented to the ED c/o of 1 day history of nausea, coffee ground emesis, and melena. On the ED, she was found to be hypotensive (85 /55) with H/H 7.2/22.3 with lactic acidemia. She was transfused 1U PRBC and 1L crystalloid bolus - NGT placement for gastric lavage was attempted but unsuccessful. GI was consulted and the patient was admitted to the ICU for management of hypotension and emergent EGD. IMPRESSION #Anemia 2/2 acute blood loss, s/p 7U PRBC/ GI bleed from gastric ulcer #Aspiration PNA/Pneumonitis, now with staph in the sputum sensitive to unasyn #ELIAN, resolved #Afib/HTN was on anticoag #H/o Hypothyroidism #H/o DM #Morbid obesity REC Cont abx PPI Transfuse to hemoglobin of 8 or less Gi to follow for consideration of rpt egd Cont levoxyl Sugar control Will follow
--- NOTE | 2018-04-03 12:13 | PN- Gastroenterology ---
Assessment/Plan GI Assessment/Recommendations: GI bleed Gastric ulcer Blood loss anemia Slight drop in hemoglobin/hematocrit Recommendations * Advance to regular diet; begin clear liquids after midnight * Continue to follow CBC. * Continue IV PPI twice a day * With further decline in hemoglobin, consideration for re-endoscopy tomorrow. Subjective Subjective: No bowel movements, or overt GI bleeding. Hematuria resolved. Mild nausea. Tolerating full liquid diet. Objective Vital Signs and I&Os Vital Signs Date Time Temp Pulse Resp B/P B/P Pulse O2 O2 Flow FiO2 Mean Ox Delivery Rate 04/03 0800 94 Nasal 2.0L Cannula 04/03 0800 98.8 104 20 140/70 94 Nasal 2.0L Cannula 04/03 0400 95 Nasal 2.0L Cannula 04/03 0000 96 Nasal 2.0L Cannula 04/03 0000 97.5 88 20 116/70 96 Nasal 2.0L Cannula 04/02 2116 107 20 147/69 04/02 2000 96 Nasal 1.0L Cannula 04/02 2000 97.5 94 24 130/62 96 Nasal 1.0L Cannula 04/02 1528 95 Nasal 1.0L Cannula 04/02 1528 98.0 92 20 122/60 95 Nasal 1.0L Cannula Intake & Output 04/03 1600 04/03 0400 04/02 1600 04/02 0400 04/01 1600 04/01 0400 Intake Total 435 1270 1235 835 3285 690 Output Total 300 625 247 2145 500 600 Balance 135 1020 920 -800 620 90 Intake, Blood 360 Product Intake, IV 110 310 360 360 360 120 Intake, Oral 541 603 8016 240 760 570 Number 0 1 1 2 0 Bowel Movements Output, Urine 300 642 282 2806 500 600 Patient 245 lb Weight Weight Bed scale Measurement Method Physical Exam: Abdomen soft, obese/nondistended, nontender. Current Medications: Current Medications Sig/Ceasar Start time Last Medication Dose Route Stop Time Status Admin Acetaminophen 1,000 MG .STK-MED ONE 04/02 2233 DC IV 04/02 223 Acetaminophen 1,000 MG .STK-MED ONE 04/02 1524 DC IV 04/02 1525 Acetaminophen 1,000 MG Q6P PRN 03/29 1700 AC 04/02 N/A 1 UNIT IV 2234 Ampicillin Sodium/ 3,000 MG Q6H 03/30 2230 AC 04/03 Sulbactam Sodium IV 1006 Sodium Chloride 100 ML Benzocaine/Menthol 1 NED Q2P PRN 03/31 1000 AC PO Furosemide 20 MG ONCE ONE 04/03 0845 DC 04/03 IV 04/03 0846 1000 Guaifenesin/Codeine 10 ML Q4-6 PRN PRN 04/03 1015 AC 04/03 Phosphate PO 0900 Guaifenesin/Codeine 10 ML Q6P PRN 04/03 0915 DC Phosphate PO Levothyroxine Sodium 0.05 MG DAILY AC 04/01 0700 AC 04/03 PO 0757 Metoprolol Tartrate 100 MG BID 04/01 0900 AC 04/03 PO 0829 Morphine Sulfate 2 MG Q4P PRN 03/29 1700 AC IV Ondansetron HCl 4 MG Q6P PRN 03/31 1415 AC 04/03 IV 0829 Pantoprazole Sodium 40 MG BID 04/01 2100 AC 04/03 IV 0829 Phenol 2 SPRAY Q2P PRN 03/31 1000 AC 03/31 EXT 1231 Simethicone 40 MG Q6P PRN 04/03 0600 AC 04/03 PO 0829 Results Pertinent Lab Results: Laboratory Tests 04/03 04/03 0710 0435 Chemistry Sodium (137 - 145 mmol/L) 139 Potassium (3.5 - 5.1 mmol/L) 4.3 Chloride (98 - 107 mmol/L) 103 Carbon Dioxide (22 - 30 mmol/L) 27 Anion Gap (5 - 16) 9 BUN (7 - 17 mg/dL) 7 Creatinine (0.5 - 1.0 mg/dL) 0.6 Estimated GFR (>60 ml/min) > 60 Glucose (65 - 99 mg/dL) 95 Calcium (8.4 - 10.2 mg/dL) 7.9 L Phosphorus (2.5 - 4.5 mg/dL) 3.7 Magnesium (1.6 - 2.3 mg/dL) 1.9 Total Bilirubin (0.2 - 1.3 mg/dL) 0.5 AST (14 - 36 U/L) 29 ALT (9 - 52 U/L) 36 Albumin (3.5 - 5.0 g/dL) 3.0 L Hematology CBC w Diff NO MAN DIFF REQ WBC (4.8 - 10.8 /CUMM) 14.4 H RBC (4.20 - 5.40 /CUMM) 2.79 L Hgb (12.0 - 16.0 G/DL) 8.1 L Hct (37 - 47 %) 24.4 L MCV (81.0 - 99.0 FL) 87.6 MCH (27.0 - 31.0 PG) 29.1 MCHC (33.0 - 37.0 G/DL) 33.2 RDW (11.5 - 14.5 %) 16.4 H Plt Count (130 - 400 /CUMM) 297 MPV (7.4 - 10.4 FL) 8.1 Gran % (42.2 - 75.2 %) 78.0 H Lymphocytes % (20.5 - 51.1 %) 13.8 L Monocytes % (1.7 - 9.3 %) 4.5 Eosinophils % (0 - 5 %) 3.4 Basophils % (0.0 - 2.0 %) 0.3 Absolute Granulocytes (1.4 - 6.5 /CUMM) 11.2 H Absolute Lymphocytes (1.2 - 3.4 /CUMM) 2.0 Absolute Monocytes (0.10 - 0.60 /CUMM) 0.6 Absolute Eosinophils (0.0 - 0.7 /CUMM) 0.5 Absolute Basophils (0.0 - 0.2 /CUMM) 0 Urines Urine Color (YEL,AMB,STR) YEL Urine Clarity (CLEAR) CLEAR Urine pH (5.0 - 8.0) 6.5 Ur Specific [place] (1.001 - 1.035) 1.020 Urine Protein (NEG,<30 MG/DL) 30 H Urine Ketones (NEG) NEG Urine Nitrite (NEG) NEG Urine Bilirubin (NEG) NEG Urine Urobilinogen (0.1 - 1.0 EU/dl) 0.2 Ur Leukocyte Esterase (NEG) NEG Ur Microscopic SEDIMENT EXAMINED Urine RBC (0 - 5 /HPF) >75 H Urine WBC (0 - 2 /HPF) 1-3 H Ur Epithelial Cells (NONE,FEW) MOD H Urine Bacteria (NEG/NONE) FEW H Urine Hemoglobin (NEG) LARGE H Urine Glucose (N MG/DL) NEG 04/025 1400 Hematology CBC w Diff NO MAN DIFF REQ NO MAN DIFF REQ WBC (4.8 - 10.8 /CUMM) 15.5 H 15.8 H RBC (4.20 - 5.40 /CUMM) 2.96 L 2.59 L Hgb (12.0 - 16.0 G/DL) 8.6 L 7.5 L Hct (37 - 47 %) 25.8 L 22.7 L MCV (81.0 - 99.0 FL) 87.1 87.6 MCH (27.0 - 31.0 PG) 28.9 28.8 MCHC (33.0 - 37.0 G/DL) 33.2 32.9 L RDW (11.5 - 14.5 %) 16.6 H 17.4 H Plt Count (130 - 400 /CUMM) 259 295 MPV (7.4 - 10.4 FL) 8.8 7.7 Gran % (42.2 - 75.2 %) 72.4 75.2 Lymphocytes % (20.5 - 51.1 %) 17.8 L 13.7 L Monocytes % (1.7 - 9.3 %) 5.8 7.3 Eosinophils % (0 - 5 %) 3.8 3.5 Basophils % (0.0 - 2.0 %) 0.2 0.3 Absolute Granulocytes (1.4 - 6.5 /CUMM) 11.2 H 11.9 H Absolute Lymphocytes (1.2 - 3.4 /CUMM) 2.7 2.2 Absolute Monocytes (0.10 - 0.60 /CUMM) 0.9 H 1.2 H Absolute Eosinophils (0.0 - 0.7 /CUMM) 0.6 0.5 Absolute Basophils (0.0 - 0.2 /CUMM) 0 0.1 04/02 Chemistry Sodium (137 - 145 mmol/L) 140 Potassium (3.5 - 5.1 mmol/L) 3.9 Chloride (98 - 107 mmol/L) 103 Carbon Dioxide (22 - 30 mmol/L) 28 Anion Gap (5 - 16) 8 BUN (7 - 17 mg/dL) 8 Creatinine (0.5 - 1.0 mg/dL) 0.7 Estimated GFR (>60 ml/min) > 60 Glucose (65 - 99 mg/dL) 89 Calcium (8.4 - 10.2 mg/dL) 7.7 L Phosphorus (2.5 - 4.5 mg/dL) 3.6 Magnesium (1.6 - 2.3 mg/dL) 2.0 Total Bilirubin (0.2 - 1.3 mg/dL) 0.3 AST (14 - 36 U/L) 21 ALT (9 - 52 U/L) 33 Albumin (3.5 - 5.0 g/dL) 2.9 L Hematology CBC w Diff NO MAN DIFF REQ NO MAN DIFF REQ WBC (4.8 - 10.8 /CUMM) 16.6 H 19.3 H RBC (4.20 - 5.40 /CUMM) 2.70 L 3.13 L Hgb (12.0 - 16.0 G/DL) 7.8 L 9.1 L Hct (37 - 47 %) 23.7 L 27.7 L MCV (81.0 - 99.0 FL) 87.9 88.5 MCH (27.0 - 31.0 PG) 29.0 29.0 MCHC (33.0 - 37.0 G/DL) 33.1 32.8 L RDW (11.5 - 14.5 %) 17.3 H 17.3 H Plt Count (130 - 400 /CUMM) 267 282 MPV (7.4 - 10.4 FL) 7.9 7.6 Gran % (42.2 - 75.2 %) 76.8 H 82.2 H Lymphocytes % (20.5 - 51.1 %) 14.1 L 9.8 L Monocytes % (1.7 - 9.3 %) 5.6 4.9 Eosinophils % (0 - 5 %) 3.3 2.9 Basophils % (0.0 - 2.0 %) 0.2 0.2 Absolute Granulocytes (1.4 - 6.5 /CUMM) 12.7 H 15.8 H Absolute Lymphocytes (1.2 - 3.4 /CUMM) 2.3 1.9 Absolute Monocytes (0.10 - 0.60 /CUMM) 0.9 H 0.9 H Absolute Eosinophils (0.0 - 0.7 /CUMM) 0.5 0.6 Absolute Basophils (0.0 - 0.2 /CUMM) 0 0 04/01 04/01 1312 0345 Chemistry Sodium (137 - 145 mmol/L) 141 Potassium (3.5 - 5.1 mmol/L) 3.6 Chloride (98 - 107 mmol/L) 105 Carbon Dioxide (22 - 30 mmol/L) 25 Anion Gap (5 - 16) 11 BUN (7 - 17 mg/dL) 7 Creatinine (0.5 - 1.0 mg/dL) 0.7 Estimated GFR (>60 ml/min) > 60 Glucose (65 - 99 mg/dL) 95 Calcium (8.4 - 10.2 mg/dL) 7.6 L Phosphorus (2.5 - 4.5 mg/dL) 3.4 Magnesium (1.6 - 2.3 mg/dL) 2.0 Total Bilirubin (0.2 - 1.3 mg/dL) 0.4 AST (14 - 36 U/L) 16 ALT (9 - 52 U/L) 25 Troponin I (< 0.11 ng/ml) 0.03 Albumin (3.5 - 5.0 g/dL) 2.8 L Hematology CBC w Diff NO MAN DIFF REQ NO MAN DIFF REQ WBC (4.8 - 10.8 /CUMM) 18.4 H 20.9 H RBC (4.20 - 5.40 /CUMM) 2.51 L 2.65 L Hgb (12.0 - 16.0 G/DL) 7.3 *L 7.6 L Hct (37 - 47 %) 22.0 L 23.1 L MCV (81.0 - 99.0 FL) 87.3 87.1 MCH (27.0 - 31.0 PG) 28.8 28.7 MCHC (33.0 - 37.0 G/DL) 33.0 32.9 L RDW (11.5 - 14.5 %) 17.3 H 17.4 H Plt Count (130 - 400 /CUMM) 244 223 MPV (7.4 - 10.4 FL) 7.5 7.8 Gran % (42.2 - 75.2 %) 83.3 H 81.6 H Lymphocytes % (20.5 - 51.1 %) 8.1 L 9.8 L Monocytes % (1.7 - 9.3 %) 6.3 6.0 Eosinophils % (0 - 5 %) 2.2 2.3 Basophils % (0.0 - 2.0 %) 0.1 0.3 Absolute Granulocytes (1.4 - 6.5 /CUMM) 15.3 H 17.1 H Absolute Lymphocytes (1.2 - 3.4 /CUMM) 1.5 2.1 Absolute Monocytes (0.10 - 0.60 /CUMM) 1.2 H 1.3 H Absolute Eosinophils (0.0 - 0.7 /CUMM) 0.4 0.5 Absolute Basophils (0.0 - 0.2 /CUMM) 0 0.1 03/31 1745 Hematology CBC w Diff NO MAN DIFF REQ WBC (4.8 - 10.8 /CUMM) 21.3 H RBC (4.20 - 5.40 /CUMM) 3.06 L Hgb (12.0 - 16.0 G/DL) 8.7 L Hct (37 - 47 %) 26.5 L MCV (81.0 - 99.0 FL) 86.3 MCH (27.0 - 31.0 PG) 28.5 MCHC (33.0 - 37.0 G/DL) 33.0 RDW (11.5 - 14.5 %) 17.8 H Plt Count (130 - 400 /CUMM) 224 MPV (7.4 - 10.4 FL) 7.8 Gran % (42.2 - 75.2 %) 81.5 H Lymphocytes % (20.5 - 51.1 %) 9.7 L Monocytes % (1.7 - 9.3 %) 6.2 Eosinophils % (0 - 5 %) 2.2 Basophils % (0.0 - 2.0 %) 0.4 Absolute Granulocytes (1.4 - 6.5 /CUMM) 17.3 H Absolute Lymphocytes (1.2 - 3.4 /CUMM) 2.1 Absolute Monocytes (0.10 - 0.60 /CUMM) 1.3 H Absolute Eosinophils (0.0 - 0.7 /CUMM) 0.5 Absolute Basophils (0.0 - 0.2 /CUMM) 0.1
[2018-04-03 13:28] LABS: ABSOLUTE BASOPHIL COUNT 0.1 /CUMM (0.0-0.2); ABSOLUTE EOSINOPHIL COUNT 0.4 /CUMM (0.0-0.7); ABSOLUTE GRANULOCYTE CT 13.6 /CUMM (1.4-6.5); ABSOLUTE LYMPH COUNT 1.8 /CUMM (1.2-3.4); ABSOLUTE MONOCYTE COUNT 0.9 /CUMM (0.10-0.60); BASOPHIL % 0.3 % (0.0-2.0); EOSINOPHIL % 2.5 % (0-5); GRANULOCYTE % 80.7 % (42.2-75.2); HEMATOCRIT 26.9 % (37-47); MEAN CORPUSCULAR HGB 29.1 PG (27.0-31.0); MEAN CORPUSCULAR HGB CONC 33.4 G/DL (33.0-37.0); MEAN CORPUSCULAR VOLUME 87.1 FL (81.0-99.0); MEAN PLATELET VOLUME 6.9 FL (7.4-10.4); PLATELET COUNT 374 /CUMM (130-400); RBC DISTRIBUTION WIDTH 16.5 % (11.5-14.5); RED BLOOD CELL CT 3.08 /CUMM (4.20-5.40); WHITE BLOOD CELL COUNT 16.9 /CUMM (4.8-10.8)
--- NOTE | 2018-04-03 13:37 | PN- Cardiology ---
Subjective Subjective: Called to see patient after she went back into atrial fibrillation with a rapid ventricular response. Objective Vital Signs and I&Os Vital Signs Date Time Temp Pulse Resp B/P B/P Pulse O2 O2 Flow FiO2 Mean Ox Delivery Rate 04/03 1248 178 93/51 04/03 0800 94 Nasal 2.0L Cannula 04/03 0800 98.8 104 20 140/70 94 Nasal 2.0L Cannula 04/03 0400 95 Nasal 2.0L Cannula 04/03 0000 96 Nasal 2.0L Cannula 04/03 0000 97.5 88 20 116/70 96 Nasal 2.0L Cannula 04/02 2116 107 20 147/69 04/02 2000 96 Nasal 1.0L Cannula 04/02 2000 97.5 94 24 130/62 96 Nasal 1.0L Cannula 04/02 1528 95 Nasal 1.0L Cannula 04/02 1528 98.0 92 20 122/60 95 Nasal 1.0L Cannula Intake & Output 04/03 1600 04/03 0800 04/03 0000 04/02 1600 04/02 0800 04/02 0000 Intake Total 435 1270 1020 700 600 Output Total 300 250 750 033 2761 Balance 135 1020 720 200 -800 Intake, Blood 360 Product Intake, IV 110 310 140 220 360 Intake, Oral 325 600 880 480 240 Number 0 1 1 2 Bowel Movements Output, Urine 300 250 992 984 2168 Patient 245 lb Weight Weight Bed scale Measurement Method Physical Exam: Well-developed, overweight middle-aged AA female in no acute distress. Vital signs: See above. Neck: No JVD, no bruits. Lungs: Clear to auscultation. Heart: S1, S2 2/6 systolic murmur. Abdomen: Soft, nontender, positive bowel sounds. Extremities: No edema. Current Medications: Current Medications Sig/Ceasar Start time Last Medication Dose Route Stop Time Status Admin Acetaminophen 1,000 MG .STK-MED ONE 04/02 2233 DC IV 04/02 2234 Acetaminophen 1,000 MG .STK-MED ONE 04/02 1524 DC IV 04/02 1525 Acetaminophen 1,000 MG Q6P PRN 03/29 1700 AC 04/02 N/A 1 UNIT IV 2234 Ampicillin Sodium/ 3,000 MG Q6H 03/30 2230 AC 04/03 Sulbactam Sodium IV 1006 Sodium Chloride 100 ML Benzocaine/Menthol 1 NED Q2P PRN 03/31 1000 AC PO Diltiazem HCl 125 MG Q12H 04/04 0000 AC Sodium Chloride 100 ML IV Diltiazem HCl 10 MG ONCE ONE 04/03 1315 DC IV PUSH 04/03 1316 Diltiazem HCl 125 MG Q24H 04/03 1300 AC Sodium Chloride 100 ML IV 04/03 2359 Diltiazem HCl 10 MG ONCE ONE 04/03 1300 DC 04/03 IV PUSH 04/03 1301 1248 Furosemide 20 MG ONCE ONE 04/03 0845 DC 04/03 IV 04/03 0846 1000 Guaifenesin/Codeine 10 ML Q4-6 PRN PRN 04/03 1015 AC 04/03 Phosphate PO 0900 Guaifenesin/Codeine 10 ML Q6P PRN 04/03 0915 DC Phosphate PO Levothyroxine Sodium 0.05 MG DAILY AC 04/01 0700 AC 04/03 PO 0757 Metoprolol Tartrate 100 MG BID 04/01 0900 AC 04/03 PO 0829 Morphine Sulfate 2 MG Q4P PRN 04/03 1300 CAN IV Morphine Sulfate 1 MG ONCE ONE 04/03 1300 DC 04/03 IV 04/03 1301 1300 Morphine Sulfate 2 MG Q4P PRN 03/29 1700 AC IV Ondansetron HCl 4 MG Q6P PRN 03/31 1415 AC 04/03 IV 0829 Pantoprazole Sodium 40 MG BID 04/01 2100 AC 04/03 IV 0829 Phenol 2 SPRAY Q2P PRN 03/31 1000 AC 03/31 EXT 1231 Simethicone 40 MG Q6P PRN 04/03 0600 AC 04/03 PO 0829 Results Last 48 Hrs of Labs/Mics: Laboratory Tests 04/03/18 1240: Troponin I 0.03, CBC w Diff NO MAN DIFF REQ, RBC 3.08 L, MCV 87.1, MCH 29.1, MCHC 33.4, RDW 16.5 H, MPV 6.9 L, Gran % 80.7 H, Lymphocytes % 10.9 L, Monocytes % 5.6, Eosinophils % 2.5, Basophils % 0.3, Absolute Granulocytes 13.6 H, Absolute Lymphocytes 1.8, Absolute Monocytes 0.9 H, Absolute Eosinophils 0.4 , Absolute Basophils 0.1 04/03/18 0710: Urine Color YEL, Urine Clarity CLEAR, Urine pH 6.5, Ur Specific [place] 1.020, Urine Protein 30 H, Urine Ketones NEG, Urine Nitrite NEG, Urine Bilirubin NEG, Urine Urobilinogen 0.2, Ur Leukocyte Esterase NEG, Ur Microscopic SEDIMENT EXAMINED, Urine RBC >75 H, Urine WBC 1-3 H, Ur Epithelial Cells MOD H, Urine Bacteria FEW H, Urine Hemoglobin LARGE H, Urine Glucose NEG 04/03/18 0435: Anion Gap 9, Estimated GFR > 60, Glucose 95, Calcium 7.9 L, Phosphorus 3.7, Magnesium 1.9, Total Bilirubin 0.5, AST 29, ALT 36, Albumin 3.0 L, CBC w Diff NO MAN DIFF REQ, RBC 2.79 L, MCV 87.6, MCH 29.1, MCHC 33.2, RDW 16.4 H, MPV 8.1, Gran % 78.0 H, Lymphocytes % 13.8 L, Monocytes % 4.5, Eosinophils % 3.4, Basophils % 0.3, Absolute Granulocytes 11.2 H, Absolute Lymphocytes 2.0, Absolute Monocytes 0.6, Absolute Eosinophils 0.5, Absolute Basophils 0 04/02/18 2045: CBC w Diff NO MAN DIFF REQ, RBC 2.96 L, MCV 87.1, MCH 28.9, MCHC 33.2, RDW 16.6 H, MPV 8.8, Gran % 72.4, Lymphocytes % 17.8 L, Monocytes % 5.8, Eosinophils % 3.8, Basophils % 0.2, Absolute Granulocytes 11.2 H, Absolute Lymphocytes 2.7, Absolute Monocytes 0.9 H, Absolute Eosinophils 0.6, Absolute Basophils 0 04/02/18 1400: CBC w Diff NO MAN DIFF REQ, RBC 2.59 L, MCV 87.6, MCH 28.8, MCHC 32.9 L, RDW 17.4 H, MPV 7.7, Gran % 75.2, Lymphocytes % 13.7 L, Monocytes % 7.3, Eosinophils % 3.5, Basophils % 0.3, Absolute Granulocytes 11.9 H, Absolute Lymphocytes 2.2, Absolute Monocytes 1.2 H, Absolute Eosinophils 0.5, Absolute Basophils 0.1 04/02/18 0336: Anion Gap 8, Estimated GFR > 60, Glucose 89, Calcium 7.7 L, Phosphorus 3.6, Magnesium 2.0, Total Bilirubin 0.3, AST 21, ALT 33, Albumin 2.9 L, CBC w Diff NO MAN DIFF REQ, RBC 2.70 L, MCV 87.9, MCH 29.0, MCHC 33.1, RDW 17.3 H, MPV 7.9, Gran % 76.8 H, Lymphocytes % 14.1 L, Monocytes % 5.6, Eosinophils % 3.3, Basophils % 0.2, Absolute Granulocytes 12.7 H, Absolute Lymphocytes 2.3, Absolute Monocytes 0.9 H, Absolute Eosinophils 0.5, Absolute Basophils 0 04/01/182003: CBC w Diff NO MAN DIFF REQ, RBC 3.13 L, MCV 88.5, MCH 29.0, MCHC 32.8 L, RDW 17.3 H, MPV 7.6, Gran % 82.2 H, Lymphocytes % 9.8 L, Monocytes % 4.9, Eosinophils % 2.9, Basophils % 0.2, Absolute Granulocytes 15.8 H, Absolute Lymphocytes 1.9, Absolute Monocytes 0.9 H, Absolute Eosinophils 0.6, Absolute Basophils 0 Recent Imaging Studies: CXR 04/02/2018 Dense airspace disease at right lower lobe medially. Subtle airspace disease at left lung base. Assessment/Plan Assessment/Plan [id number] w/ hx obesity, HTN, JASON on CPAP, pul HTN, Hodgkin's dz s/p chemo/ radiation ~20 years ago w/ subseq valvular dz ([place], [place]), presumably 2/2 the radiation, PAF w/ hemodynamic instability s/p electrical CV at [facility] who presented to the ED 03/29/2018 w/ GI bleed 2/2 gastric ulcer w/ AC (Eliquis) on hold who is again in AF w/ RVR. Recommendations: * IV diltiazem bolus followed by drip that can be titrated up as needed. * Aim to maintain magnesium at or above 2.0 mg/dl. * Repeat H/H. * Need to maintain off AC for now. Continue telemetry? Not applicable (In ICU.)
[2018-04-03 16:00] VITALS: BP 80/48
[2018-04-03 20:41] LABS: ABSOLUTE BASOPHIL COUNT 0 /CUMM (0.0-0.2); ABSOLUTE EOSINOPHIL COUNT 0.4 /CUMM (0.0-0.7); ABSOLUTE LYMPH COUNT 1.8 /CUMM (1.2-3.4); ABSOLUTE MONOCYTE COUNT 1.2 /CUMM (0.10-0.60); BASOPHIL % 0.2 % (0.0-2.0); EOSINOPHIL % 2.8 % (0-5); MEAN CORPUSCULAR HGB CONC 33.4 G/DL (33.0-37.0); MEAN CORPUSCULAR VOLUME 86.7 FL (81.0-99.0); MEAN PLATELET VOLUME 7.2 FL (7.4-10.4); PLATELET COUNT 372 /CUMM (130-400); RBC DISTRIBUTION WIDTH 16.8 % (11.5-14.5); RED BLOOD CELL CT 2.76 /CUMM (4.20-5.40); WHITE BLOOD CELL COUNT 15.5 /CUMM (4.8-10.8)
[2018-04-03 20:58] LABS: GRANULOCYTE % 77.8 % (42.2-75.2)
[2018-04-04] VITALS: BP 106/64
[2018-04-04 04:35] LABS: ABSOLUTE BASOPHIL COUNT 0 /CUMM (0.0-0.2); ABSOLUTE EOSINOPHIL COUNT 0.4 /CUMM (0.0-0.7); ABSOLUTE GRANULOCYTE CT 11.7 /CUMM (1.4-6.5); ABSOLUTE MONOCYTE COUNT 1.3 /CUMM (0.10-0.60); BASOPHIL % 0.2 % (0.0-2.0); EOSINOPHIL % 2.6 % (0-5); GRANULOCYTE % 75.9 % (42.2-75.2); HEMATOCRIT 24.8 % (37-47); MEAN CORPUSCULAR HGB CONC 33.2 G/DL (33.0-37.0); MEAN CORPUSCULAR VOLUME 87.5 FL (81.0-99.0); MEAN PLATELET VOLUME 7.1 FL (7.4-10.4); PLATELET COUNT 410 /CUMM (130-400); RBC DISTRIBUTION WIDTH 16.5 % (11.5-14.5); RED BLOOD CELL CT 2.84 /CUMM (4.20-5.40); WHITE BLOOD CELL COUNT 15.4 /CUMM (4.8-10.8)
[2018-04-04 08:00] VITALS: BP 150/72
--- NOTE | 2018-04-04 08:27 | PN- Resident CRCU ---
Subjective HPI/CRCU Issues: acute blood loss anemia from upper GI bleed requiring 7 units pRBCs afib with RVR on eliquis at home 24 Hour Events: was in atrial fibrillation yesterday, started on iv cardizem gtt, now back in sinus rhythm tolerating regular diet, complains of chronic dysphagia with pills continues to have melena CBC stable off anticoagulation for afib continues to have productive cough afebrile, on unasyn day 6 Objective Vital Signs & I&O Last 8 Hrs of Vitals and I&O: Afebrile HR 95 sinus BP 116/70 RR 18 SpO2 96% on 2L Exam General Appearance: well developed/nourished, no apparent distress, alert, comfortable Respiratory: decreased breath sounds Cardiovascular: regular rate/rhythm, normal peripheral pulses, 2/6 systolic murmur Gastrointestinal: normal bowel sounds, soft, non-tender Extremities: normal inspection, normal capillary refill, normal range of motion Current Medications: Current Medications Sig/Ceasar Start time Last Medication Dose Route Stop Time Status Admin Acetaminophen 1,000 MG Q6P PRN 03/29 1700 AC 04/04 N/A 1 UNIT IV 0950 Ampicillin Sodium/ 3,000 MG Q6H 03/30 2230 AC 04/04 Sulbactam Sodium IV 0946 Sodium Chloride 100 ML Benzocaine/Menthol 1 NED Q2P PRN 03/31 1000 AC PO Diltiazem HCl 30 MG Q8 04/04 1400 UNVr PO Diltiazem HCl 125 MG Q24H 04/03 2300 DC 04/03 Sodium Chloride 100 ML IV 2336 Diltiazem HCl 125 MG Q10H 04/03 1415 CAN Sodium Chloride 100 ML IV Diltiazem HCl 10 MG ONCE ONE 04/03 1315 DC 04/03 IV PUSH 04/03 1316 1315 Diltiazem HCl 125 MG Q24H 04/03 1300 DC 04/03 Sodium Chloride 100 ML IV 04/03 2159 1300 Diltiazem HCl 10 MG ONCE ONE 04/03 1300 DC 04/03 IV PUSH 04/03 1301 1248 Guaifenesin/Codeine 10 ML Q4-6 PRN PRN 04/03 1015 AC 04/04 Phosphate PO 0343 Levothyroxine Sodium 0.05 MG DAILY AC 04/01 07 AC 04/04 PO 0732 Metoprolol Tartrate 100 MG BID 04/01 0900 AC 04/04 PO 0948 Morphine Sulfate 2 MG Q4P PRN 04/03 1300 CAN IV Morphine Sulfate 1 MG ONCE ONE 04/03 1300 DC 04/03 IV 04/03 1301 1300 Morphine Sulfate 2 MG Q4P PRN 03/29 1700 AC IV Ondansetron HCl 4 MG Q6P PRN 03/31 1415 AC 04/03 IV 0829 Pantoprazole Sodium 40 MG BID 04/01 2100 AC 04/04 IV 0946 Phenol 2 SPRAY Q2P PRN 03/31 1000 AC 03/31 EXT 1231 Simethicone 40 MG Q6P PRN 04/03 0600 AC 04/03 PO 0829 Sodium Chloride 250 ML BOLUS ONE 04/03 1615 DC 04/03 IV 04/03 1714 1609 Sodium Chloride 250 ML BOLUS ONE 04/03 1530 DC 04/03 IV 04/03 1629 1530 Impression/Plan Impression/Problem List Impression: 52 y/o F with PMH of paroxysmal afib on apixaban, HTN, HFpEF. obesity, JASON and remote h/o hodgkin's s/p presented to the ED c/o of 1 day history of nausea, coffee ground emesis, and melena. On the ED, she was found to be hypotensive (85 /55) with H/H 7.2/22.3 with lactic acidemia. She was given blood transfusions and crystalloid resuscitation underwent EGD which found a gastric ulcer which was cauterized and clipped. She has required now 7 units of pRBCs and was in rapid atrial fibrillation yesterday managed with cardizem. Acute blood loss anemia from upper GI bleed s/p 7U PRBC EGD was done which found an oblong gastric ulcer Repeat EGD done on 03/30 treated the oblong gastril ulcer H/H now stable after 7 units pRBCs Continue to monitor CBCs with the goal of keeping Hb>8. IV PPI Aspiration pneumonia CXR shows multifocal diffuse b/l parenchymal opacities Afebrile and WBC remains high Sputum culture growing Staph Aureus sensitive to unasyn. Unasyn day 6 Afib with RVR Now in sinus rhythm Required IVF bolus for hypotension, after obtaining rate control with cardizem bolus and gtt Convert IV cardizem to PO Continue to hold Eliquis Follow up cardiology recommendations Hypothyroidism Continue synthroid PO 50 mcg DM latest A1C on record is 6.9% on 03/01 Stop accuchecks, all normal Regular diet DVT ppx-mechanical Full code Problem List: 1. Upper GI bleed 2. Hypotension 3. Anemia 4. Paroxysmal A-fib 5. GI bleed 6. Rapid atrial fibrillation Pain Ratin Tomorrow's Labs & Rationales: cbc, bep, mag Plan DVT/Prophylaxis: mechanical
--- NOTE | 2018-04-04 11:42 | PN- Pulmonary ---
Subjective HPI/Critical Care Issues: was in atrial fibrillation yesterday, started on iv cardizem gtt, now back in sinus rhythm tolerating regular diet, complains of chronic dysphagia with pills continues to have melena CBC stable off anticoagulation for afib continues to have productive cough afebrile, on unasyn day 6 Objective Current Medications: Current Medications Sig/Ceasar Start time Last Medication Dose Route Stop Time Status Admin Acetaminophen 1,000 MG Q6P PRN 03/29 1700 AC 04/04 N/A 1 UNIT IV 0950 Ampicillin Sodium/ 3,000 MG Q6H 03/30 2230 AC 04/04 Sulbactam Sodium IV 0946 Sodium Chloride 100 ML Benzocaine/Menthol 1 NED Q2P PRN 03/31 1000 AC PO Diltiazem HCl 30 MG Q8 04/04 1400 AC PO Diltiazem HCl 125 MG Q24H 04/03 2300 DC 04/03 Sodium Chloride 100 ML IV 2336 Diltiazem HCl 125 MG Q10H 04/03 1415 CAN Sodium Chloride 100 ML IV Diltiazem HCl 10 MG ONCE ONE 04/03 1315 DC 04/03 IV PUSH 04/03 1316 1315 Diltiazem HCl 125 MG Q24H 04/03 1300 DC 04/03 Sodium Chloride 100 ML IV 04/03 2159 1300 Diltiazem HCl 10 MG ONCE ONE 04/03 1300 DC 04/03 IV PUSH 04/03 1301 1248 Guaifenesin/Codeine 10 ML Q4-6 PRN PRN 04/03 1015 AC 04/04 Phosphate PO 0343 Levothyroxine Sodium 0.05 MG DAILY AC 04/01 07 AC 04/04 PO 0732 Metoprolol Tartrate 100 MG BID 04/01 0900 AC 04/04 PO 0948 Morphine Sulfate 2 MG Q4P PRN 04/03 1300 CAN IV Morphine Sulfate 1 MG ONCE ONE 04/03 1300 DC 04/03 IV 04/03 1301 1300 Morphine Sulfate 2 MG Q4P PRN 03/29 1700 AC IV Ondansetron HCl 4 MG Q6P PRN 03/31 1415 AC 04/03 IV 0829 Pantoprazole Sodium 40 MG BID 04/01 2100 AC 04/04 IV 0946 Phenol 2 SPRAY Q2P PRN 03/31 1000 AC 03/31 EXT 1231 Simethicone 40 MG Q6P PRN 04/03 0600 AC 04/03 PO 0829 Sodium Chloride 250 ML BOLUS ONE 04/03 1615 DC 04/03 IV 04/03 1714 1609 Sodium Chloride 250 ML BOLUS ONE 04/03 1530 DC 04/03 IV 04/03 1629 1530 Vital Signs & I&O Last 24 Hrs of Vitals and I&O: Vital Signs Date Time Temp Pulse Resp B/P B/P Pulse O2 O2 Flow FiO2 Mean Ox Delivery Rate 04/04 0948 96 150/72 04/04 0800 95 Nasal 2.0L Cannula 04/04 0800 98.4 88 20 150/72 95 Nasal 2.0L Cannula 04/04 0400 95 Nasal 2.0L Cannula 04/04 0000 94 Nasal 2.0L Cannula 04/04 0000 97.1 80 18 106/64 94 Nasal 2.0L Cannula 04/03 2155 99.2 92 25 120/61 04/03 2000 998 Nasal 4.0L Cannula 04/03 1600 95 Nasal 4.0L Cannula 04/03 1600 97.5 80 24 80/48 95 Nasal 4.0L Cannula 04/03 1248 178 93/51 04/03 1200 95 Nasal 4.0L Cannula Intake & Output 04/04 1600 04/04 0800 04/04 0000 Intake Total 470 1270 Output Total 300 Balance 470 970 Intake, IV 270 900 Intake, Oral 200 370 Number 0 Bowel Movements Output, Urine 300 Patient 247 lb Weight Weight Bed scale Measurement Method Laboratory Tests 04/04 04/03 0400 2019 Chemistry Sodium (137 - 145 mmol/L) 139 Potassium (3.5 - 5.1 mmol/L) 4.1 Chloride (98 - 107 mmol/L) 102 Carbon Dioxide (22 - 30 mmol/L) 26 Anion Gap (5 - 16) 11 BUN (7 - 17 mg/dL) 11 Creatinine (0.5 - 1.0 mg/dL) 0.8 Estimated GFR (>60 ml/min) > 60 Glucose (65 - 99 mg/dL) 100 H Calcium (8.4 - 10.2 mg/dL) 7.9 L Phosphorus (2.5 - 4.5 mg/dL) 3.9 Magnesium (1.6 - 2.3 mg/dL) 1.9 Total Bilirubin (0.2 - 1.3 mg/dL) 0.4 AST (14 - 36 U/L) 27 ALT (9 - 52 U/L) 37 Albumin (3.5 - 5.0 g/dL) 3.0 L Hematology CBC w Diff NO MAN DIFF REQ NO MAN DIFF REQ WBC (4.8 - 10.8 /CUMM) 15.4 H 15.5 H RBC (4.20 - 5.40 /CUMM) 2.84 L 2.76 L Hgb (12.0 - 16.0 G/DL) 8.2 L 8.0 L Hct (37 - 47 %) 24.8 L 24.0 L MCV (81.0 - 99.0 FL) 87.5 86.7 MCH (27.0 - 31.0 PG) 29.0 29.0 MCHC (33.0 - 37.0 G/DL) 33.2 33.4 RDW (11.5 - 14.5 %) 16.5 H 16.8 H Plt Count (130 - 400 /CUMM) 410 H 372 MPV (7.4 - 10.4 FL) 7.1 L 7.2 L Gran % (42.2 - 75.2 %) 75.9 H 77.8 H Lymphocytes % (20.5 - 51.1 %) 13.2 L 11.7 L Monocytes % (1.7 - 9.3 %) 8.1 7.5 Eosinophils % (0 - 5 %) 2.6 2.8 Basophils % (0.0 - 2.0 %) 0.2 0.2 Absolute Granulocytes (1.4 - 6.5 /CUMM) 11.7 H 12.0 H Absolute Lymphocytes (1.2 - 3.4 /CUMM) 2.0 1.8 Absolute Monocytes (0.10 - 0.60 /CUMM) 1.3 H 1.2 H Absolute Eosinophils (0.0 - 0.7 /CUMM) 0.4 0.4 Absolute Basophils (0.0 - 0.2 /CUMM) 0 0 04/03 04/03 1251 1240 Chemistry Troponin I (< 0.11 ng/ml) 0.03 Coagulation PT Cancelled INR Cancelled APTT Cancelled Hematology CBC w Diff NO MAN DIFF REQ WBC (4.8 - 10.8 /CUMM) 16.9 H RBC (4.20 - 5.40 /CUMM) 3.08 L Hgb (12.0 - 16.0 G/DL) 9.0 L Hct (37 - 47 %) 26.9 L MCV (81.0 - 99.0 FL) 87.1 MCH (27.0 - 31.0 PG) 29.1 MCHC (33.0 - 37.0 G/DL) 33.4 RDW (11.5 - 14.5 %) 16.5 H Plt Count (130 - 400 /CUMM) 374 MPV (7.4 - 10.4 FL) 6.9 L Gran % (42.2 - 75.2 %) 80.7 H Lymphocytes % (20.5 - 51.1 %) 10.9 L Monocytes % (1.7 - 9.3 %) 5.6 Eosinophils % (0 - 5 %) 2.5 Basophils % (0.0 - 2.0 %) 0.3 Absolute Granulocytes (1.4 - 6.5 /CUMM) 13.6 H Absolute Lymphocytes (1.2 - 3.4 /CUMM) 1.8 Absolute Monocytes (0.10 - 0.60 /CUMM) 0.9 H Absolute Eosinophils (0.0 - 0.7 /CUMM) 0.4 Absolute Basophils (0.0 - 0.2 /CUMM) 0.1 04/03 04/03 0710 0435 Chemistry Sodium (137 - 145 mmol/L) 139 Potassium (3.5 - 5.1 mmol/L) 4.3 Chloride (98 - 107 mmol/L) 103 Carbon Dioxide (22 - 30 mmol/L) 27 Anion Gap (5 - 16) 9 BUN (7 - 17 mg/dL) 7 Creatinine (0.5 - 1.0 mg/dL) 0.6 Estimated GFR (>60 ml/min) > 60 Glucose (65 - 99 mg/dL) 95 Calcium (8.4 - 10.2 mg/dL) 7.9 L Phosphorus (2.5 - 4.5 mg/dL) 3.7 Magnesium (1.6 - 2.3 mg/dL) 1.9 Total Bilirubin (0.2 - 1.3 mg/dL) 0.5 AST (14 - 36 U/L) 29 ALT (9 - 52 U/L) 36 Albumin (3.5 - 5.0 g/dL) 3.0 L Hematology CBC w Diff NO MAN DIFF REQ WBC (4.8 - 10.8 /CUMM) 14.4 H RBC (4.20 - 5.40 /CUMM) 2.79 L Hgb (12.0 - 16.0 G/DL) 8.1 L Hct (37 - 47 %) 24.4 L MCV (81.0 - 99.0 FL) 87.6 MCH (27.0 - 31.0 PG) 29.1 MCHC (33.0 - 37.0 G/DL) 33.2 RDW (11.5 - 14.5 %) 16.4 H Plt Count (130 - 400 /CUMM) 297 MPV (7.4 - 10.4 FL) 8.1 Gran % (42.2 - 75.2 %) 78.0 H Lymphocytes % (20.5 - 51.1 %) 13.8 L Monocytes % (1.7 - 9.3 %) 4.5 Eosinophils % (0 - 5 %) 3.4 Basophils % (0.0 - 2.0 %) 0.3 Absolute Granulocytes (1.4 - 6.5 /CUMM) 11.2 H Absolute Lymphocytes (1.2 - 3.4 /CUMM) 2.0 Absolute Monocytes (0.10 - 0.60 /CUMM) 0.6 Absolute Eosinophils (0.0 - 0.7 /CUMM) 0.5 Absolute Basophils (0.0 - 0.2 /CUMM) 0 Urines Urine Color (YEL,AMB,STR) YEL Urine Clarity (CLEAR) CLEAR Urine pH (5.0 - 8.0) 6.5 Ur Specific [place] (1.001 - 1.035) 1.020 Urine Protein (NEG,<30 MG/DL) 30 H Urine Ketones (NEG) NEG Urine Nitrite (NEG) NEG Urine Bilirubin (NEG) NEG Urine Urobilinogen (0.1 - 1.0 EU/dl) 0.2 Ur Leukocyte Esterase (NEG) NEG Ur Microscopic SEDIMENT EXAMINED Urine RBC (0 - 5 /HPF) >75 H Urine WBC (0 - 2 /HPF) 1-3 H Ur Epithelial Cells (NONE,FEW) MOD H Urine Bacteria (NEG/NONE) FEW H Urine Hemoglobin (NEG) LARGE H Urine Glucose (N MG/DL) NEG 04/025 1400 Hematology CBC w Diff NO MAN DIFF REQ NO MAN DIFF REQ WBC (4.8 - 10.8 /CUMM) 15.5 H 15.8 H RBC (4.20 - 5.40 /CUMM) 2.96 L 2.59 L Hgb (12.0 - 16.0 G/DL) 8.6 L 7.5 L Hct (37 - 47 %) 25.8 L 22.7 L MCV (81.0 - 99.0 FL) 87.1 87.6 MCH (27.0 - 31.0 PG) 28.9 28.8 MCHC (33.0 - 37.0 G/DL) 33.2 32.9 L RDW (11.5 - 14.5 %) 16.6 H 17.4 H Plt Count (130 - 400 /CUMM) 259 295 MPV (7.4 - 10.4 FL) 8.8 7.7 Gran % (42.2 - 75.2 %) 72.4 75.2 Lymphocytes % (20.5 - 51.1 %) 17.8 L 13.7 L Monocytes % (1.7 - 9.3 %) 5.8 7.3 Eosinophils % (0 - 5 %) 3.8 3.5 Basophils % (0.0 - 2.0 %) 0.2 0.3 Absolute Granulocytes (1.4 - 6.5 /CUMM) 11.2 H 11.9 H Absolute Lymphocytes (1.2 - 3.4 /CUMM) 2.7 2.2 Absolute Monocytes (0.10 - 0.60 /CUMM) 0.9 H 1.2 H Absolute Eosinophils (0.0 - 0.7 /CUMM) 0.6 0.5 Absolute Basophils (0.0 - 0.2 /CUMM) 0 0.1 Impression/Plan Impression/Plan Impression/Plan: General Appearance: well developed/nourished, no apparent distress, alert, comfortable Respiratory: decreased breath sounds Cardiovascular: regular rate/rhythm, normal peripheral pulses, 2/6 systolic murmur Gastrointestinal: normal bowel sounds, soft, non-tender Extremities: normal inspection, normal capillary refill, normal range of motion cxr IMPRESSION: Dense airspace disease at right lower lobe medially. Subtle airspace disease at left lung base. 52 y/o F with PMH of paroxysmal afib on apixaban, HTN, HFpEF. obesity, JASON and remote h/o hodgkin's s/p presented to the ED c/o of 1 day history of nausea, coffee ground emesis, and melena. On the ED, she was found to be hypotensive (85 /55) with H/H 7.2/22.3 with lactic acidemia. She was transfused 1U PRBC and 1L crystalloid bolus - NGT placement for gastric lavage was attempted but unsuccessful. GI was consulted and the patient was admitted to the ICU for management of hypotension and emergent EGD. IMPRESSION #Anemia 2/2 acute blood loss, s/p 7U PRBC/ GI bleed from gastric ulcer #Aspiration PNA/Pneumonitis, now with staph in the sputum sensitive to unasyn #ELIAN, resolved #Afib/HTN was on anticoag now went into afib yesterday on cardizem drip back to sinus #H/o Hypothyroidism #H/o DM #Morbid obesity REC Cont abx PPI Transfuse to hemoglobin of 8 or less DC dilt and change to po dilt with metoprolol Gi to follow for consideration of rpt egd Cont levoxyl check tsh and free t4 Sugar control Will follow
--- NOTE | 2018-04-04 14:50 | PN- Gastroenterology ---
Assessment/Plan GI Assessment/Recommendations: GI bleed Gastric ulcer Blood loss anemia, status post multiple transfusions Stable hemoglobin/hematocrit Recommendations * Continue regular diet * Continue to follow CBC; limit phlebotomy to daily * Continue PPI twice a day; may change to oral agent * Agree with downgrade from ICU care Subjective Subjective: No bowel movements, no overt bleeding. Tolerating regular diet. Objective Vital Signs and I&Os Vital Signs Date Time Temp Pulse Resp B/P B/P Pulse O2 O2 Flow FiO2 Mean Ox Delivery Rate 04/04 1410 83 140/70 04/04 0948 96 150/72 04/04 0800 95 Nasal 2.0L Cannula 04/04 0800 98.4 88 20 150/72 95 Nasal 2.0L Cannula 04/04 0400 95 Nasal 2.0L Cannula 04/04 0000 94 Nasal 2.0L Cannula 04/04 0000 97.1 80 18 106/64 94 Nasal 2.0L Cannula 04/03 2155 99.2 92 25 120/61 04/03 2000 998 Nasal 4.0L Cannula 04/03 1600 95 Nasal 4.0L Cannula 04/03 1600 97.5 80 24 80/48 95 Nasal 4.0L Cannula Intake & Output 04/04 1600 04/04 0400 04/03 1600 04/03 0400 04/02 1600 04/02 0400 Intake Total 1480 1270 1090 1270 1720 600 Output Total 128 294 6930 446 692 5882 Balance 980 970 -260 1020 920 -800 Intake, Blood 360 Product Intake, IV 560 900 425 310 360 360 Intake, Oral 920 370 114 438 1236 240 Number 0 0 1 1 2 Bowel Movements Output, Urine 722 665 6268 603 571 1242 Patient 247 lb 245 lb Weight Weight Bed scale Bed scale Measurement Method Physical Exam: Abdomen soft, nontender. Current Medications: Current Medications Sig/Ceasar Start time Last Medication Dose Route Stop Time Status Admin Acetaminophen 1,000 MG Q6P PRN 03/29 1700 AC 04/04 N/A 1 UNIT IV 0950 Ampicillin Sodium/ 3,000 MG Q6H 03/30 2230 AC 04/04 Sulbactam Sodium IV 0946 Sodium Chloride 100 ML Benzocaine/Menthol 1 NED Q2P PRN 03/31 1000 AC PO Diltiazem HCl 30 MG Q8 04/04 1400 AC 04/04 PO 1410 Diltiazem HCl 125 MG Q24H 04/[address] 04/03 Sodium Chloride 100 ML IV 2336 Guaifenesin/Codeine 10 ML Q4-6 PRN PRN 04/03 1015 AC 04/04 Phosphate PO 0343 Levothyroxine Sodium 0.05 MG DAILY AC 04/01 0700 AC 04/04 PO 0732 Metoprolol Tartrate 100 MG BID 04/01 0900 AC 04/04 PO 0948 Morphine Sulfate 2 MG Q4P PRN 03/29 1700 AC IV Ondansetron HCl 4 MG Q6P PRN 03/31 1415 AC 04/03 IV 0829 Pantoprazole Sodium 40 MG BID 04/01 2100 AC 04/04 IV 0946 Phenol 2 SPRAY Q2P PRN 03/31 1000 AC 03/31 EXT 1231 Simethicone 40 MG Q6P PRN 04/03 0600 AC 04/03 PO 0829 Sodium Chloride 250 ML BOLUS ONE 04/03 1615 DC 04/03 IV 04/03 1714 1609 Sodium Chloride 250 ML BOLUS ONE 04/[address] 04/03 IV 04/03 1629 1530 Results Pertinent Lab Results: Laboratory Tests 04/04 04/03 0400 2020 Chemistry Sodium (137 - 145 mmol/L) 139 Potassium (3.5 - 5.1 mmol/L) 4.1 Chloride (98 - 107 mmol/L) 102 Carbon Dioxide (22 - 30 mmol/L) 26 Anion Gap (5 - 16) 11 BUN (7 - 17 mg/dL) 11 Creatinine (0.5 - 1.0 mg/dL) 0.8 Estimated GFR (>60 ml/min) > 60 Glucose (65 - 99 mg/dL) 100 H Calcium (8.4 - 10.2 mg/dL) 7.9 L Phosphorus (2.5 - 4.5 mg/dL) 3.9 Magnesium (1.6 - 2.3 mg/dL) 1.9 Total Bilirubin (0.2 - 1.3 mg/dL) 0.4 AST (14 - 36 U/L) 27 ALT (9 - 52 U/L) 37 Albumin (3.5 - 5.0 g/dL) 3.0 L Hematology CBC w Diff NO MAN DIFF REQ NO MAN DIFF REQ WBC (4.8 - 10.8 /CUMM) 15.4 H 15.5 H RBC (4.20 - 5.40 /CUMM) 2.84 L 2.76 L Hgb (12.0 - 16.0 G/DL) 8.2 L 8.0 L Hct (37 - 47 %) 24.8 L 24.0 L MCV (81.0 - 99.0 FL) 87.5 86.7 MCH (27.0 - 31.0 PG) 29.0 29.0 MCHC (33.0 - 37.0 G/DL) 33.2 33.4 RDW (11.5 - 14.5 %) 16.5 H 16.8 H Plt Count (130 - 400 /CUMM) 410 H 372 MPV (7.4 - 10.4 FL) 7.1 L 7.2 L Gran % (42.2 - 75.2 %) 75.9 H 77.8 H Lymphocytes % (20.5 - 51.1 %) 13.2 L 11.7 L Monocytes % (1.7 - 9.3 %) 8.1 7.5 Eosinophils % (0 - 5 %) 2.6 2.8 Basophils % (0.0 - 2.0 %) 0.2 0.2 Absolute Granulocytes (1.4 - 6.5 /CUMM) 11.7 H 12.0 H Absolute Lymphocytes (1.2 - 3.4 /CUMM) 2.0 1.8 Absolute Monocytes (0.10 - 0.60 /CUMM) 1.3 H 1.2 H Absolute Eosinophils (0.0 - 0.7 /CUMM) 0.4 0.4 Absolute Basophils (0.0 - 0.2 /CUMM) 0 0 04/03 04/03 1251 1240 Chemistry Troponin I (< 0.11 ng/ml) 0.03 Coagulation PT Cancelled INR Cancelled APTT Cancelled Hematology CBC w Diff NO MAN DIFF REQ WBC (4.8 - 10.8 /CUMM) 16.9 H RBC (4.20 - 5.40 /CUMM) 3.08 L Hgb (12.0 - 16.0 G/DL) 9.0 L Hct (37 - 47 %) 26.9 L MCV (81.0 - 99.0 FL) 87.1 MCH (27.0 - 31.0 PG) 29.1 MCHC (33.0 - 37.0 G/DL) 33.4 RDW (11.5 - 14.5 %) 16.5 H Plt Count (130 - 400 /CUMM) 374 MPV (7.4 - 10.4 FL) 6.9 L Gran % (42.2 - 75.2 %) 80.7 H Lymphocytes % (20.5 - 51.1 %) 10.9 L Monocytes % (1.7 - 9.3 %) 5.6 Eosinophils % (0 - 5 %) 2.5 Basophils % (0.0 - 2.0 %) 0.3 Absolute Granulocytes (1.4 - 6.5 /CUMM) 13.6 H Absolute Lymphocytes (1.2 - 3.4 /CUMM) 1.8 Absolute Monocytes (0.10 - 0.60 /CUMM) 0.9 H Absolute Eosinophils (0.0 - 0.7 /CUMM) 0.4 Absolute Basophils (0.0 - 0.2 /CUMM) 0.1 04/03 04/03 0710 0435 Chemistry Sodium (137 - 145 mmol/L) 139 Potassium (3.5 - 5.1 mmol/L) 4.3 Chloride (98 - 107 mmol/L) 103 Carbon Dioxide (22 - 30 mmol/L) 27 Anion Gap (5 - 16) 9 BUN (7 - 17 mg/dL) 7 Creatinine (0.5 - 1.0 mg/dL) 0.6 Estimated GFR (>60 ml/min) > 60 Glucose (65 - 99 mg/dL) 95 Calcium (8.4 - 10.2 mg/dL) 7.9 L Phosphorus (2.5 - 4.5 mg/dL) 3.7 Magnesium (1.6 - 2.3 mg/dL) 1.9 Total Bilirubin (0.2 - 1.3 mg/dL) 0.5 AST (14 - 36 U/L) 29 ALT (9 - 52 U/L) 36 Albumin (3.5 - 5.0 g/dL) 3.0 L Hematology CBC w Diff NO MAN DIFF REQ WBC (4.8 - 10.8 /CUMM) 14.4 H RBC (4.20 - 5.40 /CUMM) 2.79 L Hgb (12.0 - 16.0 G/DL) 8.1 L Hct (37 - 47 %) 24.4 L MCV (81.0 - 99.0 FL) 87.6 MCH (27.0 - 31.0 PG) 29.1 MCHC (33.0 - 37.0 G/DL) 33.2 RDW (11.5 - 14.5 %) 16.4 H Plt Count (130 - 400 /CUMM) 297 MPV (7.4 - 10.4 FL) 8.1 Gran % (42.2 - 75.2 %) 78.0 H Lymphocytes % (20.5 - 51.1 %) 13.8 L Monocytes % (1.7 - 9.3 %) 4.5 Eosinophils % (0 - 5 %) 3.4 Basophils % (0.0 - 2.0 %) 0.3 Absolute Granulocytes (1.4 - 6.5 /CUMM) 11.2 H Absolute Lymphocytes (1.2 - 3.4 /CUMM) 2.0 Absolute Monocytes (0.10 - 0.60 /CUMM) 0.6 Absolute Eosinophils (0.0 - 0.7 /CUMM) 0.5 Absolute Basophils (0.0 - 0.2 /CUMM) 0 Urines Urine Color (YEL,AMB,STR) YEL Urine Clarity (CLEAR) CLEAR Urine pH (5.0 - 8.0) 6.5 Ur Specific [place] (1.001 - 1.035) 1.020 Urine Protein (NEG,<30 MG/DL) 30 H Urine Ketones (NEG) NEG Urine Nitrite (NEG) NEG Urine Bilirubin (NEG) NEG Urine Urobilinogen (0.1 - 1.0 EU/dl) 0.2 Ur Leukocyte Esterase (NEG) NEG Ur Microscopic SEDIMENT EXAMINED Urine RBC (0 - 5 /HPF) >75 H Urine WBC (0 - 2 /HPF) 1-3 H Ur Epithelial Cells (NONE,FEW) MOD H Urine Bacteria (NEG/NONE) FEW H Urine Hemoglobin (NEG) LARGE H Urine Glucose (N MG/DL) NEG 04/02 04/02 2045 1400 Hematology CBC w Diff NO MAN DIFF REQ NO MAN DIFF REQ WBC (4.8 - 10.8 /CUMM) 15.5 H 15.8 H RBC (4.20 - 5.40 /CUMM) 2.96 L 2.59 L Hgb (12.0 - 16.0 G/DL) 8.6 L 7.5 L Hct (37 - 47 %) 25.8 L 22.7 L MCV (81.0 - 99.0 FL) 87.1 87.6 MCH (27.0 - 31.0 PG) 28.9 28.8 MCHC (33.0 - 37.0 G/DL) 33.2 32.9 L RDW (11.5 - 14.5 %) 16.6 H 17.4 H Plt Count (130 - 400 /CUMM) 259 295 MPV (7.4 - 10.4 FL) 8.8 7.7 Gran % (42.2 - 75.2 %) 72.4 75.2 Lymphocytes % (20.5 - 51.1 %) 17.8 L 13.7 L Monocytes % (1.7 - 9.3 %) 5.8 7.3 Eosinophils % (0 - 5 %) 3.8 3.5 Basophils % (0.0 - 2.0 %) 0.2 0.3 Absolute Granulocytes (1.4 - 6.5 /CUMM) 11.2 H 11.9 H Absolute Lymphocytes (1.2 - 3.4 /CUMM) 2.7 2.2 Absolute Monocytes (0.10 - 0.60 /CUMM) 0.9 H 1.2 H Absolute Eosinophils (0.0 - 0.7 /CUMM) 0.6 0.5 Absolute Basophils (0.0 - 0.2 /CUMM) 0 0.1 04/02 Chemistry Sodium (137 - 145 mmol/L) 140 Potassium (3.5 - 5.1 mmol/L) 3.9 Chloride (98 - 107 mmol/L) 103 Carbon Dioxide (22 - 30 mmol/L) 28 Anion Gap (5 - 16) 8 BUN (7 - 17 mg/dL) 8 Creatinine (0.5 - 1.0 mg/dL) 0.7 Estimated GFR (>60 ml/min) > 60 Glucose (65 - 99 mg/dL) 89 Calcium (8.4 - 10.2 mg/dL) 7.7 L Phosphorus (2.5 - 4.5 mg/dL) 3.6 Magnesium (1.6 - 2.3 mg/dL) 2.0 Total Bilirubin (0.2 - 1.3 mg/dL) 0.3 AST (14 - 36 U/L) 21 ALT (9 - 52 U/L) 33 Albumin (3.5 - 5.0 g/dL) 2.9 L Hematology CBC w Diff NO MAN DIFF REQ NO MAN DIFF REQ WBC (4.8 - 10.8 /CUMM) 16.6 H 19.3 H RBC (4.20 - 5.40 /CUMM) 2.70 L 3.13 L Hgb (12.0 - 16.0 G/DL) 7.8 L 9.1 L Hct (37 - 47 %) 23.7 L 27.7 L MCV (81.0 - 99.0 FL) 87.9 88.5 MCH (27.0 - 31.0 PG) 29.0 29.0 MCHC (33.0 - 37.0 G/DL) 33.1 32.8 L RDW (11.5 - 14.5 %) 17.3 H 17.3 H Plt Count (130 - 400 /CUMM) 267 282 MPV (7.4 - 10.4 FL) 7.9 7.6 Gran % (42.2 - 75.2 %) 76.8 H 82.2 H Lymphocytes % (20.5 - 51.1 %) 14.1 L 9.8 L Monocytes % (1.7 - 9.3 %) 5.6 4.9 Eosinophils % (0 - 5 %) 3.3 2.9 Basophils % (0.0 - 2.0 %) 0.2 0.2 Absolute Granulocytes (1.4 - 6.5 /CUMM) 12.7 H 15.8 H Absolute Lymphocytes (1.2 - 3.4 /CUMM) 2.3 1.9 Absolute Monocytes (0.10 - 0.60 /CUMM) 0.9 H 0.9 H Absolute Eosinophils (0.0 - 0.7 /CUMM) 0.5 0.6 Absolute Basophils (0.0 - 0.2 /CUMM) 0 0
[2018-04-04 16:00] VITALS: BP 146/72
[2018-04-04 21:55] VITALS: BP 118/68
[2018-04-04 23:15] VITALS: BP 100/60
[2018-04-05 06:49] VITALS: BP 112/70
--- NOTE | 2018-04-05 07:30 | PN- Housestaff ---
Alexei Gordillo 04/05/18 0729: Subjective Follow-up For: GI Bleed A Fib with RVR Tele-Events Since Last Visit: Overnight patient in normal sinur rhythm, rate from 81-94 Subjective: Patient seen resting comfortably in the bed. Reports feeling a bit better, but patient's main complaint is fatigue. She has been able to take her omeprazole, as the capsule can be mixed in with her apple sauce, but the patient still c/o dysphagia for large pills. Review of Systems Constitutional: Denies: chills, fever. Cardiovascular: Denies: orthopena, palpitations, syncope. Respiratory: Denies: cough, short of breath, sputum production. Gastrointestinal: Reports: abdominal pain. Denies: vomiting. Objective Last 24 Hrs of Vital Signs/I&O Vital Signs Date Time Temp Pulse Resp B/P B/P Pulse O2 O2 Flow FiO2 Mean Ox Delivery Rate 04/05 0649 99.2 89 20 112/70 96 04/05 0608 89 112/70 04/05 0329 98.9 04/05 0045 98.9 04/05 0000 Nasal 2.0L Cannula 04/04 2315 101.3 82 18 100/60 92 Nasal 2.0L Cannula 04/04 2155 93 118/68 04/04 2155 99.2 93 20 118/68 95 Nasal Cannula 04/04 2154 93 118/68 04/04 2000 95 Nasal 2.0L Cannula 04/04 1600 Nasal 2.0L Cannula 04/04 1600 98.2 84 20 146/72 98 Nasal 2.0L Cannula 04/04 1410 83 140/70 04/04 0948 96 150/72 04/04 0800 95 Nasal 2.0L Cannula 04/04 0800 98.4 88 20 150/72 95 Nasal 2.0L Cannula Intake & Output 04/05 0800 04/05 0000 04/04 1600 Intake Total 410 1170 1010 Output Total 350 500 Balance 60 1170 510 Intake, IV 110 390 290 Intake, Oral 300 780 720 Number 0 0 Bowel Movements Output, Urine 350 500 Physical Exam General Appearance: Alert, Oriented X3, Cooperative, No Acute Distress HEENT: Atraumatic, PERRLA Cardiovascular: Regular Rate, Normal S1, Normal S2 Lungs: Clear to Auscultation Abdomen: Normal Bowel Sounds, Soft Neurological: Normal Speech Current Medications: Current Medications Sig/Ceasar Start time Last Medication Dose Route Stop Time Status Admin Acetaminophen 1,000 MG Q6P PRN 03/29 1700 AC 04/04 N/A 1 UNIT IV 2325 Ampicillin Sodium/ 3,000 MG Q6H 03/30 2230 AC 04/05 Sulbactam Sodium IV 0334 Sodium Chloride 100 ML Benzocaine/Menthol 1 NED Q2P PRN 03/31 1000 AC PO Diltiazem HCl 30 MG Q8 04/04 1400 AC 04/05 PO 0608 Diltiazem HCl 125 MG Q24H 04/03 2300 DC 04/03 Sodium Chloride 100 ML IV 2336 Guaifenesin/Codeine 10 ML Q4-6 PRN PRN 04/03 1015 AC 04/04 Phosphate PO 0343 Levothyroxine Sodium 0.05 MG DAILY AC 04/01 0700 AC 04/05 PO 0608 Metoprolol Tartrate 100 MG BID 04/01 0900 AC 04/04 PO 2154 Morphine Sulfate 2 MG Q4P PRN 03/29 1700 AC IV Ondansetron HCl 4 MG Q6P PRN 03/31 1415 AC 04/03 IV 0829 Pantoprazole Sodium 40 MG BID 04/01 2100 AC 04/04 IV 2155 Phenol 2 SPRAY Q2P PRN 03/31 1000 AC 03/31 EXT 1231 Simethicone 40 MG Q6P PRN 04/03 0600 AC 04/03 PO 0829 Last 24 Hrs of Lab/Manoj Results Last 24 Hrs of Labs/Mics: Laboratory Tests 04/05/18 0621: CBC w Diff Pending, WBC Pending, RBC Pending, Hgb Pending, Hct Pending, MCV Pending, MCH Pending, MCHC Pending, RDW Pending, Plt Count Pending, MPV Pending Assessment/Plan Assessment: 52 year old female with history of paroxysmal atrial fibrillation, HFpEF, HTN, DM and hypothyroidism transferred from the ICU yesterday after stabilized for massive GI bleed requiring 7 units of PRBC's s/p cauterization of bleeding gastric ulcer. 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 Patient had a recent echo in November which showed EF>60%. Problems: 1. Acute blood loss anemia 2. Bleeding gastric ulcer s/p endoscopy & cauterization 3. Atrial fibrillation with RVR Plan: * ENT consulted for cricopharyngeal hypertrophy, recommended CT head/neck and outpatient follow-up * H&H stable today, continue to monitor and transfuse if acutely dropping * Continue holding anticoagulation in light of recent severe GI bleed Code status: Full Code Prophylaxis: Mechanical DVT prophylaxis Labs: PT/INR, CBC & BEP tomorrow Diet: Regular diet Problem List: 1. Upper GI bleed 2. Anemia 3. Paroxysmal A-fib 4. History of Hodgkin's disease 5. Atrial fibrillation with RVR Pain Ratin Pain Location: chest/abdomen Pain Goal: Pain 4 or less Pain Plan: per pathway Tomorrow's Labs & Rationales: CBC & BEP Tiny Ohara MD 04/05/18 1340: Attending MD Review Statement Attending Statement Attending MD Statement: examined this patient, discuss w/resident/PA/SUPERVISOR PURIFICATION, agreed w/resident/PA/SUPERVISOR PURIFICATION, discussed with family, reviewed EMR data (avail), discussed with nursing, discussed with case mgmt, amended to note Attending Assessment/Plan: Patient seen and examined. Resting comfortably and not in any acute distress. No issues overnight. No events on telemetry monitoring. Patient remains in normal sinus rhythm. Complains of mild headache. Denies nausea vomiting. Denies abdominal pain. reports that at baseline prior to hospitalizati she complains of dyspnea on very mild exertion. On examination heart sounds are regular. Lungs are clear bilaterally. Abdomen is soft and nontender. She does have 1-2+ pedal edema bilaterally. She has had very mild drop in her hemoglobin levels overnight. No reports of bright red blood per rectum. Recommendations: - repeat H&H in a.m. -If hemoglobin level remained stable, follow-up with the GI service regarding when anticoagulant therapy may be resumed if at all possible. -She remains in normal sinus rhythm. She will continue onMetoprolol and Cardizem. She will follow up with the electrophysiology service as an outpatient for further management of her atrial fibrillation. She may be a candidate for ablation therapy in the future. -In view of her complaints of dyspnea on exertion and worsening lower extremity edema follow-up with the cardiology service regarding need for repeat echocardiography to evaluate for new wall motion abnormalities and change in her ejection fraction. -Administer dose of Lasix 20 mg IV 1 today. Blood pressure is in the 110sto 120 today, Monitor closely. -Mobilize patient. Wean off oxygen.
--- NOTE | 2018-04-05 07:45 | Transfer of Care Summary ---
Hospital Course Course Hospital Course: Reason for ICU admission: hypotension, acute blood loss anemia 2/2 Upper GI Bleed s/p 7U PRBCs History of presenting illness: 52 y/o F with PMH of paroxysmal afib on apixaban, HTN, HFpEF, obesity, JASON and remote h/o hodgkin's s/p presented to the ED c/o of 1 day history of nausea, coffee ground emesis, and melena. On the ED, she was found to be hypotensive (85/55) with H/H 7.2/22.3 with lactic acidemia. GI was consulted and the patient was admitted to the ICU for management of hypotension and emergent EGD. Interval events in the ICU: Pt was intubated for a first EGD on 03/29 that showed oblong gastric ulcer - since Pt was on elliquis no corrective measure taken. 2nd EGD 03/30 took corrective measures after elliquis was dc'd. She was subsequently extubated. Patient received a total 7U PRBCs while in the unit, with H/H going up accordingly, then decreasing again. She continued to have melena. She has been treated with unasyn for a likely aspiration PNA (day# 6). H /H stabilized on 04/04. She was constantly on sinus rhythm until 04/03 where she had an episode of afib requiring cardizem drip. Pt was then hypotensive -- 250mL bolus NS x2 given, with increase in BP to 97/54. She returned to sinus the same day on 04/03. She is now transitioned to cardizem PO. Mechanical ventilation: No NIPPV: No Antibiotics plan: Pt on Unasyn (day #6). Plan is to continue for a full course of 7 days for aspiration PNA by MSSA. Things to be followed up in the floor: Follow H/H and stools for signs of acute bleeding. Continue antibiotics until day #7. Nutrition: Regular Diet DVT prophylaxis: Mechanical, elliquis held. Code status: FULL CODE Significant Procedures: Procedure Date: 03/29/18 Procedure Type: EGD Medical History: unchanged Mental Status: alert/oriented Heart/Lung Eval Prior to Sedation: within normal limits Candidate for Sedation? Yes Impression: 1. 1 cm x 2 cm2 oblong gastric ulcer at incisura/lesser curvature with peripheral oozing, left intact, as Eliquis on board. 2. Clots & food obscuring portions of the gastric cardia, fundus, & distal antrum; patent pylorus without GOO. Possible component of gastroparesis (elevated TSH, mild DM). 3. 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 4. Clean duodenum to D3. Assessment/Plan: 52 y/o F with PMH of paroxysmal afib on apixaban, HTN, HFpEF. obesity, JASON and remote h/o hodgkin's s/p presented to the ED c/o of 1 day history of nausea, coffee ground emesis, and melena. On the ED, she was found to be hypotensive (85 /55) with H/H 7.2/22.3 with lactic acidemia. She was transfused 1U PRBC and 1L crystalloid bolus while in the ED - NGT placement for gastric lavage was attempted but unsuccessful. GI was consulted and the patient was admitted to the ICU for management of hypotension and emergent EGD. IMPRESSION #Anemia 2/2 acute blood loss, s/p 7U PRBC #Aspiration PNA/Pneumonitis #ELIAN, resolved #Afib/HTN #H/o Hypothyroidism #H/o DM #Morbid obesity #Anemia 2/2 acute blood loss, s/p 7U PRBC Patient's CBC and clinical presentation are indicative of acute blood loss as a cause of her anemia. The source is most likely from the GI tract. An EGD was done which found an oblong gastric ulcer that was oozing that was left intact due to patient being on apixaban. Second EGD done on 03/30 clipped and cauterized oblong gastril ulcer. Current H/H now 8.2/24.8. She has received a total of 7U PRBCs. Continue to monitor CBCs with the goal of keeping Hb>8. -Monitor H/H -IV PPI #ELIAN, resolved On admit pt had BUN/Cr 46/1.2, likely resulting from her acute blood loss resulting in hypotension. BUN/Cr is back to normal as a result of fluid therapy. #Aspiration PNA/Pneumonitis Possibility of aspiration due to vomiting and posterior intubation for EGD. CXR shows multifocal diffuse b/l parenchymal opacities, though pt is afebrile and WBC remains high. She was extubated after 2nd EGD. IV unasyn was started. Resp. culture growing Staph Aureus sensitive to unasyn. -Unasyn day #6 -Positive Sputum Culture - MSSA #Afib/HTN Pt has a h/o pAFib on apixaban since 1 year ago -- she has needed electrical cardioversion in the past. Cardiology was consulted with regards to her anticoagulation and recommendations are being followed. 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 Muñoz. On 04/03, pt went into afib with a rate of 180s. She started complaining of chest pain, STAT EKG/Troponins sent, no ischemic changes suspected. 10 mg Cardizem IV times 2 pushed, and started on a drip with SR conversion same day. She is now transitioned to PO cardizem. -Hold Apixaban -cardizem PO #H/o hypothyroidism Pt with a h/o hypothyroidism with latest TSH on record normal (3450 on 02/25). -Continue synthroid IV 25 mcg qD FULL CODE DVT PPX: Mechanical only REG DIET
[2018-04-05 07:50] LABS: ABSOLUTE BASOPHIL COUNT 0 /CUMM (0.0-0.2); ABSOLUTE EOSINOPHIL COUNT 0.6 /CUMM (0.0-0.7); ABSOLUTE GRANULOCYTE CT 12.3 /CUMM (1.4-6.5); ABSOLUTE LYMPH COUNT 1.8 /CUMM (1.2-3.4); ABSOLUTE MONOCYTE COUNT 1.1 /CUMM (0.10-0.60); BASOPHIL % 0.1 % (0.0-2.0); EOSINOPHIL % 3.8 % (0-5); GRANULOCYTE % 77.6 % (42.2-75.2); HEMATOCRIT 23.6 % (37-47); MEAN CORPUSCULAR HGB 28.6 PG (27.0-31.0); MEAN CORPUSCULAR HGB CONC 33.3 G/DL (33.0-37.0); MEAN CORPUSCULAR VOLUME 86.1 FL (81.0-99.0); MEAN PLATELET VOLUME 7.2 FL (7.4-10.4); PLATELET COUNT 483 /CUMM (130-400); RBC DISTRIBUTION WIDTH 16.6 % (11.5-14.5); RED BLOOD CELL CT 2.74 /CUMM (4.20-5.40); WHITE BLOOD CELL COUNT 15.8 /CUMM (4.8-10.8)
--- NOTE | 2018-04-05 08:27 | PN- Pulmonary ---
Subjective HPI/Critical Care Issues: Patient continues to feel weak with productive cough Objective Current Medications: Current Medications Sig/Ceasar Start time Last Medication Dose Route Stop Time Status Admin Acetaminophen 1,000 MG Q6P PRN 03/29 1700 AC 04/04 N/A 1 UNIT IV 2325 Ampicillin Sodium/ 3,000 MG Q6H 03/30 2230 AC 04/05 Sulbactam Sodium IV 0334 Sodium Chloride 100 ML Benzocaine/Menthol 1 NED Q2P PRN 03/31 1000 AC PO Diltiazem HCl 30 MG Q8 04/04 1400 AC 04/05 PO 0608 Diltiazem HCl 125 MG Q24H 04/03 2300 DC 04/03 Sodium Chloride 100 ML IV 2336 Guaifenesin/Codeine 10 ML Q4-6 PRN PRN 04/03 1015 AC 04/04 Phosphate PO 0343 Levothyroxine Sodium 0.05 MG DAILY AC 04/01 0700 AC 04/05 PO 0608 Metoprolol Tartrate 100 MG BID 04/01 0900 AC 04/04 PO 2154 Morphine Sulfate 2 MG Q4P PRN 03/29 1700 DC IV Omeprazole 40 MG BID 04/05 0900 AC PO Ondansetron HCl 4 MG Q6P PRN 03/31 1415 AC 04/03 IV 0829 Pantoprazole Sodium 40 MG BID 04/01 2100 DC 04/04 IV 2155 Phenol 2 SPRAY Q2P PRN 03/31 1000 AC 03/31 EXT 1231 Simethicone 40 MG Q6P PRN 04/03 0600 AC 04/03 PO 0829 Vital Signs & I&O Last 24 Hrs of Vitals and I&O: Vital Signs Date Time Temp Pulse Resp B/P B/P Pulse O2 O2 Flow FiO2 Mean Ox Delivery Rate 04/05 0649 99.2 89 20 112/70 96 04/05 0608 89 112/70 04/05 0329 98.9 04/05 0045 98.9 04/05 0000 Nasal 2.0L Cannula 04/045 101.3 82 18 100/60 92 Nasal 2.0L Cannula 04/04 2155 93 118/68 04/04 2155 99.2 93 20 118/68 95 Nasal Cannula 04/04 2154 93 118/68 04/04 2000 95 Nasal 2.0L Cannula 04/04 1600 Nasal 2.0L Cannula 04/04 1600 98.2 84 20 146/72 98 Nasal 2.0L Cannula 04/04 1410 83 140/70 04/04 0948 96 150/72 Intake & Output 04/05 1600 04/05 0800 04/05 0000 Intake Total 410 1170 Output Total 350 Balance 60 1170 Intake, IV 110 390 Intake, Oral 300 780 Number 0 Bowel Movements Output, Urine 350 Oxygen saturation 2 L 96% exam for chest shows basilar crackles are no wheezes cardiac exam shows regular S1 and S2 without murmurs Impression/Plan Impression/Plan Impression/Plan: 52-year-old woman with GI bleed atrial fibrillation and MSSA pneumonia. Recommendations: Complete course of antibiotics. Taper FiO2 as saturations allow. Further management of GI bleed and atrial fibrillation by primary care team
--- NOTE | 2018-04-05 09:50 | PN- Cardiology ---
Subjective Subjective: The patient is now on telemetry. She has developed pneumonia on top of her GI bleeding and paroxysmal atrial fibrillation. She had an episode of atrial fibrillation lasting about 4 hours on 04/03. She is back in sinus rhythm. She has no cardiac complaints at this time. Objective Vital Signs and I&Os Vital Signs Date Time Temp Pulse Resp B/P B/P Pulse O2 O2 Flow FiO2 Mean Ox Delivery Rate 04/05 0837 90 120/70 04/05 0649 99.2 89 20 112/70 96 04/05 0608 89 112/70 04/05 0329 98.9 04/05 0045 98.9 04/05 0000 Nasal 2.0L Cannula 04/04 2315 101.3 82 18 100/60 92 Nasal 2.0L Cannula 04/04 2155 93 118/68 04/04 2155 99.2 93 20 118/68 95 Nasal Cannula 04/04 2154 93 118/68 04/04 2000 95 Nasal 2.0L Cannula 04/04 1600 Nasal 2.0L Cannula 04/04 1600 98.2 84 20 146/72 98 Nasal 2.0L Cannula 04/04 1410 83 140/70 04/04 0948 96 150/72 Intake & Output 04/05 1600 04/05 0800 04/05 0000 04/04 1600 04/04 0800 04/04 0000 Intake Total 410 1170 6050 340 0098 Output Total 350 500 300 Balance 60 1170 510 470 970 Intake, IV 110 390 290 270 900 Intake, Oral 300 780 720 200 370 Number 0 0 0 Bowel Movements Output, Urine 350 500 300 Patient 247 lb Weight Weight Bed scale Measurement Method Physical Exam: No distress HEENT exam normal Chest clear Heart regular rhythm, prominent systolic ejection murmur at the base. Extremities no edema Current Medications: Current Medications Sig/Ceasar Start time Last Medication Dose Route Stop Time Status Admin Acetaminophen 1,000 MG Q6P PRN 03/29 1700 AC 04/05 N/A 1 UNIT IV 0827 Ampicillin Sodium/ 3,000 MG Q6H 03/30 2230 AC 04/05 Sulbactam Sodium IV 0334 Sodium Chloride 100 ML Benzocaine/Menthol 1 NED Q2P PRN 03/31 1000 AC PO Diltiazem HCl 30 MG Q8 04/04 1400 AC 04/05 PO 0608 Diltiazem HCl 125 MG Q24H 04/03 2300 DC 04/03 Sodium Chloride 100 ML IV 2336 Guaifenesin/Codeine 10 ML Q4-6 PRN PRN 04/03 1015 AC 04/04 Phosphate PO 0343 Levothyroxine Sodium 0.05 MG DAILY AC 04/01 0700 AC 04/05 PO 0608 Metoprolol Tartrate 100 MG BID 04/01 0900 AC 04/05 PO 0837 Morphine Sulfate 2 MG Q4P PRN 03/29 1700 DC IV Omeprazole 40 MG BID 04/05 09 AC 04/05 PO 0838 Ondansetron HCl 4 MG Q6P PRN 03/31 1415 AC 04/03 IV 0829 Pantoprazole Sodium 40 MG BID 04/01 2100 DC 04/04 IV 2155 Phenol 2 SPRAY Q2P PRN 03/31 1000 AC 03/31 EXT 1231 Simethicone 40 MG Q6P PRN 04/03 0600 04/03 PO 0829 Results Last 48 Hrs of Labs/Mics: Laboratory Tests 04/05/18 0621: CBC w Diff NO MAN DIFF REQ, RBC 2.74 L, MCV 86.1, MCH 28.6, MCHC 33.3, RDW 16.6 H, MPV 7.2 L, Gran % 77.6 H, Lymphocytes % 11.2 L, Monocytes % 7.3, Eosinophils % 3.8, Basophils % 0.1, Absolute Granulocytes 12.3 H, Absolute Lymphocytes 1.8, Absolute Monocytes 1.1 H, Absolute Eosinophils 0.6, Absolute Basophils 0 04/04/18 0400: Anion Gap 11, Estimated GFR > 60, Glucose 100 H, Calcium 7.9 L, Phosphorus 3.9 , Magnesium 1.9, Total Bilirubin 0.4, AST 27, ALT 37, Albumin 3.0 L, TSH &T3 & Free T4 Intrp 2.500, CBC w Diff NO MAN DIFF REQ, RBC 2.84 L, MCV 87.5, MCH 29.0 , MCHC 33.2, RDW 16.5 H, MPV 7.1 L, Gran % 75.9 H, Lymphocytes % 13.2 L, Monocytes % 8.1, Eosinophils % 2.6, Basophils % 0.2, Absolute Granulocytes 11.7 H, Absolute Lymphocytes 2.0, Absolute Monocytes 1.3 H, Absolute Eosinophils 0.4 , Absolute Basophils 0 04/03/18 2020: CBC w Diff NO MAN DIFF REQ, RBC 2.76 L, MCV 86.7, MCH 29.0, MCHC 33.4, RDW 16.8 H, MPV 7.2 L, Gran % 77.8 H, Lymphocytes % 11.7 L, Monocytes % 7.5, Eosinophils % 2.8, Basophils % 0.2, Absolute Granulocytes 12.0 H, Absolute Lymphocytes 1.8, Absolute Monocytes 1.2 H, Absolute Eosinophils 0.4, Absolute Basophils 0 04/03/18 1251: PT Cancelled, INR Cancelled, APTT Cancelled 04/03/18 1240: Troponin I 0.03, CBC w Diff NO MAN DIFF REQ, RBC 3.08 L, MCV 87.1, MCH 29.1, MCHC 33.4, RDW 16.5 H, MPV 6.9 L, Gran % 80.7 H, Lymphocytes % 10.9 L, Monocytes % 5.6, Eosinophils % 2.5, Basophils % 0.3, Absolute Granulocytes 13.6 H, Absolute Lymphocytes 1.8, Absolute Monocytes 0.9 H, Absolute Eosinophils 0.4 , Absolute Basophils 0.1 Recent Imaging Studies: PATIENT: TIMA SOTO PRESENT AGE: 52 PATIENT ACCOUNT NO: [id number] : 66 LOCATION: [facility] ORDERING PHYSICIAN: Rose Mary John MD SERVICE DATE: 04/02/18 EXAM TYPE: RAD - XRY-PORTABLE CHEST XRAY EXAMINATION: XR PORTABLE CHEST CLINICAL INFORMATION: 52-year-old female with pulmonary edema/pneumonia. Increasing oxygen requirement. COMPARISON: Chest done on 03/31/2018. TECHNIQUE: Portable frontal view of the chest was obtained. FINDINGS: Dense airspace opacities noted at right lower lung field medially, may represent pneumonia versus atelectasis or combination thereof. Lesser extensive subtle airspace disease also noted at left lower lobe. The remainder of the lung mcdonnell are clear. The cardiomediastinal silhouette is within normal limit. There is no pleural effusion present. IMPRESSION: Dense airspace disease at right lower lobe medially. Subtle airspace disease at left lung base. DICTATED BY: Luis Benjamin MD DATE/TIME DICTATED:04/02/181117 SCRAPER TENDER:AVA DATE/TIME TRANSCRIBED:07/20/18 / 1118 CONFIDENTIAL, DO NOT COPY WITHOUT APPROPRIATE AUTHORIZATION. <Electronically signed in Other Vendor System> SIGNED BY: Luis Benjamin MD 04/02/18 1136 Assessment/Plan Assessment/Plan 1. GI bleeding: Clinically seems to have stopped. Hematocrit slightly lower at 23.6 and hemoglobin 7.9. Did get transfusion over the weekend. GI directing care. 2. Paroxysmal atrial fibrillation: Patient had episode of atrial fibrillation lasting about 4 hours on 04/03/2018. This has not recurred. She is off anticoagulation. She is now on diltiazem p.o. and remains on metoprolol. I will be asking Dr. Porfirio Hercules to see her regarding any recommendations for additional pharmacologic therapy at this time. He had suggested perhaps flecainide when he saw her in the office. She may well be a candidate for atrial fibrillation ablation in addition. 3. Pneumonia: The patient has developed right-sided pneumonia for which she is being appropriately treated. Question repeat chest x-ray at this time. Continue telemetry? Yes
[2018-04-05 14:16] VITALS: BP 110/70
--- NOTE | 2018-04-05 14:27 | CT SCAN REPORT ---
EXAMINATION: CT NECK WITHOUT CONTRAST CLINICAL INFORMATION: Dysphasia. Cricopharyngeal bar on barium swallow. COMPARISON: There have swallow from 02/17/2018 TECHNIQUE: CT scanning of the neck was performed without contrast. Angled axial, coronal, and sagittal reformatted images were generated. DLP: 599 mGy-cm FINDINGS: There is swallowing artifact at the hypopharyngeal/supraglottic laryngeal level. Accounting for this, the imaged pharyngeal and laryngeal contours are grossly unremarkable. The visualized oral cavity appears unremarkable. No cervical adenopathy. The parotid and submandibular glands are symmetric in attenuation without focal inflammation. No discrete thyroid lesions are visualized. There are confluent consolidative opacities at the lung apices bilaterally on a background of extensive mosaic attenuation in the lungs diffusely. There is also superimposed breathing artifact. The study is performed in expiration. No convincing central tracheobronchial endoluminal abnormalities are visualized. Scattered paratracheal lymph nodes are nonspecific and measure up to 1 cm in short axis. The caliber of the visualized aorta is grossly unremarkable. No acute abnormality in the imaged intracranial compartment. The visualized orbits appear unremarkable. There is near complete opacification of the diminutive right maxillary sinus with a lateralized uncinate process compatible with a degree of atelectasis. Otherwise the paranasal sinuses, nasal cavity, mastoid air cells and middle ear cavities are clear. No periapical lucencies. No acute osseous abnormalities. No significant degenerative changes in the imaged spine. IMPRESSION: There is swallowing artifact at the hypopharyngeal level, accounting for which there are no gross abnormalities of the pharyngeal or laryngeal contours visualized. No cervical adenopathy. Atelectatic nearly completely opacified right maxillary sinus. Bilateral, symmetric abnormalities within the lungs with confluent airspace opacities in the upper lobes superimposed on fairly extensive mosaic attenuation. Correlation with chest CT is recommended.
--- NOTE | 2018-04-05 14:31 | Cons- Cardiology ---
General Information and HPI Consulting Request Date of Consult: 04/05/18 Requested By: Lev DUNN,Tiny Muñoz Reason for Consult: Paroxysmal atrial fibrillation in setting of GI bleed Source of Information: patient, old records Exam Limitations: no limitations History of Present Illness: I was asked to see Mrs. Luna regarding paroxysmal atrial fibrillation in the setting of GI bleeding. She is referred by Dr. Jose Luis Muñoz. I saw her as an outpatient on 03/08/2018. To review she is a very pleasant 52-year-old female who has a history of Hodgkin 's disease. She received radiation therapy to the chest as well as chemotherapy in 1997. She also has chronic aortic valve insufficiency and she was told this is possibly from the radiation therapy. She also has a history of hypertension, obesity, obstructive sleep apnea although at one point she was told she might not still have it and was not recently on a CPAP mask treatment. She has recently gained a fair amount of weight on top of her pre-existing obesity. She has developed some peripheral edema. She also has type 2 diabetes and hypothyroidism. An echocardiogram done on 02/28/2018 showed moderate to severe aortic insufficiency. Her first episode of A. fib occurred on 05/04/2017 and required cardioversion she has not had a cardioversion sense. As She has subsequent had recurrent A. fib. On 11/17/2017 she went to [place] was given heparin and Cardizem and converted to sinus rhythm. She had another episode of A. fib presented to [facility] on 01/01/2014 and was given Lopressor and converted to sinus rhythm. Her most recent episode occurred on 01/29/2018 where she presented to [facility] [place] converted to sinus rhythm in the emergency room. She has also had episodes but has stayed at home. She will take an extra metoprolol or 2 and she will ultimately terminate at home. Holter monitor done on 09/01/2017 showed an average heart rate of 92 she had 225 PVCs 153 supraventricular ectopic beats. On echocardiogram done on 11/17/2017 she had an EF of 60% she had normal systolic function there is mild to moderate aortic valve regurgitation or left atrial size is 4.7 there is mild LVH. When I met her in the office on 03/08/18 I felt her AF was on the basis of her obesity, hypertension, sleep apnea, her aortic regurgitation and possibly some element of hypokalemia from her hydrochlorothiazide. I recommended switching her hydrochlorothiazide to Lasix 40 mg and Aldactone 25 mg taken 3-4 times per week for her peripheral edema. I sent her to the [facility] sleep disorder center. I also recommended she see a supervisor slate splitting and she and her dad had done that regarding weight loss. If she had recurrent A. fib I felt she would be a reasonable candidate for drug therapy and I recommended flecainide 75 mg twice a day. I also thought she could be a candidate for catheter ablation, but she would need to lose weight and have her sleep apnea treated. I thought that given her aortic regurgitation if she ever need surgery that she should have a Maze procedure. Thus overall I recommended repeat sleep study, weight loss, changing her diuretics, and then bringing her back. Unfortunately she is now admitted on 03/29/2018 with a rather impressive upper GI bleed resulting in bright red blood per rectum and hematemesis. She underwent endoscopy showing a bleeding ulcer. Her Eliquis was held but on 04/03/2018 she had 4 hours of atrial fibrillation but then converted to sinus rhythm. She has been followed in the hospital by Dr. Jose Luis Muñoz. Given the fact that she cannot currently be anticoagulated he thought we should attempt pharmacologic rhythm control. Allergies/Medications Allergies: Coded Allergies: No Known Allergies (11/17/17) Home Med List: Apixaban (Eliquis) 5 MG TABLET 1 TAB PO BID Atrial fibrillation . Fluticasone Propionate (Flonase Allergy Relief) 50 MCG/ACTUATION SPRAY.SUSP 1 SPRAY [place] DAILY ALLERGIES (Reported) Furosemide (Lasix) 40 MG TABLET 1 TAB PO Q48 WATER RETENTION (Reported) Levothyroxine Sodium (Levoxyl) 50 MCG TABLET 1 TAB PO DAILY AC THYROID ( Reported) Metoprolol Tartrate 100 MG TABLET 1 TAB PO BID Atrial fibrillation . Spironolactone (Aldactone) 25 MG TABLET 1 TAB PO Q48 WATER RETENTION ( Reported) Current Medications: Current Medications Sig/Ceasar Start time Last Medication Dose Route Stop Time Status Admin Acetaminophen 1,000 MG Q6P PRN 03/29 1700 AC 04/05 N/A 1 UNIT IV 0827 Ampicillin Sodium/ 3,000 MG Q6H 03/30 2230 AC 04/05 Sulbactam Sodium IV 1040 Sodium Chloride 100 ML Benzocaine/Menthol 1 NED Q2P PRN 03/31 1000 AC PO Diltiazem HCl 30 MG Q8 04/04 1400 AC 04/05 PO 1343 Guaifenesin/Codeine 10 ML Q4-6 PRN PRN 04/03 1015 AC 04/04 Phosphate PO 0343 Levothyroxine Sodium 0.05 MG DAILY AC 04/01 0700 AC 04/05 PO 0608 Metoprolol Tartrate 100 MG BID 04/01 0900 AC 04/05 PO 0837 Morphine Sulfate 2 MG Q4P PRN 03/29 1700 DC IV Omeprazole 40 MG BID 04/05 0900 AC 04/05 PO 0838 Ondansetron HCl 4 MG Q6P PRN 03/31 1415 AC 04/03 IV 0829 Pantoprazole Sodium 40 MG BID 04/01 2100 DC 04/04 IV 2155 Phenol 2 SPRAY Q2P PRN 03/31 1000 AC 03/31 EXT 1231 Simethicone 40 MG Q6P PRN 04/03 0600 AC 04/03 PO 0829 Review of Systems Review of Systems: Constitutional: Negative for decreased appetite, weakness, malaise/fatigue, weight gain, weight loss HENT: Negative for congestion, hearing loss, hoarse voice, nosebleeds, sore throat, tinnitus Eyes: Negative for blurred vision, double vision, photophobia, redness, visual disturbances Cardiovascular: Negative for chest pain, shortness of breath, dyspnea on exertion, irregular heartbeat/palpitations, swelling, near syncope, syncope, orthopnea, paroxysmal nocturnal dyspnea, claudication, cyanosis Respiratory: Negative for cough, hemoptysis, shortness of breath, snoring, sleep apnea/sleep disordered breathing, sputum production, wheezing Endocrine: Negative for cold intolerance, heat intolerance, missed menstrual periods Hematologic/Lymphatic: Negative for adenopathy, abnormal bleeding, easy bruisability Skin: Negative for flushing, itching, rashes, skin cancer/suspicious lesions Musculoskeletal: Negative for arthritis, back pain, joint swelling, muscle cramps, muscle weakness Gastrointestinal: Negative for abdominal pain, change in bowel habits, constipation, diarrhea, dysphagia, heartburn, hemorrhoids, POSITIVE FOR melena, nausea, vomiting Genitourinary: Negative for urinary incontinence, dysuria, flank pain, frequency , hematuria, nocturia, urgency Neurological: Negative for excessive daytime sleepiness, dizziness, focal weakness, headaches, lightheadedness, numbness, paresthesias, seizures, tremors, vertigo Psychiatric/behavioral: Negative for depression, hallucinations, memory loss, substance abuse, suicidal ideas, thoughts of violence, insomnia, nervousness/ anxiety Allergic/Immunologic: Negative for environmental allergies ALL OTHER SYSTEMS REVIEWED AND ARE NEGATIVE Past History Travel History Traveled to [place] past 21 day No Medical History Blood Transfusion Hx: No (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 Prostate cancer MOTHER ([employer]). Age 75. Psychosocial History Where Do You Live? Home Who Do You Live With? spouse, child Services at Home: None Primary Language: Sudanese Smoking Status: Never Smoked ETOH Use: denies use Illicit Drug Use: denies illicit drug use Living Will? no Power of Interdisciplinary Professor/HCP? no Other Social History: to [place]. 2 children (1 son & 1 dtr)- [employer]. 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 Ambulation: independent IADLs Independent: shopping, housework, finances, food prep, telephone, transportation , medication admin. 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 ECHO Results (as available) Date of last Echo 11/17/17 EF% 60 Exam & Diagnostic Data Vital Signs and I&O Vital Signs Date Time Temp Pulse Resp B/P B/P Pulse O2 O2 Flow FiO2 Mean Ox Delivery Rate 04/05 1416 98.8 84 20 110/70 97 Nasal Cannula 04/05 1343 83 04/05 1100 18 91 Nasal 2.0L Cannula 04/05 1050 18 87 Room Air 04/05 0837 90 120/70 04/05 0800 91 Nasal 2.0L Cannula 04/05 0649 99.2 89 20 112/70 96 04/05 0608 89 112/70 04/05 0329 98.9 04/05 0045 98.9 04/05 0000 Nasal 2.0L Cannula 04/04 2315 101.3 82 18 100/60 92 Nasal 2.0L Cannula 04/04 2155 93 118/68 04/04 2155 99.2 93 20 11868 95 Nasal Cannula 04/04 2154 93 118/68 04/04 2000 95 Nasal 2.0L Cannula 04/04 1600 Nasal 2.0L Cannula 04/04 1600 98.2 84 20 146/72 98 Nasal 2.0L Cannula Intake & Output 04/05 0800 04/05 0000 04/04 1600 04/04 0804/04 0000 Intake Total 903 680 4243 6668 387 3512 Output Total 350 500 300 Balance 027 330 6405 510 470 970 Intake, IV 210 390 290 270 900 Intake, Oral 140 300 780 720 200 370 Number 0 0 0 Bowel Movements Output, Urine 350 500 300 Patient 247 lb Weight Weight Bed scale Measurement Method Physical Exam: General/Constitutional: Oriented to person, place, and time. In no distress. Well-developed, well-nourished. Vital signs: see above. Head: Normocephalic/atraumatic Eyes: No xanthelasma or scleral icterus. Conjunctivae normal. Mouth: Moist mucous membranes without pallor or cyanosis Neck: Supple. No jugular venous distention, carotid bruits, thyromegaly Thorax/lungs/pulmonary: No chest deformity. Effort normal without respiratory distress. Lungs clear without wheezes or rales. Heart/Cardiovascular: Normal S1, S2 without murmurs, S3, or S4 Abdomen/GI: No distention, tenderness or masses Extremities: No cyanosis, clubbing, or edema Neuro: Alert and oriented to person, place, time. Grossly non-focal. Skin: Warm and dry. No diaphoresis. No major rashes. No erythema. No pallor or cyanosis. Psychiatric: Normal mood and affect, behavior appears normal. Labs/Manoj Results: Laboratory Tests 04/05 621 Hematology CBC w Diff NO MAN DIFF REQ WBC (4.8 - 10.8 /CUMM) 15.8 H RBC (4.20 - 5.40 /CUMM) 2.74 L Hgb (12.0 - 16.0 G/DL) 7.9 L Hct (37 - 47 %) 23.6 L MCV (81.0 - 99.0 FL) 86.1 MCH (27.0 - 31.0 PG) 28.6 MCHC (33.0 - 37.0 G/DL) 33.3 RDW (11.5 - 14.5 %) 16.6 H Plt Count (130 - 400 /CUMM) 483 H MPV (7.4 - 10.4 FL) 7.2 L Gran % (42.2 - 75.2 %) 77.6 H Lymphocytes % (20.5 - 51.1 %) 11.2 L Monocytes % (1.7 - 9.3 %) 7.3 Eosinophils % (0 - 5 %) 3.8 Basophils % (0.0 - 2.0 %) 0.1 Absolute Granulocytes (1.4 - 6.5 /CUMM) 12.3 H Absolute Lymphocytes (1.2 - 3.4 /CUMM) 1.8 Absolute Monocytes (0.10 - 0.60 /CUMM) 1.1 H Absolute Eosinophils (0.0 - 0.7 /CUMM) 0.6 Absolute Basophils (0.0 - 0.2 /CUMM) 0 04/04 0400 Chemistry Sodium (137 - 145 mmol/L) 139 Potassium (3.5 - 5.1 mmol/L) 4.1 Chloride (98 - 107 mmol/L) 102 Carbon Dioxide (22 - 30 mmol/L) 26 Anion Gap (5 - 16) 11 BUN (7 - 17 mg/dL) 11 Creatinine (0.5 - 1.0 mg/dL) 0.8 Estimated GFR (>60 ml/min) > 60 Glucose (65 - 99 mg/dL) 100 H Calcium (8.4 - 10.2 mg/dL) 7.9 L Phosphorus (2.5 - 4.5 mg/dL) 3.9 Magnesium (1.6 - 2.3 mg/dL) 1.9 Total Bilirubin (0.2 - 1.3 mg/dL) 0.4 AST (14 - 36 U/L) 27 ALT (9 - 52 U/L) 37 Albumin (3.5 - 5.0 g/dL) 3.0 L TSH &T3 &Free T4 Intrp (0.270 - 4.20 uIU/mL) 2.500 Hematology CBC w Diff NO MAN DIFF REQ WBC (4.8 - 10.8 /CUMM) 15.4 H RBC (4.20 - 5.40 /CUMM) 2.84 L Hgb (12.0 - 16.0 G/DL) 8.2 L Hct (37 - 47 %) 24.8 L MCV (81.0 - 99.0 FL) 87.5 MCH (27.0 - 31.0 PG) 29.0 MCHC (33.0 - 37.0 G/DL) 33.2 RDW (11.5 - 14.5 %) 16.5 H Plt Count (130 - 400 /CUMM) 410 H MPV (7.4 - 10.4 FL) 7.1 L Gran % (42.2 - 75.2 %) 75.9 H Lymphocytes % (20.5 - 51.1 %) 13.2 L Monocytes % (1.7 - 9.3 %) 8.1 Eosinophils % (0 - 5 %) 2.6 Basophils % (0.0 - 2.0 %) 0.2 Absolute Granulocytes (1.4 - 6.5 /CUMM) 11.7 H Absolute Lymphocytes (1.2 - 3.4 /CUMM) 2.0 Absolute Monocytes (0.10 - 0.60 /CUMM) 1.3 H Absolute Eosinophils (0.0 - 0.7 /CUMM) 0.4 Absolute Basophils (0.0 - 0.2 /CUMM) 0 07/21 2019 Hematology CBC w Diff NO MAN DIFF REQ WBC (4.8 - 10.8 /CUMM) 15.5 H RBC (4.20 - 5.40 /CUMM) 2.76 L Hgb (12.0 - 16.0 G/DL) 8.0 L Hct (37 - 47 %) 24.0 L MCV (81.0 - 99.0 FL) 86.7 MCH (27.0 - 31.0 PG) 29.0 MCHC (33.0 - 37.0 G/DL) 33.4 RDW (11.5 - 14.5 %) 16.8 H Plt Count (130 - 400 /CUMM) 372 MPV (7.4 - 10.4 FL) 7.2 L Gran % (42.2 - 75.2 %) 77.8 H Lymphocytes % (20.5 - 51.1 %) 11.7 L Monocytes % (1.7 - 9.3 %) 7.5 Eosinophils % (0 - 5 %) 2.8 Basophils % (0.0 - 2.0 %) 0.2 Absolute Granulocytes (1.4 - 6.5 /CUMM) 12.0 H Absolute Lymphocytes (1.2 - 3.4 /CUMM) 1.8 Absolute Monocytes (0.10 - 0.60 /CUMM) 1.2 H Absolute Eosinophils (0.0 - 0.7 /CUMM) 0.4 Absolute Basophils (0.0 - 0.2 /CUMM) 0 Diagnostic Data EKG Results Her EKG from yesterday shows normal sinus rhythm left atrial abnormality and LVH. When she was in A. fib rates were rapid to 140s with aberrant conducted beats. Assessment/Plan Assessment/Plan My assessment is as I have outlined previously that Ms. Luna has A. fib on the basis of her obesity, hypertension, sleep apnea, etc. I completely agree that we should try to pharmacologically suppress her A. fib. She definitely needs her sleep apnea and obesity treated aggressively. In the meantime I will recommend flecainide 75 mg twice a day. Flecainide comes in 100 and 150 mg tablets and I would give 150 mg one half tablet twice daily. Should this not prove effective going forward then I do think we will consider ablation in the future. Obviously if she loses weight and has likely sleep apnea treated the results will be much better. Please call if there are any other questions regarding management of her atrial arrhythmias. She does have followup with me in the office in the near future. Copies To: Luis Felipe DUNN,Ken Dowling; Diomedes DUNN,Porfirio Joshua; Toni DUNN,Jose Luis De Los Santos Consult Acknowledgment - Thank you for your consult request.
--- NOTE | 2018-04-05 17:49 | PN- Gastroenterology ---
Assessment/Plan GI Assessment/Recommendations: GI bleed Gastric ulcer Blood loss anemia, status post multiple transfusions Stable hemoglobin/hematocrit Recommendations * Continue regular diet * Continue to follow CBC; limit phlebotomy to daily * Continue PPI twice a day * Currently not a good anticoagulation candidate. Appreciate cardiology/EPS input, and will discuss with them if anticoagulation deemed necessary. Subjective Subjective: No bowel movements. No overt bleeding. Being treated for pneumonia. Objective Vital Signs and I&Os Vital Signs Date Time Temp Pulse Resp B/P B/P Pulse O2 O2 Flow FiO2 Mean Ox Delivery Rate 04/05 1638 95 Nasal 2.0L Cannula 04/05 1416 98.8 84 20 110/70 97 Nasal Cannula 04/05 1343 83 04/05 1100 18 91 Nasal 2.0L Cannula 04/05 1050 18 87 Room Air 04/05 0837 90 120/70 04/05 0800 91 Nasal 2.0L Cannula 04/05 0649 99.2 89 20 112/70 96 04/05 0608 89 112/70 04/05 0329 98.9 04/05 0045 98.9 04/05 0000 Nasal 2.0L Cannula 04/04 2315 101.3 82 18 100/60 92 Nasal 2.0L Cannula 04/04 2155 93 118/68 04/04 2155 99.2 93 20 118/68 95 Nasal Cannula 04/04 2154 93 118/68 04/04 2000 95 Nasal 2.0L Cannula Intake & Output 04/05 1600 04/05 0400 04/04 1600 04/04 0400 04/03 1600 04/03 0400 Intake Total 990 1170 1480 1270 1090 1270 Output Total 350 664 282 4679 250 Balance 640 1170 980 970 -260 1020 Intake, Blood 360 Product Intake, IV 310 390 560 900 425 310 Intake, Oral 680 780 920 370 665 600 Number 0 0 0 1 Bowel Movements Output, Urine 350 826 416 6274 250 Patient 247 lb 245 lb Weight Weight Bed scale Bed scale Measurement Method Physical Exam: Abdomen soft, nondistended, nontender. Current Medications: Current Medications Sig/Ceasar Start time Last Medication Dose Route Stop Time Status Admin Acetaminophen 1,000 MG .STK-MED ONE 04/05 0824 DC IV 04/05 0825 Acetaminophen 1,000 MG Q6P PRN 03/29 1700 AC 04/05 N/A 1 UNIT IV 0827 Ampicillin Sodium/ 3,000 MG Q6H 03/30 2230 AC 04/05 Sulbactam Sodium IV 1609 Sodium Chloride 100 ML Benzocaine/Menthol 1 NED Q2P PRN 03/31 1000 AC PO Diltiazem HCl 30 MG Q8 04/04 1400 AC 04/05 PO 1343 Flecainide Acetate 75 MG BID 04/05 2100 AC PO Guaifenesin/Codeine 10 ML Q4-6 PRN PRN 04/03 1015 AC 04/04 Phosphate PO 0343 Levothyroxine Sodium 0.05 MG DAILY AC 04/01 0700 AC 04/05 PO 0608 Metoprolol Tartrate 100 MG BID 04/01 0900 AC 04/05 PO 0837 Morphine Sulfate 2 MG Q4P PRN 03/29 1700 DC IV Omeprazole 40 MG BID 04/05 0900 AC 04/05 PO 0838 Ondansetron HCl 4 MG Q6P PRN 03/31 1415 AC 04/03 IV 0829 Pantoprazole Sodium 40 MG BID 04/01 2100 DC 04/04 IV 2155 Phenol 2 SPRAY Q2P PRN 03/31 1000 AC 03/31 EXT 1231 Simethicone 40 MG Q6P PRN 04/03 0600 AC 04/03 PO 0829 Results Pertinent Lab Results: Laboratory Tests 04/05 621 Hematology CBC w Diff NO MAN DIFF REQ WBC (4.8 - 10.8 /CUMM) 15.8 H RBC (4.20 - 5.40 /CUMM) 2.74 L Hgb (12.0 - 16.0 G/DL) 7.9 L Hct (37 - 47 %) 23.6 L MCV (81.0 - 99.0 FL) 86.1 MCH (27.0 - 31.0 PG) 28.6 MCHC (33.0 - 37.0 G/DL) 33.3 RDW (11.5 - 14.5 %) 16.6 H Plt Count (130 - 400 /CUMM) 483 H MPV (7.4 - 10.4 FL) 7.2 L Gran % (42.2 - 75.2 %) 77.6 H Lymphocytes % (20.5 - 51.1 %) 11.2 L Monocytes % (1.7 - 9.3 %) 7.3 Eosinophils % (0 - 5 %) 3.8 Basophils % (0.0 - 2.0 %) 0.1 Absolute Granulocytes (1.4 - 6.5 /CUMM) 12.3 H Absolute Lymphocytes (1.2 - 3.4 /CUMM) 1.8 Absolute Monocytes (0.10 - 0.60 /CUMM) 1.1 H Absolute Eosinophils (0.0 - 0.7 /CUMM) 0.6 Absolute Basophils (0.0 - 0.2 /CUMM) 0 04/04 0400 Chemistry Sodium (137 - 145 mmol/L) 139 Potassium (3.5 - 5.1 mmol/L) 4.1 Chloride (98 - 107 mmol/L) 102 Carbon Dioxide (22 - 30 mmol/L) 26 Anion Gap (5 - 16) 11 BUN (7 - 17 mg/dL) 11 Creatinine (0.5 - 1.0 mg/dL) 0.8 Estimated GFR (>60 ml/min) > 60 Glucose (65 - 99 mg/dL) 100 H Calcium (8.4 - 10.2 mg/dL) 7.9 L Phosphorus (2.5 - 4.5 mg/dL) 3.9 Magnesium (1.6 - 2.3 mg/dL) 1.9 Total Bilirubin (0.2 - 1.3 mg/dL) 0.4 AST (14 - 36 U/L) 27 ALT (9 - 52 U/L) 37 Albumin (3.5 - 5.0 g/dL) 3.0 L TSH &T3 &Free T4 Intrp (0.270 - 4.20 uIU/mL) 2.500 Hematology CBC w Diff NO MAN DIFF REQ WBC (4.8 - 10.8 /CUMM) 15.4 H RBC (4.20 - 5.40 /CUMM) 2.84 L Hgb (12.0 - 16.0 G/DL) 8.2 L Hct (37 - 47 %) 24.8 L MCV (81.0 - 99.0 FL) 87.5 MCH (27.0 - 31.0 PG) 29.0 MCHC (33.0 - 37.0 G/DL) 33.2 RDW (11.5 - 14.5 %) 16.5 H Plt Count (130 - 400 /CUMM) 410 H MPV (7.4 - 10.4 FL) 7.1 L Gran % (42.2 - 75.2 %) 75.9 H Lymphocytes % (20.5 - 51.1 %) 13.2 L Monocytes % (1.7 - 9.3 %) 8.1 Eosinophils % (0 - 5 %) 2.6 Basophils % (0.0 - 2.0 %) 0.2 Absolute Granulocytes (1.4 - 6.5 /CUMM) 11.7 H Absolute Lymphocytes (1.2 - 3.4 /CUMM) 2.0 Absolute Monocytes (0.10 - 0.60 /CUMM) 1.3 H Absolute Eosinophils (0.0 - 0.7 /CUMM) 0.4 Absolute Basophils (0.0 - 0.2 /CUMM) 0 04/03 04/03 2020 1251 Coagulation PT Cancelled INR Cancelled APTT Cancelled Hematology CBC w Diff NO MAN DIFF REQ WBC (4.8 - 10.8 /CUMM) 15.5 H RBC (4.20 - 5.40 /CUMM) 2.76 L Hgb (12.0 - 16.0 G/DL) 8.0 L Hct (37 - 47 %) 24.0 L MCV (81.0 - 99.0 FL) 86.7 MCH (27.0 - 31.0 PG) 29.0 MCHC (33.0 - 37.0 G/DL) 33.4 RDW (11.5 - 14.5 %) 16.8 H Plt Count (130 - 400 /CUMM) 372 MPV (7.4 - 10.4 FL) 7.2 L Gran % (42.2 - 75.2 %) 77.8 H Lymphocytes % (20.5 - 51.1 %) 11.7 L Monocytes % (1.7 - 9.3 %) 7.5 Eosinophils % (0 - 5 %) 2.8 Basophils % (0.0 - 2.0 %) 0.2 Absolute Granulocytes (1.4 - 6.5 /CUMM) 12.0 H Absolute Lymphocytes (1.2 - 3.4 /CUMM) 1.8 Absolute Monocytes (0.10 - 0.60 /CUMM) 1.2 H Absolute Eosinophils (0.0 - 0.7 /CUMM) 0.4 Absolute Basophils (0.0 - 0.2 /CUMM) 0 04/03 04/03 1240 0710 Chemistry Troponin I (< 0.11 ng/ml) 0.03 Hematology CBC w Diff NO MAN DIFF REQ WBC (4.8 - 10.8 /CUMM) 16.9 H RBC (4.20 - 5.40 /CUMM) 3.08 L Hgb (12.0 - 16.0 G/DL) 9.0 L Hct (37 - 47 %) 26.9 L MCV (81.0 - 99.0 FL) 87.1 MCH (27.0 - 31.0 PG) 29.1 MCHC (33.0 - 37.0 G/DL) 33.4 RDW (11.5 - 14.5 %) 16.5 H Plt Count (130 - 400 /CUMM) 374 MPV (7.4 - 10.4 FL) 6.9 L Gran % (42.2 - 75.2 %) 80.7 H Lymphocytes % (20.5 - 51.1 %) 10.9 L Monocytes % (1.7 - 9.3 %) 5.6 Eosinophils % (0 - 5 %) 2.5 Basophils % (0.0 - 2.0 %) 0.3 Absolute Granulocytes (1.4 - 6.5 /CUMM) 13.6 H Absolute Lymphocytes (1.2 - 3.4 /CUMM) 1.8 Absolute Monocytes (0.10 - 0.60 /CUMM) 0.9 H Absolute Eosinophils (0.0 - 0.7 /CUMM) 0.4 Absolute Basophils (0.0 - 0.2 /CUMM) 0.1 Urines Urine Color (YEL,AMB,STR) YEL Urine Clarity (CLEAR) CLEAR Urine pH (5.0 - 8.0) 6.5 Ur Specific [place] (1.001 - 1.035) 1.020 Urine Protein (NEG,<30 MG/DL) 30 H Urine Ketones (NEG) NEG Urine Nitrite (NEG) NEG Urine Bilirubin (NEG) NEG Urine Urobilinogen (0.1 - 1.0 EU/dl) 0.2 Ur Leukocyte Esterase (NEG) NEG Ur Microscopic SEDIMENT EXAMINED Urine RBC (0 - 5 /HPF) >75 H Urine WBC (0 - 2 /HPF) 1-3 H Ur Epithelial Cells (NONE,FEW) MOD H Urine Bacteria (NEG/NONE) FEW H Urine Hemoglobin (NEG) LARGE H Urine Glucose (N MG/DL) NEG 04/035 2044 Chemistry Sodium (137 - 145 mmol/L) 139 Potassium (3.5 - 5.1 mmol/L) 4.3 Chloride (98 - 107 mmol/L) 103 Carbon Dioxide (22 - 30 mmol/L) 27 Anion Gap (5 - 16) 9 BUN (7 - 17 mg/dL) 7 Creatinine (0.5 - 1.0 mg/dL) 0.6 Estimated GFR (>60 ml/min) > 60 Glucose (65 - 99 mg/dL) 95 Calcium (8.4 - 10.2 mg/dL) 7.9 L Phosphorus (2.5 - 4.5 mg/dL) 3.7 Magnesium (1.6 - 2.3 mg/dL) 1.9 Total Bilirubin (0.2 - 1.3 mg/dL) 0.5 AST (14 - 36 U/L) 29 ALT (9 - 52 U/L) 36 Albumin (3.5 - 5.0 g/dL) 3.0 L Hematology CBC w Diff NO MAN DIFF REQ NO MAN DIFF REQ WBC (4.8 - 10.8 /CUMM) 14.4 H 15.5 H RBC (4.20 - 5.40 /CUMM) 2.79 L 2.96 L Hgb (12.0 - 16.0 G/DL) 8.1 L 8.6 L Hct (37 - 47 %) 24.4 L 25.8 L MCV (81.0 - 99.0 FL) 87.6 87.1 MCH (27.0 - 31.0 PG) 29.1 28.9 MCHC (33.0 - 37.0 G/DL) 33.2 33.2 RDW (11.5 - 14.5 %) 16.4 H 16.6 H Plt Count (130 - 400 /CUMM) 297 259 MPV (7.4 - 10.4 FL) 8.1 8.8 Gran % (42.2 - 75.2 %) 78.0 H 72.4 Lymphocytes % (20.5 - 51.1 %) 13.8 L 17.8 L Monocytes % (1.7 - 9.3 %) 4.5 5.8 Eosinophils % (0 - 5 %) 3.4 3.8 Basophils % (0.0 - 2.0 %) 0.3 0.2 Absolute Granulocytes (1.4 - 6.5 /CUMM) 11.2 H 11.2 H Absolute Lymphocytes (1.2 - 3.4 /CUMM) 2.0 2.7 Absolute Monocytes (0.10 - 0.60 /CUMM) 0.6 0.9 H Absolute Eosinophils (0.0 - 0.7 /CUMM) 0.5 0.6 Absolute Basophils (0.0 - 0.2 /CUMM) 0 0
[2018-04-05 21:37] VITALS: BP 128/70
[2018-04-05 22:57] VITALS: BP 100/68
--- NOTE | 2018-04-05 23:13 | Patient Discharge Instructions ---
Discharge Instructions General Discharge Information You were seen/treated for: GI bleed, paroxysmal atrial fibrillation, anemia You had these procedures: Endoscopy with cauterization of gastric ulcer Watch for these problems: With blood in stool or vomit, please go urgenty to your nearest emergency department. With chest pain, dizziness, feeling faint, sudden onset of weakness, confusion, visual changes, changes with balance or speech, please go to your nearest emergency department. Special Instructions: Please follow-up with your forging engineer, primary care doctor, control systems technician , first line production supervisor, and ENT doctor shortly after discharge. Please note that your Eliquis has been stopped, please follow up with your forging engineer regarding this. Diet Continue normal diet: Yes Recommended Diet: Regular Activity Full Activity/No Limits: No Activity Self Limited: Yes Acute Coronary Syndrome Inclusion Criteria At DC or during hospital stay patient has or had the following: ACS DIAGNOSIS No Discharge Core Measures Meds if any: Prescribed or Continued at Discharge Meds if any: NOT Prescribed or Continued at Discharge Congestive Heart Failure Inclusion Criteria At DC or during hospital stay patient has or had the following: CHF DIAGNOSIS Yes Discharge Core Measures Meds if any: Prescribed or Continued at Discharge JUAN R/ARB for EF <40% No Meds if any: NOT Prescribed or Continued at Discharge No JUAN R/ARB d/t Medical Contraindication Cerebrovascular accident Inclusion Criteria At DC or during hospital stay patient has or had the following: CVA/TIA Diagnosis No Discharge Core Measures Meds if any: Prescribed or Continued at Discharge Meds if any: NOT Prescribed or Continued at Discharge Venous thromboembolism Inclusion Criteria VTE Diagnosis No VTE Type NONE VTE Confirmed by (Test) NONE Discharge Core Measures - Per Current guidelines, there needs to be overlap - treatment for the first 5 days of Warfarin therapy. - If discharged on Warfarin prior to 5 days of - overlap therapy, the patient will need to be - assessed for post discharge needs including - *Post discharge parental anticoagulation - *Warfarin and/or parental anticoagulation education - *Follow up date to check INR post discharge At least 5 days overlap therapy as Inpatient No Meds if any: Prescribed or Continued at Discharge Note: Overlap Therapy is Warfarin and Anticoagulant Meds if any: NOT Prescribed or Continued at Discharge
[2018-04-06 06:03] VITALS: BP 108/70
--- NOTE | 2018-04-06 07:24 | PN- Housestaff ---
Alexei Gordillo [birth year]187[birth year]: Subjective Follow-up For: GI Bleed A fib with RVR (now on flecainide) Tele-Events Since Last Visit: Overnight patient was in normal sinus rhythm, rate from 73-79 Subjective: Patient seen resting comfortably in the bed, currently denying chest pain or abdominal pain. The patient is still complaining of fatigue as well as a cough productive of yellow sputum. Overnight the patient developed a fever to 101.1 Review of Systems Constitutional: Denies: chills, fever. Cardiovascular: Denies: chest pain, palpitations. Respiratory: Reports: cough, short of breath, sputum production, wheezing. Gastrointestinal: Denies: abdominal pain, nausea, vomiting. Objective Last 24 Hrs of Vital Signs/I&O Vital Signs Date Time Temp Pulse Resp B/P B/P Pulse O2 O2 Flow FiO2 Mean Ox Delivery Rate 04/06 0606 98.6 77 20 108/70 04/06 0603 98.6 77 20 108/ 98 Nasal 2.0L Cannula 04/06 0000 Nasal 2.0L Cannula 04/05 2302 98.6 75 20 100/68 04/05 2257 98.6 75 20 100/68 97 Nasal 2.0L Cannula 04/05 2201 99.3 04/05 2141 99.3 95 18 118/78 04/05 2137 99.3 88 20 128/70 96 04/05 1835 101.2 04/05 1828 101.2 04/05 1638 95 Nasal 2.0L Cannula 04/05 1416 98.8 84 20 110/70 97 Nasal Cannula 04/05 1343 83 04/05 1100 18 91 Nasal 2.0L Cannula 04/05 1050 18 87 Room Air 04/05 0837 90 120/70 04/05 0800 91 Nasal 2.0L Cannula Intake & Output 04/06 0800 04/06 0000 04/05 1600 Intake Total 120 120 580 Output Total Balance 120 120 580 Intake, IV 200 Intake, Oral 120 120 380 Patient 117.48 kg Weight Physical Exam General Appearance: Alert, Oriented X3, Cooperative, No Acute Distress HEENT: Atraumatic, Mucous Membr. moist/pink Neck: Supple, No JVD Cardiovascular: Regular Rate, Normal S1 Lungs: Clear to Auscultation Abdomen: Normal Bowel Sounds, Soft, No Tenderness Extremities: No Clubbing, No Cyanosis, No Edema (swollen forearms bilaterally) Current Medications: Current Medications Sig/Ceasar Start time Last Medication Dose Route Stop Time Status Admin Acetaminophen 1,000 MG .STK-MED ONE 04/05 1834 DC IV 04/05 1835 Acetaminophen 1,000 MG .STK-MED ONE 04/05 0824 DC IV 04/05 0825 Acetaminophen 1,000 MG Q6P PRN 03/29 1700 AC 04/05 N/A 1 UNIT IV 1835 Ampicillin Sodium/ 3,000 MG Q6H 03/30 2230 AC 04/06 Sulbactam Sodium IV 0423 Sodium Chloride 100 ML Benzocaine/Menthol 1 NED Q2P PRN 03/31 1000 AC PO Diltiazem HCl 30 MG Q8 04/04 1400 AC 04/06 PO 0606 Flecainide Acetate 75 MG BID 04/05 2100 AC 04/05 PO 2138 Guaifenesin/Codeine 10 ML Q4-6 PRN PRN 04/03 1015 AC 04/06 Phosphate PO 0228 Levothyroxine Sodium 0.05 MG DAILY AC 04/01 0700 AC 04/06 PO 0605 Metoprolol Tartrate 100 MG BID 04/01 0900 AC 04/05 PO 2141 Morphine Sulfate 2 MG Q4P PRN 03/29 1700 DC IV Omeprazole 40 MG BID 04/05 0900 AC 04/05 PO 2141 Ondansetron HCl 4 MG Q6P PRN 03/31 1415 AC 04/03 IV 0829 Pantoprazole Sodium 40 MG BID 04/01 2100 DC 04/04 IV 2155 Phenol 2 SPRAY Q2P PRN 03/31 1000 AC 03/31 EXT 1231 Simethicone 40 MG Q6P PRN 04/03 0600 04/03 PO 0829 Last 24 Hrs of Lab/Manoj Results Last 24 Hrs of Labs/Mics: Laboratory Tests 04/06/18 0645: Sodium Pending, Potassium Pending, Chloride Pending, Carbon Dioxide Pending, Anion Gap Pending, BUN Pending, Creatinine Pending, BUN/Creatinine Ratio Pending , CBC w Diff Pending, WBC Pending, RBC Pending, Hgb Pending, Hct Pending, MCV Pending, MCH Pending, MCHC Pending, RDW Pending, Plt Count Pending, MPV Pending Microbiology 04/05 2318 LOWER RESP: Respiratory Culture - RECD 04/05 2318 LOWER RESP: Gram Stain - RECD 04/05 193 BLOOD: Blood Culture - RECD 04/05 1849 BLOOD: Blood Culture - RECD Assessment/Plan Assessment: 52 year old female with history of paroxysmal atrial fibrillation, HFpEF, HTN, DM and hypothyroidism transferred from the ICU on 04/04 after stabilized for massive GI bleed requiring 7 units of PRBC's s/p cauterization of bleeding gastric ulcer. 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 Patient had a recent echo in November which showed EF>60%. Overnight the patient spiked a fever and blood cultures were taken. Upon exam today the patient's forearms were swollen and tender surrounding her IV sites bilaterally, suggesting possible superficial phlebitis. Although CT chest suggested multilobular pneumonia, patient was recently treated for MSSA pneumonia during this hospital course. Problems: 1. Acute blood loss anemia 2. Bleeding gastric ulcer s/p endoscopy & cauterization 3. Atrial fibrillation with RVR 4. Superficial phlebitis Plan: * H&H stable today, CBC in the afternoon and tomorrow morning, transfuse if HgB< 7 * Continue holding anticoagulation in light of recent severe GI bleed * Rhythm-control with Flecainaide * Follow-up blood cultures, cold compress for phlebitis * Follow-up with ENT as outpatient * Last dose of Unasyn today for MSSA pneumonia Code status: Full Code Prophylaxis: Mechanical DVT prophylaxis Labs: CBC & BEP tomorrow Diet: Regular diet Problem List: 1. Upper GI bleed 2. Anemia 3. Rapid atrial fibrillation Pain Ratin Pain Location: arms Pain Goal: Pain 4 or less Pain Plan: per pathway Tomorrow's Labs & Rationales: ALYSSA Ohara MD,Tiny 04/06/18 1054: Attending MD Review Statement Attending Statement Attending MD Statement: examined this patient, discuss w/resident/PA/INVESTIGATIVE ANALYST, agreed w/resident/PA/INVESTIGATIVE ANALYST, reviewed EMR data (avail), discussed with nursing, discussed with case mgmt, amended to note Attending Assessment/Plan: Patient seen and examined. Lying in bed. Not in acute distress at rest but admits to shortness of breath. Ambulation. Denies chest pain. Denies palpitations. No events on telemetry overnight. No complaints of bright red blood per rectum. Laboratory data shows slight downward trend of her hemoglobin levels. She complains of swelling bilateral forearm. On examination she has mild swelling and warmth at sites of previous IV sites. Mildly tender to touch. No surrounding erythema. No discharge. Recommend cold compresses and reevaluation. Problems: 1. Acute blood loss anemia 2. Upper gastrointestinal bleeding secondary to gastric ulceration status post cauterization of the endoscopy 3. Atrial fibrillation 4. Dyspnea on exertion 5. Dysphagia 6. Aspiration pneumonia Plan: -In view of fever of 101.2 yesterday and the day prior recommend continuation of intravenous antibiotics (D8 eight of Unasyn today), obtain CT scan of the chest for further evaluation of opacities noted incidentally on neck CT. -Hemoglobin level continues to trend down slowly. Repeat levels tomorrow. If downward trend continues will consider optimization of hemoglobin level with 1 unit of PRBC. -Patient not considered a good candidate for anticoagulant therapy at this time. EPS evaluation appreciated. Pharmacologic cardioversion is being attempted at this time. -Her dyspnea on exertion may be related to her anemia. She has a normal EF on echocardiogram. She has no obvious regional wall motion abnormality. She does have evidence of stage II diastolic dysfunction. Recommend diuresis with Lasix 20 mg orally. Will reevaluate need for continued diuresis daily in view of her borderline blood pressure. -Continue Cardizem, metoprolol and flecainide
[2018-04-06 07:40] LABS: ABSOLUTE BASOPHIL COUNT 0 /CUMM (0.0-0.2); ABSOLUTE EOSINOPHIL COUNT 0.4 /CUMM (0.0-0.7); ABSOLUTE GRANULOCYTE CT 11.7 /CUMM (1.4-6.5); ABSOLUTE LYMPH COUNT 1.7 /CUMM (1.2-3.4); ABSOLUTE MONOCYTE COUNT 1.1 /CUMM (0.10-0.60); BASOPHIL % 0.2 % (0.0-2.0); EOSINOPHIL % 2.6 % (0-5); HEMATOCRIT 22.6 % (37-47); MEAN CORPUSCULAR HGB CONC 33.5 G/DL (33.0-37.0); MEAN CORPUSCULAR VOLUME 86.6 FL (81.0-99.0); MEAN PLATELET VOLUME 7.1 FL (7.4-10.4); RBC DISTRIBUTION WIDTH 16.5 % (11.5-14.5); RED BLOOD CELL CT 2.61 /CUMM (4.20-5.40); WHITE BLOOD CELL COUNT 14.9 /CUMM (4.8-10.8)
--- NOTE | 2018-04-06 08:38 | PN- Pulmonary ---
Subjective HPI/Critical Care Issues: Patient is awake alert denies shortness of breath Objective Current Medications: Current Medications Sig/Ceasar Start time Last Medication Dose Route Stop Time Status Admin Acetaminophen 1,000 MG .STK-MED ONE 04/05 1834 DC IV 04/05 183 Acetaminophen 1,000 MG Q6P PRN 03/29 1700 AC 04/05 N/A 1 UNIT IV 1835 Ampicillin Sodium/ 3,000 MG Q6H 03/30 2230 AC 04/06 Sulbactam Sodium IV 0423 Sodium Chloride 100 ML Benzocaine/Menthol 1 NED Q2P PRN 03/31 1000 AC PO Diltiazem HCl 30 MG Q8 04/04 1400 AC 04/06 PO 0606 Flecainide Acetate 75 MG BID 04/05 2100 AC 04/05 PO 2138 Guaifenesin/Codeine 10 ML Q4-6 PRN PRN 04/03 1015 AC 04/06 Phosphate PO 0228 Levothyroxine Sodium 0.05 MG DAILY AC 04/01 0700 AC 04/06 PO 0605 Metoprolol Tartrate 100 MG BID 04/01 0900 AC 04/05 PO 2141 Omeprazole 40 MG BID 04/05 0900 AC 04/05 PO 2141 Ondansetron HCl 4 MG Q6P PRN 03/31 1415 AC 04/03 IV 0829 Phenol 2 SPRAY Q2P PRN 03/31 1000 AC 03/31 EXT 1231 Simethicone 40 MG Q6P PRN 04/03 0600 AC 04/03 PO 0829 Vital Signs & I&O Last 24 Hrs of Vitals and I&O: Vital Signs Date Time Temp Pulse Resp B/P B/P Pulse O2 O2 Flow FiO2 Mean Ox Delivery Rate 04/06 0606 98.6 77 20 108/70 04/06 0603 98.6 77 20 108/70 98 Nasal 2.0L Cannula 04/06 0000 Nasal 2.0L Cannula 04/05 2302 98.6 75 20 100/68 04/05 2257 98.6 75 20 100/68 97 Nasal 2.0L Cannula 04/05 2201 99.3 04/05 2141 99.3 95 18 118/78 04/05 2137 99.3 88 20 128/70 96 04/05 1835 101.2 04/05 1828 101.2 04/05 1638 95 Nasal 2.0L Cannula 04/05 1416 98.8 84 20 110/70 97 Nasal Cannula 04/05 1343 83 04/05 1100 18 91 Nasal 2.0L Cannula 04/05 1050 18 87 Room Air Intake & Output 04/06 1600 04/06 0800 04/06 0000 Intake Total 120 120 Output Total Balance 120 120 Intake, Oral 120 120 Patient 259 lb Weight Oxygen saturation 2 L 98% exam for chest shows diminished breath sounds the bases cardiac exam shows a regular S1 and S2 without murmurs Impression/Plan Impression/Plan Impression/Plan: 52-year-old woman found to have MSSA pneumonia and hypoxic respiratory failure Recommendations: Considering now wearing her antibiotics Taper FiO2 as saturations allow and assess room air oxygenation. Further management of GI bleed and atrial fibrillation by primary care team diagnostic nocturnal polysomnography can be arranged as an outpatient
[2018-04-06 09:10] LABS: GRANULOCYTE % 78.4 % (42.2-75.2); PLATELET COUNT 543 /CUMM (130-400)
--- NOTE | 2018-04-06 10:22 | PN- Cardiology ---
Subjective Subjective: Sarah is doing better. She still is a little short of breath. She still is on oxygen. Her H&H are slowly dropping. She was seen by Dr. Hercules yesterday who recommended starting her on flecainide for atrial fibrillation suppression. This has been started at a dose of 75 mg twice daily. She remains in sinus rhythm at this time. On the CAT scan of her neck there were some changes in the upper parts of the lung field and a CAT scan of the chest was recommended. Objective Vital Signs and I&Os Vital Signs Date Time Temp Pulse Resp B/P B/P Pulse O2 O2 Flow FiO2 Mean Ox Delivery Rate 04/06 0855 84 132/70 04/06 0606 98.6 77 20 108/70 04/06 0603 98.6 77 20 108 98 Nasal 2.0L Cannula 04/06 0000 Nasal 2.0L Cannula 04/05 2302 98.6 75 20 100/68 04/05 2257 98.6 75 20 100/68 97 Nasal 2.0L Cannula 04/05 2201 99.3 04/05 2141 99.3 95 18 118/78 04/05 2137 99.3 88 20 128/70 96 04/05 1835 101.2 04/05 1828 101.2 04/05 1638 95 Nasal 2.0L Cannula 04/05 1416 98.8 84 20 110/70 97 Nasal Cannula 04/05 1343 83 04/05 1100 18 91 Nasal 2.0L Cannula 04/05 1050 18 87 Room Air Intake & Output 04/06 1600 04/06 0800 04/06 0000 04/05 1600 04/05 0800 04/05 0000 Intake Total 120 120 289 445 1645 Output Total 350 Balance 120 120 609 737 1358 Intake, IV 100 210 390 Intake, Oral 120 120 380 300 780 Number 0 Bowel Movements Output, Urine 350 Patient 259 lb Weight Physical Exam: No distress HEENT exam normal Chest clear Heart regular rhythm, harsh systolic ejection murmur at base No edema Current Medications: Current Medications Sig/Ceasar Start time Last Medication Dose Route Stop Time Status Admin Acetaminophen 1,000 MG .STK-MED ONE 04/05 183 DC IV 04/05 183 Acetaminophen 1,000 MG Q6P PRN 03/29 1700 AC 04/05 N/A 1 UNIT IV 183 Ampicillin Sodium/ 3,000 MG Q6H 03/30 2230 AC 04/06 Sulbactam Sodium IV 0423 Sodium Chloride 100 ML Benzocaine/Menthol 1 NED Q2P PRN 03/31 1000 AC PO Diltiazem HCl 30 MG Q8 04/04 1400 AC 04/06 PO 0606 Flecainide Acetate 75 MG BID 04/05 2100 AC 04/06 PO 0856 Furosemide 20 MG ONE ONE 04/06 0930 DC PO 04/06 0931 Guaifenesin/Codeine 10 ML Q4-6 PRN PRN 04/03 1015 AC 04/06 Phosphate PO 0228 Levothyroxine Sodium 0.05 MG DAILY AC 04/01 0700 AC 04/06 PO 0605 Metoprolol Tartrate 100 MG BID 04/01 0900 AC 04/06 PO 0855 Omeprazole 40 MG BID 04/05 0900 AC 04/06 PO 0854 Ondansetron HCl 4 MG Q6P PRN 03/31 1415 AC 04/03 IV 0829 Phenol 2 SPRAY Q2P PRN 03/31 1000 AC 03/31 EXT 1231 Simethicone 40 MG Q6P PRN 04/03 0600 AC 04/03 PO 0829 Results Last 48 Hrs of Labs/Mics: Laboratory Tests 04/06/18 0645: Anion Gap 10, Estimated GFR > 60, BUN/Creatinine Ratio 13.8, CBC w Diff NO MAN DIFF REQ, RBC 2.61 L, MCV 86.6, MCH 29.0, MCHC 33.5, RDW 16.5 H, MPV 7.1 L, Gran % 78.4 H, Lymphocytes % 11.6 L, Monocytes % 7.2, Eosinophils % 2.6, Basophils % 0.2, Absolute Granulocytes 11.7 H, Absolute Lymphocytes 1.7, Absolute Monocytes 1.1 H, Absolute Eosinophils 0.4, Absolute Basophils 0 04/05/18 0621: CBC w Diff NO MAN DIFF REQ, RBC 2.74 L, MCV 86.1, MCH 28.6, MCHC 33.3, RDW 16.6 H, MPV 7.2 L, Gran % 77.6 H, Lymphocytes % 11.2 L, Monocytes % 7.3, Eosinophils % 3.8, Basophils % 0.1, Absolute Granulocytes 12.3 H, Absolute Lymphocytes 1.8, Absolute Monocytes 1.1 H, Absolute Eosinophils 0.6, Absolute Basophils 0 Assessment/Plan Assessment/Plan The patient remains stable from a cardiac standpoint. There has been no further atrial fibrillation. She is now on flecainide. I recommend continuing monitoring. Oxygen should be tapered as per pulmonology. CT of chest might be advisable based on the previous imaging. Continue telemetry? Yes
--- NOTE | 2018-04-06 11:57 | CT SCAN REPORT ---
EXAMINATION: CT CHEST WITHOUT CONTRAST CLINICAL INFORMATION: Cough and fever. Concern for pneumonia. COMPARISON: Several prior chest x-rays, the most recent 04/02/2018 TECHNIQUE: Multidetector volumetric CT imaging of the chest was done. Axial MIP volume rendering provided. Sagittal and coronal reformatted images were obtained. DLP: 669 mGy-cm FINDINGS: The cardiac silhouette is normal in size. Coronary artery calcifications are present. No pericardial effusion. A few mildly prominent mediastinal lymph nodes are present, however, there evaluation is suboptimal secondary to lack of IV contrast. Central airways are patent. Patchy groundglass opacities are present diffusely throughout both lungs with regions of more focal nodular opacities, particularly within the lung apices and posterior right lower lobe. There is a tiny amount of pleural fluid bilaterally. There is some dependent atelectasis versus scarring of the lung bases. Visualized portion of the upper abdomen are grossly unremarkable. No acute osseous abnormality. IMPRESSION: CT findings most consistent with multilobar pneumonia. Interval follow-up is recommended status post treatment to ensure complete resolution and no superimposed pulmonary nodules or masses. Additionally, mildly prominent mediastinal lymph nodes are difficult to visualize on today's noncontrast examination, however, are likely reactive in nature given lung findings. Attention to these lymph nodes on follow-up is recommended.
[2018-04-06 14:00] VITALS: BP 108/70
[2018-04-06 15:54] LABS: ABSOLUTE BASOPHIL COUNT 0 /CUMM (0.0-0.2); ABSOLUTE EOSINOPHIL COUNT 0.3 /CUMM (0.0-0.7); ABSOLUTE LYMPH COUNT 1.9 /CUMM (1.2-3.4); ABSOLUTE MONOCYTE COUNT 0.8 /CUMM (0.10-0.60); BASOPHIL % 0 % (0.0-2.0); GRANULOCYTE % 79.9 % (42.2-75.2); HEMATOCRIT 23.3 % (37-47); MEAN CORPUSCULAR HGB 28.5 PG (27.0-31.0); MEAN CORPUSCULAR HGB CONC 32.8 G/DL (33.0-37.0); MEAN CORPUSCULAR VOLUME 86.8 FL (81.0-99.0); PLATELET COUNT 666 /CUMM (130-400); RBC DISTRIBUTION WIDTH 16.8 % (11.5-14.5); RED BLOOD CELL CT 2.69 /CUMM (4.20-5.40)
--- NOTE | 2018-04-06 17:01 | Cons- Infect Disease ---
General Information and HPI Consulting Request Date of Consult: 04/06/18 Requested By: Tiny Ohara MD Reason for Consult: Fever Source of Information: patient History of Present Illness: This is a 52-year-old woman with a history of Hodgkin's lymphoma 23 years prior to admission, treated with chemoradiotherapy, hypertension, obstructive sleep apnea, on CPAP in the past, paroxysmal atrial fibrillation, maintained on Eliquis, status post emergent cardioversion at [facility], and HFpEF, admitted on March 29 with one day of nausea, coffee-ground emesis and black stools. On admission she was afebrile with a blood pressure of 85/55. Laboratory data revealed a white blood cell count of 18,000, H&H 7 and 22, BUN/creatinine 46 and 1.2, INR 1.44. Urinalysis rare RBC/1-3 WBCs. Chest x-ray revealed nonspecific patchy multifocal opacification. She was given several liters of IV fluids, transfused 4 units of blood and admitted to the ICU. In the ICU she was intubated and underwent an endoscopy, revealing a gastric ulcer, with a repeat endoscopy on March 30 for cautery and clipping of the ulcer. On March 30 she was begun on Unasyn for presumed aspiration pneumonia and was successfully extubated later in the day. On April 03 she was noted to be in atrial fibrillation, which reverted to normal sinus rhythm with Cardizem. She remained afebrile until April 04, when she spiked to 101.3 and she was again febrile on April 05. Her white blood cell count has remained elevated in the 15,000 range. At present she does note mild shortness of breath and a cough, productive of yellow sputum. She has no chest pain and has no GI or symptoms at this time. Allergies/Medications Allergies: Coded Allergies: No Known Allergies (11/17/17) Home Med List: Apixaban (Eliquis) 5 MG TABLET 1 TAB PO BID Atrial fibrillation . Fluticasone Propionate (Flonase Allergy Relief) 50 MCG/ACTUATION SPRAY.SUSP 1 SPRAY WAY[place] DAILY ALLERGIES (Reported) Furosemide (Lasix) 40 MG TABLET 1 TAB PO Q48 WATER RETENTION (Reported) Levothyroxine Sodium (Levoxyl) 50 MCG TABLET 1 TAB PO DAILY AC THYROID ( Reported) Metoprolol Tartrate 100 MG TABLET 1 TAB PO BID Atrial fibrillation . 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 Prostate cancer MOTHER ([employer]). Age 75. Psychosocial History Where Do You Live? Home Who Do You Live With? spouse, child Services at Home: None Primary Language: German Smoking Status: Never Smoked ETOH Use: denies use Illicit Drug Use: denies illicit drug use Living Will? no Power of Professional Services Consultant/HCP? no Other Social History: to [place]. 2 children (1 son & 1 dtr)- [employer]. 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 Ambulation: independent IADLs Independent: shopping, housework, finances, food prep, telephone, transportation , medication admin. 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 All Other Systems: Reviewed and Negative Exam & Diagnostic Data Last 24 Hrs of Vital Signs/I&O Vital Signs Date Time Temp Pulse Resp B/P B/P Pulse O2 O2 Flow FiO2 Mean Ox Delivery Rate 04/06 1407 76 128/66 04/06 1400 99.2 80 20 108/70 98 Nasal 2.0L Cannula 04/06 0855 84 132/70 04/06 0800 98 Nasal 2.0L Cannula 04/06 0606 98.6 77 20 108/70 04/06 0603 98.6 77 20 10870 98 Nasal 2.0L Cannula 04/06 0000 Nasal 2.0L Cannula 04/05 2302 98.6 75 20 100/68 04/05 2257 98.6 75 20 100/68 97 Nasal 2.0L Cannula 04/05 2201 99.3 04/05 2141 99.3 95 18 118/78 04/057 99.3 88 20 128/70 96 04/05 1835 101.2 04/05 1828 101.2 Intake & Output 04/06 1600 04/06 0800 04/06 0000 Intake Total 500 120 120 Output Total Balance 500 120 120 Intake, Oral 500 120 120 Patient 259 lb Weight Physical Exam Other Physical Findings: She is awake and alert in no acute distress. T-max 101.2. Skin reveals no rash. HEENT exam is negative. Neck is supple with no adenopathy. Lungs bilateral expiratory wheezes. Heart regular rhythm with no murmur. Abdomen is obese, soft, nontender with positive bowel sounds. Back no CVA tenderness. Extremities 1+ edema all extremities; erythema, induration and tenderness over the left forearm at a recent IV site. Neuro is without focality. Last 24 Hours of Lab Results: Laboratory Tests 04/06 04/06 1525 1300 Hematology CBC w Diff NO MAN DIFF REQ Cancelled WBC (4.8 - 10.8 /CUMM) 15.0 H Cancelled RBC (4.20 - 5.40 /CUMM) 2.69 L Cancelled Hgb (12.0 - 16.0 G/DL) 7.7 L Cancelled Hct (37 - 47 %) 23.3 L Cancelled MCV (81.0 - 99.0 FL) 86.8 Cancelled MCH (27.0 - 31.0 PG) 28.5 Cancelled MCHC (33.0 - 37.0 G/DL) 32.8 L Cancelled RDW (11.5 - 14.5 %) 16.8 H Cancelled Plt Count (130 - 400 /CUMM) 666 H Cancelled MPV (7.4 - 10.4 FL) 7.0 L Cancelled Gran % (42.2 - 75.2 %) 79.9 H Lymphocytes % (20.5 - 51.1 %) 12.6 L Monocytes % (1.7 - 9.3 %) 5.5 Eosinophils % (0 - 5 %) 2.0 Basophils % (0.0 - 2.0 %) 0 Absolute Granulocytes (1.4 - 6.5 /CUMM) 12.0 H Absolute Lymphocytes (1.2 - 3.4 /CUMM) 1.9 Absolute Monocytes (0.10 - 0.60 /CUMM) 0.8 H Absolute Eosinophils (0.0 - 0.7 /CUMM) 0.3 Absolute Basophils (0.0 - 0.2 /CUMM) 0 07/24 0645 Chemistry Sodium (137 - 145 mmol/L) 139 Potassium (3.5 - 5.1 mmol/L) 4.3 Chloride (98 - 107 mmol/L) 101 Carbon Dioxide (22 - 30 mmol/L) 28 Anion Gap (5 - 16) 10 BUN (7 - 17 mg/dL) 11 Creatinine (0.5 - 1.0 mg/dL) 0.8 Estimated GFR (>60 ml/min) > 60 BUN/Creatinine Ratio (7 - 25 %) 13.8 Hematology CBC w Diff NO MAN DIFF REQ WBC (4.8 - 10.8 /CUMM) 14.9 H RBC (4.20 - 5.40 /CUMM) 2.61 L Hgb (12.0 - 16.0 G/DL) 7.6 L Hct (37 - 47 %) 22.6 L MCV (81.0 - 99.0 FL) 86.6 MCH (27.0 - 31.0 PG) 29.0 MCHC (33.0 - 37.0 G/DL) 33.5 RDW (11.5 - 14.5 %) 16.5 H Plt Count (130 - 400 /CUMM) 543 H MPV (7.4 - 10.4 FL) 7.1 L Gran % (42.2 - 75.2 %) 78.4 H Lymphocytes % (20.5 - 51.1 %) 11.6 L Monocytes % (1.7 - 9.3 %) 7.2 Eosinophils % (0 - 5 %) 2.6 Basophils % (0.0 - 2.0 %) 0.2 Absolute Granulocytes (1.4 - 6.5 /CUMM) 11.7 H Absolute Lymphocytes (1.2 - 3.4 /CUMM) 1.7 Absolute Monocytes (0.10 - 0.60 /CUMM) 1.1 H Absolute Eosinophils (0.0 - 0.7 /CUMM) 0.4 Absolute Basophils (0.0 - 0.2 /CUMM) 0 Last 24 Hours of Manoj Results: Urine culture March 29 negative Blood cultures x 2 March 30 negative Sputum culture March 30 positive for Staph aureus sensitive to Oxacillin Blood culture April 05 negative Sputum culture April 05 pending, with gram stain revealing moderate white blood cells and moderate gram-positive cocci Diagnostic Data Recent Imaging Findings: Chest x-ray March 29 reveals nonspecific patchy multifocal opacification CT of the chest April 06 reveals patchy ground glass opacities diffusely throughout both lungs with regions of more focal nodular opacities; a tiny amount of pleural fluid bilaterally CT of the neck April 05 reveals a swelling artifact at the hypopharyngeal level with no gross abnormalities of the pharyngeal or laryngeal contours; nearly completely opacified right maxillary sinus Assessment/Plan Assessment/Plan Impression: This is a 52-year-old woman with obstructive sleep apnea, on CPAP in the past, and HFpEF, admitted on March 29 with one day of nausea, coffee-ground emesis and black stools, found to be afebrile with hypotension, leukocytosis and anemia, treated with IV fluids and a total of 7 units of blood, status post upper endoscopy revealing a gastric ulcer, treated for an aspiration pneumonia for the past week, with her sputum culture positive for Staph aureus, now with recent fevers and a persistent leukocytosis. The etiology of her recent fevers is unclear. The most likely source appears to be the left forearm phlebitis, presumably secondary to a recent IV site. Her CT scan does reveal bilateral patchy opacities, but these most likely reflect her recent aspiration pneumonia or fluid overload rather than a new pulmonary infection. She does report a productive cough, with yellow sputum, which might suggest ongoing pneumonia, and will need to follow-up her recent sputum culture. Her physical exam is suggestive of fluid overload, with her I's significantly greater than her O's since admission, and, with her most recent weight reportedly 20 pounds over her admission weight, feel she may benefit from more aggressive diuresis. Her white blood cell count remains elevated, of unclear etiology, and may be multifactorial. The opacification of her right maxillary sinus seen on her recent CT scan is of unclear significance and, if it does represent acute sinusitis, it should have been adequately covered by the Unasyn. Suggestion: 1. Warm compresses to her left forearm 2. Would discuss need for more aggressive diuresis with Cardiology 3. Follow-up recent sputum culture 4. Continue Unasyn pending above Consult Acknowledgment - Thank you for your consult request.
--- NOTE | 2018-04-07 02:47 | Event Note ---
Event Note Event Note: Situation: I was notified that the patient has new pain in her right ankle. Background: 52 year old female with PMH of HFpEF, HTN, pAfib on eliquis presents with one day history of nausea, vomiting and diarrhea, guiaic positive, with acute blood loss anemia with associated hypotension. Assessment: I visited the patient and physical examination. She reports that she has had pain in both lower extremities from prior to that lesion but in the recent days it has worsened. She has 2+ pitting edema of both lower extremities up to the level of the knee. Recommendation: Based on the physical examination and history taken from the patient, Tylenol was ordered to control the pain of the patient along with warm compresses, uric acid level is also ordered to be checked.
[2018-04-07 03:11] VITALS: BP 80/50
--- NOTE | 2018-04-07 05:40 | PN- Housestaff ---
Alexei Gordillo 04/07/18 0540: Subjective Follow-up For: GI BLEED ATRIAL FIBRILLATION W/ RVR Tele-Events Since Last Visit: NSR OVERNIGHT, RATES 72-75 Subjective: Patient seen resting comfortably in the bed. In no acute distress. Overnight she began complaining of increased pain in the right lower extremity, associated with swelling. Patient had bilateral edema recently, but now complains that the right lower extremity is swelling more than left. She has been resting in the bed, due to her c/o weakness, and has been on the ALPS infrequently. Patient also endorses a cough, and complains of swelling in the bilateral forearms. She has spiked recent fevers, but is currently denying feeling feverish/chills. Patient denies chest pain, shortness of breath, palpitations, or dizziness. Review of Systems Constitutional: Reports: fever, weakness. Denies: chills. Cardiovascular: Denies: chest pain, orthopena, palpitations. Respiratory: Reports: cough, sputum production, wheezing. Gastrointestinal: Denies: abdominal pain, nausea, vomiting. Objective Last 24 Hrs of Vital Signs/I&O Vital Signs Date Time Temp Pulse Resp B/P B/P Pulse O2 O2 Flow FiO2 Mean Ox Delivery Rate 04/07 0640 75 18 130/84 04/07 0000 Nasal 2.0L Cannula 04/06 2257 98.5 81 20 97 Nasal Cannula 04/06 2248 68 18 106/66 04/06 2043 85 18 136/78 04/06 1600 99 Nasal 2.0L Cannula 04/06 1407 76 128/66 04/06 1400 99.2 80 20 108/70 98 Nasal 2.0L Cannula 04/06 0855 84 132/70 04/06 0800 98 Nasal 2.0L Cannula Intake & Output 04/07 0800 04/07 0000 04/06 1600 Intake Total 220 500 Output Total Balance 220 500 Intake, IV 100 Intake, Oral 120 500 Patient 119.748 kg Weight Weight Bed scale Measurement Method Physical Exam General Appearance: Alert, Oriented X3, Cooperative, No Acute Distress HEENT: Atraumatic, PERRLA, EOMI Neck: Supple, No JVD Cardiovascular: Regular Rate, Normal S1, Normal S2 Lungs: Wheezing in the upper lung mcdonnell, mild crackles especially at the bases of the lungs bilaterally Abdomen: Normal Bowel Sounds, Soft Neurological: Normal Gait, Normal Speech Extremities: No Clubbing, No Cyanosis, Bilateral peripheral edema Assessment/Plan Assessment: 52-year-old female with history of GI bleed, A. fib and sleep apnea, HFpEF, HTN, DM, and hypothyroidism, transferred from the ICU on 04/04 after stabilized for massive GI bleed requiring 7 units of PRBC's s/p cauterization of bleeding gastric ulcer. 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 Patient had a recent echo in November which showed EF>60%. Overnight the patient has complained of increased pain in the right lower extremity, around the ankle. The patient also complains of swelling and tenderness to bilateral forearms. Upon exam today the patient's forearms were swollen and tender surrounding her IV sites bilaterally, suggesting possible superficial phlebitis. The patient's bilateral lower extremities were also edematous, with more swelling in the right as well as tenderness, and positive Homans sign. Patient still showing clinical signs of pneumonia, with fevers as well as congestion audible on lung auscultation, but as she is already being treated for this pneumonia, we will continue antibiotics. The patient's hemoglobin was 7.7 last night, and 7.6 this morning, which remained stable. No plans to transfuse at the moment. Problems: 1. Acute blood loss anemia 2. Bleeding gastric ulcer s/p endoscopy & cauterization 3. Atrial fibrillation with RVR 4. Suspected DVT 5. Pneumonia 6. Superficial phlebitis Plan: * Continue antibiotics * Follow-up sputum culture * Doppler ultrasound of the bilateral lower extremities * IV Lasix for diuresis Problem List: 1. Anemia 2. History of Hodgkin's disease 3. Paroxysmal A-fib 4. Dysphagia 5. GI bleed 6. Rapid atrial fibrillation 7. Upper GI bleed Pain Ratin Pain Location: right leg, left arm Pain Goal: Pain 4 or less Pain Plan: per pathway Tomorrow's Labs & Rationales: CBC DVT/Prophylaxis: mechanical (ALPS must be applied) Lev DUNN,Tiny 04/07/18 1245: Attending MD Review Statement Attending Statement Attending MD Statement: examined this patient, discuss w/resident/PA/DEPARTMENT EDITOR, agreed w/resident/PA/DEPARTMENT EDITOR, reviewed EMR data (avail), discussed with nursing, discussed with case mgmt, amended to note Attending Assessment/Plan: Patient seen and examined. Lying in bed. Not in acute distress. Continues to report dyspnea on exertion. Denies chest pain. Denies palpitations. Denies productive cough. No events on telemetry overnight. She remains in normal sinus rhythm. Blood pressure has improved this morning. Last documented fever was 2 days ago. On examination she is not in any respiratory distress. Heart sounds are regular. She has adequate entry bilaterally with no added sounds. Abdomen is soft and nontender. She has bilateral pedal edema. Right lower extremity edema appears greater in size today. She is tender around the right ankle. No erythema. Phlebitis in the upper extremities appear to be improving. Problems: 1. Acute blood loss anemia 2. Upper gastrointestinal bleeding secondary to gastric ulceration status post cauterization of the endoscopy 3. Atrial fibrillation 4. Dyspnea on exertion 5. Dysphagia 6. Aspiration pneumonia Plan: Continue current antibiotic regimen. Will complete a 10 day course After which antibiotics may be discontinued. No significant drop in hemoglobin levels overnight. We will monitor levels while she remains in the hospital. Will transfuse if levels continue to trend downwards. She remains in normal sinus rhythm. Continue metoprolol, Cardizem and flecainide. She continues to show evidence of volume overload. Now the blood pressure is improved she may be digressed more aggressively. Lasix 40 mg IV has been given this morning. Blood pressure is stable in the afternoon repeat another dose of Lasix 40 mg IV. Mobilize patient as tolerated. Right ankle swelling likely secondary to her edema. Provide adequate analgesia. Please ensure that Bilateral sequential compression devices are on at all times.
[2018-04-07 06:00] VITALS: BP 130/84
[2018-04-07 07:44] LABS: ABSOLUTE BASOPHIL COUNT 0 /CUMM (0.0-0.2); ABSOLUTE EOSINOPHIL COUNT 0.3 /CUMM (0.0-0.7); ABSOLUTE GRANULOCYTE CT 10.7 /CUMM (1.4-6.5); ABSOLUTE LYMPH COUNT 2.2 /CUMM (1.2-3.4); ABSOLUTE MONOCYTE COUNT 0.7 /CUMM (0.10-0.60); BASOPHIL % 0.4 % (0.0-2.0); EOSINOPHIL % 2.2 % (0-5); GRANULOCYTE % 76.8 % (42.2-75.2); HEMATOCRIT 22.9 % (37-47); MEAN CORPUSCULAR HGB 28.7 PG (27.0-31.0); MEAN CORPUSCULAR HGB CONC 33.1 G/DL (33.0-37.0); MEAN CORPUSCULAR VOLUME 86.7 FL (81.0-99.0); MEAN PLATELET VOLUME 7.2 FL (7.4-10.4); PLATELET COUNT 603 /CUMM (130-400); RBC DISTRIBUTION WIDTH 16.7 % (11.5-14.5); RED BLOOD CELL CT 2.65 /CUMM (4.20-5.40)
--- NOTE | 2018-04-07 08:43 | PN- Pulmonary ---
Subjective HPI/Critical Care Issues: She is comfortable continues to have cough productive of discolored sputum. CT scan results reviewed Objective Current Medications: Current Medications Sig/Ceasar Start time Last Medication Dose Route Stop Time Status Admin Acetaminophen 500 MG Q6P PRN 04/07 0230 AC 04/07 PO 0249 Acetaminophen 1,000 MG Q6P PRN 03/29 1700 AC 04/05 N/A 1 UNIT IV 1835 Ampicillin Sodium/ 3,000 MG Q6H 03/30 2230 AC 04/07 Sulbactam Sodium IV 0429 Sodium Chloride 100 ML Benzocaine/Menthol 1 NED Q2P PRN 03/31 1000 AC PO Diltiazem HCl 30 MG Q8 04/04 1400 AC 04/07 PO 0640 Flecainide Acetate 75 MG BID 04/05 2100 AC 04/07 PO 0810 Furosemide 40 MG ONCE ONE 04/07 0845 AC IV 04/07 0846 Furosemide 20 MG ONE ONE 04/06 0930 DC 04/06 PO 04/06 0931 1101 Guaifenesin/Codeine 10 ML Q4-6 PRN PRN 04/03 1015 AC 04/06 Phosphate PO 2248 Levothyroxine Sodium 0.05 MG DAILY AC 04/01 0700 AC 04/07 PO 0640 Metoprolol Tartrate 100 MG BID 04/01 0900 AC 04/07 PO 0810 Omeprazole 40 MG BID 04/05 0900 AC 04/07 PO 0810 Ondansetron HCl 4 MG Q6P PRN 03/31 1415 AC 04/03 IV 0829 Phenol 2 SPRAY Q2P PRN 03/31 1000 AC 03/31 EXT 1231 Polyethylene Glycol 17 GM DAILY 04/06 1645 AC 04/07 PO 0809 Senna/Docusate Sodium 1 TAB BID PRN 04/06 1645 AC 04/07 PO 0809 Simethicone 40 MG Q6P PRN 04/03 0600 AC 04/03 PO 0829 Vital Signs & I&O Last 24 Hrs of Vitals and I&O: Vital Signs Date Time Temp Pulse Resp B/P B/P Pulse O2 O2 Flow FiO2 Mean Ox Delivery Rate 04/07 0810 75 130/84 04/07 0640 75 18 130/84 04/07 0600 98.4 77 20 130/84 98 04/07 0000 Nasal 2.0L Cannula 04/067 98.5 81 20 97 Nasal Cannula 04/06 2248 68 18 106/66 04/06 2043 85 18 136/78 04/06 1600 99 Nasal 2.0L Cannula 04/06 1407 76 128/66 04/06 1400 99.2 80 20 108/70 98 Nasal 2.0L Cannula 04/06 0855 84 132/70 Intake & Output 04/07 1600 04/07 0800 07 0000 Intake Total 120 220 Output Total Balance 120 220 Intake, IV 100 Intake, Oral 120 120 Patient 264 lb Weight Weight Bed scale Measurement Method Since saturation 2 L 98% exam for chest shows rare rhonchi diminished breath sounds at the bases cardiac exam shows regular S1 and S2 without murmurs Impression/Plan Impression/Plan Impression/Plan: 52-year-old with multifocal MSSA pneumonia and improving acute hypoxic respiratory failure Recommendations: Taper FiO2 as saturations allow and assess room air oxygenation. Further management of GI bleed and atrial fibrillation by primary care team diagnostic nocturnal polysomnography can be arranged as an outpatient pulmonary status continues to improve no further pulmonary suggestions
--- NOTE | 2018-04-07 12:40 | ULTRASOUND REPORT ---
EXAMINATION: BILATERAL LOWER EXTREMITY DEEP VENOUS ULTRASOUND CLINICAL INFORMATION: Bilateral lower extremity swelling. Positive Homans sign. COMPARISON: No similar prior examinations are available for comparison. TECHNIQUE: Duplex Doppler imaging with compression maneuvers were performed of the bilateral lower extremity deep venous systems. FINDINGS: The bilateral visualized common femoral, femoral and popliteal veins demonstrate normal compressibility and color flow without evidence of venous thrombosis. Visualized portions of the bilateral calf veins demonstrate normal color fill-in suggesting patency. There is no evidence of a Cerda's cyst. IMPRESSION: No evidence of deep venous thrombosis involving the bilateral lower extremities.
[2018-04-07 12:53] VITALS: BP 94/70
--- NOTE | 2018-04-07 13:05 | PN- Cardiology ---
Subjective Subjective: The patient is still short of breath. A CAT scan of the chest showed diffuse abnormalities. She remains in sinus rhythm. She is tolerating flecainide well. She is now complaining of pain in her right lower extremity and is scheduled for a venous ultrasound. Objective Vital Signs and I&Os Vital Signs Date Time Temp Pulse Resp B/P B/P Pulse O2 O2 Flow FiO2 Mean Ox Delivery Rate 04/07 1253 98.9 71 20 94/70 97 Nasal 2.0L Cannula 04/07 0810 75 130/84 04/07 0800 96 Nasal 2.0L Cannula 04/07 0640 75 18 130/84 04/07 0600 98.4 77 20 130/84 98 04/07 0000 Nasal 2.0L Cannula 04/06 2257 98.5 81 20 97 Nasal Cannula 04/06 2248 68 18 106/66 04/06 2043 85 18 136/78 04/06 1600 99 Nasal 2.0L Cannula 04/06 1407 76 128/66 04/06 1400 99.2 80 20 108/70 98 Nasal 2.0L Cannula Intake & Output 04/07 1600 04/07 0800 04/07 0000 04/06 1600 04/06 0800 04/06 0000 Intake Total 120 220 500 120 120 Output Total Balance 120 220 500 120 120 Intake, IV 100 Intake, Oral 120 120 500 120 120 Patient 264 lb 259 lb Weight Weight Bed scale Measurement Method Physical Exam: No distress at rest HEENT exam normal Chest diffuse rhonchi and a few scattered wheezes Heart regular, systolic ejection murmur at base Extremities some tenderness to the right calf Current Medications: Current Medications Sig/Ceasar Start time Last Medication Dose Route Stop Time Status Admin Acetaminophen 500 MG Q6P PRN 04/07 0230 AC 04/07 PO 0249 Acetaminophen 1,000 MG Q6P PRN 03/29 1700 04/05 N/A 1 UNIT IV 1835 Ampicillin Sodium/ 3,000 MG Q6H 03/30 2230 AC 04/07 Sulbactam Sodium IV 0913 Sodium Chloride 100 ML Benzocaine/Menthol 1 NED Q2P PRN 03/31 1000 AC PO Diltiazem HCl 30 MG Q8 04/04 1400 AC 04/07 PO 0640 Flecainide Acetate 75 MG BID 04/05 2100 AC 04/07 PO 0810 Furosemide 40 MG ONCE ONE 04/07 0845 DC 04/07 IV 04/07 0846 0913 Guaifenesin/Codeine 10 ML Q4-6 PRN PRN 04/03 1015 AC 04/06 Phosphate PO 2248 Levothyroxine Sodium 0.05 MG DAILY AC 04/01 0700 AC 04/07 PO 0640 Metoprolol Tartrate 100 MG BID 04/01 0900 AC 04/07 PO 0810 Nystatin 1 NARGIS BID 04/07 1127 TOP Omeprazole 40 MG BID 04/05 09 AC 04/07 PO 0810 Ondansetron HCl 4 MG Q6P PRN 03/31 1415 AC 04/03 IV 0829 Phenol 2 SPRAY Q2P PRN 03/31 1000 AC 03/31 EXT 1231 Polyethylene Glycol 17 GM DAILY 04/06 1645 AC 04/07 PO 0809 Senna/Docusate Sodium 1 TAB BID PRN 04/06 1645 AC 04/07 PO 0809 Simethicone 40 MG Q6P PRN 04/03 0600 AC 04/03 PO 0829 Results Last 48 Hrs of Labs/Mics: Laboratory Tests 04/07/18 0620: CBC w Diff NO MAN DIFF REQ, RBC 2.65 L, MCV 86.7, MCH 28.7, MCHC 33.1, RDW 16.7 H, MPV 7.2 L, Gran % 76.8 H, Lymphocytes % 15.5 L, Monocytes % 5.1, Eosinophils % 2.2, Basophils % 0.4, Absolute Granulocytes 10.7 H, Absolute Lymphocytes 2.2, Absolute Monocytes 0.7 H, Absolute Eosinophils 0.3, Absolute Basophils 0 04/06/18 1525: CBC w Diff NO MAN DIFF REQ, RBC 2.69 L, MCV 86.8, MCH 28.5, MCHC 32.8 L, RDW 16.8 H, MPV 7.0 L, Gran % 79.9 H, Lymphocytes % 12.6 L, Monocytes % 5.5, Eosinophils % 2.0, Basophils % 0, Absolute Granulocytes 12.0 H, Absolute Lymphocytes 1.9, Absolute Monocytes 0.8 H, Absolute Eosinophils 0.3, Absolute Basophils 0 04/06/18 1300: CBC w Diff Cancelled, WBC Cancelled, RBC Cancelled, Hgb Cancelled, Hct Cancelled , MCV Cancelled, MCH Cancelled, MCHC Cancelled, RDW Cancelled, Plt Count Cancelled, MPV Cancelled 04/06/18 0645: Anion Gap 10, Estimated GFR > 60, BUN/Creatinine Ratio 13.8, Uric Acid 6.1, CBC w Diff NO MAN DIFF REQ, RBC 2.61 L, MCV 86.6, MCH 29.0, MCHC 33.5, RDW 16.5 H, MPV 7.1 L, Gran % 78.4 H, Lymphocytes % 11.6 L, Monocytes % 7.2, Eosinophils % 2.6, Basophils % 0.2, Absolute Granulocytes 11.7 H, Absolute Lymphocytes 1.7, Absolute Monocytes 1.1 H, Absolute Eosinophils 0.4, Absolute Basophils 0 Recent Imaging Studies: IMPRESSION: CT findings most consistent with multilobar pneumonia. Interval follow-up is recommended status post treatment to ensure complete resolution and no superimposed pulmonary nodules or masses. Additionally, mildly prominent mediastinal lymph nodes are difficult to visualize on today's noncontrast examination, however, are likely reactive in nature given lung findings. Attention to these lymph nodes on follow-up is recommended. DICTATED BY: Gonzales Braxton MD DATE/TIME DICTATED:04/06/181144 DISTANCE EDUCATION FACULTY LIAISON:AVA DATE/TIME TRANSCRIBED:04/06/181144 Assessment/Plan Assessment/Plan The patient is stable from a cardiac standpoint. She remains in sinus rhythm. Her other problems are being addressed. I would discharge her on the same dose of flecainide and I will follow-up in the office, and she also has a follow-up with Dr. Hercules. Continue telemetry? Yes
--- NOTE | 2018-04-07 13:52 | PN- Infect Dx ---
Subjective Subjective: Afebrile. She notes bilateral lower extremity discomfort. She remains mildly short of breath, though she feels this has improved, and she notes decreased left forearm discomfort. Objective Last 24 Hrs of Vital Signs/I&O Vital Signs Date Time Temp Pulse Resp B/P B/P Pulse O2 O2 Flow FiO2 Mean Ox Delivery Rate 04/07 1253 98.9 71 20 94/70 97 Nasal 2.0L Cannula 04/07 0810 75 130/84 04/07 0800 96 Nasal 2.0L Cannula 04/07 0640 75 18 130/84 04/07 0600 98.4 77 20 130/84 98 04/07 0000 Nasal 2.0L Cannula 04/06 2257 98.5 81 20 97 Nasal Cannula 04/06 2248 68 18 106/66 04/06 2043 85 18 136/78 04/06 1600 99 Nasal 2.0L Cannula 04/06 1407 76 128/66 04/06 1400 99.2 80 20 108/70 98 Nasal 2.0L Cannula Intake & Output 04/07 1600 04/07 0800 04/07 0000 Intake Total 120 220 Output Total Balance 120 220 Intake, IV 100 Intake, Oral 120 120 Patient 264 lb Weight Weight Bed scale Measurement Method Physical Exam Other Physical Findings: She appears comfortable in no acute distress Lungs are clear Heart regular rhythm with no murmur Extremities decreased inflammation in the left forearm at the recent IV site; bilateral lower extremity 2+ edema Results Last 24 Hours of Lab Results: Laboratory Tests 04/07 04/06 0620 1525 Hematology CBC w Diff NO MAN DIFF REQ NO MAN DIFF REQ WBC (4.8 - 10.8 /CUMM) 14.0 H 15.0 H RBC (4.20 - 5.40 /CUMM) 2.65 L 2.69 L Hgb (12.0 - 16.0 G/DL) 7.6 L 7.7 L Hct (37 - 47 %) 22.9 L 23.3 L MCV (81.0 - 99.0 FL) 86.7 86.8 MCH (27.0 - 31.0 PG) 28.7 28.5 MCHC (33.0 - 37.0 G/DL) 33.1 32.8 L RDW (11.5 - 14.5 %) 16.7 H 16.8 H Plt Count (130 - 400 /CUMM) 603 H 666 H MPV (7.4 - 10.4 FL) 7.2 L 7.0 L Gran % (42.2 - 75.2 %) 76.8 H 79.9 H Lymphocytes % (20.5 - 51.1 %) 15.5 L 12.6 L Monocytes % (1.7 - 9.3 %) 5.1 5.5 Eosinophils % (0 - 5 %) 2.2 2.0 Basophils % (0.0 - 2.0 %) 0.4 0 Absolute Granulocytes (1.4 - 6.5 /CUMM) 10.7 H 12.0 H Absolute Lymphocytes (1.2 - 3.4 /CUMM) 2.2 1.9 Absolute Monocytes (0.10 - 0.60 /CUMM) 0.7 H 0.8 H Absolute Eosinophils (0.0 - 0.7 /CUMM) 0.3 0.3 Absolute Basophils (0.0 - 0.2 /CUMM) 0 0 Last 24 Hours of Manoj Results: Sputum culture April 05 mixed wai Blood cultures x 2 April 05 negative Recent Imaging Studies: Dopplers of both lower extremities April 07 negative Assessment/Plan ID Impression: Stable, with her temperatures now normal and white blood cell count slightly decreased, on Unasyn, Day 8 of treatment for presumed aspiration pneumonia secondary to Staph aureus. Her recent fevers were likely secondary to the left forearm phlebitis, which appears to be improving. Her exam still reveals evidence of significant fluid overload, with her weight up 25 pounds from admission, and feel that she needs to be diuresed more aggressively. Suggestion: 1. Continue warm compresses to her left forearm 2. Aggressive diuresis 3. Follow-up final sputum culture 4. Continue Unasyn
[2018-04-07 14:56] VITALS: BP 128/72
[2018-04-07 22:44] VITALS: BP 102/78
--- NOTE | 2018-04-08 06:18 | PN- Housestaff ---
Alexei Gordillo 04/08/18 0618: Subjective Follow-up For: GI Bleed A fib with RVR Tele-Events Since Last Visit: Normal sinus rhythm overnight Subjective: Patient seen sitting up in the bed, eating breakfast. She is quite withdrawn, responding in nods or one-word answers. The patient denies that anything is wrong, and says she is feeling okay, but she is making poor eye contact. She reports that she still has the pain and swelling in her bilateral lower extremities (especially right ankle), as well as the swelling in her forearms. She is currently on the nasal cannula with 2 L of oxygen, and reports a cough with yellow sputum. Patient denies chest pain, shortness of breath, palpitations, or dizziness. Review of Systems Constitutional: Denies: chills, fever. Cardiovascular: Denies: chest pain, palpitations. Respiratory: Reports: cough, sputum production. Gastrointestinal: Denies: abdominal pain, nausea, vomiting. Objective Last 24 Hrs of Vital Signs/I&O Vital Signs Date Time Temp Pulse Resp B/P B/P Pulse O2 O2 Flow FiO2 Mean Ox Delivery Rate 04/08 0637 98.4 76 18 122/70 96 Nasal 2.0L Cannula 04/08 0535 77 04/07 2256 Nasal 2.0L Cannula 04/07 2244 98.3 79 18 102/78 97 Nasal Cannula 04/07 1756 94 Nasal 2.0L Cannula 04/07 1532 76 128/72 04/07 1456 98.1 76 20 128/72 96 04/07 1253 98.9 71 20 94/70 97 Nasal 2.0L Cannula Intake & Output 04/08 1600 04/08 0800 04/08 0000 Intake Total 370 310 Output Total 500 1800 Balance -130 -1490 Intake, IV 320 110 Intake, Oral 50 200 Output, Urine 500 1800 Patient 118.104 kg Weight Physical Exam General Appearance: Alert, Oriented X3, No Acute Distress HEENT: Atraumatic, PERRLA, EOMI Cardiovascular: Regular Rate, Normal S1, Normal S2, No Murmurs Lungs: Congested bilaterally, with rales in the lower lung mcdonnell Abdomen: Normal Bowel Sounds, Soft, No Tenderness Extremities: No Clubbing, No Cyanosis, bilateral peripheral edema, R>L; erythematous bilateral forearms, L>R Assessment/Plan Assessment: 52-year-old female with history of GI bleed, A. fib and sleep apnea, HFpEF, HTN, DM, and hypothyroidism, transferred from the ICU on 04/04 after stabilized for massive GI bleed requiring 7 units of PRBC's s/p cauterization of bleeding gastric ulcer. 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 Patient had a recent echo in November which showed EF>60%. The patient still complaining of pain in her bilateral forearms, as well as pain of the right ankle. Upon exam the patient's forearms were swollen and tender surrounding her IV site especially on the right, suggesting possible superficial thrombophlebitis. The patient's bilateral lower extremities were also edematous , with more swelling and tenderness on the right. Bilateral venous Doppler ultrasound was negative for DVT bilaterally. Patient still showing clinical signs of pneumonia as well, with cough productive of yellow sputum as well as congestion audible on lung auscultation, but as she is already being treated for this pneumonia, we will continue antibiotics. Sputum sample was negative, showing mixed wai. The patient's hemoglobin was 7.6 this morning, which remained stable. No plans to transfuse at the moment. Problems: 1. Acute blood loss anemia 2. Bleeding gastric ulcer s/p endoscopy & cauterization 3. Atrial fibrillation with RVR 4. Suspected DVT 5. Pneumonia 6. Superficial thrombophlebitis Plan: * Continue Unasyn * 40 mg Lasix IV daily for diuresis, switch to PO tomorrow * Encourage frequent use of ALPS, as patient is not anticoagulated currently in the setting of recent GI bleed * Nutritional consult for iron-rich foods at home, per family request Problem List: 1. Upper GI bleed 2. Anemia 3. History of Hodgkin's disease 4. Paroxysmal A-fib 5. Dysphagia Pain Ratin Pain Location: BLE, forearms Pain Goal: Pain 4 or less Pain Plan: per pathway Tomorrow's Labs & Rationales: CBC & BEP Mac Watson 04/08/18 1223: Attending MD Review Statement Attending Statement Attending MD Statement: examined this patient, discuss w/resident/PA/FUR TANNER, agreed w/resident/PA/FUR TANNER, discussed with family, reviewed EMR data (avail), discussed with nursing, discussed with case mgmt, reviewed images, amended to note Attending Assessment/Plan: Patient seen/examined bedside. Denies any new complaints. She is being treated for MSSA pneumonia and acute hypoxic respiratory failure complicated with Upper GI bleed and acute blood loss anemia s/p transfuiosn and EGD with cauterisation. She also has afib and maintained sinus rythm on flecainide. She is negative balance with iv lasix. Consider changing to PO lasix and check walking pulse oximetry. PT conuslt for dc planning. A/C plan as per cardiology and GI. GI, cardiology and Pulmoanry has been consulted as multidisciplianry approach.
[2018-04-08 06:37] VITALS: BP 122/70
[2018-04-08 08:19] LABS: ABSOLUTE BASOPHIL COUNT 0 /CUMM (0.0-0.2); ABSOLUTE EOSINOPHIL COUNT 0.3 /CUMM (0.0-0.7); ABSOLUTE GRANULOCYTE CT 11.3 /CUMM (1.4-6.5); ABSOLUTE LYMPH COUNT 2.8 /CUMM (1.2-3.4); ABSOLUTE MONOCYTE COUNT 0.9 /CUMM (0.10-0.60); BASOPHIL % 0 % (0.0-2.0); EOSINOPHIL % 1.7 % (0-5); GRANULOCYTE % 74.5 % (42.2-75.2); HEMATOCRIT 22.8 % (37-47); MEAN CORPUSCULAR HGB 28.8 PG (27.0-31.0); MEAN CORPUSCULAR HGB CONC 33.3 G/DL (33.0-37.0); MEAN CORPUSCULAR VOLUME 86.2 FL (81.0-99.0); MEAN PLATELET VOLUME 7.1 FL (7.4-10.4); PLATELET COUNT 643 /CUMM (130-400); RBC DISTRIBUTION WIDTH 16.6 % (11.5-14.5); RED BLOOD CELL CT 2.65 /CUMM (4.20-5.40); WHITE BLOOD CELL COUNT 15.2 /CUMM (4.8-10.8)
--- NOTE | 2018-04-08 08:29 | PN- Pulmonary ---
Subjective HPI/Critical Care Issues: Patient continues to complain of ankle pain and bilateral edema. She is being diuresed. Objective Current Medications: Current Medications Sig/Ceasar Start time Last Medication Dose Route Stop Time Status Admin Acetaminophen 500 MG Q6P PRN 04/07 0230 AC 04/07 PO 0249 Acetaminophen 1,000 MG Q6P PRN 03/29 1700 AC 04/08 N/A 1 UNIT IV 0530 Ampicillin Sodium/ 3,000 MG Q6H 03/30 2230 AC 04/08 Sulbactam Sodium IV 0536 Sodium Chloride 100 ML Benzocaine/Menthol 1 NED Q2P PRN 03/31 1000 AC PO Diltiazem HCl 30 MG Q8 04/04 1400 AC 04/08 PO 0535 Flecainide Acetate 75 MG BID 04/05 2100 AC 04/07 PO 2139 Furosemide 40 MG ONCE ONE 04/08 0815 DC IV 04/08 0816 Furosemide 40 MG ONCE ONE 04/07 1845 DC 04/07 IV 04/07 1846 2000 Furosemide 40 MG ONCE ONE 04/07 0845 DC 04/07 IV 04/07 0846 0913 Guaifenesin/Codeine 10 ML Q4-6 PRN PRN 04/03 1015 AC 04/06 Phosphate PO 2248 Levothyroxine Sodium 0.05 MG DAILY AC 04/01 0700 AC 04/08 PO 0535 Metoprolol Tartrate 100 MG BID 04/01 0900 AC 04/07 PO 2140 Nystatin 1 NARGIS BID 04/07 1127 AC 04/07 TOP 1532 Omeprazole 40 MG BID 04/05 0900 AC 04/07 PO 2140 Ondansetron HCl 4 MG Q6P PRN 03/31 1415 AC 04/03 IV 0829 Phenol 2 SPRAY Q2P PRN 03/31 1000 AC 03/31 EXT 1231 Polyethylene Glycol 17 GM DAILY 04/06 1645 AC 04/07 PO 0809 Senna/Docusate Sodium 1 TAB BID PRN 04/06 1645 AC 04/07 PO 0809 Simethicone 40 MG Q6P PRN 04/03 0600 AC 04/03 PO 0829 Vital Signs & I&O Last 24 Hrs of Vitals and I&O: Vital Signs Date Time Temp Pulse Resp B/P B/P Pulse O2 O2 Flow FiO2 Mean Ox Delivery Rate 04/08 0637 98.4 76 18 122/70 96 Nasal 2.0L Cannula 04/08 0535 77 04/07 2256 Nasal 2.0L Cannula 04/07 2244 98.3 79 18 102/78 97 Nasal Cannula 04/07 1756 94 Nasal 2.0L Cannula 04/07 1532 76 128/72 04/07 1456 98.1 76 20 128/72 96 04/07 1253 98.9 71 20 94/70 97 Nasal 2.0L Cannula Intake & Output 04/08 1600 04/08 0800 04/08 0000 Intake Total 370 310 Output Total 500 1800 Balance -130 -1490 Intake, IV 320 110 Intake, Oral 50 200 Output, Urine 500 1800 Patient 260 lb Weight Oxygen saturation 2 L 9697% exam for chest shows diminished breath sounds at the bases there are no wheezes or crackles cardiac exam shows regular S1 and S2 extremities have bilateral edema Impression/Plan Impression/Plan Impression/Plan: 82-year-old woman with MSSA pneumonia and improving acute hypoxic respiratory failure appears no longer require supplemental oxygen. She is being effectively diuresed Recommendations: DC 02 and assess room air saturation at rest And with exertion. Complete course of antibiotics. Follow-up sputum culture. Continue negative fluid balance
--- NOTE | 2018-04-08 11:22 | PN- Infect Dx ---
Subjective Subjective: Afebrile. She continues to complain of lower extremity discomfort. She does note improvement in her shortness of breath and cough as well as decreased left forearm discomfort. Objective Last 24 Hrs of Vital Signs/I&O Vital Signs Date Time Temp Pulse Resp B/P B/P Pulse O2 O2 Flow FiO2 Mean Ox Delivery Rate 04/08 0951 122/70 04/08 0637 98.4 76 18 122/70 96 Nasal 2.0L Cannula 04/08 0535 77 04/07 2256 Nasal 2.0L Cannula 04/07 2244 98.3 79 18 102/78 97 Nasal Cannula 04/07 1756 94 Nasal 2.0L Cannula 04/07 1532 76 128/72 04/07 1456 98.1 76 20 128/72 96 04/07 1253 98.9 71 20 94/70 97 Nasal 2.0L Cannula Intake & Output 04/08 1600 04/08 0800 04/08 0000 Intake Total 370 310 Output Total 500 1800 Balance -130 -1490 Intake, IV 320 110 Intake, Oral 50 200 Output, Urine 500 1800 Patient 260 lb Weight Physical Exam Other Physical Findings: She appears more comfortable in no acute distress Lungs are clear Heart regular rhythm with no murmur Extremities decreased inflammation in the left forearm at a recent IV site; decreased edema both lower extremities Results Last 24 Hours of Lab Results: Laboratory Tests 04/08 0615 Chemistry Sodium (137 - 145 mmol/L) 136 L Potassium (3.5 - 5.1 mmol/L) 4.1 Chloride (98 - 107 mmol/L) 97 L Carbon Dioxide (22 - 30 mmol/L) 29 Anion Gap (5 - 16) 10 BUN (7 - 17 mg/dL) 13 Creatinine (0.5 - 1.0 mg/dL) 0.8 Estimated GFR (>60 ml/min) > 60 BUN/Creatinine Ratio (7 - 25 %) 16.3 Hematology CBC w Diff NO MAN DIFF REQ WBC (4.8 - 10.8 /CUMM) 15.2 H RBC (4.20 - 5.40 /CUMM) 2.65 L Hgb (12.0 - 16.0 G/DL) 7.6 L Hct (37 - 47 %) 22.8 L MCV (81.0 - 99.0 FL) 86.2 MCH (27.0 - 31.0 PG) 28.8 MCHC (33.0 - 37.0 G/DL) 33.3 RDW (11.5 - 14.5 %) 16.6 H Plt Count (130 - 400 /CUMM) 643 H MPV (7.4 - 10.4 FL) 7.1 L Gran % (42.2 - 75.2 %) 74.5 Lymphocytes % (20.5 - 51.1 %) 18.2 L Monocytes % (1.7 - 9.3 %) 5.6 Eosinophils % (0 - 5 %) 1.7 Basophils % (0.0 - 2.0 %) 0 Absolute Granulocytes (1.4 - 6.5 /CUMM) 11.3 H Absolute Lymphocytes (1.2 - 3.4 /CUMM) 2.8 Absolute Monocytes (0.10 - 0.60 /CUMM) 0.9 H Absolute Eosinophils (0.0 - 0.7 /CUMM) 0.3 Absolute Basophils (0.0 - 0.2 /CUMM) 0 Last 24 Hours of Manoj Results: Blood cultures x 2 April 05 negative Sputum culture April 05 mixed wai Assessment/Plan ID Impression: Stable, with her temperatures remaining normal, on Unasyn, Day 9 of treatment for presumed aspiration pneumonia secondary to Staph aureus. Her recent fevers were likely secondary to the left forearm phlebitis, which continues to improve. She appears more comfortable status post diuresis of a significant amount of fluid. Her white blood cell count remains elevated and may be multifactorial in etiology. Suggestion: 1. Continue aggressive diuresis 2. Continue warm compresses to the left forearm 3. Discontinue Unasyn in the a.m. and then follow off antibiotics
[2018-04-08 15:02] VITALS: BP 108/60
[2018-04-08] MEDS ORDERED: FLECAINIDE ACET50 M1 PO (16:16)
[2018-04-08] MEDS ORDERED: DILT-XR120 M1 PO (16:16)
[2018-04-08 22:33] VITALS: BP 118/62
--- NOTE | 2018-04-09 06:33 | PN- Housestaff ---
Alexei Gordillo 04/09/18 0633: Subjective Follow-up For: GI Bleed Anemia A Fib with RVR Pneumonia Tele-Events Since Last Visit: Normal sinus rhythm overnight Subjective: Patient seen resting comfortably in the bed, enjoying breakfast. She reports feeling much better this morning, and overnight she complains of no acute events. She still reports shortness of breath with activity, but has been getting up to the chair frequently and attempting to walk around. The swelling and tenderness in her arms has improved, and the edema in her lower extremities looks better to her as well. She still has some soreness in her right ankle, but it no longer bothers her to move it. Review of Systems Constitutional: Denies: chills, fever, weakness. Cardiovascular: Reports: peripheral edema. Denies: chest pain, orthopena, palpitations. Respiratory: Reports: cough, short of breath, sputum production. Gastrointestinal: Denies: abdominal pain, nausea, vomiting. Objective Last 24 Hrs of Vital Signs/I&O Vital Signs Date Time Temp Pulse Resp B/P B/P Pulse O2 O2 Flow FiO2 Mean Ox Delivery Rate 04/08 2233 99.8 82 18 118/62 91 Room Air 04/08 1502 98.1 75 20 108/60 91 Room Air 04/08 1347 73 04/08 0951 122/70 04/08 0900 18 94 Room Air 04/08 0800 99 Nasal 2.0L Cannula 04/08 0800 18 99 Nasal 2.0L Cannula Intake & Output 04/09 0800 04/09 0000 04/08 1600 Intake Total 310 260 100 Output Total 800 Balance 310 260 -700 Intake, IV 110 110 100 Intake, Oral 200 150 Output, Urine 800 Physical Exam General Appearance: Alert, Oriented X3, Cooperative, No Acute Distress HEENT: Atraumatic, PERRLA, EOMI, Mucous Membr. moist/pink Neck: Supple, No JVD, No thryomegaly, +2 Carotid Pulse wo Bruit Cardiovascular: Regular Rate, Normal S1, Normal S2, No Murmurs Lungs: Clear to Auscultation, Normal Air Movement Abdomen: Normal Bowel Sounds, Soft, No Tenderness Neurological: Normal Gait, Normal Speech Extremities: No Clubbing, No Cyanosis, Peripheral edema and local edema and erythema surrounding IV sites Assessment/Plan Assessment: 52-year-old female with history of GI bleed, A. fib and sleep apnea, HFpEF, HTN, DM, and hypothyroidism, transferred from the ICU on 04/04 after stabilized for massive GI bleed requiring 7 units of PRBC's s/p cauterization of bleeding gastric ulcer. 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 Patient had a recent echo in November which showed EF>60%. The patient reports improvement in the thrombophlebitis of her bilateral forearms, as well as right ankle. Of note, her WBC count this morning increased, from 15.2 to 17.2 , but she was afebrile and denied chills. She should follow up with this as an outpatient, we will include a prescription and special instructions upon discharge. The patient's HgB this morning was 7.7, remaining stable and she does not require transfusion. She should follow-up with her thickener operator about restarting Eliquis, although she is in sinus rhythm with fleicanide. Problems: 1. Acute blood loss anemia (stable) 2. Bleeding gastric ulcer s/p endoscopy & cauterization 3. Atrial fibrillation with RVR (in sinus rhythm on fleicanide) 4. Suspected DVT (ruled-out) 5. Pneumonia (resolved) 6. Superficial thrombophlebitis (improved) Plan: * Finished 10 day course of Unasyn * Follow-up CBC for leukocytosis and anemia as outpatient * Close follow-up with cardiology and gastroenterology as outpatient * Lasix 40mg PO daily * Encourage frequent use of ALPS, as patient is not anticoagulated currently in the setting of recent GI bleed * Nutritional consult for iron-rich foods at home, per family request Problem List: 1. Upper GI bleed 2. Anemia 3. History of Hodgkin's disease 4. Paroxysmal A-fib 5. Rapid atrial fibrillation Pain Ratin Pain Location: none Pain Goal: Pain 4 or less Pain Plan: per pathway Tomorrow's Labs & Rationales: CBC & BEP Mac Watson 04/09/18 1158: Attending MD Review Statement Attending Statement Attending MD Statement: examined this patient, discuss w/resident/PA/CERTIFIED ART THERAPIST, agreed w/resident/PA/CERTIFIED ART THERAPIST, discussed with family, reviewed EMR data (avail), discussed with nursing, discussed with case mgmt, reviewed images, amended to note Attending Assessment/Plan: Patient seen/examined bedside. Denies any new complaints. She is being treated for MSSA pneumonia and acute hypoxic respiratory failure complicated with Upper GI bleed and acute blood loss anemia s/p transfuiosn and EGD with cauterisation. She also has afib and maintained sinus rythm on flecainide/cardizem and metoprolol. PO lasix at discharge. PT conuslt recommend home PT. A/C plan as per cardiology and GI. She is medically stable for discharge. PARLIAMENTARY COUNSEL 1. GI 2. cardiology 3. Pulmoanry FOLLOW UP Cardiology Dr Muñoz in 1 week Gastroenterology in 1-2 week PCP in 3-5 days
--- NOTE | 2018-04-09 08:09 | PN- Pulmonary ---
Subjective HPI/Critical Care Issues: Patient is comfortable on room air without respiratory complaints Objective Current Medications: Current Medications Sig/Ceasar Start time Last Medication Dose Route Stop Time Status Admin Acetaminophen 1,000 MG .STK-MED ONE 04/08 1129 DC IV 04/08 1130 Acetaminophen 500 MG Q6P PRN 04/07 0230 AC 04/08 PO 2123 Acetaminophen 1,000 MG Q6P PRN 03/29 1700 AC 04/08 N/A 1 UNIT IV 1141 Ampicillin Sodium/ 3,000 MG Q6H 03/30 2230 DC 04/09 Sulbactam Sodium IV 0418 Sodium Chloride 100 ML Benzocaine/Menthol 1 NED Q2P PRN 03/31 1000 AC PO Diltiazem HCl 30 MG Q8 04/04 1400 AC 04/09 PO 0501 Flecainide Acetate 75 MG BID 04/05 2100 AC 04/08 PO 2123 Furosemide 40 MG DAILY 04/09 0900 AC PO Furosemide 40 MG ONCE ONE 04/08 0815 DC 04/08 IV 04/08 0816 0951 Guaifenesin/Codeine 10 ML Q4-6 PRN PRN 04/03 1015 AC 04/08 Phosphate PO 2122 Levothyroxine Sodium 0.05 MG DAILY AC 04/01 0700 AC 04/09 PO 0501 Metoprolol Tartrate 100 MG BID 04/01 0900 AC 04/08 PO 2123 Nystatin 1 NARGIS BID 04/07 1127 AC 04/08 TOP 2131 Omeprazole 40 MG BID 04/05 0900 AC 04/08 PO 2123 Ondansetron HCl 4 MG Q6P PRN 03/31 1415 AC 04/03 IV 0829 Phenol 2 SPRAY Q2P PRN 03/31 1000 AC 03/31 EXT 1231 Polyethylene Glycol 17 GM DAILY 04/06 1645 AC 04/08 PO 0952 Senna/Docusate Sodium 1 TAB BID PRN 04/06 1645 AC 04/07 PO 0809 Simethicone 40 MG Q6P PRN 04/03 0600 AC 04/08 PO 1341 Vital Signs & I&O Last 24 Hrs of Vitals and I&O: Vital Signs Date Time Temp Pulse Resp B/P B/P Pulse O2 O2 Flow FiO2 Mean Ox Delivery Rate 04/09 0716 99.0 72 16 04/08 2233 99.8 82 18 118/62 91 Room Air 04/08 1502 98.1 75 20 108/60 91 Room Air 04/08 1347 73 04/08 0951 122/70 04/08 0900 18 94 Room Air Intake & Output 04/09 1600 04/09 0800 04/09 0000 Intake Total 310 260 Output Total Balance 310 260 Intake, IV 110 110 Intake, Oral 200 150 Remeron oxygen saturation 9194% exam for chest shows decreased breath sounds at the bases cardiac exam shows regular S1 and S2 without murmurs there is still lower extremity edema Impression/Plan Impression/Plan Impression/Plan: 52-year-old woman with MSSA pneumonia and improved acute hypoxic respiratory failure Recommendations: Patient should have follow-up chest x-ray post discharge. Please call for further pulmonary issues
[2018-04-09 08:16] LABS: ABSOLUTE BASOPHIL COUNT 0 /CUMM (0.0-0.2); ABSOLUTE EOSINOPHIL COUNT 0.1 /CUMM (0.0-0.7); ABSOLUTE GRANULOCYTE CT 13.6 /CUMM (1.4-6.5); ABSOLUTE LYMPH COUNT 2.1 /CUMM (1.2-3.4); ABSOLUTE MONOCYTE COUNT 1.4 /CUMM (0.10-0.60); BASOPHIL % 0.2 % (0.0-2.0); EOSINOPHIL % 0.8 % (0-5); HEMATOCRIT 23.2 % (37-47); MEAN CORPUSCULAR HGB 28.5 PG (27.0-31.0); MEAN CORPUSCULAR HGB CONC 33.1 G/DL (33.0-37.0); MEAN CORPUSCULAR VOLUME 86.2 FL (81.0-99.0); PLATELET COUNT 698 /CUMM (130-400); RBC DISTRIBUTION WIDTH 17.1 % (11.5-14.5); WHITE BLOOD CELL COUNT 17.2 /CUMM (4.8-10.8)
--- NOTE | 2018-04-09 09:12 | PN- Infect Dx ---
Subjective Subjective: Afebrile. She feels improved with decreased shortness of breath and with a minimal cough. She also notes decreased lower extremity discomfort and no further discomfort in the left forearm. Objective Last 24 Hrs of Vital Signs/I&O Vital Signs Date Time Temp Pulse Resp B/P B/P Pulse O2 O2 Flow FiO2 Mean Ox Delivery Rate 04/09 0822 76 118/74 04/09 0716 99.0 72 16 04/08 2233 99.8 82 18 118/62 91 Room Air 04/08 1502 98.1 75 20 108/60 91 Room Air 04/08 1347 73 04/08 0951 122/70 Intake & Output 04/09 1600 04/09 0800 04/09 0000 Intake Total 310 260 Output Total Balance 310 260 Intake, IV 110 110 Intake, Oral 200 150 Physical Exam Other Physical Findings: She appears comfortable in no acute distress Lungs mild inspiratory wheezes Heart regular rhythm with no murmur Extremities decreased inflammation in the left forearm; slight decreased edema in both lower extremities Results Last 24 Hours of Lab Results: Laboratory Tests 04/09 712 Chemistry Sodium (137 - 145 mmol/L) 137 Potassium (3.5 - 5.1 mmol/L) 4.1 Chloride (98 - 107 mmol/L) 96 L Carbon Dioxide (22 - 30 mmol/L) 29 Anion Gap (5 - 16) 11 BUN (7 - 17 mg/dL) 12 Creatinine (0.5 - 1.0 mg/dL) 0.9 Estimated GFR (>60 ml/min) > 60 BUN/Creatinine Ratio (7 - 25 %) 13.3 Hematology CBC w Diff NO MAN DIFF REQ WBC (4.8 - 10.8 /CUMM) 17.2 H RBC (4.20 - 5.40 /CUMM) 2.70 L Hgb (12.0 - 16.0 G/DL) 7.7 L Hct (37 - 47 %) 23.2 L MCV (81.0 - 99.0 FL) 86.2 MCH (27.0 - 31.0 PG) 28.5 MCHC (33.0 - 37.0 G/DL) 33.1 RDW (11.5 - 14.5 %) 17.1 H Plt Count (130 - 400 /CUMM) 698 H MPV (7.4 - 10.4 FL) 7.0 L Gran % (42.2 - 75.2 %) 79.0 H Lymphocytes % (20.5 - 51.1 %) 12.0 L Monocytes % (1.7 - 9.3 %) 8.0 Eosinophils % (0 - 5 %) 0.8 Basophils % (0.0 - 2.0 %) 0.2 Absolute Granulocytes (1.4 - 6.5 /CUMM) 13.6 H Absolute Lymphocytes (1.2 - 3.4 /CUMM) 2.1 Absolute Monocytes (0.10 - 0.60 /CUMM) 1.4 H Absolute Eosinophils (0.0 - 0.7 /CUMM) 0.1 Absolute Basophils (0.0 - 0.2 /CUMM) 0 Last 24 Hours of Manoj Results: No new cultures Assessment/Plan ID Impression: Stable, with her temperatures remaining normal, on Unasyn, Day 10 of treatment for presumed aspiration pneumonia secondary to Staph aureus. Her respiratory status continues to improve with diuresis. Her white blood cell count, however, remains elevated, of unclear etiology, with no evidence for any new infection. Suggestion: 1. Continue diuresis 2. Discontinue Unasyn and follow off antibiotics
[2018-04-09] MEDS ORDERED: CARDIZEM30 M1 PO ×2 (11:03→12:11)
[2018-04-09] MEDS ORDERED: FLECAINIDE ACET50 M1 PO (12:11)
[2018-04-09 14:41] VITALS: BP 114/70
--- NOTE | 2018-04-09 15:41 | Discharge Summary ---
Visit Information Visit Dates Admission Date: 03/29/18 Discharge Date: 04/09/18 Hospital Course Course Attending Physician: Tiny Ohara MD Primary Care Physician: Mayuri DUNN,[place] [facility] Course: 52 year old female with PMH of Hodgkin's lymphoma tx'd 23 years ago with chemoradiotherapy, HTN, obesity, JASON previously on CPAP, pAfib on Eliquis diagnosed 1 year ago, requiring emergent cardioverison at [facility] in the past, and HFpEF presented with one day history of nausea, coffee ground emesis, and melanotic diarrhea. The patient's symptoms started early the morning of admission. The prior evening, she was in her usual state of health and ate out for dinner steak and potatoes. At 4AM, she developed frequent epidosdes of dark red diarrhea, approximately 2 BMs per hour. She did have some associated crampy abdominal pain and nausea. She ate some grapes and drank a little water and gingerale around 1100 today and then had one episode of coffee ground emesis, guiaic positive. After vomiting her abdominal pain resolved. She took Eliquis this morning. She denies any significant NSAID use. She denies any sick contacts. She does report frequent fevers, chills, and night sweats unrelated to this episode, and is postmenopausal. She has been extremely fatigued and sleeping more often lately. Her exercise tolerance is diminished, 1-2 flights of stairs before stopping and has been gaining weight, approximately 50lbs over two year period. She also reported having some transient blurred vision this morning but denies any symptoms of presyncope, chest pain, palpitations, or dyspnea. The patient states she has never had an EGD or screening colonoscopy. She has never had a bleeding problem before and has only been taking Eliquis for the past several months. She also had some complaints of chronic dysphagia for both solids and liquids that was evaluated with a barium swallow as an outpatient and revealed significant prominence of the cricopharyngeus muscle with mass effect on the esophagus posteriorly. In the ED, she was transfused one unit packed red blood cells and given a one liter crystalloid bolus, for hypotension SBP 80s, acute blood loss anemia, hemoglobin 7, and an elevated lactic acid. She was started on an IV PPI drip. NGT placement for gastric lavage was attempted but unsuccessful. Gastroenterology was consulted and the patient was admitted to critical care for an emergent EGD. Pt was intubated in order to protect her airway in the setting of GI bleed, and to undergo a first EGD on 03/29 that showed oblong gastric ulcer - since Pt was on elliquis no corrective measure taken. 2nd EGD 03/30 took corrective measures after elliquis was dc'd. She was subsequently extubated. Patient received a total 7U PRBCs while in the unit, with H/H going up accordingly, then decreasing again. She continued to have melena. She has been treated with unasyn for a likely aspiration PNA (day# 6). H/H stabilized on 04/04. She was constantly on sinus rhythm until 04/03 where she had an episode of afib requiring cardizem drip. Pt was then hypotensive -- 250mL bolus NS x2 given, with increase in BP to 97/54. She returned to sinus the same day on 04/03. She is now transitioned to cardizem PO. The patient was transferred to the telemetry unit and was continuously monitored. A neck CT was performed to further assess the cricopharyngeal hypertrophy noted on EGD, and the patient was recommended to follow-up with ENT as an outpatient for further evaluation and assistance with dysphagia. The patient was diuresed with Lasix, in the setting of edema of the extremities, and she also developed superficial thrombophlebitis at the IV sites of her upper arms, especially on the left. In this setting, the patient began to spike fevers overnight, but as she was already on Unasyn for pneumonia coverage, these fevers were controlled and monitored in conjunction with her WBC count, though to be reactive to the superficial thrombophlebitis. Physical therapy continued to work with the patient, and the patient was gradually weaned off oxygen, which she tolerated well. The patient's edema improved greatly, and the patient finished her course of antibiotics as an inpatient, was switched to PO Lasix and prepared for discharge. Allergies: Coded Allergies: No Known Allergies (11/17/17) Significant Procedures: Endoscopy on 03/29/18: 1. 1 cm x 2 cm2 oblong gastric ulcer at incisura/lesser curvature with peripheral oozing, left intact, as Eliquis on board. 2. Clots & food obscuring portions of the gastric cardia, fundus, & distal antrum; patent pylorus without GOO. Possible component of gastroparesis (elevated TSH, mild DM). 3. 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 4. Clean duodenum to D3. Repeat Endoscopy on 03/30/18: 1. 1 cm x 2 cm2 oblong, friable gastric ulcer at the incisura, towards the lesser curvature, containing a visible vessel. The ulcer was somewhat symmetrical, and had a slight lumpy bumpy appearance. Successfully treated with Gold Probe cautery & [place] [employer] Resolution 360 Clips x 3. 2. Excellent visibility after the effects of Eliquis had worn off, & after use of OGT & Reglan. No residual clots or food seen. 3. Cricopharyngeal hypertrophy with minimally snug upper esophageal inlet. Pertinent Lab Results: CT Chest on 04/06: CT findings most consistent with multilobar pneumonia. Interval follow-up is recommended status post treatment to ensure complete resolution and no superimposed pulmonary nodules or masses. Additionally, mildly prominent mediastinal lymph nodes are difficult to visualize on today's noncontrast examination, however, are likely reactive in nature given lung findings. Attention to these lymph nodes on follow-up is recommended. Patient was found to have leukocytosis throughout the course of her hospitalization, with a high of 23.6 and a low of 14.4. Patient was anemic throughout the hospital course, with HgB at a high of 9.1 and a low of 7.2. 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 Medications at Discharge Discharge Medications: Stop taking the following medications: Apixaban (Eliquis) 5 MG TABLET ORAL TWICE DAILY Qty = 60 Spironolactone (Aldactone) 25 MG TABLET ORAL EVERY 48 HOURS (Every 2 days) Continue taking these medications: Metoprolol Tartrate (Metoprolol Tartrate) 100 MG TABLET 1 Tablet ORAL TWICE DAILY Qty = 60 Instructions: . Comments: Last Taken: 04/09/18 Time: 8:30 AM Furosemide (Lasix) 40 MG TABLET 1 Tablet ORAL EVERY 48 HOURS (Every 2 days) Comments: Last Taken: 04/09/18 Time: 8:30 AM Levothyroxine Sodium (Levoxyl) 50 MCG TABLET 1 Tablet ORAL DAILY BEFORE BREAKFAST Comments: Last Taken: 04/09/18 Time: 5:00 AM Fluticasone Propionate (Flonase Allergy Relief) 50 MCG/ACTUATION SPRAY.SUSP 1 [place] In the nose DAILY Comments: NOT GIVEN Start taking the following new medications: Diltiazem HCl (Cardizem) 30 MG TABLET 1 Tablet ORAL EVERY 8 HOURS Qty = 90 No Refills Instructions: . Comments: Last Taken: 04/09/18 Time: 2:30 PM Flecainide Acetate (Flecainide Acetate) 50 MG TABLET 75 [place] ORAL TWICE DAILY Qty = 60 No Refills Instructions: . Comments: Last Taken: 04/09/18 Time: 8:30 AM Copies To: Mayuri DUNN,Giselle Jeff MD,Jose Luis Joel; Luis Felipe DUNN,Ken Hercules MD,Porfirio Joshua; Toni DUNN,Jose Luis De Los Santos
== END 2018-04-09 15:30 | disposition home health service (06) | DRG 377 ==
LOC: ERH 12:21 → 1NO 15:31 → ERHI 15:31 → CRI 15:31 → ENTRNSPT 17:05 → EDTRNSPTSTS 17:11 → EDTRNSPT 17:11 → CRI 17:15 → CMPTRNSPT 17:28 → ENTRNSPT 04-04 15:14 → EDTRNSPTSTS 04-04 15:36 → EDTRNSPT 04-04 15:36 → CMPTRNSPT 04-04 15:57 → DELTRNSPT 04-04 16:46 → 1NO 04-04 16:47 → ENPENDDIS 04-09 12:11 → EDPENDDISTM 04-09 12:16 → ENTRNSPT 04-09 14:59 → 1NO 04-09 15:30 → CMPTRNSPT 04-09 15:35
PROVIDERS: Internal Medicine; Physician Assistant; Preventive Medicine Public Health & General Preventive Medicine; Student in an Organized Health Care Education/Training Program
PROC: 0DJ08ZZ Inspection of Upper Intestinal Tract, Via Natural or Artificial Opening Endoscopic (ICD-10-PCS; principal; 2018-03-29)
PROC: 0BH17EZ Insertion of Endotracheal Airway into Trachea, Via Natural or Artificial Opening (ICD-10-PCS; 2018-03-29)
PROC: 0W3P8ZZ Control Bleeding in Gastrointestinal Tract, Via Natural or Artificial Opening Endoscopic (ICD-10-PCS; 2018-03-29)
PROC: 30233Q1 Transfusion of Nonautologous White Cells into Peripheral Vein, Percutaneous Approach (ICD-10-PCS; 2018-03-29)
PROC: 5A1945Z Respiratory Ventilation, 24-96 Consecutive Hours (ICD-10-PCS; 2018-03-29)
DX: K25.4 Chronic or unspecified gastric ulcer with hemorrhage (principal); J69.0 Pneumonitis due to inhalation of food and vomit; Z68.43 Body mass index [BMI] 50.0-59.9, adult; I50.32 Chronic diastolic (congestive) heart failure; D62 Acute posthemorrhagic anemia; J68.0 Bronchitis and pneumonitis due to chemicals, gases, fumes and vapors; N17.9 Acute kidney failure, unspecified; I48.2 Chronic atrial fibrillation; Z79.01 Long term (current) use of anticoagulants; G47.33 Obstructive sleep apnea (adult) (pediatric); E66.9 Obesity, unspecified; R13.10 Dysphagia, unspecified; I11.0 Hypertensive heart disease with heart failure; I95.9 Hypotension, unspecified; E11.43 Type 2 diabetes mellitus with diabetic autonomic (poly)neuropathy; K31.84 Gastroparesis; R00.0 Tachycardia, unspecified; I48.0 Paroxysmal atrial fibrillation; B95.61 Methicillin susceptible Staphylococcus aureus infection as the cause of diseases classified elsewhere; I48.91 Unspecified atrial fibrillation; Z85.71 Personal history of Hodgkin lymphoma
CPT/HCPCS: 1NSP; 87184; CCU; 36415; 36592; 71045; 81001; 82436; 86920; 87040; 87070; 87086; 87147; 93005; 93010; 93970; 96374; 96376; 97110-GO; 97116-GO; 97161-GP; 99291; J0131; J1940; J2270; J2405; J2765; J3101; P9016